=== PATIENT | male | born 1935 | race Caucasian/White ===

== ENCOUNTER → 2017-07-18 | Outpatient (CLI) | payer MEDICARE ==
[2017-07-18 08:30] LABS: Basophils # (A) 0.1 k/uL (0-0.2); Basophils % (A) 1 %; CH 30.5; CHCM 34.7; Eosinophils # (A) 0.7 k/uL (0-0.7); Eosinophils % (A) 6 %; HCT 43.2 % (39.0-53.0); HDW 2.64; HGB 15.2 gm/dL (13.0-17.5); Luc # (Auto) 0.21; Luc % (Auto) 2; Lymphocytes # (A) 2.8 k/uL (1.0-4.8); Lymphocytes % (A) 23 %; MCH 31.1 pg (25.0-35.0); MCHC 35.2 g/dL (31.0-37.0); MCV 88.3 fL (80.0-100.0); Mean Platelet Volume 7.3; Monocytes # (A) 0.6 k/uL (0-1.0); Monocytes % (A) 5 %; Neutrophils # (A) 7.9 k/uL (1.3-7.7); Neutrophils % (A) 64 %; RBC 4.89 m/uL (4.30-5.90); WBC 12.2 k/uL (3.8-10.6); WBC (Perox) 12.29
[2017-07-18 10:36] LABS: ALT 41 U/L (21-72); AST 24 U/L (17-59); Alkaline Phosphatase 59 U/L (38-126); Anion Gap 11 mmol/L; Blood Urea Nitrogen 25 mg/dL (9-20); Calcium 9.1 mg/dL (8.4-10.2); Carbon Dioxide 22 mmol/L (22-30); Chloride 108 mmol/L (98-107); Cholesterol 89 mg/dL (<200); Glucose 117 mg/dL (74-99); HDL Cholesterol 34 mg/dL (40-60); Non-African American GFR(MDRD) 58 (>60 ml/min/1.73 sqM); Potassium 4.4 mmol/L (3.5-5.1); Sodium 141 mmol/L (137-145); Total Bilirubin 0.6 mg/dL (0.2-1.3); Total Protein 6.8 g/dL (6.3-8.2)
[2017-07-18 10:57] LABS: Prostate Specific Antigen 1.15 ng/mL (0.00-4.00)
== END | disposition home or self-care (01) ==
LOC: LABWHC1 08:05
PROVIDERS: ATTEND Internal Medicine
DX: N40.1 Benign prostatic hyperplasia with lower urinary tract symptoms (principal); R73.02 Impaired glucose tolerance (oral); M10.9 Gout, unspecified; K62.5 Hemorrhage of anus and rectum
CPT/HCPCS: 36415; 80053; 80061; 83036; 84153; 84550; 85025

== ENCOUNTER → 2017-10-22 | Outpatient (CLI) | payer MEDICARE ==
--- NOTE | 2017-10-22 14:38 | XR ---
Lumbar spine HISTORY: Low back pain 3 views of the lumbar spine No comparisons There is a spinal curvature. Lumbar vertebral bodies show preserved height and alignment. Bone minera lization is reduced. There is multilevel spondylosis. Loss of disc height present at the intervertebr al levels, vacuum phenomenon present at L5-S1. Lordosis present in the posterior elements. Mild anter ior wedging L1. Dense vascular calcifications present within the aorta. IMPRESSION: Degenerative disc disease, facet arthropathy, spinal curvature, atherosclerotic periphera l vascular occlusive disease. Anterior wedging at L1 of indeterminate age.
--- NOTE | 2017-10-22 14:42 | XR ---
Right hip HISTORY: Right hip pain 2 views of the right hip No comparisons Bone mineralization and alignment are maintained. Mild loss of joint space. IMPRESSION: Mild osteoarthritic change suspected
== END | disposition home or self-care (01) ==
LOC: RADXRMAIN 09:07
PROVIDERS: ATTEND Internal Medicine
DX: M51.36 Other intervertebral disc degeneration, lumbar region (principal); M46.86 Other specified inflammatory spondylopathies, lumbar region; M48.56XA Collapsed vertebra, not elsewhere classified, lumbar region, initial encounter for fracture; M43.9 Deforming dorsopathy, unspecified; M25.551 Pain in right hip
CPT/HCPCS: 72100; 73502

== ENCOUNTER → 2018-03-25 | Outpatient (CLI) | payer MEDICARE ==
[2018-03-25 08:25] LABS: ALT 39 U/L (21-72); AST 26 U/L (17-59); Cholesterol 109 mg/dL (<200); HDL Cholesterol 37 mg/dL (40-60); LDL Cholesterol,Calculated 36 mg/dL (0-99); Triglycerides 181 mg/dL (<150)
== END | disposition home or self-care (01) ==
LOC: LABWHC1 07:30
PROVIDERS: ATTEND Internal Medicine Cardiovascular Disease
DX: E78.2 Mixed hyperlipidemia (principal)
CPT/HCPCS: 36415; 80061; 84450; 84460

== ENCOUNTER → 2018-07-03 | Outpatient (CLI) | payer MEDICARE ==
[2018-07-03 08:22] LABS: Basophils # (A) 0.1 k/uL (0-0.2); Basophils % (A) 1 %; Eosinophils # (A) 0.6 k/uL (0-0.7); Eosinophils % (A) 7 %; Lymphocytes # (A) 2.7 k/uL (1.0-4.8); Lymphocytes % (A) 27 %; MCH 29.3 pg (25.0-35.0); MCHC 33.3 g/dL (31.0-37.0); Mean Platelet Volume 7.4; Monocytes # (A) 0.5 k/uL (0-1.0); Monocytes % (A) 5 %; Neutrophils # (A) 5.9 k/uL (1.3-7.7); Neutrophils % (A) 59 %; Platelet Count 236 k/uL (150-450); RBC 5.46 m/uL (4.30-5.90); RDW 13.7 % (11.5-15.5); WBC 9.9 k/uL (3.8-10.6)
[2018-07-03 08:27] LABS: Appearance,Urine Clear (Clear); Bilirubin,Urine Negative (Negative); Blood,Urine Negative (Negative); Color,Urine Yellow; Glucose,Urine (UA) Negative (Negative); Ketones,Urine Negative (Negative); Leukocyte Esterase,Urine Negative (Negative); Nitrite,Urine Negative (Negative); PH, Urine 5.5 (5.0-8.0); Protein,Urine Negative (Negative); Specific Gravity,Urine 1.013 (1.001-1.035); Urobilinogen,Urine <2.0 mg/dL (<2.0)
[2018-07-03 10:29] LABS: Albumin 4.3 g/dL (3.5-5.0); Calcium 9.5 mg/dL (8.4-10.2); Potassium 4.6 mmol/L (3.5-5.1); Total Bilirubin 0.8 mg/dL (0.2-1.3); Total Protein 7.2 g/dL (6.3-8.2); Uric Acid 6.9 mg/dL (3.5-8.5)
[2018-07-03 10:58] LABS: Prostate Specific Antigen 1.15 ng/mL (0.00-4.00)
== END | disposition home or self-care (01) ==
LOC: LABWHC1 07:58
PROVIDERS: ATTEND Internal Medicine
DX: N40.0 Benign prostatic hyperplasia without lower urinary tract symptoms (principal); I10 Essential (primary) hypertension; M10.9 Gout, unspecified; E55.9 Vitamin D deficiency, unspecified
CPT/HCPCS: 36415; 80053; 80061; 81003; 82306; 84153; 84550; 85025

== ENCOUNTER 2019-01-07 11:32 | Emergency (ER) | payer MEDICARE ==
[2019-01-07 11:39] VITALS: RESP 18; TEMP 96.8
[2019-01-07] MEDS ORDERED: ACET/COD 300 MG/30 MG STARTER PACK 6 TAB BTL PO STA (12:22)
[2019-01-07] MEDS ORDERED: KETOROLAC 60 MG/2 ML VIAL IM STA (12:22)
--- NOTE | 2019-01-07 12:43 | XR ---
EXAMINATION TYPE: XR lumbar spine 2 or 3V DATE OF EXAM: 01/07/2019 CLINICAL HISTORY: pain TECHNIQUE: Three views of the lumbar spine are submitted. COMPARISON: 10/22/2017 FINDINGS: There are 5 lumbar type vertebral bodies identified. The lumbar spine shows satisfactory alignment w ithout evidence of acute fracture or dislocation. Vertebral body heights are within normal limits. Moderate multilevel degenerative disc space narrowing and spondylosis. Severe facet joint arthropathy . The overlying soft tissue appears unremarkable. IMPRESSION: No acute fracture or dislocation is seen in the lumbar spine. ICD 10 NO FRACTURE, INITIAL EVALUATION
--- NOTE | 2019-01-07 13:09 | XR ---
Frontal chest x-ray and right RIBS HISTORY: Trauma and pain Frontal view of the chest, 4 views of the right ribs are submitted. Correlation to prior chest x-ray 09/10/2012 No pneumothorax or pleural effusion. Minimal atelectatic change suspected at the costophrenic angle l evels. Cardiac mediastinal silhouette, pulmonary vascularity and kenia are stable. Aorta is dense. Minimally displaced rib fractures noted at the right fourth, sixth, seventh and possibly fifth ribs. Some local pleural thickening is noted which is likely posttraumatic. IMPRESSION: Multiple right-sided rib fractures.
--- NOTE | 2019-01-07 13:24 | ED ---
Back Pain HPI - General Chief Complaint: Back Pain/Injury Stated Complaint: Fall, Back pain Time Seen by Provider: 01/07/19 11:36 Source: EMS, RN notes reviewed, old records reviewed Limitations: no limitations - History of Present Illness Initial Comments: Patient is an 83-year-old male who presents returned today 2 days after falling at home. Patient states that he forward outside of his house. He states that he initially hit his head and ricocheted backward. Patient states he landed on his back. He complains of right-sided rib pain. He states that he has no pain with taking a deep breath. He states the pain radiates towards the front of his chest. He denies any associated nausea or vomiting. Normal bowel in urination. - Related Data Home Medications Medication Instructions Recorded Confirmed Allopurinol [Zyloprim] 300 mg PO DAILY 08/10/15 01/07/19 Aspirin 81 mg PO HS 08/10/15 01/07/19 Atorvastatin [Lipitor] 20 mg PO HS 08/10/15 01/07/19 Hydrochlorothiazide 25 mg PO HS 08/10/15 01/07/19 Lisinopril [Zestril] 10 mg PO DAILY 08/10/15 01/07/19 Metoprolol Tartrate [Lopressor] 25 mg PO BID 08/10/15 01/07/19 Multivitamin [Men's Multi-Vitamin] 1 tab PO DAILY 08/10/15 01/07/19 Vitamin B Complex 1 cap PO HS 08/10/15 01/07/19 metFORMIN HCL [Glucophage] 500 mg PO BID 08/10/15 01/07/19 Naproxen Sodium [Aleve] 220 mg PO Q12HR PRN 01/07/19 01/07/19 Tamsulosin HCl [Flomax] 0.4 mg PO HS 01/07/19 01/07/19 Previous Rx's Medication Instructions Recorded HYDROcodone/APAP 5-325MG [[place] 1 tab PO Q6HR PRN #15 tab 01/07/19 5-325] Allergies Allergy/AdvReac Type Severity Reaction Status Date / Time No Known Allergies Allergy Verified 01/07/19 12:05 Review of Systems ROS Statement: Those systems with pertinent positive or pertinent negative responses have been documented in the HPI. ROS Other: All systems not noted in ROS Statement are negative. 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 Alert and oriented 3. Patient appears in no significant distress. Limitations: no limitations General appearance: alert, in no apparent distress Head exam: Present: atraumatic, normocephalic, normal inspection Eye exam: Present: normal appearance, PERRL, EOMI. Absent: scleral icterus, conjunctival injection, periorbital swelling ENT exam: Present: normal exam, mucous membranes moist Neck exam: Present: normal inspection. Absent: tenderness, meningismus, lymphadenopathy Respiratory exam: Present: normal lung sounds bilaterally, other (Center palpation over the right ribs 7 through 10. No external bruising noted.). Absent: respiratory distress, wheezes, rales, rhonchi, stridor Cardiovascular Exam: Present: regular rate, normal rhythm, normal heart sounds. Absent: systolic murmur, diastolic murmur, rubs, gallop, clicks GI/Abdominal exam: Present: soft, normal bowel sounds. Absent: distended, tenderness, guarding, rebound, rigid Extremities exam: Present: normal inspection, full ROM, normal capillary refill. Absent: tenderness, pedal edema, joint swelling, calf tenderness Back exam: Present: normal inspection Neurological exam: Present: alert, oriented X3, CN II-XII intact Psychiatric exam: Present: normal affect, normal mood Skin exam: Present: warm, dry, intact, normal color. Absent: rash Course Vital Signs 01/07/19 01/07/19 11:35 15:36 Temperature 96.8 F L Pulse Rate 61 81 Respiratory 18 18 Rate Blood Pressure 138/71 133/67 O2 Sat by Pulse 97 97 Oximetry Medical Decision Making - Medical Decision Making Isn't is an 83-year-old male presents return today with right-sided rib pain 2 days after fall. Patient states he fell onto his back from staying position. He denies any loss from his head or neck pain. Patient is tender palpation over the right ribs 7 through 10. X-rays completed did show evidence of multiple rib fractures. This image with Dr. Pelletier recommended CT. Patient had an IV established was given pain medication. He. No acute distress. Has no abdominal tenderness. Lab work was reviewed. Mild leukocytosis noted. He is afebrile. Patient's kidney function was reviewed and normal. He was given IV contrast and a CT chest abdomen and pelvis. This is evident for rib fractures 4 through 7 and posterior lateral 10th rib fracture. Patient has no evidence of pneumothorax or pleural effusion. No other traumatic intra- abdominal or pelvis injury. Patient was given an incentive spirometer. Discussed close follow-up with PCP. Discharged with a short course of pain medicine. Opiates are talking form was completed by myself with the Patient. I discussed that he should have close follow-up with PCP. All questions answered. - Lab Data Result diagrams: 01/07/19 13:57 01/07/19 13:57 Lab Results 01/07/19 01/07/19 01/07/19 Range/Units 13:57 13:57 14:00 WBC 15.9 H (3.8-10.6) k/uL RBC 5.28 (4.30-5.90) m/uL Hgb 15.6 (13.0-17.5) gm/dL Hct 46.9 (39.0-53.0) % MCV 88.8 (80.0-100.0) fL MCH 29.6 (25.0-35.0) pg MCHC 33.3 (31.0-37.0) g/dL RDW 14.0 (11.5-15.5) % Plt Count 203 (150-450) k/uL Neutrophils % 78 % Lymphocytes % 15 % Monocytes % 4 % Eosinophils % 3 % Basophils % 0 % Neutrophils # 12.4 H (1.3-7.7) k/uL Lymphocytes # 2.3 (1.0-4.8) k/uL Monocytes # 0.7 (0-1.0) k/uL Eosinophils # 0.4 (0-0.7) k/uL Basophils # 0.0 (0-0.2) k/uL Sodium 137 (137-145) mmol/L Potassium 4.8 (3.5-5.1) mmol/L Chloride 103 (98-107) mmol/L Carbon Dioxide 23 (22-30) mmol/L Anion Gap 11 mmol/L BUN 21 H (9-20) mg/dL Creatinine 1.08 (0.66-1.25) mg/dL Est GFR (CKD-EPI)AfAm 73 (>60 ml/min/1.73 sqM) Est GFR (CKD-EPI)NonAf 63 (>60 ml/min/1.73 sqM) Glucose 111 H (74-99) mg/dL Calcium 9.7 (8.4-10.2) mg/dL Urine Color Yellow Urine Appearance Clear (Clear) Urine pH 5.5 (5.0-8.0) Ur Specific [place] 1.017 (1.001-1.035) Urine Protein Negative (Negative) Urine Glucose (UA) Negative (Negative) Urine Ketones Negative (Negative) Urine Blood Negative (Negative) Urine Nitrite Negative (Negative) Urine Bilirubin Negative (Negative) Urine Urobilinogen <2.0 (<2.0) mg/dL Ur Leukocyte Esterase Negative (Negative) 01/07/19 17:09 EKG performed at 1424 shows normal sinus rhythm and normal EKG. Ventricular rate of 69 bpm. OK interval is 184 ms. QRS duration is 94 ms. QT QTc is 380/ 470 ms. - Radiology Data Radiology results: report reviewed Lumbar spine is negative for any acute fracture. Fractures of the right fourth through seventh ribs and posterior lateral 10th rib fractures. No pneumothorax is evident. No additional acute posterior medications. Probable cholelithiasis. Suspected appendicolith. 4 through 7 and posterior lateral 10th rib fracture. Disposition Clinical Impression: Right rib fracture Disposition: HOME SELF-CARE Condition: Good Instructions (If sedation given, give patient instructions): Rib Fracture (ED) Additional Instructions: Patient advised follow-up with PCP in one to 2 days. Use the incentive spirometer frequently.. Patient should return to the emergency department if any alarming signs or symptoms occur. Prescriptions: HYDROcodone/APAP 5-325MG [[place] 5-325] 1 tab PO Q6HR PRN #15 tab PRN Reason: Pain Is patient prescribed a controlled substance at d/c from ED?: Yes If prescribed controlled substance>3 days was MAPS reviewed?: Prescribed <3 Days If opioid is for acute pain is fill amount 7 days or less?: Yes If Rx opioid, was Start Talking consent form obtained?: Yes Referrals: Calvin Watson MD [Primary Care Provider] - 1-2 days Time of Disposition: 16:25
[2019-01-07] MEDS ORDERED: MORPHINE SULFATE 4 MG/ML SYRINGE IVP STA (13:40)
[2019-01-07] MEDS ORDERED: SODIUM CHLORIDE 0.9% 1,000 ML IV STA (13:40)
[2019-01-07 14:30] LABS: Basophils % (A) 0 %; Eosinophils # (A) 0.4 k/uL (0-0.7); Eosinophils % (A) 3 %; HCT 46.9 % (39.0-53.0); HGB 15.6 gm/dL (13.0-17.5); Lymphocytes # (A) 2.3 k/uL (1.0-4.8); Lymphocytes % (A) 15 %; MCH 29.6 pg (25.0-35.0); MCHC 33.3 g/dL (31.0-37.0); MCV 88.8 fL (80.0-100.0); Mean Platelet Volume 6.9; Monocytes # (A) 0.7 k/uL (0-1.0); Monocytes % (A) 4 %; Neutrophils # (A) 12.4 k/uL (1.3-7.7); Neutrophils % (A) 78 %; Platelet Count 203 k/uL (150-450); RBC 5.28 m/uL (4.30-5.90); WBC 15.9 k/uL (3.8-10.6)
[2019-01-07 14:44] LABS: Calcium 9.7 mg/dL (8.4-10.2); Potassium 4.8 mmol/L (3.5-5.1)
[2019-01-07 14:55] LABS: Appearance,Urine Clear (Clear); Bilirubin,Urine Negative (Negative); Blood,Urine Negative (Negative); Color,Urine Yellow; Glucose,Urine (UA) Negative (Negative); Ketones,Urine Negative (Negative); Leukocyte Esterase,Urine Negative (Negative); Nitrite,Urine Negative (Negative); PH, Urine 5.5 (5.0-8.0); Protein,Urine Negative (Negative); Specific Gravity,Urine 1.017 (1.001-1.035); Urobilinogen,Urine <2.0 mg/dL (<2.0)
[2019-01-07 15:37] VITALS: BP 133/67; PULSE 81
--- NOTE | 2019-01-07 16:00 | CT ---
EXAMINATION TYPE: CT ChestAbdPelvis w con DATE OF EXAM: 01/07/2019 INDICATION: Right sided pain post fall. COMPARISON: None CT DLP: 1418.9 mGycm CONTRAST: Performed without Oral Contrast and with IV Contrast, patient injected with 100 mL of Isovue 300. TECHNIQUE: Axial images at 5 mm thick sections. Reconstructed images in the coronal plane. Delayed images through the kidneys. FINDINGS: CT CHEST: Portion of the thyroid visualized is normal. Coronary artery calcifications present. Some minimal ate lectasis is likely present at the left lung base. Subglottic airway appears normal. No suspicious lung nodules or focal infiltrates are present. No enlarged mediastinal or hilar adenopathy is evident. Scattered shotty lymphadenopathy is present. The ascending aorta diameter at the level of the main pulmonary artery is 3.2 cm. The main pulmonary artery diameter at the bifurcation is 1.9 cm. No pneumothorax is evident. Lateral fourth fifth sixth and seventh rib fractures are present. A right 10th rib posterior lateral fracture is evident. No flail chest is evident. CT ABDOMEN: Liver: Normal Spleen: Normal Pancreas: Normal Adrenal glands: The adrenal glands are normal. Gallbladder: There is some increased density within the dependent gallbladder may be some tiny gallst ones. Kidneys: No masses are evident. No hydronephrosis is present. Several cortical renal cysts are pres ent. Delayed images were obtained through the kidneys. Aorta: Vascular calcification is within the aorta. Inferior vena cava: Normal. CT PELVIS: Loops of bowel within the abdomen and pelvis are normal. There are loops of bowel which are incom pletely distended or lack oral contrast limiting their evaluation. Appendix: There is a 1.1 cm calcification which may be an appendicolith. Urinary bladder: Normal. Genitourinary structures: Prostate is prominent. Osseous structures: No suspicious lytic or sclerotic lesions. Sacroiliac joint degenerative changes a re present. Degenerative disc changes are present L5-S1. Vertebral body heights are preserved. IMPRESSIONS: 1. Fractures of the right fourth through seventh ribs and posterior lateral 10th rib fractures. No pn eumothorax is evident. 2. No additional acute posttraumatic changes. 3. Probable cholelithiasis. 4. Suspected appendicolith
== END 2019-01-07 16:35 | disposition home or self-care (01) ==
LOC: EC 11:32
DX: S22.41XA Multiple fractures of ribs, right side, initial encounter for closed fracture (principal); D72.829 Elevated white blood cell count, unspecified; I25.10 Atherosclerotic heart disease of native coronary artery without angina pectoris; E78.5 Hyperlipidemia, unspecified; I10 Essential (primary) hypertension; Z86.73 Personal history of transient ischemic attack (TIA), and cerebral infarction without residual deficits; Z95.5 Presence of coronary angioplasty implant and graft; Z79.82 Long term (current) use of aspirin; Z79.84 Long term (current) use of oral hypoglycemic drugs; Z79.899 Other long term (current) drug therapy; W01.0XXA Fall on same level from slipping, tripping and stumbling without subsequent striking against object, initial encounter; Y92.009 Unspecified place in unspecified non-institutional (private) residence as the place of occurrence of the external cause
CPT/HCPCS: 36415; 93005; 80048; 85025; 81003; 71101; 72100; 71260; 74177; 99285; 96374; 96361; 96372; J2270; J1885; Q9967

== ENCOUNTER → 2019-02-18 | Outpatient (CLI) | payer MEDICARE ==
[2019-02-18 07:42] LABS: Appearance,Urine Clear (Clear); Basophils # (A) 0.1 k/uL (0-0.2); Basophils % (A) 1 %; Bilirubin,Urine Negative (Negative); Blood,Urine Negative (Negative); Color,Urine Yellow; Eosinophils # (A) 0.8 k/uL (0-0.7); Eosinophils % (A) 7 %; Glucose,Urine (UA) Negative (Negative); HCT 47.1 % (39.0-53.0); Ketones,Urine Negative (Negative); Leukocyte Esterase,Urine Negative (Negative); Lymphocytes # (A) 2.9 k/uL (1.0-4.8); Lymphocytes % (A) 26 %; MCH 29.2 pg (25.0-35.0); MCHC 31.9 g/dL (31.0-37.0); MCV 91.3 fL (80.0-100.0); Mean Platelet Volume 7.1; Monocytes # (A) 0.5 k/uL (0-1.0); Monocytes % (A) 4 %; Neutrophils # (A) 6.8 k/uL (1.3-7.7); Neutrophils % (A) 61 %; Nitrite,Urine Negative (Negative); PH, Urine 5.5 (5.0-8.0); Platelet Count 204 k/uL (150-450); Protein,Urine Negative (Negative); RBC 5.15 m/uL (4.30-5.90); Specific Gravity,Urine 1.015 (1.001-1.035); Urobilinogen,Urine <2.0 mg/dL (<2.0); WBC 11.2 k/uL (3.8-10.6)
[2019-02-18 16:49] LABS: Albumin 4.2 g/dL (3.80-4.90); Albumin/Globulin Ratio 1.91 (1.60-3.17); Anion Gap 8.8 mmol/L (4.00-12.00); Calcium 9.3 mg/dL (8.7-10.3); Carbon Dioxide 25.2 mmol/L (21.6-31.8); Globulin 2.2 g/dL (1.6-3.3); LDL Cholesterol,Calculated 36.4 mg/dL (0.0-131.0); Potassium 4.3 mmol/L (3.5-5.5); Total Bilirubin 0.6 mg/dL (0.2-1.2); Total Protein 6.4 g/dL (6.2-8.2); Uric Acid 5.3 mg/dL (3.7-8.7); VLDL Calculation 28.6 mg/dL (5.00-40.00)
== END | disposition home or self-care (01) ==
LOC: LABWHC1 06:52
PROVIDERS: ATTEND Internal Medicine
DX: E79.0 Hyperuricemia without signs of inflammatory arthritis and tophaceous disease (principal); I10 Essential (primary) hypertension
CPT/HCPCS: 36415; 80053; 80061; 81003; 84550; 85025

== ENCOUNTER → 2019-10-23 | Outpatient (CLI) | payer MEDICARE ==
[2019-10-23 07:49] LABS: Basophils # (A) 0.2 k/uL (0-0.2); Basophils % (A) 2 %; Eosinophils # (A) 0.9 k/uL (0-0.7); Eosinophils % (A) 8 %; HCT 44.7 % (39.0-53.0); HGB 15.5 gm/dL (13.0-17.5); Lymphocytes # (A) 2.7 k/uL (1.0-4.8); Lymphocytes % (A) 24 %; MCH 31.2 pg (25.0-35.0); MCHC 34.7 g/dL (31.0-37.0); MCV 89.8 fL (80.0-100.0); Mean Platelet Volume 7.1; Monocytes # (A) 0.5 k/uL (0-1.0); Monocytes % (A) 5 %; Neutrophils # (A) 6.7 k/uL (1.3-7.7); Neutrophils % (A) 60 %; Platelet Count 211 k/uL (150-450); RBC 4.98 m/uL (4.30-5.90); RDW 13.4 % (11.5-15.5); WBC 11.1 k/uL (3.8-10.6)
[2019-10-23 07:52] LABS: Appearance,Urine Clear (Clear); Bilirubin,Urine Negative (Negative); Blood,Urine Negative (Negative); Color,Urine Yellow; Glucose,Urine (UA) Negative (Negative); Ketones,Urine Negative (Negative); Leukocyte Esterase,Urine Negative (Negative); Nitrite,Urine Negative (Negative); PH, Urine 5.5 (5.0-8.0); Protein,Urine Negative (Negative); Specific Gravity,Urine 1.014 (1.001-1.035); Urobilinogen,Urine <2.0 mg/dL (<2.0)
[2019-10-23 12:32] LABS: African American GFR (CKD) 58.1 (60.0-200.0); Albumin 4.2 g/dL (3.80-4.90); Albumin/Globulin Ratio 1.91 (1.60-3.17); Anion Gap 8.3 mmol/L (4.00-12.00); BUN/Creat Ratio 14.62 Ratio (12.00-20.00); Calcium 9.2 mg/dL (8.7-10.3); Carbon Dioxide 24.7 mmol/L (21.6-31.8); Chol/HDL Ratio 2.68; Globulin 2.2 g/dL (1.6-3.3); LDL Cholesterol,Calculated 35.8 mg/dL (0.0-131.0); Non-African American GFR(CKD) 50.1 (60.0-200.0); Potassium 4.1 mmol/L (3.5-5.5); Total Bilirubin 0.6 mg/dL (0.2-1.2); Total Protein 6.4 g/dL (6.2-8.2); Uric Acid 5.4 mg/dL (3.7-8.7); VLDL Calculation 26.2 mg/dL (5.00-40.00)
== END | disposition home or self-care (01) ==
LOC: LABWHC1 07:19
PROVIDERS: ATTEND Internal Medicine
DX: I10 Essential (primary) hypertension (principal); M10.9 Gout, unspecified; Z12.5 Encounter for screening for malignant neoplasm of prostate
CPT/HCPCS: 80061; 80053; 84550; 85025; 81003; 36415; G0103

== ENCOUNTER → 2020-09-22 | Outpatient (CLI) | payer MEDICARE ==
[2020-09-22 07:56] LABS: Basophils # (A) 0.1 k/uL (0-0.2); Basophils % (A) 1 %; Eosinophils # (A) 0.8 k/uL (0-0.7); Eosinophils % (A) 7 %; HGB 15.3 gm/dL (13.0-17.5); Lymphocytes # (A) 2.7 k/uL (1.0-4.8); Lymphocytes % (A) 24 %; MCH 30.5 pg (25.0-35.0); MCHC 33.2 g/dL (31.0-37.0); Mean Platelet Volume 7.8; Monocytes # (A) 0.6 k/uL (0-1.0); Monocytes % (A) 5 %; Neutrophils % (A) 62 %; Platelet Count 197 k/uL (150-450); RBC 4.99 m/uL (4.30-5.90); RDW 13.2 % (11.5-15.5); WBC 11.3 k/uL (3.8-10.6)
[2020-09-22 12:09] LABS: African American GFR (CKD) 57.7 (60.0-200.0); Albumin 4.2 g/dL (3.80-4.90); Albumin/Globulin Ratio 1.91 (1.60-3.17); Anion Gap 7.5 mmol/L (4.00-12.00); BUN/Creat Ratio 20.77 Ratio (12.00-20.00); Calcium 9.2 mg/dL (8.7-10.3); Carbon Dioxide 26.5 mmol/L (21.6-31.8); Chol/HDL Ratio 2.5; Globulin 2.2 g/dL (1.6-3.3); LDL Cholesterol,Calculated 36.4 mg/dL (0.0-131.0); Non-African American GFR(CKD) 49.8 (60.0-200.0); Potassium 4.4 mmol/L (3.5-5.5); Prostate Specific Antigen 1.5 ng/mL (0.0-6.5); Total Bilirubin 0.6 mg/dL (0.3-1.2); Total Protein 6.4 g/dL (6.2-8.2); VLDL Calculation 20.6 mg/dL (5.00-40.00)
[2020-09-22 16:08] LABS: Hemoglobin A1C 5.5 % (4.0-6.0)
== END | disposition home or self-care (01) ==
LOC: LABWHC1 07:17
PROVIDERS: ATTEND Internal Medicine
DX: I10 Essential (primary) hypertension (principal); N13.9 Obstructive and reflux uropathy, unspecified; E11.9 Type 2 diabetes mellitus without complications
CPT/HCPCS: 36415; 80053; 80061; 83036; 84153; 85025

== ENCOUNTER 2021-01-16 10:32 | Observation (INO) | payer MEDICARE ==
[2021-01-16] MEDS ORDERED: SODIUM CHLORIDE 0.9% 500 ML 500 ML IV STA (11:00)
--- NOTE | 2021-01-16 11:19 | ED ---
General Adult HPI - General Chief complaint: Recheck/Abnormal Lab/Rx Stated complaint: vaccine reaction Time Seen by Provider: 01/16/21 10:49 Source: patient, RN notes reviewed Mode of arrival: wheelchair Limitations: physical limitation - History of Present Illness Initial comments: This a 85-year-old male presents emergency Department with chief complaint of generalized weakness, chills, feeling well. Patient states it started after having his covert vaccine. Patient states that he is totally last day or 2 was states been 2 weeks and states she does not feel any better. He does admit to slight cough no known fever but states that he's had chills, body aches. Patient one episode of diarrhea no significant mom medicated nausea vomiting. He states he has not been eating much and lost 20 pounds last 2 weeks. Denies any sick contacts. - Related Data Home Medications Medication Instructions Recorded Confirmed Atorvastatin [Lipitor] 20 mg PO HS 08/10/15 01/16/21 Multivitamin [Men's Multi-Vitamin] 1 tab PO DAILY 08/10/15 01/16/21 Vitamin B Complex 1 cap PO HS 08/10/15 01/16/21 allopurinoL [Zyloprim] 300 mg PO DAILY 08/10/15 01/16/21 hydroCHLOROthiazide 25 mg PO HS 08/10/15 01/16/21 lisinopriL [Zestril] 10 mg PO DAILY 08/10/15 01/16/21 metFORMIN HCL [Glucophage] 500 mg PO BID 08/10/15 01/16/21 Tamsulosin HCl [Flomax] 0.4 mg PO HS 01/07/19 01/16/21 Aspirin EC [Ecotrin] 325 mg PO DAILY 01/16/21 01/16/21 Diclofenac 0.1% Ophth Soln 1 drop LEFT EYE BID 01/16/21 01/16/21 [Voltaren 0.1% Ophth Soln] Metoprolol Succinate [Toprol XL] 25 mg PO BID 01/16/21 01/16/21 prednisoLONE ACETATE 1% OPHTH 1 drop LEFT EYE QID 01/16/21 01/16/21 [Pred Forte 1%] Allergies Allergy/AdvReac Type Severity Reaction Status Date / Time No Known Allergies Allergy Verified 01/16/21 12:48 Review of Systems ROS Statement: Those systems with pertinent positive or pertinent negative responses have been documented in the HPI. ROS Other: All systems not noted in ROS Statement are negative. 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 History of Any Multi-Drug Resistant Organisms: None Reported Past Surgical History: Heart Catheterization With Stent Additional Past Surgical History / Comment(s): eye Past Anesthesia/Blood Transfusion Reactions: Motion Sickness Date of Last Stent Placement:: 2012 Past Psychological History: No Psychological Hx Reported Smoking Status: Former smoker Past Alcohol Use History: Occasional Past Drug Use History: None Reported - Past Family History Mother Family Medical History: Cancer General Exam Limitations: physical limitation General appearance: alert, in no apparent distress Head exam: Present: atraumatic, normocephalic, normal inspection Eye exam: Present: normal appearance, PERRL, EOMI. Absent: scleral icterus, conjunctival injection, periorbital swelling ENT exam: Present: normal exam, normal oropharynx, mucous membranes moist Neck exam: Present: normal inspection, full ROM. Absent: tenderness, meningismus, lymphadenopathy Respiratory exam: Present: normal lung sounds bilaterally. Absent: respiratory distress, wheezes, rales, rhonchi, stridor Cardiovascular Exam: Present: regular rate, normal rhythm, normal heart sounds. Absent: systolic murmur, diastolic murmur, rubs, gallop, clicks GI/Abdominal exam: Present: soft, normal bowel sounds. Absent: distended, tenderness, guarding, rebound, rigid Back exam: Absent: CVA tenderness (R), CVA tenderness (L) Neurological exam: Present: alert, oriented X3, CN II-XII intact Skin exam: Present: warm, dry, intact, normal color. Absent: rash Course Vital Signs 01/16/21 01/16/21 01/16/21 10:39 12:00 12:30 Temperature 97.9 F Pulse Rate 87 72 68 Respiratory 18 16 12 Rate Blood Pressure 119/67 122/66 121/64 O2 Sat by Pulse 95 96 95 Oximetry 01/16/21 13:30 Temperature Pulse Rate 72 Respiratory 16 Rate Blood Pressure 115/64 O2 Sat by Pulse 98 Oximetry EKG Findings - EKG Comments: EKG Findings:: EKG performed at 10:56 normal sinus rhythm with a rate of 81. 158 QRS 92 QT status QTC 364/422 Medical Decision Making - Medical Decision Making 85-year-old presented for generalized weakness. Patient's had acute weight loss which has been unintentional secondary to decrease intake. Patient found to be dehydrated. Patient denies week difficulty performing daily activities. Patiently admitted for further treatment and management. - Lab Data Result diagrams: 01/16/21 11:07 01/16/21 11:07 Lab Results 01/16/21 01/16/21 01/16/21 Range/Units 11:07 11:07 11:07 WBC 9.6 (3.8-10.6) k/uL RBC 5.24 (4.30-5.90) m/uL Hgb 15.9 (13.0-17.5) gm/dL Hct 45.5 (39.0-53.0) % MCV 86.8 (80.0-100.0) fL MCH 30.3 (25.0-35.0) pg MCHC 34.9 (31.0-37.0) g/dL RDW 12.7 (11.5-15.5) % Plt Count 279 (150-450) k/uL MPV 8.4 Neutrophils % 81 % Lymphocytes % 11 % Monocytes % 6 % Eosinophils % 0 % Basophils % 1 % Neutrophils # 7.8 H (1.3-7.7) k/uL Lymphocytes # 1.0 (1.0-4.8) k/uL Monocytes # 0.6 (0-1.0) k/uL Eosinophils # 0.0 (0-0.7) k/uL Basophils # 0.1 (0-0.2) k/uL PT 10.2 (9.0-12.0) sec INR 0.9 (<1.2) APTT 24.1 (22.0-30.0) sec Sodium (137-145) mmol/L Potassium (3.5-5.1) mmol/L Chloride (98-107) mmol/L Carbon Dioxide (22-30) mmol/L Anion Gap mmol/L BUN (9-20) mg/dL Creatinine (0.66-1.25) mg/dL Est GFR (CKD-EPI)AfAm (>60 ml/min/1.73 sqM) Est GFR (CKD-EPI)NonAf (>60 ml/min/1.73 sqM) Glucose (74-99) mg/dL Lactic Ac Sepsis Rflx Plasma Lactic Acid [place] (0.7-2.0) mmol/L Calcium (8.4-10.2) mg/dL Magnesium (1.6-2.3) mg/dL Total Bilirubin (0.2-1.3) mg/dL AST (17-59) U/L ALT (4-49) U/L Alkaline Phosphatase (38-126) U/L Creatine Kinase (55-170) U/L Troponin I (0.000-0.034) ng/mL Total Protein (6.3-8.2) g/dL Albumin (3.5-5.0) g/dL Urine Color Yellow Urine Appearance Clear (Clear) Urine pH 5.5 (5.0-8.0) Ur Specific [place] 1.024 (1.001-1.035) Urine Protein Trace H (Negative) Urine Glucose (UA) Negative (Negative) Urine Ketones Negative (Negative) Urine Blood Negative (Negative) Urine Nitrite Negative (Negative) Urine Bilirubin Negative (Negative) Urine Urobilinogen <2.0 (<2.0) mg/dL Ur Leukocyte Esterase Negative (Negative) Coronavirus (PCR) (Not Detectd) 01/16/21 01/16/21 01/16/21 Range/Units 11:07 11:07 11:07 WBC (3.8-10.6) k/uL RBC (4.30-5.90) m/uL Hgb (13.0-17.5) gm/dL Hct (39.0-53.0) % MCV (80.0-100.0) fL MCH (25.0-35.0) pg MCHC (31.0-37.0) g/dL RDW (11.5-15.5) % Plt Count (150-450) k/uL MPV Neutrophils % % Lymphocytes % % Monocytes % % Eosinophils % % Basophils % % Neutrophils # (1.3-7.7) k/uL Lymphocytes # (1.0-4.8) k/uL Monocytes # (0-1.0) k/uL Eosinophils # (0-0.7) k/uL Basophils # (0-0.2) k/uL PT (9.0-12.0) sec INR (<1.2) APTT (22.0-30.0) sec Sodium 131 L (137-145) mmol/L Potassium 4.1 (3.5-5.1) mmol/L Chloride 100 (98-107) mmol/L Carbon Dioxide 19 L (22-30) mmol/L Anion Gap 12 mmol/L BUN 47 H (9-20) mg/dL Creatinine 1.38 H (0.66-1.25) mg/dL Est GFR (CKD-EPI)AfAm 54 (>60 ml/min/1.73 sqM) Est GFR (CKD-EPI)NonAf 46 (>60 ml/min/1.73 sqM) Glucose 156 H (74-99) mg/dL Lactic Ac Sepsis Rflx Plasma Lactic Acid [place] 2.1 H* (0.7-2.0) mmol/L Calcium 9.0 (8.4-10.2) mg/dL Magnesium 2.5 H (1.6-2.3) mg/dL Total Bilirubin 0.9 (0.2-1.3) mg/dL AST 40 (17-59) U/L ALT 37 (4-49) U/L Alkaline Phosphatase 61 (38-126) U/L Creatine Kinase 153 (55-170) U/L Troponin I <0.012 (0.000-0.034) ng/mL Total Protein 7.5 (6.3-8.2) g/dL Albumin 3.8 (3.5-5.0) g/dL Urine Color Urine Appearance (Clear) Urine pH (5.0-8.0) Ur Specific [place] (1.001-1.035) Urine Protein (Negative) Urine Glucose (UA) (Negative) Urine Ketones (Negative) Urine Blood (Negative) Urine Nitrite (Negative) Urine Bilirubin (Negative) Urine Urobilinogen (<2.0) mg/dL Ur Leukocyte Esterase (Negative) Coronavirus (PCR) (Not Detectd) 01/16/21 01/16/21 Range/Units 11:07 11:51 WBC (3.8-10.6) k/uL RBC (4.30-5.90) m/uL Hgb (13.0-17.5) gm/dL Hct (39.0-53.0) % MCV (80.0-100.0) fL MCH (25.0-35.0) pg MCHC (31.0-37.0) g/dL RDW (11.5-15.5) % Plt Count (150-450) k/uL MPV Neutrophils % % Lymphocytes % % Monocytes % % Eosinophils % % Basophils % % Neutrophils # (1.3-7.7) k/uL Lymphocytes # (1.0-4.8) k/uL Monocytes # (0-1.0) k/uL Eosinophils # (0-0.7) k/uL Basophils # (0-0.2) k/uL PT (9.0-12.0) sec INR (<1.2) APTT (22.0-30.0) sec Sodium (137-145) mmol/L Potassium (3.5-5.1) mmol/L Chloride (98-107) mmol/L Carbon Dioxide (22-30) mmol/L Anion Gap mmol/L BUN (9-20) mg/dL Creatinine (0.66-1.25) mg/dL Est GFR (CKD-EPI)AfAm (>60 ml/min/1.73 sqM) Est GFR (CKD-EPI)NonAf (>60 ml/min/1.73 sqM) Glucose (74-99) mg/dL Lactic Ac Sepsis Rflx Y Plasma Lactic Acid [place] (0.7-2.0) mmol/L Calcium (8.4-10.2) mg/dL Magnesium (1.6-2.3) mg/dL Total Bilirubin (0.2-1.3) mg/dL AST (17-59) U/L ALT (4-49) U/L Alkaline Phosphatase (38-126) U/L Creatine Kinase (55-170) U/L Troponin I (0.000-0.034) ng/mL Total Protein (6.3-8.2) g/dL Albumin (3.5-5.0) g/dL Urine Color Urine Appearance (Clear) Urine pH (5.0-8.0) Ur Specific [place] (1.001-1.035) Urine Protein (Negative) Urine Glucose (UA) (Negative) Urine Ketones (Negative) Urine Blood (Negative) Urine Nitrite (Negative) Urine Bilirubin (Negative) Urine Urobilinogen (<2.0) mg/dL Ur Leukocyte Esterase (Negative) Coronavirus (PCR) Not Detected (Not Detectd) Disposition Clinical Impression: Dehydration, Generalized weakness, Weight loss, non-intentional Disposition: ADMITTED IP TO THIS HOSP Condition: Fair Referrals: Jolene Chadwick MD [Primary Care Provider] - 1-2 days
[2021-01-16 11:36] LABS: Basophils # (A) 0.1 k/uL (0-0.2); Basophils % (A) 1 %; Eosinophils % (A) 0 %; HCT 45.5 % (39.0-53.0); HGB 15.9 gm/dL (13.0-17.5); Lymphocytes % (A) 11 %; MCH 30.3 pg (25.0-35.0); MCHC 34.9 g/dL (31.0-37.0); MCV 86.8 fL (80.0-100.0); Mean Platelet Volume 8.4; Monocytes # (A) 0.6 k/uL (0-1.0); Monocytes % (A) 6 %; Neutrophils # (A) 7.8 k/uL (1.3-7.7); Neutrophils % (A) 81 %; Platelet Count 279 k/uL (150-450); RBC 5.24 m/uL (4.30-5.90); RDW 12.7 % (11.5-15.5); WBC 9.6 k/uL (3.8-10.6)
[2021-01-16 11:45] LABS: Albumin 3.8 g/dL (3.5-5.0); Magnesium 2.5 mg/dL (1.6-2.3); Potassium 4.1 mmol/L (3.5-5.1); Total Bilirubin 0.9 mg/dL (0.2-1.3); Total Protein 7.5 g/dL (6.3-8.2)
[2021-01-16 11:48] LABS: INR 0.9 (<1.2); Partial Thromboplastin Time 24.1 sec (22.0-30.0); Prothrombin Time 10.2 sec (9.0-12.0)
--- NOTE | 2021-01-16 12:02 | XR ---
EXAMINATION TYPE: XR chest 2V DATE OF EXAM: 01/16/2021 COMPARISON: 01/07/2019 TECHNIQUE: PA and lateral views submitted. HISTORY: Weakness FINDINGS: The lungs are clear and there is no pneumothorax, pleural effusion, or focal pneumonia. Hyperinflat ion suggests COPD. Coarsened interstitium suggests chronic interstitial lung disease. Arthropathy of the shoulders. Rib cage deformity in the right suggest remote trauma. IMPRESSION: 1. No acute process. Correlate for COPD. 2. Patchy linear changes at the lung bases most typical of atelectasis.
[2021-01-16 13:06] LABS: Appearance,Urine Clear (Clear); Bilirubin,Urine Negative (Negative); Blood,Urine Negative (Negative); Color,Urine Yellow; Glucose,Urine (UA) Negative (Negative); Ketones,Urine Negative (Negative); Leukocyte Esterase,Urine Negative (Negative); Nitrite,Urine Negative (Negative); PH, Urine 5.5 (5.0-8.0); Protein,Urine Trace (Negative); Specific Gravity,Urine 1.024 (1.001-1.035); Urobilinogen,Urine <2.0 mg/dL (<2.0)
[2021-01-16] MEDS ORDERED: NALOXONE 0.4 MG/ML 1 ML VIAL IV PRN ×2 (14:33→16:22)
[2021-01-16] MEDS: SODIUM CHLORIDE 0.9% 1,000 ML IV SCH (14:46)
[2021-01-16] MEDS ORDERED: ACETAMINOPHEN TAB 325 MG TAB PO PRN (16:22)
--- NOTE | 2021-01-16 16:26 | P.HPIM ---
History of Present Illness H&P Date: 01/16/21 Chief Complaint: weakness 85 year old man with history of CAD, HTN/HLD/DM, BPH, Gout presented for weakness. Patient says that he got his COVID vaccine 13 days ago, and that night he woke up to go to the bathroom and felt chills, fatigue, and weakness. Since that time, he has not felt any better, every day he's been feeling worn out and fatigued. He lost his appetite, and his UOP, stool output has decreased. He feels thirsty. He denies fevers, nausea, vomiting, chest pain, palps, abd pain, sycnope, presyncope, dizziness, dysuria, dyschezia, melena/hematochezia, numbness of extremities. In the ER, he is found to have REGGIE and hyponatremia; otherwise VSS. 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 History of Any Multi-Drug Resistant Organisms: None Reported Past Surgical History: Heart Catheterization With Stent Additional Past Surgical History / Comment(s): eye Past Anesthesia/Blood Transfusion Reactions: Motion Sickness Date of Last Stent Placement:: 2012 Past Psychological History: No Psychological Hx Reported Smoking Status: Former smoker Past Alcohol Use History: Occasional Past Drug Use History: None Reported - Past Family History Mother Family Medical History: Cancer Medications and Allergies Home Medications Medication Instructions Recorded Confirmed Type Atorvastatin [Lipitor] 20 mg PO HS 08/10/15 01/16/21 History Multivitamin [Men's Multi-Vitamin] 1 tab PO DAILY 08/10/15 01/16/21 History Vitamin B Complex 1 cap PO HS 08/10/15 01/16/21 History allopurinoL [Zyloprim] 300 mg PO DAILY 08/10/15 01/16/21 History hydroCHLOROthiazide 25 mg PO HS 08/10/15 01/16/21 History lisinopriL [Zestril] 10 mg PO DAILY 08/10/15 01/16/21 History metFORMIN HCL [Glucophage] 500 mg PO BID 08/10/15 01/16/21 History Tamsulosin HCl [Flomax] 0.4 mg PO HS 01/07/19 01/16/21 History Aspirin EC [Ecotrin] 325 mg PO DAILY 01/16/21 01/16/21 History Diclofenac 0.1% Ophth Soln 1 drop LEFT EYE BID 01/16/21 01/16/21 History [Voltaren 0.1% Ophth Soln] Metoprolol Succinate [Toprol XL] 25 mg PO BID 01/16/21 01/16/21 History prednisoLONE ACETATE 1% OPHTH 1 drop LEFT EYE QID 01/16/21 01/16/21 History [Pred Forte 1%] Allergies Allergy/AdvReac Type Severity Reaction Status Date / Time No Known Allergies Allergy Verified 01/16/21 12:48 Physical Exam Osteopathic Statement: *. No significant issues noted on an osteopathic structural exam other than those noted in the History and Physical/Consult. Vitals: Vital Signs Temp Pulse Resp BP Pulse Ox 01/16/21 14:30 71 20 108/59 97 01/16/21 13:30 72 16 115/64 98 01/16/21 13:00 70 15 118/66 98 01/16/21 12:30 68 12 121/64 95 01/16/21 12:00 72 16 122/66 96 01/16/21 10:39 97.9 F 87 18 119/67 95 Intake and Output 01/16/21 01/16/21 01/16/21 06:59 14:59 22:59 Other: Weight 81.647 kg Gen: awake, alert HEENT: normocephalic, atraumatic, good hearing acuity, moist mucous membranes Resp: good air exchange, breathing comfortably with no accessory muscle use, clear to auscultation bilaterally without wheezes CVS: good distal perfusion x 4, regular rate and rhythm without murmurs GI: soft, NTTP, ND : no SPT, no CVAT, carpio catheter not present MSK: no pitting edema, no clubbing Neuro: non-focal, moving all extremities Psych: cooperative, euthymic mood Results CBC & Chem 7: 01/16/21 11:07 01/16/21 11:07 Labs: Abnormal Lab Results - Last 24 Hours (Table) 01/16/21 01/16/21 01/16/21 Range/Units 11:07 11:07 11:07 Neutrophils # 7.8 H (1.3-7.7) k/uL Sodium 131 L (137-145) mmol/L Carbon Dioxide 19 L (22-30) mmol/L BUN 47 H (9-20) mg/dL Creatinine 1.38 H (0.66-1.25) mg/dL Glucose 156 H (74-99) mg/dL Plasma Lactic Acid C[place]rick (0.7-2.0) mmol/L Magnesium 2.5 H (1.6-2.3) mg/dL Urine Protein Trace H (Negative) 01/16/21 Range/Units 11:07 Neutrophils # (1.3-7.7) k/uL Sodium (137-145) mmol/L Carbon Dioxide (22-30) mmol/L BUN (9-20) mg/dL Creatinine (0.66-1.25) mg/dL Glucose (74-99) mg/dL Plasma Lactic Acid [place] 2.1 H* (0.7-2.0) mmol/L Magnesium (1.6-2.3) mg/dL Urine Protein (Negative) Assessment and Plan Assessment: 1. Generalized Weakness 2. Hyponatremia 3. REGGIE 4. CAD 5. HTN 6. HLD 7. DM II 8. BPH 9. Gout 10. Recent Cataract Surgery 85 year old man with CAD/HTN/HLD/DMII, BPH, Gout presented for generalized weakness and is found to be hyponatremic with REGGIE concerning for dehydration. Plan: - admit to observation - IVF: 1L NS Bolus in the ER --> NS 75cc/hr - daily BMP, Mg - continue home metoprolol - hold home lisinopril, HCTZ given hyponatremia, REGGIE - continue home lipitor - continue home ASA - hold home metformin - low dose aspart AC-TID SSI - orthostatics BID DNR DVT PPx: heparin 5000SQ TID
[2021-01-16] MEDS: INSULIN ASPART (NovoLOG) 100 UNIT/ML VIAL SQ SCH (16:50)
[2021-01-16] MEDS ORDERED: prednisoLONE ACETATE 1% OPHTH DROPS 5 ML BTL LEFT EYE SCH (18:00)
[2021-01-16] MEDS ORDERED: TAMSULOSIN 0.4 MG CAP.ER.24H PO SCH (21:00)
[2021-01-16] MEDS ORDERED: NON FORMULARY DRUG (Vitamin B Complex [Vitamin B Complex] 1 EACH Capsule) PO SCH (21:00)
[2021-01-16] MEDS ORDERED: ATORVASTATIN 20 MG TAB PO SCH (21:00)
[2021-01-17] MEDS: METOPROLOL SUCCINATE (ER) 25 MG TAB.ER.24H PO SCH ×2 (00:47→09:25)
[2021-01-17] MEDS: HEPARIN SODIUM,PORCINE 5,000 UNIT/ML 1 ML VIAL SQ SCH ×2 (00:47→09:24)
[2021-01-17] MEDS: DICLOFENAC 0.1% OPHTH SOLN 2.5 ML BTL LEFT EYE SCH ×2 (00:48→09:26)
[2021-01-17] MEDS: prednisoLONE ACETATE 1% OPHTH DROPS 5 ML BTL LEFT EYE SCH ×2 (00:48→09:25)
[2021-01-17 02:41] LABS: Glucose,Whole Blood 101 mg/dL (75-99)
[2021-01-17] MEDS: SODIUM CHLORIDE 0.9% 1,000 ML IV SCH (05:19)
[2021-01-17 07:14] LABS: Glucose,Whole Blood 104 mg/dL (75-99)
[2021-01-17 07:26] VITALS: BP 117/64; PULSE 63; RESP 16; TEMP 98
[2021-01-17] MEDS ORDERED: allopurinoL 300 MG TAB PO SCH (09:00)
[2021-01-17] MEDS ORDERED: ASPIRIN 81 MG PO SCH (09:00)
[2021-01-17] MEDS ORDERED: MULTIVITAMINS, THERA 1 EACH TAB PO SCH (09:00)
[2021-01-17] MEDS: INSULIN ASPART (NovoLOG) 100 UNIT/ML VIAL SQ SCH ×2 (09:21→13:03)
[2021-01-17 11:57] LABS: HCT 40.3 % (39.6-50.0); HGB 13.5 g/dL (13.0-17.0); MCH 29.3 pg (27.0-32.0); MCHC 33.5 g/dL (32.0-37.0); MCV 87.6 fL (80.0-97.0); Mean Platelet Volume 11.2 fL (9.5-12.2); Platelet Count 273 X 10*3/uL (140-440); RDW 12.8 % (11.5-14.5); WBC 9.54 X 10*3/uL (4.50-10.00)
[2021-01-17 12:08] LABS: African American GFR (CKD) 79.2 (60.0-200.0); Anion Gap 7.8 mmol/L (4.00-12.00); Calcium 8.2 mg/dL (8.7-10.3); Carbon Dioxide 25.2 mmol/L (21.6-31.8); Magnesium 2.3 mg/dL (1.5-2.4); Non-African American GFR(CKD) 68.3 (60.0-200.0); Potassium 4.1 mmol/L (3.5-5.5)
[2021-01-17 13:33] LABS: Basophils # (A) 0.04 X 10*3/uL (0.00-0.10); Basophils % (A) 0.4 %; Eosinophils # (A) 0.15 X 10*3/uL (0.04-0.35); Eosinophils % (A) 1.6 %; Lymphocytes # (A) 1.97 X 10*3/uL (0.90-5.00); Lymphocytes % (A) 20.6 %; Monocytes # (A) 0.74 X 10*3/uL (0.20-1.00); Monocytes % (A) 7.8 %; Neutrophils # (A) 6.48 X 10*3/uL (1.80-7.70); Neutrophils % (A) 67.9 %
--- NOTE | 2021-01-17 13:49 | P.DS ---
Providers Date of admission: 01/16/21 14:51 Expected date of discharge: 01/17/21 Attending physician: Philippe Aldrich MD Primary care physician: Jolene Chadwick MD Hospital Course: 1. Generalized Weakness 2. Hyponatremia 3. REGGIE 4. CAD 5. HTN 6. HLD 7. DM II 8. BPH 9. Gout 10. Recent Cataract Surgery 85 year old man with CAD/HTN/HLD/DMII, BPH, Gout presented for generalized weakness and is found to be hyponatremic with REGGIE concerning for dehydration. Patient was started on IVF, and by the following day, he felt back to his normal baseline, with kidney function improving to normal. He was discharged home in stable condition, HCTZ was discontinued, all other medications resumed at home doses. Assessment: Gen: awake, alert HEENT: normocephalic, atraumatic, good hearing acuity, moist mucous membranes Resp: good air exchange, breathing comfortably with no accessory muscle use, clear to auscultation bilaterally without wheezes CVS: good distal perfusion x 4, regular rate and rhythm without murmurs GI: soft, NTTP, ND : no SPT, no CVAT, carpio catheter not present MSK: no pitting edema, no clubbing Neuro: non-focal, moving all extremities Psych: cooperative, euthymic mood Patient Condition at Discharge: Good Plan - Discharge Summary Discharge Rx Participant: No New Discharge Prescriptions: Continue metFORMIN HCL [Glucophage] 500 mg PO BID Atorvastatin [Lipitor] 20 mg PO HS lisinopriL [Zestril] 10 mg PO DAILY allopurinoL [Zyloprim] 300 mg PO DAILY Vitamin B Complex 1 cap PO HS Multivitamin [Men's Multi-Vitamin] 1 tab PO DAILY Tamsulosin HCl [Flomax] 0.4 mg PO HS prednisoLONE ACETATE 1% OPHTH [Pred Forte 1%] 1 drop LEFT EYE QID Diclofenac 0.1% Ophth Soln [Voltaren 0.1% Ophth Soln] 1 drop LEFT EYE BID Metoprolol Succinate [Toprol XL] 25 mg PO BID Changed Aspirin EC [Ecotrin] 81 mg PO DAILY #0 Discontinued hydroCHLOROthiazide 25 mg PO HS Discharge Medication List Atorvastatin [Lipitor] 20 mg PO HS 08/10/15 [History] Multivitamin [Men's Multi-Vitamin] 1 tab PO DAILY 08/10/15 [History] Vitamin B Complex 1 cap PO HS 08/10/15 [History] allopurinoL [Zyloprim] 300 mg PO DAILY 08/10/15 [History] lisinopriL [Zestril] 10 mg PO DAILY 08/10/15 [History] metFORMIN HCL [Glucophage] 500 mg PO BID 08/10/15 [History] Tamsulosin HCl [Flomax] 0.4 mg PO HS 01/07/19 [History] Diclofenac 0.1% Ophth Soln [Voltaren 0.1% Ophth Soln] 1 drop LEFT EYE BID 01/16/21 [History] Metoprolol Succinate [Toprol XL] 25 mg PO BID 01/16/21 [History] prednisoLONE ACETATE 1% OPHTH [Pred Forte 1%] 1 drop LEFT EYE QID 01/16/21 [History] Aspirin EC [Ecotrin] 81 mg PO DAILY #0 01/17/21 [Rx] Follow up Appointment(s)/Referral(s): Jolene Chadwick MD [Primary Care Provider] - 01/20/21 1:00 pm Patient Instructions/Handouts: Dehydration (DC) Discharge Disposition: HOME SELF-CARE
== END 2021-01-17 13:53 | disposition home or self-care (01) ==
LOC: EC 10:32 → 6NMEDSUR 14:51
PROVIDERS: ADMIT Internal Medicine; ATTEND Internal Medicine
DX: E86.0 Dehydration (principal); E87.1 Hypo-osmolality and hyponatremia; N17.9 Acute kidney failure, unspecified; R63.4 Abnormal weight loss; Z20.828 Contact with and (suspected) exposure to other viral communicable diseases; E11.9 Type 2 diabetes mellitus without complications; N40.0 Benign prostatic hyperplasia without lower urinary tract symptoms; I25.10 Atherosclerotic heart disease of native coronary artery without angina pectoris; I10 Essential (primary) hypertension; M10.9 Gout, unspecified; E78.5 Hyperlipidemia, unspecified; Z98.49 Cataract extraction status, unspecified eye; Z86.73 Personal history of transient ischemic attack (TIA), and cerebral infarction without residual deficits; Z95.5 Presence of coronary angioplasty implant and graft; Z87.891 Personal history of nicotine dependence; Z80.9 Family history of malignant neoplasm, unspecified; Z79.84 Long term (current) use of oral hypoglycemic drugs; Z79.82 Long term (current) use of aspirin; Z79.899 Other long term (current) drug therapy
CPT/HCPCS: 96361 ×2; 96372; 96360; 99285; 36415; 94760; 93005; 80053; 80048; 82550; 83605; 83735 ×2; 84484; 85025 ×2; 85610; 85730; 81003; 87635; 71046; G0378 ×2; J1644

== ENCOUNTER 2021-01-18 08:19 | Inpatient (IN) | payer MEDICARE ==
[2021-01-18] MEDS ORDERED: MORPHINE SULFATE 2 MG/ML SYRINGE IVP STA ×2 (08:40→13:35)
[2021-01-18] MEDS ORDERED: ONDANSETRON 4 MG/2 ML VIAL IVP STA (08:40)
[2021-01-18] MEDS ORDERED: SODIUM CHLORIDE 0.9% 500 ML 500 ML IV STA (08:40)
[2021-01-18] MEDS ORDERED: FAMOTIDINE 20 MG/2 ML VIAL IV STA (08:48)
--- NOTE | 2021-01-18 08:52 | ED ---
General Adult HPI - General Source: patient, RN notes reviewed Mode of arrival: ambulatory Limitations: no limitations <John Downs - Last Filed: 01/18/21 10:26> <Yari Watson - Last Filed: 01/18/21 22:12> - General Chief complaint: Abdominal Pain Stated complaint: Revisit - weakness,abd pain Time Seen by Provider: 01/18/21 08:31 - History of Present Illness Initial comments: 85-year-old male with a past medical history of coronary artery disease, hyperlipidemia, presents to the emergency room for a chief complaint of weakness. Patient reports that he had his Covid vaccine 15 days ago on January 03. Patient reports that that evening started chills and weakness. States he feels he has been in and out of bed for 2 weeks now. States he has not been eating or drinking and lost 20 pounds. Patient reports that he was seen in the hospital and kept overnight for 2 days. He was given IV fluids and he did feel better. However after he went home he started to feel worse again. He started to get epigastric and upper abdominal pain. States he has eaten since he's been home as a couple sips of ensure. Patient has no other complaints at this time including shortness of breath, chest pain, nausea or vomiting, headache, or visual changes. (John Downs) - Related Data Home Medications Medication Instructions Recorded Confirmed Atorvastatin [Lipitor] 20 mg PO HS 08/10/15 01/18/21 Multivitamin [Men's Multi-Vitamin] 1 tab PO DAILY 08/10/15 01/18/21 Vitamin B Complex 1 cap PO HS 08/10/15 01/18/21 allopurinoL [Zyloprim] 300 mg PO DAILY 08/10/15 01/18/21 lisinopriL [Zestril] 10 mg PO DAILY 08/10/15 01/18/21 metFORMIN HCL [Glucophage] 500 mg PO BID 08/10/15 01/18/21 Tamsulosin HCl [Flomax] 0.4 mg PO HS 01/07/19 01/18/21 Diclofenac 0.1% Ophth Soln 1 drop LEFT EYE BID 01/16/21 01/18/21 [Voltaren 0.1% Ophth Soln] Metoprolol Succinate [Toprol XL] 25 mg PO BID 01/16/21 01/18/21 prednisoLONE ACETATE 1% OPHTH 1 drop LEFT EYE QID 01/16/21 01/18/21 [Pred Forte 1%] Aspirin EC [Ecotrin Low Dose] 81 mg PO HS 01/18/21 01/18/21 hydroCHLOROthiazide 25 mg PO HS 01/18/21 01/18/21 Allergies Allergy/AdvReac Type Severity Reaction Status Date / Time No Known Allergies Allergy Verified 01/18/21 10:42 Review of Systems ROS Other: All systems not noted in ROS Statement are negative. <John Downs P - Last Filed: 01/18/21 10:26> ROS Other: All systems not noted in ROS Statement are negative. <Yari Watson - Last Filed: 01/18/21 22:12> ROS Statement: Those systems with pertinent positive or pertinent negative responses have been documented in the HPI. 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 History of Any Multi-Drug Resistant Organisms: None Reported Past Surgical History: Heart Catheterization With Stent Additional Past Surgical History / Comment(s): eye Past Anesthesia/Blood Transfusion Reactions: Motion Sickness Date of Last Stent Placement:: 2012 Past Psychological History: No Psychological Hx Reported Smoking Status: Never smoker Past Alcohol Use History: Occasional Past Drug Use History: None Reported - Past Family History Mother Family Medical History: Cancer <John Downs P - Last Filed: 01/18/21 10:26> General Exam Limitations: no limitations General appearance: alert Head exam: Present: atraumatic Eye exam: Present: normal appearance, PERRL, EOMI. Absent: scleral icterus, conjunctival injection ENT exam: Present: normal exam, mucous membranes moist Neck exam: Present: normal inspection, full ROM. Absent: tenderness Respiratory exam: Present: normal lung sounds bilaterally Cardiovascular Exam: Present: regular rate, normal rhythm, normal heart sounds GI/Abdominal exam: Present: soft, normal bowel sounds. Absent: distended, tenderness, guarding, rebound, rigid <John Downs P - Last Filed: 01/18/21 10:26> Course Vital Signs 01/18/21 01/18/21 01/18/21 08:24 09:08 10:56 Temperature 97.8 F Pulse Rate 84 78 78 Pulse Rate [ Right] Respiratory 18 16 18 Rate Blood Pressure 151/66 148/74 163/81 O2 Sat by Pulse 98 93 L 94 L Oximetry 01/18/21 01/18/21 01/18/21 12:12 15:00 15:15 Temperature Pulse Rate 74 79 Pulse Rate [ 75 Right] Respiratory 18 18 16 Rate Blood Pressure 171/78 164/79 O2 Sat by Pulse 96 96 Oximetry EKG Findings - EKG Comments: EKG Findings:: Normal sinus rhythm, ventricular rate 82, WV interval 168, QTC 429 <John Downs P - Last Filed: 01/18/21 10:26> Medical Decision Making - Lab Data Result diagrams: 01/18/21 08:40 01/18/21 08:40 <John Downs - Last Filed: 01/18/21 10:26> - Lab Data Result diagrams: 01/18/21 08:40 01/18/21 08:40 <Yari Watson - Last Filed: 01/18/21 22:12> - Medical Decision Making Vitals are stable. Patient was initially 98% on room air however with further monitoring is around 93%. Patient does appear dry on physical exam. He has been provided a week and has not been eating or drinking. Has lost 20 pounds in the past 2 weeks. Reports he only had a few sips of ensure since he has left the hospital and does not have an appetite. Laboratory evaluation was obtained. CBC does show leukocytosis of 20 which is significantly increased from holland ent's last white cell count of 9 throughout his stay in the past few days. 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 Patient also noted to be dehydrated with a BUN to creatinine ratio of 22.5 however acute kidney injury much improved from previous admission. Urinalysis is negative. Parker virus was detected in this patient. We suspect that patient was exposed to Coronavirus around the time he had his vaccine. This was clear however left lower lobe infiltrate was suspected on x-ray of the abdomen. Given the leukocytosis he was given a dose of Rocephin, blood cultures pending. Case discussed with Dr. Szymanski who does accept this admission, requests d-dimer and Procalcitonin levels be ordered. She reports she will follow up on these results. (John Downs) I was available for consultation in the emergency department. The history and physical exam were done by the midlevel provider. I was consulted for this patients care. I reviewed the case with the midlevel provider and based on their presentation of the patient, I agree with the assessment, medical decision making and plan of care as documented. Chart was dictated using Pix4[employer] dictation software. Attempts were made to correct any dictation errors however some typographical errors may persist. Patient was seen during a national state of emergency due to the Covid-19 pandemic. (Yari Watson) - Lab Data Lab Results 01/18/21 01/18/21 01/18/21 Range/Units 08:40 08:40 08:40 WBC 20.5 H (3.8-10.6) k/uL RBC 5.31 (4.30-5.90) m/uL Hgb 15.8 (13.0-17.5) gm/dL Hct 45.8 (39.0-53.0) % MCV 86.3 (80.0-100.0) fL MCH 29.7 (25.0-35.0) pg MCHC 34.5 (31.0-37.0) g/dL RDW 13.1 (11.5-15.5) % Plt Count 355 (150-450) k/uL MPV 8.1 Neutrophils % 89 % Lymphocytes % 6 % Monocytes % 4 % Eosinophils % 0 % Basophils % 0 % Neutrophils # 18.3 H (1.3-7.7) k/uL Lymphocytes # 1.2 (1.0-4.8) k/uL Monocytes # 0.8 (0-1.0) k/uL Eosinophils # 0.0 (0-0.7) k/uL Basophils # 0.1 (0-0.2) k/uL PT 10.1 (9.0-12.0) sec INR 0.9 (<1.2) APTT 24.4 (22.0-30.0) sec Sodium 132 L (137-145) mmol/L Potassium 4.3 (3.5-5.1) mmol/L Chloride 101 (98-107) mmol/L Carbon Dioxide 20 L (22-30) mmol/L Anion Gap 11 mmol/L BUN 21 H (9-20) mg/dL Creatinine 0.93 (0.66-1.25) mg/dL Est GFR (CKD-EPI)AfAm 87 (>60 ml/min/1.73 sqM) Est GFR (CKD-EPI)NonAf 75 (>60 ml/min/1.73 sqM) Glucose 180 H (74-99) mg/dL Calcium 8.6 (8.4-10.2) mg/dL Magnesium 2.0 (1.6-2.3) mg/dL Total Bilirubin 1.1 (0.2-1.3) mg/dL AST 39 (17-59) U/L ALT 39 (4-49) U/L Alkaline Phosphatase 63 (38-126) U/L Troponin I (0.000-0.034) ng/mL Total Protein 7.2 (6.3-8.2) g/dL Albumin 3.7 (3.5-5.0) g/dL TSH 1.410 (0.465-4.680) mIU/L Urine Color Urine Appearance (Clear) Urine pH (5.0-8.0) Ur Specific [place] (1.001-1.035) Urine Protein (Negative) Urine Glucose (UA) (Negative) Urine Ketones (Negative) Urine Blood (Negative) Urine Nitrite (Negative) Urine Bilirubin (Negative) Urine Urobilinogen (<2.0) mg/dL Ur Leukocyte Esterase (Negative) Coronavirus (PCR) (Not Detectd) 01/18/21 01/18/21 01/18/21 Range/Units 08:40 08:41 09:45 WBC (3.8-10.6) k/uL RBC (4.30-5.90) m/uL Hgb (13.0-17.5) gm/dL Hct (39.0-53.0) % MCV (80.0-100.0) fL MCH (25.0-35.0) pg MCHC (31.0-37.0) g/dL RDW (11.5-15.5) % Plt Count (150-450) k/uL MPV Neutrophils % % Lymphocytes % % Monocytes % % Eosinophils % % Basophils % % Neutrophils # (1.3-7.7) k/uL Lymphocytes # (1.0-4.8) k/uL Monocytes # (0-1.0) k/uL Eosinophils # (0-0.7) k/uL Basophils # (0-0.2) k/uL PT (9.0-12.0) sec INR (<1.2) APTT (22.0-30.0) sec Sodium (137-145) mmol/L Potassium (3.5-5.1) mmol/L Chloride (98-107) mmol/L Carbon Dioxide (22-30) mmol/L Anion Gap mmol/L BUN (9-20) mg/dL Creatinine (0.66-1.25) mg/dL Est GFR (CKD-EPI)AfAm (>60 ml/min/1.73 sqM) Est GFR (CKD-EPI)NonAf (>60 ml/min/1.73 sqM) Glucose (74-99) mg/dL Calcium (8.4-10.2) mg/dL Magnesium (1.6-2.3) mg/dL Total Bilirubin (0.2-1.3) mg/dL AST (17-59) U/L ALT (4-49) U/L Alkaline Phosphatase (38-126) U/L Troponin I 0.019 (0.000-0.034) ng/mL Total Protein (6.3-8.2) g/dL Albumin (3.5-5.0) g/dL TSH (0.465-4.680) mIU/L Urine Color Yellow Urine Appearance Clear (Clear) Urine pH 5.5 (5.0-8.0) Ur Specific [place] 1.025 (1.001-1.035) Urine Protein Trace H (Negative) Urine Glucose (UA) Negative (Negative) Urine Ketones 1+ H (Negative) Urine Blood Negative (Negative) Urine Nitrite Negative (Negative) Urine Bilirubin Negative (Negative) Urine Urobilinogen <2.0 (<2.0) mg/dL Ur Leukocyte Esterase Negative (Negative) Coronavirus (PCR) Detected A (Not Detectd) Disposition Time of Disposition: 10:31 <John Downs P - Last Filed: 01/18/21 10:26> <Yari Watson A - Last Filed: 01/18/21 22:12> Clinical Impression: Dehydration, Generalized weakness, Weight loss, non-intentional, COVID-19, Leukocytosis Disposition: ADMITTED IP TO THIS HOSP
[2021-01-18 09:12] LABS: Basophils # (A) 0.1 k/uL (0-0.2); Basophils % (A) 0 %; Eosinophils % (A) 0 %; HCT 45.8 % (39.0-53.0); HGB 15.8 gm/dL (13.0-17.5); Lymphocytes # (A) 1.2 k/uL (1.0-4.8); Lymphocytes % (A) 6 %; MCH 29.7 pg (25.0-35.0); MCHC 34.5 g/dL (31.0-37.0); MCV 86.3 fL (80.0-100.0); Mean Platelet Volume 8.1; Monocytes # (A) 0.8 k/uL (0-1.0); Monocytes % (A) 4 %; Neutrophils # (A) 18.3 k/uL (1.3-7.7); Neutrophils % (A) 89 %; Platelet Count 355 k/uL (150-450); RBC 5.31 m/uL (4.30-5.90); RDW 13.1 % (11.5-15.5); WBC 20.5 k/uL (3.8-10.6)
[2021-01-18 09:25] LABS: Albumin 3.7 g/dL (3.5-5.0); Calcium 8.6 mg/dL (8.4-10.2); Potassium 4.3 mmol/L (3.5-5.1); Total Bilirubin 1.1 mg/dL (0.2-1.3); Total Protein 7.2 g/dL (6.3-8.2)
[2021-01-18 09:28] LABS: INR 0.9 (<1.2); Partial Thromboplastin Time 24.4 sec (22.0-30.0); Prothrombin Time 10.1 sec (9.0-12.0)
--- NOTE | 2021-01-18 09:32 | XR ---
EXAMINATION TYPE: XR chest 2V DATE OF EXAM: 01/18/2021 COMPARISON: 01/16/21 HISTORY: Shortness of breath TECHNIQUE: Frontal and lateral views of the chest are obtained. FINDINGS: Scattered senescent parenchymal changes noted. Hyperinflation compatible with COPD. No evidence for infiltrate. No evidence for atelectasis. Heart size is stable. Mediastinal structures are stable and grossly unremarkable. No evidence for hilar prominence. Degenerative changes dorsal spine. IMPRESSION: 1. No evidence for acute pulmonary disease.
--- NOTE | 2021-01-18 09:33 | XR ---
EXAMINATION TYPE: XR KUB DATE OF EXAM: 01/18/2021 COMPARISON: NONE HISTORY: Pain TECHNIQUE: One view abdominal series FINDINGS: The osseous structures are intact. The bowel gas pattern is nonspecific. Left lower lobe infiltrate. Hypertrophic and degenerative change of the spine. Arthropathy of the hips. IMPRESSION: 1. Nonspecific abdomen. 2. Left lower lobe infiltrate.
[2021-01-18 10:10] LABS: Appearance,Urine Clear (Clear); Bilirubin,Urine Negative (Negative); Blood,Urine Negative (Negative); Color,Urine Yellow; Glucose,Urine (UA) Negative (Negative); Ketones,Urine 1+ (Negative); Leukocyte Esterase,Urine Negative (Negative); Nitrite,Urine Negative (Negative); PH, Urine 5.5 (5.0-8.0); Protein,Urine Trace (Negative); Specific Gravity,Urine 1.025 (1.001-1.035); Urobilinogen,Urine <2.0 mg/dL (<2.0)
[2021-01-18] MEDS ORDERED: cefTRIAXone IN SWFI 1,000 MG/10 ML SYRINGE IVP STA (10:20)
[2021-01-18] MEDS ORDERED: ACETAMINOPHEN TAB 325 MG TAB PO PRN (10:21)
[2021-01-18] MEDS ORDERED: ONDANSETRON 4 MG/2 ML VIAL IVP PRN (10:25)
[2021-01-18] MEDS ORDERED: NALOXONE 0.4 MG/ML 1 ML VIAL IV PRN (10:25)
[2021-01-18] MEDS: SODIUM CHLORIDE 0.9% 1,000 ML IV SCH (11:11)
[2021-01-18 11:32] LABS: C Reactive Protein 30.8 mg/L (<10.0)
[2021-01-18] MEDS: INSULIN ASPART (NovoLOG) 100 UNIT/ML VIAL SQ SCH ×3 (12:15→21:51)
[2021-01-18 12:16] LABS: Glucose,Whole Blood 127 mg/dL (75-99)
[2021-01-18] MEDS ORDERED: HEPARIN SODIUM,PORCINE 10,000 UNIT/ML 1 ML VIAL IV ONE (13:56)
[2021-01-18] MEDS ORDERED: HEPARIN SODIUM,PORCINE 5,000 UNIT/ML 1 ML VIAL IV PRN (13:56)
--- NOTE | 2021-01-18 13:58 | CT ---
EXAMINATION TYPE: CT chest angio for PE DATE OF EXAM: 01/18/2021 COMPARISON: 01/07/2019 HISTORY: Elev. Ddimer, Dyspnea CT DLP: 468.4 mGycm Automated exposure control for dose reduction was used. CONTRAST: CT Chest for pulmonary embolism performed with with IV Contrast, patient injected with 75 mL of Isovu e 370. FINDINGS: LUNGS: Apical pleural thickening on the right with areas of subsegmental consolidation bilaterally sl ightly greater along the periphery of the right lung. Calcified subpleural nodule measuring 4 mm in t he superior segment left lower lobe. No sizable pleural effusion. No pneumothorax. MEDIASTINUM: There are no greater than 1 cm hilar or mediastinal lymph nodes. Coronary artery calcifi cation noted. Heart size stable. There is a intraluminal filling defect involving a secondary branch of the right pulmonary artery compatible with acute pulmonary embolism.. The the RV to LV ratio is l ess than 1. No diagnostic evidence of heart strain. Report called to the emergency room clinician at 1355 on 01/18/2021 OTHER: Hypertrophic and degenerative change of the spine noted. Chronic rib deformities are incident ally noted. IMPRESSION: 1. Findings are compatible with an acute pulmonary embolism involving the secondary branch of the rig ht pulmonary artery. 2. COPD with patchy areas of bilateral infiltrate correlate for interstitial pneumonitis including vi ral(Covid)pneumonitis.
[2021-01-18] MEDS ORDERED: HEPARIN SOD,PORK IN 0.45% NACL 25,000 UNIT in 0.45% NACL 1 250ML.BAG IV SCH (14:00)
[2021-01-18] MEDS: ENOXAPARIN 80 MG/0.8 ML SYRINGE SQ SCH ×2 (14:56→20:47)
[2021-01-18] MEDS: prednisoLONE ACETATE 1% OPHTH DROPS 5 ML BTL LEFT EYE SCH ×3 (14:57→20:46)
[2021-01-18 17:23] LABS: Glucose,Whole Blood 130 mg/dL (75-99)
[2021-01-18] MEDS: DICLOFENAC 0.1% OPHTH SOLN 2.5 ML BTL LEFT EYE SCH (18:25)
--- NOTE | 2021-01-18 19:26 | P.HPIM ---
<Milan Mchugh - Last Filed: 01/18/21 19:02> History of Present Illness H&P Date: 01/18/21 Chief Complaint: Fatigue and weakness History of presenting illness: Patient is a very pleasant 85-year-old male with a past medical history of CAD, hypertension, hyperlipidemia, insulin-dependent diabetes mellitus type 2, BPH, and gout. Patient presented to [facility] with a chief complaint of weakness and fatigue. Patient reports that he recently received his Covid 19 Pfizer vaccination on 01/03/21 and has since been ill. Patient states he has been in and out of bed, suffered from chills and diaphoresis, had a decreased appetite, lost 20 pounds, felt very fatigued and weak, had episodes of nausea, becomes significantly dyspneic with any exertion, and was even admitted from 01/16/21 through 01/17/21 for dehydration. Patient states during that hospitalization he was given some IV fluids and did feel better, however after discharge she began to feel worse again so he came back to the hospital for additional care. In the ED patient was found to be positive for Covid 19 virus infection and to have significant leukocytosis with WBC count of 20.5, have an elevated LDH of 797, elevated CRP of 30.8, and d-dimer 4.16. He had an EKG which revealed normal sinus rhythm at 82 bpm with no noted T-wave or ST abnormalities. KUB was negative for acute process revealing a nonspecific bowel gas pattern. Chest x-ray revealing left lower lobe infiltrate. And a CT PE positive for acute pulmonary embolism involving the second branch of the right pulmonary artery. Patient was started on therapeutic Lovenox for treatment of acute PE and admitted under our services for Covid 19 virus infection. Patient denies having any recent headache, lightheadedness, dizziness, fever, chest pain, palpitations, shortness of breath at rest, abdominal pain or episodes of vomiting, having any difficulties with her changes in his urination or bowel function, or experiencing any pain/swelling/weakness in extremities. Review of systems: Pertinent positives and negatives as discussed in HPI, a complete review of systems was performed and all other systems are negative. Physical exam: General: non toxic, no distress, appears at stated age Derm: warm, dry Head: atraumatic, normocephalic, symmetric Eyes: EOMI, no lid lag, anicteric sclera Mouth: no lip lesion, mucus membranes moist Cardiovascular: S1S2 reg, no murmur, positive posterior tibial pulse bilateral, Lungs: Respirations even, regular, and unlabored on room air. Lungs CTA bilaterally with no rhonchi, rales, wheezes, or accessory muscle usage. Abdominal: soft, nontender to palpation, no guarding, no appreciable organomegaly Ext: no gross muscle atrophy, no edema, no contractures Neuro: GCS 15, speech clear, no focal neuro deficits. Psych: Alert, oriented, appropriate affect Assessment and Plan of care: Acute PE involving the second branch of the right pulmonary artery -Therapeutic Lovenox -Telemetry monitoring -Supplemental oxygen to be administered as needed to maintain SpO2 equal to or greater than 92% -Consult pulmonology Covid 19 virus infection -Contact plus droplet precautions. -Consult to pulmonology. -Oxygenation as needed to maintain SpO2 equal to or greater than 92% patient currently on room air. -Repeat morning labs with CBC, BMP, fibrinogen, ferritin, LDH, magnesium, and troponin. -DVT prophylaxis with Lovenox -If patient condition worsens and he begins to require oxygen supplementation additional orders for steroids will be needed at that time. Leukocytosis -Patient with moderate leukocytosis with WBC count 20.5. -Pro calcitonin -Blood cultures 2 sets -IV antibiotics until bacterial infection can't be ruled out completely. Hypertension -Monitor vital signs and continue daily medication management Hyperlipidemia -Continue daily medication regimen. -Heart healthy carb consistent diet. Insulin-dependent diabetes mellitus type 2 -Glycemic protocol with NovoLog sliding scale. -Heart healthy carb consistent diet. CODE STATUS: DO NOT RESUSCITATE/DO NOT INTUBATE DVT prophylaxis: Lovenox Discussed with: Patient and RN Anticipated discharge date: Clinical course to determine Anticipated discharge place: home A total of 40 minutes was spent on the care of this complex patient more than 50% of the time was spent in counseling and care coordination. Past Medical History Past Medical History: Coronary Artery Disease (CAD), CVA/TIA, Diabetes Mellitus, Eye Disorder, GERD/Reflux, Hyperlipidemia, Hypertension, Osteoarthritis (OA), Prostate Disorder Additional Past Medical History / Comment(s): Pt tested covid + 01/18/21. Pt recently admitted to [facility] on 01/16/21 with generalized weakness/hyponatremia/acute kidney injury. 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 Past Anesthesia/Blood Transfusion Reactions: No Reported Reaction, Motion Sickness Date of Last Stent Placement:: 2012 Past Psychological History: No Psychological Hx Reported Additional Psychological History / Comment(s): Pt resides alone. He uses a cane. He is normally independent. Smoking Status: Never smoker Past Alcohol Use History: Occasional Past Drug Use History: None Reported - Past Family History Father Family Medical History: CVA/TIA Additional Family Medical History / Comment(s): Father of a CVA at the age of 44yrs. Mother Family Medical History: Cancer, Diabetes Mellitus Additional Family Medical History / Comment(s): Heart problems, pt cannot recall type of cancer. Medications and Allergies Home Medications Medication Instructions Recorded Confirmed Type Atorvastatin [Lipitor] 20 mg PO HS 08/10/15 01/18/21 History Multivitamin [Men's Multi-Vitamin] 1 tab PO DAILY 08/10/15 01/18/21 History Vitamin B Complex 1 cap PO HS 08/10/15 01/18/21 History allopurinoL [Zyloprim] 300 mg PO DAILY 08/10/15 01/18/21 History lisinopriL [Zestril] 10 mg PO DAILY 08/10/15 01/18/21 History metFORMIN HCL [Glucophage] 500 mg PO BID 08/10/15 01/18/21 History Tamsulosin HCl [Flomax] 0.4 mg PO HS 01/07/19 01/18/21 History Diclofenac 0.1% Ophth Soln 1 drop LEFT EYE BID 01/16/21 01/18/21 History [Voltaren 0.1% Ophth Soln] Metoprolol Succinate [Toprol XL] 25 mg PO BID 01/16/21 01/18/21 History prednisoLONE ACETATE 1% OPHTH 1 drop LEFT EYE QID 01/16/21 01/18/21 History [Pred Forte 1%] Aspirin EC [Ecotrin Low Dose] 81 mg PO HS 01/18/21 01/18/21 History hydroCHLOROthiazide 25 mg PO HS 01/18/21 01/18/21 History Allergies Allergy/AdvReac Type Severity Reaction Status Date / Time No Known Allergies Allergy Verified 01/18/21 10:42 Physical Exam Vitals: Vital Signs Temp Pulse Pulse Resp BP BP Pulse Ox 01/18/21 17:47 98.5 F 75 16 140/70 96 01/18/21 15:35 98.9 F 73 18 152/75 95 01/18/21 15:15 75 16 01/18/21 15:00 79 18 164/79 96 01/18/21 12:12 74 18 171/78 96 01/18/21 10:56 78 18 163/81 94 L 01/18/21 09:08 78 16 148/74 93 L 01/18/21 08:24 97.8 F 84 18 151/66 98 Intake and Output 01/18/21 01/18/21 01/18/21 06:59 14:59 22:59 Intake Total 0 Balance 0 Intake: Oral 0 Other: Voiding Method Toilet # Voids 0 Weight 81.647 kg Results CBC & Chem 7: 01/18/21 08:40 01/18/21 08:40 Labs: Abnormal Lab Results - Last 24 Hours (Table) 01/18/21 01/18/21 01/18/21 Range/Units 08:40 08:40 08:41 WBC 20.5 H (3.8-10.6) k/uL Neutrophils # 18.3 H (1.3-7.7) k/uL D-Dimer (<0.60) mg/L FEU Sodium 132 L (137-145) mmol/L Carbon Dioxide 20 L (22-30) mmol/L BUN 21 H (9-20) mg/dL Glucose 180 H (74-99) mg/dL POC Glucose (mg/dL) (75-99) mg/dL Lactate Dehydrogenase (313-618) U/L C-Reactive Protein (<10.0) mg/L Urine Protein (Negative) Urine Ketones (Negative) Coronavirus (PCR) Detected A (Not Detectd) 01/18/21 01/18/21 01/18/21 Range/Units 09:45 10:37 10:37 WBC (3.8-10.6) k/uL Neutrophils # (1.3-7.7) k/uL D-Dimer 4.16 H (<0.60) mg/L FEU Sodium (137-145) mmol/L Carbon Dioxide (22-30) mmol/L BUN (9-20) mg/dL Glucose (74-99) mg/dL POC Glucose (mg/dL) (75-99) mg/dL Lactate Dehydrogenase 797 H (313-618) U/L C-Reactive Protein 30.8 H (<10.0) mg/L Urine Protein Trace H (Negative) Urine Ketones 1+ H (Negative) Coronavirus (PCR) (Not Detectd) 01/18/21 01/18/21 Range/Units 12:14 17:21 WBC (3.8-10.6) k/uL Neutrophils # (1.3-7.7) k/uL D-Dimer (<0.60) mg/L FEU Sodium (137-145) mmol/L Carbon Dioxide (22-30) mmol/L BUN (9-20) mg/dL Glucose (74-99) mg/dL POC Glucose (mg/dL) 127 H 130 H (75-99) mg/dL Lactate Dehydrogenase (313-618) U/L C-Reactive Protein (<10.0) mg/L Urine Protein (Negative) Urine Ketones (Negative) Coronavirus (PCR) (Not Detectd) Thrombosis Risk Factor Assmnt - Choose All That Apply Any of the Below Risk Factors Present?: Yes Each Factor Represents 1 point: Obesity (BMI >25), Serious lung disease incl. pneumonia (< 1month) Other Risk Factors: Yes Each Risk Factor Represents 3 Points: Age 75 years or older Other congenital or acquired thrombophilia - If yes, enter type in comment: No Thrombosis Risk Factor Assessment Total Risk Factor Score: 5 Thrombosis Risk Factor Assessment Level: High Risk <Yana Scherer - Last Filed: 01/19/21 07:24> Physical Exam Osteopathic Statement: *. No significant issues noted on an osteopathic structural exam other than those noted in the History and Physical/Consult. Vitals: Vital Signs Temp Pulse Pulse Resp BP BP Pulse Ox 01/19/21 05:49 99.7 F H 71 134/69 94 L 01/19/21 02:07 98.2 F 73 134/70 93 L 01/18/21 21:52 98.1 F 73 131/71 94 L 01/18/21 20:00 73 16 01/18/21 17:47 98.5 F 75 16 140/70 96 01/18/21 15:35 98.9 F 73 18 152/75 95 01/18/21 15:15 75 16 01/18/21 15:00 79 18 164/79 96 01/18/21 12:12 74 18 171/78 96 01/18/21 10:56 78 18 163/81 94 L 01/18/21 09:08 78 16 148/74 93 L 01/18/21 08:24 97.8 F 84 18 151/66 98 Intake and Output 01/18/21 01/19/21 01/19/21 22:59 06:59 14:59 Intake Total 0 Balance 0 Intake: Oral 0 Other: Voiding Method Toilet # Voids 0 Results CBC & Chem 7: 01/18/21 08:40 01/18/21 08:40 Labs: Abnormal Lab Results - Last 24 Hours (Table) 01/18/21 01/18/21 01/18/21 Range/Units 08:40 08:40 08:41 WBC 20.5 H (3.8-10.6) k/uL Neutrophils # 18.3 H (1.3-7.7) k/uL Fibrinogen (200-500) mg/dL D-Dimer (<0.60) mg/L FEU Sodium 132 L (137-145) mmol/L Carbon Dioxide 20 L (22-30) mmol/L BUN 21 H (9-20) mg/dL Glucose 180 H (74-99) mg/dL POC Glucose (mg/dL) (75-99) mg/dL Ferritin (22.0-322.0) ng/mL Lactate Dehydrogenase (313-618) U/L C-Reactive Protein (<10.0) mg/L Urine Protein (Negative) Urine Ketones (Negative) Coronavirus (PCR) Detected A (Not Detectd) 01/18/21 01/18/21 01/18/21 Range/Units 09:45 10:37 10:37 WBC (3.8-10.6) k/uL Neutrophils # (1.3-7.7) k/uL Fibrinogen (200-500) mg/dL D-Dimer 4.16 H (<0.60) mg/L FEU Sodium (137-145) mmol/L Carbon Dioxide (22-30) mmol/L BUN (9-20) mg/dL Glucose (74-99) mg/dL POC Glucose (mg/dL) (75-99) mg/dL Ferritin 1161.8 H (22.0-322.0) ng/mL Lactate Dehydrogenase 797 H (313-618) U/L C-Reactive Protein 30.8 H (<10.0) mg/L Urine Protein Trace H (Negative) Urine Ketones 1+ H (Negative) Coronavirus (PCR) (Not Detectd) 01/18/21 01/18/21 01/19/21 Range/Units 12:14 17:21 06:14 WBC (3.8-10.6) k/uL Neutrophils # (1.3-7.7) k/uL Fibrinogen 642 H (200-500) mg/dL D-Dimer (<0.60) mg/L FEU Sodium (137-145) mmol/L Carbon Dioxide (22-30) mmol/L BUN (9-20) mg/dL Glucose (74-99) mg/dL POC Glucose (mg/dL) 127 H 130 H (75-99) mg/dL Ferritin (22.0-322.0) ng/mL Lactate Dehydrogenase (313-618) U/L C-Reactive Protein (<10.0) mg/L Urine Protein (Negative) Urine Ketones (Negative) Coronavirus (PCR) (Not Detectd) 01/19/21 Range/Units 07:17 WBC (3.8-10.6) k/uL Neutrophils # (1.3-7.7) k/uL Fibrinogen (200-500) mg/dL D-Dimer (<0.60) mg/L FEU Sodium (137-145) mmol/L Carbon Dioxide (22-30) mmol/L BUN (9-20) mg/dL Glucose (74-99) mg/dL POC Glucose (mg/dL) 118 H (75-99) mg/dL Ferritin (22.0-322.0) ng/mL Lactate Dehydrogenase (313-618) U/L C-Reactive Protein (<10.0) mg/L Urine Protein (Negative) Urine Ketones (Negative) Coronavirus (PCR) (Not Detectd) Assessment and Plan Assessment: Patient seen and examined independently. Patient was also seen by Milan Mchugh NP and case was discussed. I am in agreement with subjective, physical exam, assessment and plan as written above and amended below. Patient seen and examined at bedside. He was informed that he has a pulmonary embolism in his right lung. All questions were answered. Patient has been started on Lovenox 1 mg/kg twice daily. He is still having some shortness of breath and fatigue. He again states that he has lost significant weight over the last 2 weeks. He states yesterday was the first day he ate anything in his abdomen has felt like there is N sided but not overtly painful since then. No nausea, vomiting, or diarrhea. General: ill appearing, no distress, appears at stated age Derm: warm, dry Head: atraumatic, normocephalic, symmetric Eyes: EOMI, no lid lag, anicteric sclera Mouth: no lip lesion, mucus membranes moist Cardiovascular: S1S2 reg, no murmur, positive posterior tibial pulse bilateral, Lungs: Course bs bilateral, no rhonchi, no rales , no accessory muscle use Abdominal: soft, nontender to palpation, no guarding, no appreciable organomegaly Psych: Alert, oriented, appropriate affect
[2021-01-18] MEDS: TAMSULOSIN 0.4 MG CAP.ER.24H PO SCH (20:47)
[2021-01-18] MEDS: FOLIC ACID-VIT B COMPLEX-VIT C 1 CAP PO SCH (20:47)
[2021-01-18] MEDS: METOPROLOL SUCCINATE (ER) 25 MG TAB.ER.24H PO SCH (20:47)
[2021-01-18] MEDS: ATORVASTATIN 20 MG TAB PO SCH (20:47)
[2021-01-18] MEDS ORDERED: metFORMIN 500 MG TAB PO SCH (21:00)
[2021-01-18 21:06] LABS: Ferritin 1161.8 ng/mL (22.0-322.0)
[2021-01-19] MEDS: SODIUM CHLORIDE 0.9% 1,000 ML IV SCH ×3 (03:02→19:53)
[2021-01-19 07:18] LABS: Glucose,Whole Blood 118 mg/dL (75-99)
[2021-01-19] MEDS: INSULIN ASPART (NovoLOG) 100 UNIT/ML VIAL SQ SCH ×4 (08:03→22:07)
[2021-01-19] MEDS: allopurinoL 300 MG TAB PO SCH (08:17)
[2021-01-19] MEDS: MULTIVITAMINS, THERA 1 EACH TAB PO SCH (08:17)
[2021-01-19] MEDS: lisinopriL 10 MG TAB PO SCH (08:17)
[2021-01-19] MEDS: ASPIRIN 81 MG PO SCH (08:17)
[2021-01-19] MEDS: METOPROLOL SUCCINATE (ER) 25 MG TAB.ER.24H PO SCH ×2 (08:17→22:06)
[2021-01-19] MEDS: dexAMETHasone 2 MG TAB PO SCH (08:17)
[2021-01-19] MEDS: DICLOFENAC 0.1% OPHTH SOLN 2.5 ML BTL LEFT EYE SCH ×2 (08:18→22:08)
[2021-01-19] MEDS: ENOXAPARIN 80 MG/0.8 ML SYRINGE SQ SCH ×2 (08:18→22:06)
[2021-01-19] MEDS: prednisoLONE ACETATE 1% OPHTH DROPS 5 ML BTL LEFT EYE SCH ×4 (08:18→22:08)
[2021-01-19 09:00] LABS: HCT 42.2 % (39.6-50.0); HGB 14.5 g/dL (13.0-17.0); MCH 29.9 pg (27.0-32.0); MCHC 34.4 g/dL (32.0-37.0); Mean Platelet Volume 10.6 fL (9.5-12.2); Platelet Count 349 X 10*3/uL (140-440); RBC 4.85 X 10*6/uL (4.40-5.60); WBC 24.77 X 10*3/uL (4.50-10.00)
[2021-01-19] MEDS ORDERED: PANTOPRAZOLE 40 MG/10 ML VIAL IV SCH (09:00)
[2021-01-19 10:01] LABS: Basophils # (A) 0.07 X 10*3/uL (0.00-0.10); Basophils % (A) 0.3 %; Eosinophils # (A) 0 X 10*3/uL (0.04-0.35); Eosinophils % (A) 0 %; Lymphocytes # (A) 2.02 X 10*3/uL (0.90-5.00); Lymphocytes % (A) 8.2 %; Monocytes # (A) 1.55 X 10*3/uL (0.20-1.00); Monocytes % (A) 6.3 %; Neutrophils # (A) 20.65 X 10*3/uL (1.80-7.70); Neutrophils % (A) 83.3 %
[2021-01-19 10:38] LABS: Ferritin 1212.5 ng/mL (22.0-322.0)
[2021-01-19 11:43] LABS: Glucose,Whole Blood 134 mg/dL (75-99)
--- NOTE | 2021-01-19 11:56 | CDI ---
Documentation Clarification Form Date: 01/19/2021 11:38:00 AM From: Alva Ramirez CCS, CCDS Admit Date: 01/18/2021 10:34:00 AM Patient Name: Jefferson Scanlon Visit Number: [id number] Discharge Date: ATTENTION: The Clinical Documentation Specialists (CDI) and [facility] Coding Staff appreciate your assistance in clarifying documentation. Please respond to the clarification below the line at the bottom and electronically sign. The CDI & [facility] Coding staff will review the response and follow-up if needed. Please note: Queries are made part of the Legal Health Record. If you have any questions, please contact the author of this message via ITS. Dr. Yana Scherer: Per the 01/18 History & Physical, the patient was hospitalized from 01/16 - 01/17 with dehydration. He recently obtained his COVID Vaccine on 01/03 & has been ill since with fatigue, weakness, in/out of bed, chills, diaphoresis, decreased appetite & 20 lb weight loss, nausea and very dyspneic with exertion. Per the 01/18 H/P Risk Factors: Pneumonia <month ago. 01/18 H/P Assessment: COVID 19 virus infection, Leukocytosis: IV antibiotics, bacterial infection can't be ruled out completely. History/Risk Factors Per the 01/18 Patient's Medical History: Hypertension, Hyperlipidemia, IDDM II, Obesity with BMI 27.4, Gout. Clinical Indicators: Presented to the ED on 01/18 with fatigue and weakness, found to be COVID Positive. Admitted with COVID-19 Infection and Acute PE. 01/18 VS: T 97.8, P 84, R 18, BP 151/66 - 171/78, PO 93 RA 01/18 LAB: WBC 20.5, Neut 18.3, D Dimer 4.16, Na 132, CO2 20, BUN 21, Glucose 180, Ferritin 1161.8, LDH 797, CRP 30.8 01/18 COVID: Positive No Cultures. 01/18 CXR: Left Lower Lobe Infiltrate. 01/18 CT Chest: Acute PE secondary branch of the right pulmonary arty, COPD w/patchy areas of bilateral infiltrate correlate for interstitial pneumonitis including viral COVID pneumonitis. Lung Assessment: SOB, Cough Treatment 01/18: IV Morphne, IV Zofran, IV Pepcid, IV Rocephin, IV fluid rate 1,000 mls @ 75 mls/hr q13H, Lovenox sq 01/19: PO Hexadrol, IV Protonix, O2 stand by. In order to capture the severity of condition, please clarify if the condition signifies and you are treating for: Bacterial Pneumonia, specify suspected causal organism: COVID related Pneumonia Other Viral Pneumonia, specify casual organism (if known) Healthcare Acquired Pneumonia/Pneumonia, unspecified Other, please specify Unable to determine (Last Revision: March 2018) COVID pneumonitis MTDD
--- NOTE | 2021-01-19 13:00 | ECHOF ---
Referral Reason:PE, pt fatigued MEASUREMENTS -------- HEIGHT: 172.7 cm WEIGHT: 81.6 kg BP: 134/69 RVIDd: 3.8 cm (< 3.3) IVSd: 1.1 cm (0.6 - 1.1) LVIDd: 3.4 cm (3.9 - 5.3) LVPWd: 1.1 cm (0.6 - 1.1) IVSs: 1.6 cm LVIDs: 1.8 cm LVPWs: 1.6 cm LA Diam: 4.2 cm (2.7 - 3.8) LAESV Index (A-L): 29.67 ml/m Ao Diam: 3.5 cm (2.0 - 3.7) AV Cusp: 1.6 cm (1.5 - 2.6) MV EXCURSION: 11.323 mm (> 18.000) MV EF SLOPE: 13 mm/s (70 - 150) EPSS: 0.4 cm MV E Maikel: 0.89 m/s MV DecT: 214 ms MV A Maikel: 1.06 m/s MV E/A Ratio: 0.83 AV maxP.62 mmHg AV meanP.65 mmHg AR PHT: 501 ms RAP: 5.00 mmHg RVSP: 32.37 mmHg FINDINGS -------- Sinus rhythm. This was a technically adequate study. The left ventricular size is normal. There is borderline concentric left ventricular hypertrophy. Overall left ventricular systolic function is normal with, an EF between 60 - 65 %. The right ventricle is mild to moderately enlarged. LA is midly dilated 29-33ml/m2. The right atrium is normal in size. Interatrial and interventricular septum intact. There is mild to moderate aortic valve sclerosis. There is [id number] aortic regurgitation. There is mild aortic stenosis present. Peak/mean gradient across the Aortic Valve is 18.62mmHg / 9 .65mmHg. Mild mitral annular calcification present. There is trace to mild mitral regurgitation. Mild tricuspid regurgitation present. Right ventricular systolic pressure is normal at < 35 mmHg. Trace/mild (physiologic) pulmonic regurgitation. The aortic root size is normal. Normal inferior vena cava with normal inspiratory collapse consistent with estimated right atrial pre ssure of 5 mmHg. There is no pericardial effusion. CONCLUSIONS -------- 1. The left ventricular size is normal. 2. There is borderline concentric left ventricular hypertrophy. 3. Overall left ventricular systolic function is normal with, an EF between 60 - 65 %. 4. The right ventricle is mild to moderately enlarged. 5. LA is midly dilated 29-33ml/m2. 6. There is mild to moderate aortic valve sclerosis. 7. There is [id number] aortic regurgitation. 8. There is mild aortic stenosis present. 9. Peak/mean gradient across the Aortic Valve is 18.62mmHg / 9.65mmHg. 10. Mild mitral annular calcification present. 11. There is trace to mild mitral regurgitation. 12. Mild tricuspid regurgitation present. 13. Trace/mild (physiologic) pulmonic regurgitation. 14. There is no pericardial effusion. [employer] FILTERER: Britt Satniago RDCS
[2021-01-19 15:38] VITALS: BMI 27.3
[2021-01-19 17:16] LABS: Glucose,Whole Blood 158 mg/dL (75-99)
--- NOTE | 2021-01-19 18:04 | US ---
EXAMINATION TYPE: US gallbladder DATE OF EXAM: 01/19/2021 COMPARISON: Subdiaphragmatic images from the 01/18/2021 PE CTA. CLINICAL HISTORY: RUQ pain upon palpation positive Kowalski's sign. PE right lobe EXAM MEASUREMENTS: Limitation: There is prominent overlying gas limiting visualization. Liver Length: 14.1 cm Gallbladder Wall: 0.2 cm CBD: 0.3 cm Right Kidney: 10.0 x 6.3 x 5.8 cm Pancreas: mid and tail obscured by overlying bowel gas Liver: wnl Gallbladder: Hyperechoic, nonmobile foci in neck in multiple views suggests cholelithiasis, associate d with partial posterior acoustic shadowing seen. The evidence of cholelithiasis occupies proximally 10% of the gallbladder lumen. Gallbladder wall: Less than 3 mm thickness; no evidence of gallbladder wall thickening is seen. Raine dence for sonographic Kowalski's sign: no CBD: 2 mm caliber, within normal limits. Right Kidney: No acute findings. Other: No abnormal fluid collections identified. IMPRESSION: Cholelithiasis within gallbladder neck.
--- NOTE | 2021-01-19 18:34 | P.PN ---
<Milan Mchugh - Last Filed: 01/19/21 18:26> Subjective Progress Note Date: 01/19/21 Principal diagnosis: Acute Pulmonary emboli History of presenting illness: Patient is a very pleasant 85-year-old male with a past medical history of CAD, hypertension, hyperlipidemia, insulin-dependent diabetes mellitus type 2, BPH, and gout. Patient presented to [facility] with a chief complaint of weakness and fatigue. Patient reports that he recently received his Covid 19 Pfizer vaccination on 01/03/21 and has since been ill. Patient states he has been in and out of bed, suffered from chills and diaphoresis, had a decreased appetite, lost 20 pounds, felt very fatigued and weak, had episodes of nausea, becomes significantly dyspneic with any exertion, and was even admitted from 01/16/21 through 01/17/21 for dehydration. Patient states during that hospitalization he was given some IV fluids and did feel better, however after discharge she began to feel worse again so he came back to the hospital for additional care. In the ED patient was found to be positive for Covid 19 virus infection and to have significant leukocytosis with WBC count of 20.5, have an elevated LDH of 797, elevated CRP of 30.8, and d-dimer 4.16. He had an EKG which revealed normal sinus rhythm at 82 bpm with no noted T-wave or ST abnormalities. KUB was negative for acute process revealing a nonspecific bowel gas pattern. Chest x-ray revealing left lower lobe infiltrate. And a CT PE positive for acute pulmonary embolism involving the second branch of the right pulmonary artery. Patient was started on therapeutic Lovenox for treatment of acute PE and admitted under our services for Covid 19 virus infection. Patient denies having any recent headache, lightheadedness, dizziness, fever, chest pain, palpitations, shortness of breath at rest, abdominal pain or episodes of vomiting, having any difficulties with her changes in his urination or bowel f unction, or experiencing any pain/swelling/weakness in extremities. Echocardiogram completed revealing a normal ejection fraction at 60-65%. Physical exam: Patient seen and evaluated at bedside this morning. He reported continued weakness and fatigue and feeling nauseous accompanied by having episodic pain in his right upper quadrant. Patient states secondary to this discomfort he was unable to eat breakfast. Upon palpation patient positive for Kowalski's sign with tenderness upon light palpation to right upper quadrant. Patient denied having any headache, lightheadedness, dizziness, chest pain, palpitations, shortness of breath, cough or congestion, or experiencing any episodes of vomiting or diarrhea. An order was placed for ultrasound of gallbladder which revealed cholelithiasis within the gallbladder neck, no signs of acute cholecystitis. Patient was noted to have low-grade temp of 99.7 and SpO2 was 93% on room air. Patient placed on 2 L O2 and started on oral steroids Decadron 6 mg daily. General: non toxic, no distress, appears at stated age Derm: warm, dry Head: atraumatic, normocephalic, symmetric Eyes: EOMI, no lid lag, anicteric sclera Mouth: no lip lesion, mucus membranes moist Cardiovascular: S1S2 reg, no murmur, positive posterior tibial pulse bilateral, Lungs: Respirations even, regular, and unlabored on room air. Lungs CTA bilaterally with no rhonchi, rales, wheezes, or accessory muscle usage. Abdominal: soft, nontender to palpation, no guarding, no appreciable organomegaly Ext: no gross muscle atrophy, no edema, no contractures Neuro: GCS 15, speech clear, no focal neuro deficits. Psych: Alert, oriented, appropriate affect Assessment and Plan of care: Acute PE involving the second branch of the right pulmonary artery -Continue therapeutic Lovenox -Telemetry monitoring -Supplemental oxygen to be administered as needed to maintain SpO2 equal to or greater than 92% -Consult to pulmonology Covid 19 Pneumonitis -Contact plus droplet precautions. -Consult to pulmonology. -Oxygenation as needed to maintain SpO2 equal to or greater than 92% patient currently on room air. -Repeat morning labs with CBC, BMP, fibrinogen, ferritin, LDH, magnesium, and troponin. -DVT prophylaxis with Lovenox -Decadron 6 mg daily Leukocytosis -Patient with moderate leukocytosis with WBC count 24.77 today and had low-grade temp of 99.7F. -Pro calcitonin 0.07 -Blood cultures showing no growth after 24 hours. -Ultrasound completed of gallbladder revealing cholelithiasis within the gallbladder neck, no signs of acute cholecystitis. -CT abdomen and pelvis with contrast ordered. Hypertension -Monitor vital signs and continue daily medication management Hyperlipidemia -Continue daily medication regimen. -Heart healthy carb consistent diet. Insulin-dependent diabetes mellitus type 2 -Glycemic protocol with NovoLog sliding scale. -Heart healthy carb consistent diet. CODE STATUS: DO NOT RESUSCITATE/DO NOT INTUBATE DVT prophylaxis: Lovenox Discussed with: Patient and RN Anticipated discharge date: Clinical course to determine Anticipated discharge place: home A total of 40 minutes was spent on the care of this complex patient more than 50% of the time was spent in counseling and care coordination. Objective - Vital Signs Vital signs: Vital Signs Temp 99.7 F H 01/19/21 05:49 Pulse 71 01/19/21 05:49 Resp 16 01/18/21 20:00 BP 134/69 01/19/21 05:49 Pulse Ox 94 L 01/19/21 05:49 Intake & Output 01/18/21 01/19/21 01/19/21 18:59 06:59 18:59 Intake Total 0 Balance 0 Weight 81.647 kg Intake: Oral 0 Other: Voiding Method Toilet Toilet # Voids 0 - Labs CBC & Chem 7: 01/19/21 06:14 01/18/21 08:40 Labs: Abnormal Lab Results - Last 24 Hours (Table) 01/18/21 01/18/21 01/18/21 Range/Units 09:45 10:37 10:37 WBC (4.50-10.00) X 10*3/uL Immature Gran # (0.00-0.04) X 10*3/uL Neutrophils # (1.80-7.70) X 10*3/uL Monocytes # (0.20-1.00) X 10*3/uL Eosinophils # (0.04-0.35) X 10*3/uL Fibrinogen (200-500) mg/dL D-Dimer 4.16 H (<0.60) mg/L FEU POC Glucose (mg/dL) (75-99) mg/dL Ferritin 1161.8 H (22.0-322.0) ng/mL Lactate Dehydrogenase 797 H (313-618) U/L C-Reactive Protein 30.8 H (<10.0) mg/L Urine Protein Trace H (Negative) Urine Ketones 1+ H (Negative) 01/18/21 01/18/21 01/19/21 Range/Units 12:14 17:21 06:14 WBC 24.77 H (4.50-10.00) X 10*3/uL Immature Gran # 0.48 H (0.00-0.04) X 10*3/uL Neutrophils # 20.65 H (1.80-7.70) X 10*3/uL Monocytes # 1.55 H (0.20-1.00) X 10*3/uL Eosinophils # 0 L (0.04-0.35) X 10*3/uL Fibrinogen (200-500) mg/dL D-Dimer (<0.60) mg/L FEU POC Glucose (mg/dL) 127 H 130 H (75-99) mg/dL Ferritin (22.0-322.0) ng/mL Lactate Dehydrogenase (313-618) U/L C-Reactive Protein (<10.0) mg/L Urine Protein (Negative) Urine Ketones (Negative) 01/19/21 01/19/21 01/19/21 Range/Units 06:14 06:14 07:17 WBC (4.50-10.00) X 10*3/uL Immature Gran # (0.00-0.04) X 10*3/uL Neutrophils # (1.80-7.70) X 10*3/uL Monocytes # (0.20-1.00) X 10*3/uL Eosinophils # (0.04-0.35) X 10*3/uL Fibrinogen 642 H (200-500) mg/dL D-Dimer (<0.60) mg/L FEU POC Glucose (mg/dL) 118 H (75-99) mg/dL Ferritin (22.0-322.0) ng/mL Lactate Dehydrogenase 313 H (313-618) U/L C-Reactive Protein (<10.0) mg/L Urine Protein (Negative) Urine Ketones (Negative) <Yana Scherer - Last Filed: 01/19/21 18:40> Objective - Vital Signs Vital signs: Vital Signs Temp 98.1 F 01/19/21 18:27 Pulse 73 01/19/21 18:27 Resp 16 01/19/21 18:27 BP 129/66 01/19/21 18:27 Pulse Ox 94 L 01/19/21 18:27 Intake & Output 01/18/21 01/19/21 01/19/21 18:59 06:59 18:59 Intake Total 0 Balance 0 Weight 81.647 kg 81.647 kg Intake: Oral 0 Other: Voiding Method Toilet Toilet # Voids 0 4 - Labs CBC & Chem 7: 01/19/21 06:14 01/18/21 08:40 Labs: Abnormal Lab Results - Last 24 Hours (Table) 01/18/21 01/19/21 01/19/21 Range/Units 10:37 06:14 06:14 WBC 24.77 H (4.50-10.00) X 10*3/uL Immature Gran # 0.48 H (0.00-0.04) X 10*3/uL Neutrophils # 20.65 H (1.80-7.70) X 10*3/uL Monocytes # 1.55 H (0.20-1.00) X 10*3/uL Eosinophils # 0 L (0.04-0.35) X 10*3/uL Fibrinogen 642 H (200-500) mg/dL POC Glucose (mg/dL) (75-99) mg/dL Ferritin 1161.8 H (22.0-322.0) ng/mL Lactate Dehydrogenase (120-246) U/L 01/19/21 01/19/21 01/19/21 Range/Units 06:14 07:17 11:41 WBC (4.50-10.00) X 10*3/uL Immature Gran # (0.00-0.04) X 10*3/uL Neutrophils # (1.80-7.70) X 10*3/uL Monocytes # (0.20-1.00) X 10*3/uL Eosinophils # (0.04-0.35) X 10*3/uL Fibrinogen (200-500) mg/dL POC Glucose (mg/dL) 118 H 134 H (75-99) mg/dL Ferritin 1212.5 H (22.0-322.0) ng/mL Lactate Dehydrogenase 313 H (120-246) U/L 01/19/21 Range/Units 17:14 WBC (4.50-10.00) X 10*3/uL Immature Gran # (0.00-0.04) X 10*3/uL Neutrophils # (1.80-7.70) X 10*3/uL Monocytes # (0.20-1.00) X 10*3/uL Eosinophils # (0.04-0.35) X 10*3/uL Fibrinogen (200-500) mg/dL POC Glucose (mg/dL) 158 H (75-99) mg/dL Ferritin (22.0-322.0) ng/mL Lactate Dehydrogenase (120-246) U/L Microbiology - Last 24 Hours (Table) 01/18/21 11:04 Blood Culture - Preliminary Blood No Growth after 24 hours Assessment and Plan Assessment: Patient seen and examined independently. Patient was also seen by Milan Mchugh NP and case was discussed. I am in agreement with subjective, physical exam, assessment and plan as written above and amended below. Patient seen and examined at bedside. He reports that his fatigue is feeling slightly better however he still does not feel back to baseline. He does report some abdominal pain. No nausea or vomiting but still with decreased appetite. General: non toxic, no distress, appears at stated age Derm: warm, dry Head: atraumatic, normocephalic, symmetric Eyes: EOMI, no lid lag, anicteric sclera Mouth: no lip lesion, mucus membranes moist Cardiovascular: S1S2 reg, no murmur, positive posterior tibial pulse bilateral, Lungs: CTA bilateral, no rhonchi, no rales , no accessory muscle use Abdominal: soft, tender to palpation right upper quadrant, no guarding, no appreciable organomegaly Ext: no gross muscle atrophy, no edema, no contractures Neuro: CN II-XI grossly intact, no focal neuro deficits Psych: Alert, oriented, appropriate affect
[2021-01-19 20:49] LABS: Glucose,Whole Blood 157 mg/dL (75-99)
[2021-01-19] MEDS: ATORVASTATIN 20 MG TAB PO SCH (22:06)
[2021-01-19] MEDS: TAMSULOSIN 0.4 MG CAP.ER.24H PO SCH (22:06)
[2021-01-19] MEDS: FOLIC ACID-VIT B COMPLEX-VIT C 1 CAP PO SCH (22:07)
[2021-01-20] MEDS: IOPAMIDOL CONTRAST (ORAL USE) VIAL PO PRN ×2 (06:29→07:34)
[2021-01-20 06:55] LABS: Basophils # (A) 0.1 k/uL (0-0.2); Basophils % (A) 0 %; Eosinophils % (A) 0 %; HCT 41.1 % (39.0-53.0); HGB 13.8 gm/dL (13.0-17.5); Lymphocytes # (A) 1.2 k/uL (1.0-4.8); Lymphocytes % (A) 5 %; MCH 29.6 pg (25.0-35.0); MCHC 33.5 g/dL (31.0-37.0); MCV 88.3 fL (80.0-100.0); Mean Platelet Volume 7.8; Monocytes # (A) 0.8 k/uL (0-1.0); Monocytes % (A) 3 %; Neutrophils # (A) 24.1 k/uL (1.3-7.7); Neutrophils % (A) 92 %; Platelet Count 333 k/uL (150-450); RBC 4.66 m/uL (4.30-5.90); RDW 13.5 % (11.5-15.5); WBC 26.4 k/uL (3.8-10.6)
[2021-01-20 06:58] LABS: ALT 48 U/L (4-49); AST 40 U/L (17-59); African American GFR (CKD) 90 (>60 ml/min/1.73 sqM); Albumin 2.8 g/dL (3.5-5.0); Albumin/Globulin Ratio 0.9; Alkaline Phosphatase 72 U/L (38-126); Anion Gap 8 mmol/L; Blood Urea Nitrogen 18 mg/dL (9-20); Calcium 8.1 mg/dL (8.4-10.2); Carbon Dioxide 22 mmol/L (22-30); Chloride 107 mmol/L (98-107); Globulin 3.2 g/dL; Glucose 128 mg/dL (74-99); LDH 611 U/L (313-618); Magnesium 2.3 mg/dL (1.6-2.3); Non-African American GFR(CKD) 78 (>60 ml/min/1.73 sqM); Sodium 137 mmol/L (137-145); Total Bilirubin 0.8 mg/dL (0.2-1.3)
[2021-01-20 07:24] LABS: Glucose,Whole Blood 115 mg/dL (75-99)
[2021-01-20] MEDS: INSULIN ASPART (NovoLOG) 100 UNIT/ML VIAL SQ SCH ×4 (07:35→21:12)
[2021-01-20] MEDS: prednisoLONE ACETATE 1% OPHTH DROPS 5 ML BTL LEFT EYE SCH ×4 (07:36→21:13)
[2021-01-20] MEDS: DICLOFENAC 0.1% OPHTH SOLN 2.5 ML BTL LEFT EYE SCH ×2 (07:36→21:13)
[2021-01-20] MEDS: ENOXAPARIN 80 MG/0.8 ML SYRINGE SQ SCH ×2 (07:53→21:12)
--- NOTE | 2021-01-20 08:44 | CT ---
EXAMINATION TYPE: CT abdomen pelvis w con DATE OF EXAM: 01/20/2021 COMPARISON: 01/07/2019 HISTORY: RUQ tenderness and WBC 24.7 CT DLP: 1605.4 mGycm CONTRAST: CT scan of the abdomen and pelvis is performed with Oral Contrast and with IV Contrast, patient injec dasha with 100 ml mL of Isovue 300. FINDINGS: LUNG BASES-: No visible nodule. No infiltrate. LIVER/GB: There is distention of the gallbladder at 8.2 cm with wall thickening and mild surroundin g inflammatory change. There is evidence of cholelithiasis. The findings are compatible with acute ch olecystitis. There is mild hepatic steatosis. No space occupying hepatic lesion. Biliary tree is of normal caliber. PANCREAS: No inflammation. No distinct mass. SPLEEN: No splenic enlargement. No lesion seen. ADRENALS: No nodule. No thickening. KIDNEYS/BLADDER: No hydronephrosis. No nephrolithiasis. No distinct renal mass. Urinary bladder g rossly unremarkable. BOWEL: Normal appendix. Normal bowel caliber. No inflammation. Scattered sigmoid diverticulosis wit hout diverticulitis. GENITAL ORGANS: No gross abnormality. LYMPH NODES: No greater than 1cm abdominal or pelvic lymph nodes are appreciated. AORTA: No significant abnormality. OSSEOUS STRUCTURES: No significant abnormality is seen. OTHER: Small amount of free fluid is noted within the pelvis. IMPRESSION: 1. Findings suggest acute cholecystitis. Correlate clinically. A Red level critical message alert has been initiated for Estevan Olson MD via the [facility] Critical Results System on 01/20/2021 8:42 AM. This message alert has been sent to Estevan Olson MD via the preferences provided by the clinician for the receipt of Radiology Critical Findings. Message ID [id number].
[2021-01-20] MEDS: MULTIVITAMINS, THERA 1 EACH TAB PO SCH (10:23)
[2021-01-20] MEDS: allopurinoL 300 MG TAB PO SCH (10:23)
[2021-01-20] MEDS: dexAMETHasone 2 MG TAB PO SCH (10:23)
[2021-01-20] MEDS: lisinopriL 10 MG TAB PO SCH (10:23)
[2021-01-20] MEDS: METOPROLOL SUCCINATE (ER) 25 MG TAB.ER.24H PO SCH ×2 (10:23→21:12)
[2021-01-20] MEDS: PANTOPRAZOLE 40 MG TABLET PO SCH (10:23)
[2021-01-20] MEDS: ASPIRIN 81 MG PO SCH (10:23)
[2021-01-20 12:01] LABS: Glucose,Whole Blood 122 mg/dL (75-99)
[2021-01-20] MEDS: COLCHICINE 0.6 MG EACH PO SCH ×2 (12:32→21:12)
[2021-01-20] MEDS: ASCORBIC ACID 500 MG TAB PO SCH (12:32)
[2021-01-20] MEDS: ZINC SULFATE 220 MG CAP PO SCH (12:32)
[2021-01-20] MEDS ORDERED: CEFEPIME 1 GM in SODIUM CHLORIDE 0.9% 50 ML IVPB SCH (12:45)
--- NOTE | 2021-01-20 13:21 | P.CNPUL ---
History of Present Illness Consult date: 01/20/21 Requesting physician: Yana Scherer Reason for consult: dyspnea, pulmonary embolism, abnormal CXR/CT Chief complaint: Fatigue, weakness, chills History of present illness: This is an 85-year-old gentleman who follows with Dr. Chadwick as his primary care provider. He has a history of coronary artery disease with previous stent placement, hyperlipidemia, hypertension, diabetes mellitus. He has a history of CoVID 19 vaccination on 01/03/2021. Since that time he had been having issues w ith weakness fever chills or fatigue and weight loss. He was admitted to the hospital January 16 through the for dehydration and improved and was discharged home. He represented here on 01/18/2021 with recurrent symptoms of poor appetite abdominal and epigastric pain and shortness of breath. Chest x- ray revealed no evidence of acute pulmonary disease. KUB revealed nonspecific abdomen. CT angiogram was positive for acute pulmonary embolism involving the secondary branch of the right pulmonary artery. There is also evidence of COPD and patchy areas of bilateral infiltrate/interstitial pneumonitis. CoVID 19 19 by PCR positive. LDH 611. C-reactive protein 30.8. Troponins were negative 3. Echocardiogram revealed preserved left ventricular systolic function with ejection fraction 60-65%. Pro-calcitonin 0.07. White count 26.4. Hemoglobin 13.8. Neutrophils 24.1. Fibrinogen 701. D-dimer 4.16. Vitamin 37. Potassium 4.0. Creatinine 0.90. He was initiated on Lovenox 80 mg subcu every 12 hours. Dexamethasone. 0.9 normal saline at 75 mL per hour. He is also having some right upper quadrant tenderness. Ultrasound of the gallbladder did reveal cholelithiasis within the gallbladder neck. Computed tomography scan of the abdomen and pelvis did reveal acute cholecystitis. Review of Systems REVIEW OF SYSTEMS: CONSTITUTIONAL: Generalized weakness, fatigue. Weight loss. Poor appetite. EYES: Denies change in vision. EARS, NOSE, MOUTH, THROAT: Denies headaches, denies sore throat. CARDIOVASCULAR: Positive for chest pain, no palpitations or syncopal episodes. RESPIRATORY: Positive for shortness of breath, cough, congestion no hemoptysis. GASTROINTESTINAL: Denies change in appetite, denies abdominal pain GENITOURINARY: Denies hematuria, denies infections. MUSKULOSKELETAL: Denies pain, denies swelling. INTEGUMENTARY: Denies rash, denies eczema. NEUROLOGICAL: Denies recent memory loss, no recent seizure activity. PSYCHIATRIC: Denies anxiety, denies depression. HEMATOLOGIC/LYMPHATIC: Denies anemia, denies enlarged lymph nodes. Past Medical History Past Medical History: Coronary Artery Disease (CAD), CVA/TIA, Diabetes Mellitus, Eye Disorder, GERD/Reflux, Hyperlipidemia, Hypertension, Osteoarthritis (OA), Prostate Disorder Additional Past Medical History / Comment(s): Pt tested covid + 01/18/21. Pt recently admitted to [facility] on 01/16/21 with generalized weakness /hyponatremia/acute kidney injury. 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 Past Anesthesia/Blood Transfusion Reactions: No Reported Reaction, Motion Sickness Date of Last Stent Placement:: 2012 Past Psychological History: No Psychological Hx Reported Additional Psychological History / Comment(s): Pt resides alone. He uses a cane. He is normally independent. Smoking Status: Never smoker Past Alcohol Use History: Occasional Past Drug Use History: None Reported - Past Family History Father Family Medical History: CVA/TIA Additional Family Medical History / Comment(s): Father of a CVA at the age of 44yrs. Mother Family Medical History: Cancer, Diabetes Mellitus Additional Family Medical History / Comment(s): Heart problems, pt cannot recall type of cancer. Medications and Allergies Home Medications Medication Instructions Recorded Confirmed Type Atorvastatin [Lipitor] 20 mg PO HS 08/10/15 01/18/21 History Multivitamin [Men's Multi-Vitamin] 1 tab PO DAILY 08/10/15 01/18/21 History Vitamin B Complex 1 cap PO HS 08/10/15 01/18/21 History allopurinoL [Zyloprim] 300 mg PO DAILY 08/10/15 01/18/21 History lisinopriL [Zestril] 10 mg PO DAILY 08/10/15 01/18/21 History metFORMIN HCL [Glucophage] 500 mg PO BID 08/10/15 01/18/21 History Tamsulosin HCl [Flomax] 0.4 mg PO HS 01/07/19 01/18/21 History Diclofenac 0.1% Ophth Soln 1 drop LEFT EYE BID 01/16/21 01/18/21 History [Voltaren 0.1% Ophth Soln] Metoprolol Succinate [Toprol XL] 25 mg PO BID 01/16/21 01/18/21 History prednisoLONE ACETATE 1% OPHTH 1 drop LEFT EYE QID 01/16/21 01/18/21 History [Pred Forte 1%] Aspirin EC [Ecotrin Low Dose] 81 mg PO HS 01/18/21 01/18/21 History hydroCHLOROthiazide 25 mg PO HS 01/18/21 01/18/21 History Allergies Allergy/AdvReac Type Severity Reaction Status Date / Time No Known Allergies Allergy Verified 01/18/21 10:42 Physical Exam Vitals: Vital Signs Temp Pulse Resp BP Pulse Ox 01/20/21 05:05 98.0 F 64 17 126/70 94 L 01/20/21 02:00 97.6 F 61 17 167/76 97 01/19/21 22:00 97.5 F L 62 15 113/68 93 L 01/19/21 20:00 62 15 01/19/21 18:27 98.1 F 73 16 129/66 94 L 01/19/21 14:00 97.5 F L 68 16 130/70 93 L Intake and Output 01/19/21 01/20/21 01/20/21 22:59 06:59 14:59 Other: Voiding Method Toilet # Voids 4 2 Weight 81.647 kg GENERAL EXAM: Alert, pleasant 85-year-old gentleman, on room air with pulse ox of 94%, comfortable in no apparent distress. HEAD: Normocephalic. EYES: Normal reaction of pupils, equal size. NOSE: Clear with pink turbinates. THROAT: No erythema or exudates. NECK: No masses, no JVD. CHEST: No chest wall deformity. LUNGS: Equal air entry with few scattered rhonchi. CVS: S1 and S2 normal with no audible murmur, regular rhythm. ABDOMEN: Right upper quadrant tenderness. No hepatosplenomegaly, normal bowel sounds, no guarding or rigidity. SPINE: No scoliosis or deformity SKIN: No rashes CENTRAL NERVOUS SYSTEM: No focal deficits, tone is normal in all 4 extremities. EXTREMITIES: There is no peripheral edema. No clubbing, no cyanosis. Peripheral pulses are intact. Results - Laboratory Findings CBC and BMP: 01/20/21 06:36 01/20/21 06:36 PT/INR, D-dimer PT 10.1 sec (9.0-12.0) 01/18/21 08:40 INR 0.9 (<1.2) 01/18/21 08:40 D-Dimer 4.16 mg/L FEU (<0.60) H 01/18/21 10:37 Abnormal lab findings: Abnormal Labs 01/18/21 01/18/21 01/18/21 08:40 08:40 08:41 WBC 20.5 H Immature Gran # Neutrophils # 18.3 H Monocytes # Eosinophils # Fibrinogen D-Dimer Sodium 132 L Carbon Dioxide 20 L BUN 21 H Glucose 180 H POC Glucose (mg/dL) Calcium Ferritin Lactate Dehydrogenase C-Reactive Protein Total Protein Albumin Urine Protein Urine Ketones Coronavirus (PCR) Detected A 01/18/21 01/18/21 01/18/21 09:45 10:37 10:37 WBC Immature Gran # Neutrophils # Monocytes # Eosinophils # Fibrinogen D-Dimer 4.16 H Sodium Carbon Dioxide BUN Glucose POC Glucose (mg/dL) Calcium Ferritin 1161.8 H Lactate Dehydrogenase 797 H C-Reactive Protein 30.8 H Total Protein Albumin Urine Protein Trace H Urine Ketones 1+ H Coronavirus (PCR) 01/18/21 01/18/21 01/19/21 12:14 17:21 06:14 WBC 24.77 H Immature Gran # 0.48 H Neutrophils # 20.65 H Monocytes # 1.55 H Eosinophils # 0 L Fibrinogen D-Dimer Sodium Carbon Dioxide BUN Glucose POC Glucose (mg/dL) 127 H 130 H Calcium Ferritin Lactate Dehydrogenase C-Reactive Protein Total Protein Albumin Urine Protein Urine Ketones Coronavirus (PCR) 01/19/21 01/19/21 01/19/21 06:14 06:14 07:17 WBC Immature Gran # Neutrophils # Monocytes # Eosinophils # Fibrinogen 642 H D-Dimer Sodium Carbon Dioxide BUN Glucose POC Glucose (mg/dL) 118 H Calcium Ferritin 1212.5 H Lactate Dehydrogenase 313 H C-Reactive Protein Total Protein Albumin Urine Protein Urine Ketones Coronavirus (PCR) 01/19/21 01/19/21 01/19/21 11:41 17:14 20:47 WBC Immature Gran # Neutrophils # Monocytes # Eosinophils # Fibrinogen D-Dimer Sodium Carbon Dioxide BUN Glucose POC Glucose (mg/dL) 134 H 158 H 157 H Calcium Ferritin Lactate Dehydrogenase C-Reactive Protein Total Protein Albumin Urine Protein Urine Ketones Coronavirus (PCR) 01/20/21 01/20/21 01/20/21 06:36 06:36 06:36 WBC 26.4 H Immature Gran # Neutrophils # 24.1 H Monocytes # Eosinophils # Fibrinogen 701 H D-Dimer Sodium Carbon Dioxide BUN Glucose 128 H POC Glucose (mg/dL) Calcium 8.1 L Ferritin Lactate Dehydrogenase C-Reactive Protein Total Protein 6.0 L Albumin 2.8 L Urine Protein Urine Ketones Coronavirus (PCR) 01/20/21 01/20/21 07:23 11:59 WBC Immature Gran # Neutrophils # Monocytes # Eosinophils # Fibrinogen D-Dimer Sodium Carbon Dioxide BUN Glucose POC Glucose (mg/dL) 115 H 122 H Calcium Ferritin Lactate Dehydrogenase C-Reactive Protein Total Protein Albumin Urine Protein Urine Ketones Coronavirus (PCR) - Diagnostic Findings Chest x-ray: image reviewed CT scan - chest: image reviewed Assessment and Plan Assessment: 1 Acute CoVID 19 infection 2 Elevated inflammatory markers secondary to above 3 Acute pulmonary emboli of the secondary branch of the right pulmonary artery 4 Cholelithiasis 5 Leukocytosis secondary to above 6 Recent admission for dehydration and weakness 7 Coronary artery disease with previous stent placement 8 Hypertension 9 Hyperlipidemia 10 Diabetes mellitus Plan: The patient was seen and evaluated by Dr. Phillips Chest x-ray, CAT scans and labs reviewed Add colcrys, vitamin supplements Continue dexamethasone, Lovenox We will continue to follow and make further recommendations based on his clinical status. I, the cosigning physician, performed a history & physical examination of the patient. Lungs sounds clear. Maintaining good O2 saturations in the 90s on room air. I discussed the assessment and plan of care with my nurse practitioner, Teresa Ramos. I attest to the above consultation as dictated by her. Time with Patient: Greater than 30
--- NOTE | 2021-01-20 15:41 | P.GSCN ---
History of Present Illness Consult date: 01/20/21 History of present illness: 85-year-old male presented to the emergency department with complaints of weakness and fatigue. He also complained of decreased appetite and weight loss of 20 pounds. He also was complaining of some shortness of breath. He had recent overnight admission for dehydration as well. He did return to the emergency department and workup was noted to be positive for Covid 19 virus infection with significant leukocytosis. Further workup also revealed a acute pulmonary embolism involving the second branch of the right pulmonary artery. He is currently being treated for acute PE along with Covid 19 virus infection. Further workup was completed secondary to patient's leukocytosis with CT of the abdomen and pelvis along with ultrasound of the gallbladder. Ultrasound gallbladder revealed cholelithiasis where CT of the abdomen and pelvis was concerning for thickened gallbladder wall and distended gallbladder with concern for acute cholecystitis. Secondary to this, surgery was consulted. Currently, the patient denies any abdominal pain. Denies any current nausea or vomiting episodes. States he is tolerating a diet, however does have a low appetite. Review of Systems All systems: negative Past Medical History Past Medical History: Coronary Artery Disease (CAD), CVA/TIA, Diabetes Mellitus, Eye Disorder, GERD/Reflux, Hyperlipidemia, Hypertension, Osteoarthritis (OA), Prostate Disorder Additional Past Medical History / Comment(s): Pt tested covid + 01/18/21. Pt recently admitted to [facility] on 01/16/21 with generalized weakn ess/hyponatremia/acute kidney injury. 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 Past Anesthesia/Blood Transfusion Reactions: No Reported Reaction, Motion Sickness Date of Last Stent Placement:: 2012 Past Psychological History: No Psychological Hx Reported Additional Psychological History / Comment(s): Pt resides alone. He uses a cane. He is normally independent. Smoking Status: Never smoker Past Alcohol Use History: Occasional Past Drug Use History: None Reported - Past Family History Father Family Medical History: CVA/TIA Additional Family Medical History / Comment(s): Father of a CVA at the age of 44yrs. Mother Family Medical History: Cancer, Diabetes Mellitus Additional Family Medical History / Comment(s): Heart problems, pt cannot recall type of cancer. Medications and Allergies Home Medications Medication Instructions Recorded Confirmed Type Atorvastatin [Lipitor] 20 mg PO HS 08/10/15 01/18/21 History Multivitamin [Men's Multi-Vitamin] 1 tab PO DAILY 08/10/15 01/18/21 History Vitamin B Complex 1 cap PO HS 08/10/15 01/18/21 History allopurinoL [Zyloprim] 300 mg PO DAILY 08/10/15 01/18/21 History lisinopriL [Zestril] 10 mg PO DAILY 08/10/15 01/18/21 History metFORMIN HCL [Glucophage] 500 mg PO BID 08/10/15 01/18/21 History Tamsulosin HCl [Flomax] 0.4 mg PO HS 01/07/19 01/18/21 History Diclofenac 0.1% Ophth Soln 1 drop LEFT EYE BID 01/16/21 01/18/21 History [Voltaren 0.1% Ophth Soln] Metoprolol Succinate [Toprol XL] 25 mg PO BID 01/16/21 01/18/21 History prednisoLONE ACETATE 1% OPHTH 1 drop LEFT EYE QID 01/16/21 01/18/21 History [Pred Forte 1%] Aspirin EC [Ecotrin Low Dose] 81 mg PO HS 01/18/21 01/18/21 History hydroCHLOROthiazide 25 mg PO HS 01/18/21 01/18/21 History Allergies Allergy/AdvReac Type Severity Reaction Status Date / Time No Known Allergies Allergy Verified 01/18/21 10:42 Surgical - Exam Osteopathic Statement: *. No significant issues noted on an osteopathic structural exam other than those noted in the History and Physical/Consult. Vital Signs Temp Pulse Resp BP Pulse Ox 97.8 F 84 18 151/66 98 01/18/21 08:24 01/18/21 08:24 01/18/21 08:24 01/18/21 08:24 01/18/21 08:24 - General well developed, well nourished, no distress - Eyes PERRL - ENT no hearing loss - Neck trachea midline - Respiratory normal respiratory effort - Abdomen Soft, nontender, nondistended, no rebound, no guarding - Psychiatric oriented to time, oriented to person, oriented to place Results - Labs 01/20/21 06:36 01/20/21 06:36 Abnormal Lab Results - Last 24 Hours (Table) 01/19/21 01/19/21 01/20/21 Range/Units 17:14 20:47 06:36 WBC 26.4 H (3.8-10.6) k/uL Neutrophils # 24.1 H (1.3-7.7) k/uL Fibrinogen (200-500) mg/dL Glucose (74-99) mg/dL POC Glucose (mg/dL) 158 H 157 H (75-99) mg/dL Calcium (8.4-10.2) mg/dL Total Protein (6.3-8.2) g/dL Albumin (3.5-5.0) g/dL 01/20/21 01/20/21 01/20/21 Range/Units 06:36 06:36 07:23 WBC (3.8-10.6) k/uL Neutrophils # (1.3-7.7) k/uL Fibrinogen 701 H (200-500) mg/dL Glucose 128 H (74-99) mg/dL POC Glucose (mg/dL) 115 H (75-99) mg/dL Calcium 8.1 L (8.4-10.2) mg/dL Total Protein 6.0 L (6.3-8.2) g/dL Albumin 2.8 L (3.5-5.0) g/dL 01/20/21 Range/Units 11:59 WBC (3.8-10.6) k/uL Neutrophils # (1.3-7.7) k/uL Fibrinogen (200-500) mg/dL Glucose (74-99) mg/dL POC Glucose (mg/dL) 122 H (75-99) mg/dL Calcium (8.4-10.2) mg/dL Total Protein (6.3-8.2) g/dL Albumin (3.5-5.0) g/dL Microbiology - Last 24 Hours (Table) 01/18/21 11:04 Blood Culture - Preliminary Blood No Growth after 48 hours Diabetes panel 01/20/21 Range/Units 06:36 Sodium 137 (137-145) mmol/L Potassium 4.0 (3.5-5.1) mmol/L Chloride 107 (98-107) mmol/L Carbon Dioxide 22 (22-30) mmol/L BUN 18 (9-20) mg/dL Creatinine 0.90 (0.66-1.25) mg/dL Glucose 128 H (74-99) mg/dL Calcium 8.1 L (8.4-10.2) mg/dL AST 40 (17-59) U/L ALT 48 (4-49) U/L Alkaline Phosphatase 72 (38-126) U/L Total Protein 6.0 L (6.3-8.2) g/dL Albumin 2.8 L (3.5-5.0) g/dL Calcium panel 01/20/21 Range/Units 06:36 Calcium 8.1 L (8.4-10.2) mg/dL Albumin 2.8 L (3.5-5.0) g/dL Pituitary panel 01/20/21 Range/Units 06:36 Sodium 137 (137-145) mmol/L Potassium 4.0 (3.5-5.1) mmol/L Chloride 107 (98-107) mmol/L Carbon Dioxide 22 (22-30) mmol/L BUN 18 (9-20) mg/dL Creatinine 0.90 (0.66-1.25) mg/dL Glucose 128 H (74-99) mg/dL Calcium 8.1 L (8.4-10.2) mg/dL Adrenal panel 01/20/21 Range/Units 06:36 Sodium 137 (137-145) mmol/L Potassium 4.0 (3.5-5.1) mmol/L Chloride 107 (98-107) mmol/L Carbon Dioxide 22 (22-30) mmol/L BUN 18 (9-20) mg/dL Creatinine 0.90 (0.66-1.25) mg/dL Glucose 128 H (74-99) mg/dL Calcium 8.1 L (8.4-10.2) mg/dL Total Bilirubin 0.8 (0.2-1.3) mg/dL AST 40 (17-59) U/L ALT 48 (4-49) U/L Alkaline Phosphatase 72 (38-126) U/L Total Protein 6.0 L (6.3-8.2) g/dL Albumin 2.8 L (3.5-5.0) g/dL Assessment and Plan Plan: 85-year-old male with coated pneumonitis and acute pulmonary embolism, finding a distended gallbladder and cholelithiasis. On exam, patient is having no abdominal pain at this time. He also is tolerating his diet. Based on the finding of acute pulmonary embolism, patient is already high risk for clot propagation during surgical procedure. As the patient is having a significant lack of symptomatology for cholecystitis, I would not recommend surgical intervention at this time. If patient begins to develop any symptoms for concern of cholecystitis, I would recommend cholecystostomy tube during this acute phase of pulmonary embolism treatment. Continue treatment for pulmonary embolism and Covid 19. Patient is requesting follow-up as an outpatient with Dr. Bolton, as she has been this patient's family surgeon and he is comfortable with her.
[2021-01-20] MEDS: SODIUM CHLORIDE 0.9% 1,000 ML IV SCH (17:07)
[2021-01-20 17:16] LABS: Glucose,Whole Blood 166 mg/dL (75-99)
[2021-01-20 20:39] LABS: Glucose,Whole Blood 200 mg/dL (75-99)
[2021-01-20] MEDS: TAMSULOSIN 0.4 MG CAP.ER.24H PO SCH (21:12)
[2021-01-20] MEDS: FOLIC ACID-VIT B COMPLEX-VIT C 1 CAP PO SCH (21:12)
[2021-01-20] MEDS: ATORVASTATIN 20 MG TAB PO SCH (21:12)
--- NOTE | 2021-01-20 22:23 | P.PN ---
Progress Note - Text Progress Note Date: 01/20/21 Acute Pulmonary emboli History of presenting illness: Patient is a very pleasant 85-year-old male with a past medical history of CAD, hypertension, hyperlipidemia, insulin-dependent diabetes mellitus type 2, BPH, and gout. Patient presented to [facility] with a chief complaint of weakness and fatigue. Patient reports that he recently received his Covid 19 Pfizer vaccination on 01/03/21 and has since been ill. Patient states he has been in and out of bed, suffered from chills and diaphoresis, had a decreased appetite, lost 20 pounds, felt very fatigued and weak, had episodes of nausea, becomes significantly dyspneic with any exertion, and was even admitted from 01/16/21 through 01/17/21 for dehydration. Patient states during that hospitalization he was given some IV fluids and did feel better, however after discharge she began to feel worse again so he came back to the hospital for additional care. In the ED patient was found to be positive for Covid 19 virus infection and to have significant leukocytosis with WBC count of 20.5, have an elevated LDH of 797, elevated CRP of 30.8, and d-dimer 4.16. He had an EKG which revealed normal sinus rhythm at 82 bpm with no noted T-wave or ST abnormalities. KUB was negative for acute process revealing a nonspecific bowel gas pattern. Chest x-ray revealing left lower lobe infiltrate. And a CT PE positive for acute pulmonary embolism involving the second branch of the right pulmonary artery. Patient was started on therapeutic Lovenox for treatment of acute PE and admitted under our services for Covid 19 virus infection. Patient denies having any recent headache, lightheadedness, dizziness, fever, chest pain, palpitations, shortness of breath at rest, abdominal pain or episodes of vomiting, having any difficulties with her changes in his urination or bowel function, or experiencing any pain/swelling/weakness in extremities. Echocardiogram completed revealing a normal ejection fraction at 60-65%. Patient also during admission complained of upper abdominal pain. Abdominal ultrasound showed suggestive of gallstones. Today-laying in bed. A bit tired. Slight cough. Denies abdominal pain. No nausea vomiting. Computed tomography scan of the abdomen from this morning suggesting acute cholecystitis. General surgery was consulted. No fever. Decreased appetite Review of systems: Was done for constitutional, cardiovascular, GI, pulmonary. relevant finding as above Active Medications Acetaminophen (Acetaminophen Tab 325 Mg Tab) 650 mg PO Q4HR PRN PRN Reason: Fever>101 Allopurinol (Allopurinol 300 Mg Tab) 300 mg PO DAILY [facility] Last Admin: 01/20/21 10:23 Dose: 300 mg Documented by: Ascorbic Acid (Ascorbic Acid 500 Mg Tab) 500 mg PO DAILY [facility] Last Admin: 01/20/21 12:32 Dose: 500 mg Documented by: Aspirin (Aspirin 81 Mg) 81 mg PO DAILY [facility] Last Admin: 01/20/21 10:23 Dose: 81 mg Documented by: Atorvastatin Calcium (Atorvastatin 20 Mg Tab) 20 mg PO HS [facility] Last Admin: 01/20/21 21:12 Dose: 20 mg Documented by: Colchicine (Colchicine 0.6 Mg Each) 0.6 mg PO BID [facility] Last Admin: 01/20/21 21:12 Dose: 0.6 mg Documented by: Dexamethasone (Dexamethasone 2 Mg Tab) 6 mg PO DAILY [facility] Last Admin: 01/20/21 10:23 Dose: 6 mg Documented by: Diclofenac Sodium (Diclofenac 0.1% Ophth Soln 2.5 Ml Btl) 1 drops LEFT EYE BID [facility] Last Admin: 01/20/21 21:13 Dose: 1 drops Documented by: Enoxaparin Sodium (Enoxaparin 80 Mg/0.8 Ml Syringe) 80 mg SQ Q12HR [facility] Last Admin: 01/20/21 21:12 Dose: 80 mg Documented by: Sodium Chloride (Saline 0.9%) 1,000 mls @ 75 mls/hr IV .[id number] [facility] Last Admin: 01/20/21 17:07 Dose: 75 mls/hr Documented by: Cefepime HCl 2 gm/ Sodium (Chloride) 100 mls @ 25 mls/hr IVPB Q12H [facility] Insulin Aspart (Insulin Aspart (Novolog) 100 Unit/Ml Vial) 0 unit SQ ACHS [facility]; Protocol Last Admin: 01/20/21 21:12 Dose: 2 unit Documented by: Lisinopril (Lisinopril 10 Mg Tab) 10 mg PO DAILY [facility] Last Admin: 01/20/21 10:23 Dose: 10 mg Documented by: Metoprolol Succinate (Metoprolol Succinate (Er) 25 Mg Tab.Er.24h) 25 mg PO BID [facility] Last Admin: 01/20/21 21:12 Dose: 25 mg Documented by: Multivit/Ca Carb/B Cmplx/FA/Prenat (Folic Acid-Vit B Complex-Vit C 1 Cap) 1 each PO HS [facility] Last Admin: 01/20/21 21:12 Dose: 1 each Documented by: Multivitamins (Multivitamins, Thera 1 Each Tab) 1 each PO DAILY [facility] Last Admin: 01/20/21 10:23 Dose: 1 each Documented by: Naloxone HCl (Naloxone 0.4 Mg/Ml 1 Ml Vial) 0.2 mg IV Q2M PRN PRN Reason: Opioid Reversal Ondansetron HCl (Ondansetron 4 Mg/2 Ml Vial) 4 mg IVP Q8HR PRN PRN Reason: Nausea And Vomiting Pantoprazole Sodium (Pantoprazole 40 Mg Tablet) 40 mg PO DAILY [facility] Last Admin: 01/20/21 10:23 Dose: 40 mg Documented by: Prednisolone Acetate (Prednisolone Acetate 1% Ophth Drops 5 Ml Btl) 1 drops LEFT EYE QID [facility] Last Admin: 01/20/21 21:13 Dose: 1 drops Documented by: Tamsulosin HCl (Tamsulosin 0.4 Mg Cap.Er.24h) 0.4 mg PO HS [facility] Last Admin: 01/20/21 21:12 Dose: 0.4 mg Documented by: Zinc Sulfate (Zinc Sulfate 220 Mg Cap) 220 mg PO DAILY [facility] Last Admin: 01/20/21 12:32 Dose: 220 mg Documented by: On examination: VITAL SIGNS: 98, 65, 16, 135/67, 94% room air GENERAL APPEARANCE: Average build. Lying in bed, not in distress. HEENT: Normal external appearance of nose and ear. Oral cavity normal EYES: Pupils equal. Conjunctiva normal. NECK: JVD not raised. Mass not palpable. RESPIRATORY: Respiratory effort increased. Decreased breath sounds CARDIOVASCULAR: First and second sounds normal. No edema. ABDOMEN: Soft. Liver and spleen not palpable. No tenderness. No mass palpable. PSYCHIATRY: Alert and oriented x3. Mood and affect normal. INVESTIGATIONS, reviewed in the clinical context: White count 26.4 hemoglobin 13.8 platelets 333 increased neutrophils potassium 4.0 creatinine 0.9 Coronavirus [PCR]-detected l computed tomography scan of the abdomen pelvis-January 20: Findings suggestive of acute cholecystitis Gallbladder ultrasound-score stones Chest CT-acute PE involving the second branch of the right pulmonary artery -Patchy areas of bilateral infiltrate Assessment and Plan of care: Acute PE involving the second branch of the right pulmonary artery -Continue therapeutic Lovenox -Telemetry monitoring -Supplemental oxygen to be administered as needed to maintain SpO2 equal to or greater than 92% -Consult to pulmonology Acute Covid 19 Pneumonitis -Contact plus droplet precautions. Follow d-dimer and CRP. Incentive spirometry. -Consult to pulmonology. -Oxygenation as needed to maintain SpO2 equal to or greater than 92% patient currently on room air. -Decadron 6 mg daily, Lovenox Acute cholecystitis with gallstones -Patient currently doesn't often have any pain. Given the acute PE and COVID 19 and lack of current symptoms better to hold off surgery. Patient be started today and IV cefepime. Surgery consulted Essential Hypertension Continue beta salena, Zestril Hyperlipidemia Continue Lipitor. Insulin-dependent diabetes mellitus type 2 -Glycemic protocol with NovoLog sliding scale. Continue metformin -Heart healthy carb consistent diet. BPH Continue Flomax GERD: Continue Protonix Discussed with the patient. No urgency for any surgery is a pleasant diet until something new develops clinically. Patient be started IV cefepime for now. Other medications to continue. Consulted Dr. Alfredo from general surgery. Spoke to him earlier today. Plan is to go conservative for now and possible surgery down the road. Add incentive spirometry. Encourage oral intake. Total time spent today about 40 minutes with over 25 minutes of discussion.
[2021-01-21] MEDS ORDERED: CEFEPIME 2 GM in SODIUM CHLORIDE 0.9% 50 ML IVPB SCH ×2
[2021-01-21] MEDS: CEFEPIME 2 GM in SODIUM CHLORIDE 0.9% 100 ML IVPB SCH ×2 (00:26→12:35)
[2021-01-21] MEDS: SODIUM CHLORIDE 0.9% 1,000 ML IV SCH ×2 (04:56→17:10)
[2021-01-21 06:51] LABS: D-Dimer 2.33 mg/L FEU (<0.60)
[2021-01-21 06:52] LABS: C Reactive Protein 59.6 mg/L (<10.0)
[2021-01-21 06:53] LABS: Glucose,Whole Blood 134 mg/dL (75-99)
[2021-01-21 07:01] LABS: Magnesium 2.4 mg/dL (1.6-2.3)
[2021-01-21] MEDS: INSULIN ASPART (NovoLOG) 100 UNIT/ML VIAL SQ SCH ×4 (07:42→20:10)
[2021-01-21 09:00] LABS: Basophils # (A) 0.11 X 10*3/uL (0.00-0.10); Basophils % (A) 0.4 %; Eosinophils # (A) 0.01 X 10*3/uL (0.04-0.35); Eosinophils % (A) 0 %; HCT 36.8 % (39.6-50.0); HGB 12.6 g/dL (13.0-17.0); Lymphocytes # (A) 1.32 X 10*3/uL (0.90-5.00); Lymphocytes % (A) 4.6 %; MCHC 34.2 g/dL (32.0-37.0); MCV 87.6 fL (80.0-97.0); Mean Platelet Volume 10.8 fL (9.5-12.2); Monocytes # (A) 1.09 X 10*3/uL (0.20-1.00); Monocytes % (A) 3.8 %; Neutrophils # (A) 25.65 X 10*3/uL (1.80-7.70); Neutrophils % (A) 88.5 %; Platelet Count 374 X 10*3/uL (140-440); RDW 13.3 % (11.5-14.5); WBC 28.96 X 10*3/uL (4.50-10.00)
[2021-01-21 09:28] LABS: Ferritin 1213.7 ng/mL (22.0-322.0)
[2021-01-21] MEDS: MULTIVITAMINS, THERA 1 EACH TAB PO SCH (09:31)
[2021-01-21] MEDS: PANTOPRAZOLE 40 MG TABLET PO SCH (09:31)
[2021-01-21] MEDS: dexAMETHasone 2 MG TAB PO SCH (09:31)
[2021-01-21] MEDS: ZINC SULFATE 220 MG CAP PO SCH (09:31)
[2021-01-21] MEDS: METOPROLOL SUCCINATE (ER) 25 MG TAB.ER.24H PO SCH ×2 (09:31→20:10)
[2021-01-21] MEDS: lisinopriL 10 MG TAB PO SCH (09:31)
[2021-01-21] MEDS: ASCORBIC ACID 500 MG TAB PO SCH (09:31)
[2021-01-21] MEDS: ENOXAPARIN 80 MG/0.8 ML SYRINGE SQ SCH (09:32)
[2021-01-21] MEDS: DICLOFENAC 0.1% OPHTH SOLN 2.5 ML BTL LEFT EYE SCH ×2 (09:32→20:10)
[2021-01-21] MEDS: allopurinoL 300 MG TAB PO SCH (09:32)
[2021-01-21] MEDS: ASPIRIN 81 MG PO SCH (09:32)
[2021-01-21] MEDS: prednisoLONE ACETATE 1% OPHTH DROPS 5 ML BTL LEFT EYE SCH ×4 (09:33→20:10)
[2021-01-21] MEDS: COLCHICINE 0.6 MG EACH PO SCH ×2 (09:33→20:10)
--- NOTE | 2021-01-21 10:41 | P.PN ---
Subjective Progress Note Date: 01/21/21 Patient seen and examined at bedside. Denies any abdominal pain. Tolerating diet. Denies nausea or vomiting. Objective - Vital Signs Vital signs: Vital Signs Temp 97.9 F 01/21/21 10:00 Pulse 74 01/21/21 10:00 Resp 18 01/21/21 10:00 BP 146/69 01/21/21 10:00 Pulse Ox 97 01/21/21 10:00 Intake & Output 01/20/21 01/21/21 01/21/21 18:59 06:59 18:59 Other: Voiding Method Toilet # Voids 6 2 4 # Bowel Movements 1 0 - Constitutional General appearance: Present: cooperative, no acute distress - EENT Eyes: Present: PERRLA - Respiratory Details: No difficulty with respiration - Gastrointestinal Gastrointestinal Comment(s): Soft, nontender, nondistended, no rebound, no guarding - Musculoskeletal Musculoskeletal: Present: generalized weakness - Psychiatric Psychiatric: Present: A&O x's 3 - Labs CBC & Chem 7: 01/21/21 05:46 01/20/21 06:36 Labs: Abnormal Lab Results - Last 24 Hours (Table) 01/20/21 01/20/21 01/20/21 Range/Units 06:36 11:59 17:14 WBC (4.50-10.00) X 10*3/uL RBC (4.40-5.60) X 10*6/uL Hgb (13.0-17.0) g/dL Hct (39.6-50.0) % Immature Gran # (0.00-0.04) X 10*3/uL Neutrophils # (1.80-7.70) X 10*3/uL Monocytes # (0.20-1.00) X 10*3/uL Eosinophils # (0.04-0.35) X 10*3/uL Basophils # (0.00-0.10) X 10*3/uL Fibrinogen (200-500) mg/dL D-Dimer (<0.60) mg/L FEU POC Glucose (mg/dL) 122 H 166 H (75-99) mg/dL Magnesium (1.6-2.3) mg/dL Ferritin 1182.0 H (22.0-322.0) ng/mL C-Reactive Protein (<10.0) mg/L 01/20/21 01/21/21 01/21/21 Range/Units 20:37 05:46 05:46 WBC 28.96 H (4.50-10.00) X 10*3/uL RBC 4.20 L (4.40-5.60) X 10*6/uL Hgb 12.6 L (13.0-17.0) g/dL Hct 36.8 L (39.6-50.0) % Immature Gran # 0.78 H (0.00-0.04) X 10*3/uL Neutrophils # 25.65 H (1.80-7.70) X 10*3/uL Monocytes # 1.09 H (0.20-1.00) X 10*3/uL Eosinophils # 0.01 L (0.04-0.35) X 10*3/uL Basophils # 0.11 H (0.00-0.10) X 10*3/uL Fibrinogen 638 H (200-500) mg/dL D-Dimer 2.33 H (<0.60) mg/L FEU POC Glucose (mg/dL) 200 H (75-99) mg/dL Magnesium (1.6-2.3) mg/dL Ferritin (22.0-322.0) ng/mL C-Reactive Protein (<10.0) mg/L 01/21/21 01/21/21 Range/Units 05:46 06:43 WBC (4.50-10.00) X 10*3/uL RBC (4.40-5.60) X 10*6/uL Hgb (13.0-17.0) g/dL Hct (39.6-50.0) % Immature Gran # (0.00-0.04) X 10*3/uL Neutrophils # (1.80-7.70) X 10*3/uL Monocytes # (0.20-1.00) X 10*3/uL Eosinophils # (0.04-0.35) X 10*3/uL Basophils # (0.00-0.10) X 10*3/uL Fibrinogen (200-500) mg/dL D-Dimer (<0.60) mg/L FEU POC Glucose (mg/dL) 134 H (75-99) mg/dL Magnesium 2.4 H (1.6-2.3) mg/dL Ferritin 1213.7 H (22.0-322.0) ng/mL C-Reactive Protein 59.6 H (<10.0) mg/L Microbiology - Last 24 Hours (Table) 01/18/21 11:04 Blood Culture - Preliminary Blood No Growth after 48 hours Assessment and Plan Plan: 85-year-old male with covid pneumonitis and acute pulmonary embolism, finding a distended gallbladder and cholelithiasis. Patient continues to have lack of symptomatology for cholecystitis with no abdominal pain today. Continue with recommendation for conservative management. Continue treatment for pulmonary embolism and Covid 19. Patient is requesting follow-up as an outpatient with Dr. Bolton, as she has been this patient's family surgeon and he is comfortable with her.
[2021-01-21 11:11] LABS: Glucose,Whole Blood 191 mg/dL (75-99)
--- NOTE | 2021-01-21 12:13 | P.PN ---
Subjective Progress Note Date: 01/21/21 Principal diagnosis: CoVID 19 infection This is an 85-year-old gentleman who follows with Dr. Chadwick as his primary care provider. He has a history of coronary artery disease with previous stent placement, hyperlipidemia, hypertension, diabetes mellitus. He has a history of CoVID 19 vaccination on 01/03/2021. Since that time he had been having issues with weakness fever chills or fatigue and weight loss. He was admitted to the hospital January 16 through the for dehydration and improved and was discharged home. He represented here on 01/18/2021 with recurrent symptoms of poor appetite abdominal and epigastric pain and shortness of breath. Chest x- ray revealed no evidence of acute pulmonary disease. KUB revealed nonspecific abdomen. CT angiogram was positive for acute pulmonary embolism involving the secondary branch of the right pulmonary artery. There is also evidence of COPD and patchy areas of bilateral infiltrate/interstitial pneumonitis. CoVID 19 19 by PCR positive. LDH 611. C-reactive protein 30.8. Troponins were negative 3. Echocardiogram revealed preserved left ventricular systolic function with ejection fraction 60-65%. Pro-calcitonin 0.07. White count 26.4. Hemoglobin 13.8. Neutrophils 24.1. Fibrinogen 701. D-dimer 4.16. Vitamin 37. Potassium 4.0. Creatinine 0.90. He was initiated on Lovenox 80 mg subcu every 12 hours. Dexamethasone. 0.9 normal saline at 75 mL per hour. He is also having some right upper quadrant tenderness. Ultrasound of the gallbladder did reveal cholelithiasis within the gallbladder neck. Computed tomography scan of the abdomen and pelvis did reveal acute cholecystitis. The patient is seen today 01/21/2021 in follow-up on the regular medical floor. He is currently sitting up in bed. Awake and alert in no acute distress. Maintaining good O2 saturations in the mid 90s on room air. He's been afebrile. Hemodynamically stable. Blood cultures reveal no growth to date. White count 28.9. Hemoglobin 12.6. Neutrophils 25.6. D-dimer 2.33. Ferritin 1213. LDH 585. C-reactive protein 59.6. He remains on Lovenox, dexamethasone, colchicine, vitamin supplements. Antibiotics the form of cefepime. Surgical consultation recommending outpatient follow up for cholecystitis. Objective - Vital Signs Vital signs: Vital Signs Temp 97.9 F 01/21/21 10:00 Pulse 74 01/21/21 10:00 Resp 18 01/21/21 10:00 BP 146/69 01/21/21 10:00 Pulse Ox 97 01/21/21 10:00 Intake & Output 01/20/21 01/21/21 01/21/21 18:59 06:59 18:59 Other: Voiding Method Toilet # Voids 6 2 4 # Bowel Movements 1 0 - Exam GENERAL EXAM: Alert, pleasant 85-year-old gentleman, on room air with pulse ox of 97%, comfortable in no apparent distress. HEAD: Normocephalic. EYES: Normal reaction of pupils, equal size. NOSE: Clear with pink turbinates. THROAT: No erythema or exudates. NECK: No masses, no JVD. CHEST: No chest wall deformity. LUNGS: Equal air entry with few scattered rhonchi. CVS: S1 and S2 normal with no audible murmur, regular rhythm. ABDOMEN: Right upper quadrant tenderness. No hepatosplenomegaly, normal bowel sounds, no guarding or rigidity. SPINE: No scoliosis or deformity SKIN: No rashes CENTRAL NERVOUS SYSTEM: No focal deficits, tone is normal in all 4 extremities. EXTREMITIES: There is no peripheral edema. No clubbing, no cyanosis. P eripheral pulses are intact. - Labs CBC & Chem 7: 01/21/21 05:46 01/20/21 06:36 Labs: Abnormal Lab Results - Last 24 Hours (Table) 01/20/21 01/20/21 01/20/21 Range/Units 06:36 17:14 20:37 WBC (4.50-10.00) X 10*3/uL RBC (4.40-5.60) X 10*6/uL Hgb (13.0-17.0) g/dL Hct (39.6-50.0) % Immature Gran # (0.00-0.04) X 10*3/uL Neutrophils # (1.80-7.70) X 10*3/uL Monocytes # (0.20-1.00) X 10*3/uL Eosinophils # (0.04-0.35) X 10*3/uL Basophils # (0.00-0.10) X 10*3/uL Fibrinogen (200-500) mg/dL D-Dimer (<0.60) mg/L FEU POC Glucose (mg/dL) 166 H 200 H (75-99) mg/dL Magnesium (1.6-2.3) mg/dL Ferritin 1182.0 H (22.0-322.0) ng/mL C-Reactive Protein (<10.0) mg/L 01/21/21 01/21/21 01/21/21 Range/Units 05:46 05:46 05:46 WBC 28.96 H (4.50-10.00) X 10*3/uL RBC 4.20 L (4.40-5.60) X 10*6/uL Hgb 12.6 L (13.0-17.0) g/dL Hct 36.8 L (39.6-50.0) % Immature Gran # 0.78 H (0.00-0.04) X 10*3/uL Neutrophils # 25.65 H (1.80-7.70) X 10*3/uL Monocytes # 1.09 H (0.20-1.00) X 10*3/uL Eosinophils # 0.01 L (0.04-0.35) X 10*3/uL Basophils # 0.11 H (0.00-0.10) X 10*3/uL Fibrinogen 638 H (200-500) mg/dL D-Dimer 2.33 H (<0.60) mg/L FEU POC Glucose (mg/dL) (75-99) mg/dL Magnesium 2.4 H (1.6-2.3) mg/dL Ferritin 1213.7 H (22.0-322.0) ng/mL C-Reactive Protein 59.6 H (<10.0) mg/L 01/21/21 01/21/21 Range/Units 06:43 11:08 WBC (4.50-10.00) X 10*3/uL RBC (4.40-5.60) X 10*6/uL Hgb (13.0-17.0) g/dL Hct (39.6-50.0) % Immature Gran # (0.00-0.04) X 10*3/uL Neutrophils # (1.80-7.70) X 10*3/uL Monocytes # (0.20-1.00) X 10*3/uL Eosinophils # (0.04-0.35) X 10*3/uL Basophils # (0.00-0.10) X 10*3/uL Fibrinogen (200-500) mg/dL D-Dimer (<0.60) mg/L FEU POC Glucose (mg/dL) 134 H 191 H (75-99) mg/dL Magnesium (1.6-2.3) mg/dL Ferritin (22.0-322.0) ng/mL C-Reactive Protein (<10.0) mg/L Microbiology - Last 24 Hours (Table) 01/18/21 11:04 Blood Culture - Preliminary Blood No Growth after 48 hours Assessment and Plan Assessment: 1 Acute CoVID 19 infection 2 Elevated inflammatory markers secondary to above 3 Acute pulmonary emboli of the secondary branch of the right pulmonary artery 4 Cholelithiasis 5 Leukocytosis secondary to above 6 Recent admission for dehydration and weakness 7 Coronary artery disease with previous stent placement 8 Hypertension 9 Hyperlipidemia 10 Diabetes mellitus Plan: The patient was seen and evaluated by Dr. Alan Felder from the pulmonary standpoint Transition to oral anticoagulant in the form of Xarelto Surgical follow-up in the outpatient setting Continue the current treatment plan Home once cleared by medicine I, the cosigning physician, performed a history & physical examination of the patient. Lungs sounds clear. Maintaining good O2 saturations in the 90s on room air. I discussed the assessment and plan of care with my nurse practitioner, Teresa Ramos. I attest to the above note as dictated by her.
[2021-01-21 17:07] LABS: Glucose,Whole Blood 194 mg/dL (75-99)
[2021-01-21] MEDS: RIVAROXABAN 15 MG TAB PO SCH (17:16)
--- NOTE | 2021-01-21 19:14 | P.PN ---
Progress Note - Text Progress Note Date: 01/21/21 Acute Pulmonary emboli History of presenting illness: Patient is a very pleasant 85-year-old male with a past medical history of CAD, hypertension, hyperlipidemia, insulin-dependent diabetes mellitus type 2, BPH, and gout. Patient presented to [facility] with a chief complaint of weakness and fatigue. Patient reports that he recently received his Covid 19 Pfizer vaccination on 01/03/21 and has since been ill. Patient states he has been in and out of bed, suffered from chills and diaphoresis, had a decreased appetite, lost 20 pounds, felt very fatigued and weak, had episodes of nausea, becomes significantly dyspneic with any exertion, and was even admitted from 01/16/21 through 01/17/21 for dehydration. Patient states during that hospitalization he was given some IV fluids and did feel better, however after discharge she began to feel worse again so he came back to the hospital for additional care. In the ED patient was found to be positive for Covid 19 virus infection and to have significant leukocytosis with WBC count of 20.5, have an elevated LDH of 797, elevated CRP of 30.8, and d-dimer 4.16. He had an EKG which revealed normal sinus rhythm at 82 bpm with no noted T-wave or ST abnormalities. KUB was negative for acute process revealing a nonspecific bowel gas pattern. Chest x-ray revealing left lower lobe infiltrate. And a CT PE positive for acute pulmonary embolism involving the second branch of the right pulmonary artery. Patient was started on therapeutic Lovenox for treatment of acute PE and admitted under our services for Covid 19 virus infection. Patient denies having any recent headache, lightheadedness, dizziness, fever, chest pain, palpitations, shortness of breath at rest, abdominal pain or episodes of vomiting, having any difficulties with her changes in his urination or bowel function, or experiencing any pain/swelling/weakness in extremities. Echocardiogram completed revealing a normal ejection fraction at 60-65%. Patient also during admission complained of upper abdominal pain. Abdominal ultrasound showed suggestive of gallstones. Computed tomography scan suggestive acute cholecystitis. Seen by Dr. Alfredo from general surgery. Given the abdominal pain is much better. No fever and given the acute PE plan is to defer the surgery.. Today-appetite much improved. Breathing better. Up to the bathroom. No abdominal pain. No fever. Review of systems: Was done for constitutional, cardiovascular, GI, pulmonary. relevant finding as above Active Medications Acetaminophen (Acetaminophen Tab 325 Mg Tab) 650 mg PO Q4HR PRN PRN Reason: Fever>101 Allopurinol (Allopurinol 300 Mg Tab) 300 mg PO DAILY [facility] Last Admin: 01/21/21 09:32 Dose: 300 mg Documented by: Ascorbic Acid (Ascorbic Acid 500 Mg Tab) 500 mg PO DAILY [facility] Last Admin: 01/21/21 09:31 Dose: 500 mg Documented by: Aspirin (Aspirin 81 Mg) 81 mg PO DAILY [facility] Last Admin: 01/21/21 09:32 Dose: 81 mg Documented by: Atorvastatin Calcium (Atorvastatin 20 Mg Tab) 20 mg PO HS [facility] Last Admin: 01/20/21 21:12 Dose: 20 mg Documented by: Colchicine (Colchicine 0.6 Mg Each) 0.6 mg PO BID [facility] Last Admin: 01/21/21 09:33 Dose: 0.6 mg Documented by: Dexamethasone (Dexamethasone 2 Mg Tab) 6 mg PO DAILY [facility] Last Admin: 01/21/21 09:31 Dose: 6 mg Documented by: Diclofenac Sodium (Diclofenac 0.1% Ophth Soln 2.5 Ml Btl) 1 drops LEFT EYE BID [facility] Last Admin: 01/21/21 09:32 Dose: 1 drops Documented by: Sodium Chloride (Saline 0.9%) 1,000 mls @ 75 mls/hr IV .[id number] [facility] Last Admin: 01/21/21 17:10 Dose: 75 mls/hr Documented by: Cefepime HCl 2 gm/ Sodium (Chloride) 100 mls @ 25 mls/hr IVPB Q12H [facility] Last Admin: 01/21/21 12:35 Dose: 25 mls/hr Documented by: Insulin Aspart (Insulin Aspart (Novolog) 100 Unit/Ml Vial) 0 unit SQ ACHS [facility]; Protocol Last Admin: 01/21/21 17:10 Dose: 2 unit Documented by: Lisinopril (Lisinopril 10 Mg Tab) 10 mg PO DAILY [facility] Last Admin: 01/21/21 09:31 Dose: 10 mg Documented by: Metoprolol Succinate (Metoprolol Succinate (Er) 25 Mg Tab.Er.24h) 25 mg PO BID [facility] Last Admin: 01/21/21 09:31 Dose: 25 mg Documented by: Multivit/Ca Carb/B Cmplx/FA/Prenat (Folic Acid-Vit B Complex-Vit C 1 Cap) 1 each PO HS [facility] Last Admin: 01/20/21 21:12 Dose: 1 each Documented by: Multivitamins (Multivitamins, Thera 1 Each Tab) 1 each PO DAILY [facility] Last Admin: 01/21/21 09:31 Dose: 1 each Documented by: Naloxone HCl (Naloxone 0.4 Mg/Ml 1 Ml Vial) 0.2 mg IV Q2M PRN PRN Reason: Opioid Reversal Ondansetron HCl (Ondansetron 4 Mg/2 Ml Vial) 4 mg IVP Q8HR PRN PRN Reason: Nausea And Vomiting Pantoprazole Sodium (Pantoprazole 40 Mg Tablet) 40 mg PO DAILY [facility] Last Admin: 01/21/21 09:31 Dose: 40 mg Documented by: Prednisolone Acetate (Prednisolone Acetate 1% Ophth Drops 5 Ml Btl) 1 drops LEFT EYE QID [facility] Last Admin: 01/21/21 17:15 Dose: Not Given Documented by: Rivaroxaban (Rivaroxaban 15 Mg Tab) 15 mg PO BID-W/MEALS [facility] Last Admin: 01/21/21 17:16 Dose: 15 mg Documented by: Tamsulosin HCl (Tamsulosin 0.4 Mg Cap.Er.24h) 0.4 mg PO [facility] Last Admin: 01/20/21 21:12 Dose: 0.4 mg Documented by: Zinc Sulfate (Zinc Sulfate 220 Mg Cap) 220 mg PO DAILY [facility] Last Admin: 01/21/21 09:31 Dose: 220 mg Documented by: On examination: VITAL SIGNS: 97.6, 69, 18, 140/67, 95% room air GENERAL APPEARANCE: Sitting up in bed, comfortable. HEENT: Normal external appearance of nose and ear. Oral cavity normal EYES: Pupils equal. Conjunctiva normal. NECK: JVD not raised. Mass not palpable. RESPIRATORY: Respiratory effort increased. Decreased breath sounds CARDIOVASCULAR: First and second sounds normal. No edema. ABDOMEN: Soft. Liver and spleen not palpable. No tenderness. No mass palpable. PSYCHIATRY: Alert and oriented x3. Mood and affect normal. INVESTIGATIONS, reviewed in the clinical context: January 21: White count 28 hemoglobin 12.6 d-dimer 2.33 CRP 59.6 pro-calcitonin 0.12 White count 26.4 hemoglobin 13.8 platelets 333 increased neutrophils potassium 4.0 creatinine 0.9 Coronavirus [PCR]-detected l computed tomography scan of the abdomen pelvis-January 20: Findings suggestive of acute cholecystitis Gallbladder ultrasound-score stones Chest CT-acute PE involving the second branch of the right pulmonary artery -Patchy areas of bilateral infiltrate Assessment and Plan of care: Acute PE involving the second branch of the right pulmonary artery -Continue therapeutic Lovenox -Telemetry monitoring -Supplemental oxygen to be administered as needed to maintain SpO2 equal to or greater than 92% -Consult to pulmonology Acute Covid 19 Pneumonitis -Much improved. On Decadron. Xarelto. Pulse ox on room air is 95%. Essential Hypertension Continue beta salena, Zestril Hyperlipidemia Continue Lipitor. Insulin-dependent diabetes mellitus type 2 -Glycemic protocol with NovoLog sliding scale. Continue metformin -Heart healthy carb consistent diet. BPH Continue Flomax GERD: Continue Protonix - Acute cholecystitis: Patient on IV cefepime. No abdominal pain. No fever. As discussed with surgery, surgery postponed for now. Patient is significant improved. gum remover to Augmentin tomorrow. Should be a to be discharged
[2021-01-21 20:01] LABS: Glucose,Whole Blood 183 mg/dL (75-99)
[2021-01-21] MEDS: ATORVASTATIN 20 MG TAB PO SCH (20:10)
[2021-01-21] MEDS: TAMSULOSIN 0.4 MG CAP.ER.24H PO SCH (20:10)
[2021-01-21] MEDS: FOLIC ACID-VIT B COMPLEX-VIT C 1 CAP PO SCH (20:10)
[2021-01-22 06:58] LABS: Glucose,Whole Blood 110 mg/dL (75-99)
[2021-01-22] MEDS: INSULIN ASPART (NovoLOG) 100 UNIT/ML VIAL SQ SCH ×2 (07:26→11:37)
[2021-01-22] MEDS: SODIUM CHLORIDE 0.9% 1,000 ML IV SCH (08:03)
[2021-01-22] MEDS: COLCHICINE 0.6 MG EACH PO SCH (08:04)
[2021-01-22] MEDS: METOPROLOL SUCCINATE (ER) 25 MG TAB.ER.24H PO SCH (08:04)
[2021-01-22] MEDS: lisinopriL 10 MG TAB PO SCH (08:04)
[2021-01-22] MEDS: MULTIVITAMINS, THERA 1 EACH TAB PO SCH (08:04)
[2021-01-22] MEDS: dexAMETHasone 2 MG TAB PO SCH (08:04)
[2021-01-22] MEDS: ASPIRIN 81 MG PO SCH (08:04)
[2021-01-22] MEDS: ZINC SULFATE 220 MG CAP PO SCH (08:04)
[2021-01-22] MEDS: PANTOPRAZOLE 40 MG TABLET PO SCH (08:04)
[2021-01-22] MEDS: ASCORBIC ACID 500 MG TAB PO SCH (08:04)
[2021-01-22] MEDS: RIVAROXABAN 15 MG TAB PO SCH (08:04)
[2021-01-22] MEDS: allopurinoL 300 MG TAB PO SCH (08:04)
[2021-01-22] MEDS: prednisoLONE ACETATE 1% OPHTH DROPS 5 ML BTL LEFT EYE SCH ×2 (08:05→12:56)
[2021-01-22] MEDS: DICLOFENAC 0.1% OPHTH SOLN 2.5 ML BTL LEFT EYE SCH (08:06)
[2021-01-22] MEDS ORDERED: AMOXIC-POT CLAV 875-125MG 1 EACH TAB PO SCH (09:00)
[2021-01-22 09:37] LABS: African American GFR (CKD) 94.4 (60.0-200.0); Albumin/Globulin Ratio 1.36 (1.60-3.17); BUN/Creat Ratio 27.5 Ratio (12.00-20.00); Calcium 7.6 mg/dL (8.7-10.3); Globulin 2.2 g/dL (1.6-3.3); Non-African American GFR(CKD) 81.5 (60.0-200.0); Potassium 4.1 mmol/L (3.5-5.5); Total Bilirubin 0.4 mg/dL (0.2-1.2); Total Protein 5.2 g/dL (6.2-8.2)
[2021-01-22 09:51] VITALS: BP 160/52; PULSE 59; RESP 16; TEMP 97.5
[2021-01-22 11:28] LABS: Glucose,Whole Blood 134 mg/dL (75-99)
--- NOTE | 2021-01-22 12:04 | P.PN ---
Subjective Progress Note Date: 01/22/21 This is an 85-year-old gentleman who follows with Dr. Chadwick as his primary care provider. He has a history of coronary artery disease with previous stent placement, hyperlipidemia, hypertension, diabetes mellitus. He has a history of CoVID 19 vaccination on 01/03/2021. Since that time he had been having issues with weakness fever chills or fatigue and weight loss. He was admitted to the hospital January 16 through the for dehydration and improved and was discharged home. He represented here on 01/18/2021 with recurrent symptoms of poor appetite abdominal and epigastric pain and shortness of breath. Chest x- ray revealed no evidence of acute pulmonary disease. KUB revealed nonspecific abdomen. CT angiogram was positive for acute pulmonary embolism involving the secondary branch of the right pulmonary artery. There is also evidence of COPD and patchy areas of bilateral infiltrate/interstitial pneumonitis. CoVID 19 19 by PCR positive. LDH 611. C-reactive protein 30.8. Troponins were negative 3. Echocardiogram revealed preserved left ventricular systolic function with ejection fraction 60-65%. Pro-calcitonin 0.07. White count 26.4. Hemoglobin 13.8. Neutrophils 24.1. Fibrinogen 701. D-dimer 4.16. Vitamin 37. Potassium 4.0. Creatinine 0.90. He was initiated on Lovenox 80 mg subcu every 12 hours. Dexamethasone. 0.9 normal saline at 75 mL per hour. He is also having some right upper quadrant tenderness. Ultrasound of the gallbladder did reveal cholelithiasis within the gallbladder neck. Computed tomography scan of the abdomen and pelvis did reveal acute cholecystitis. The patient is seen today 01/21/2021 in follow-up on the regular medical floor. He is currently sitting up in bed. Awake and alert in no acute distress. Maintaining good O2 saturations in the mid 90s on room air. He's been afebrile. Hemodynamically stable. Blood cultures reveal no growth to date. White count 28.9. Hemoglobin 12.6. Neutrophils 25.6. D-dimer 2.33. Ferritin 1213. LDH 585. C-reactive protein 59.6. He remains on Lovenox, dexamethasone, colchicine, vitamin supplements. Antibiotics the form of cefepime. Surgical consultation recommending outpatient follow up for cholecystitis. On today's evaluation to 21,021 on seeing the patient for a follow-up. Is currently on room air oxygen and the pulse 95%. Inflammatory markers were nonelevated and the based on the most recent labs, the patient's CRP was at 59 and the patient's LDH level was at 585. The patient has no SOB and he has no cough or sputum. He has no chest pain . He is on long-term and coagulation regarding the pulmonary embolism that was noted on the CT angiogram. The CTA of the chest showed acute pulmonary embolism involving the secondary branches of the right pulmonary artery. He also has COPD and some interstitial pneumonitis related to COVID 19. Objective - Vital Signs Vital signs: Vital Signs Temp 97.5 F L 01/22/21 09:50 Pulse 59 L 01/22/21 09:50 Resp 16 01/22/21 09:50 BP 160/52 01/22/21 09:50 Pulse Ox 95 01/22/21 09:50 Intake & Output 01/21/21 01/22/21 01/22/21 18:59 06:59 18:59 Other: Voiding Method Toilet Toilet # Voids 3 1 # Bowel Movements 0 - Exam GENERAL EXAM: Alert, pleasant 85-year-old gentleman, on room air with pulse ox of 97%, comfortable in no apparent distress. HEAD: Normocephalic. EYES: Normal reaction of pupils, equal size. NOSE: Clear with pink turbinates. THROAT: No erythema or exudates. NECK: No masses, no JVD. CHEST: No chest wall deformity. LUNGS: Equal air entry with few scattered rhonchi. CVS: S1 and S2 normal with no audible murmur, regular rhythm. ABDOMEN: Right upper quadrant tenderness. No hepatosplenomegaly, normal bowel sounds, no guarding or rigidity. SPINE: No scoliosis or deformity SKIN: No rashes CENTRAL NERVOUS SYSTEM: No focal deficits, tone is normal in all 4 extremities. EXTREMITIES: There is no peripheral edema. No clubbing, no cyanosis. Peripheral pulses are intact. - Labs CBC & Chem 7: 01/21/21 05:46 01/22/21 05:36 Labs: Abnormal Lab Results - Last 24 Hours (Table) 01/21/21 01/21/21 01/21/21 Range/Units 05:46 17:04 19:59 Chloride (96-109) mmol/L BUN/Creatinine Ratio (12.00-20.00) Ratio Glucose (70-110) mg/dL POC Glucose (mg/dL) 194 H 183 H (75-99) mg/dL Calcium (8.7-10.3) mg/dL AST (14-35) U/L ALT (10-49) U/L Total Protein (6.2-8.2) g/dL Albumin (3.80-4.90) g/dL Albumin/Globulin Ratio (1.60-3.17) g/dL Procalcitonin 0.12 H (0.02-0.09) ng/mL 01/22/21 01/22/21 01/22/21 Range/Units 05:36 06:57 11:26 Chloride 111 H (96-109) mmol/L BUN/Creatinine Ratio 27.50 H (12.00-20.00) Ratio Glucose 118 H (70-110) mg/dL POC Glucose (mg/dL) 110 H 134 H (75-99) mg/dL Calcium 7.6 L (8.7-10.3) mg/dL AST 58 H (14-35) U/L ALT 87 H (10-49) U/L Total Protein 5.2 L (6.2-8.2) g/dL Albumin 3.00 L (3.80-4.90) g/dL Albumin/Globulin Ratio 1.36 L (1.60-3.17) g/dL Procalcitonin (0.02-0.09) ng/mL Microbiology - Last 24 Hours (Table) 01/18/21 11:04 Blood Culture - Preliminary Blood No Growth after 72 hours Assessment and Plan Plan: 1 Acute CoVID 19 infection, improved, patient was vaccinated COVID 19 and it took the Pfizer shot on 01/03/2021. He subsequently got infected. He has a mild case of Covid 19. He can be discharged home today to complete a total of 10 day course of Decadron. I do not think there is a need for a second shot of the vaccine. 2 Elevated inflammatory markers secondary to above 3 Acute pulmonary emboli of the secondary branch of the right pulmonary artery 4 Cholelithiasis 5 Leukocytosis secondary to above 6 Recent admission for dehydration and weakness 7 Coronary artery disease with previous stent placement 8 Hypertension 9 Hyperlipidemia 10 Diabetes mellitus Plan: Stable from the pulmonary standpoint Transition to oral anticoagulant in the form of Xarelto Complete a total of 10 day course of Decadron May skip the second dose of Pfizer Covid 19 vaccination Surgical follow-up in the outpatient setting Continue the current treatment plan
--- NOTE | 2021-01-22 20:05 | P.DS ---
Providers Date of admission: 01/18/21 10:34 Expected date of discharge: 01/22/21 Attending physician: Estevan Olson Consults: 01/19/21 18:22 Consult Physician Routine Consulting Provider: Shirley Phillips Consult Reason/Comments: COVID positive, Acute PE, hypoxic 92% RA and requiring 2L O2 Do you want consulting provider notified?: Yes 01/20/21 12:17 Consult Physician Routine Consulting Provider: Deedee Alfredo Consult Reason/Comments: acute maría Do you want consulting provider notified?: Yes Primary care physician: Jolene Chadwick MD Hospital Course: Acute Pulmonary emboli History of presenting illness: Patient is a very pleasant 85-year-old male with a past medical history of CAD, hypertension, hyperlipidemia, insulin-dependent diabetes mellitus type 2, BPH, and gout. Patient presented to [facility] with a chief complaint of weakness and fatigue. Patient reports that he recently received his Covid 19 Pfizer vaccination on 01/03/21 and has since been ill. Patient states he has been in and out of bed, suffered from chills and diaphoresis, had a decreased appetite, lost 20 pounds, felt very fatigued and weak, had episodes of nausea, becomes significantly dyspneic with any exertion, and was even admitted from 01/16/21 through 01/17/21 for dehydration. Patient states during that hospitalization he was given some IV fluids and did feel better, however after discharge she began to feel worse again so he came back to the hospital for additional care. In the ED patient was found to be positive for Covid 19 virus infection and to have significant leukocytosis with WBC count of 20.5, have an elevated LDH of 797, elevated CRP of 30.8, and d-dimer 4.16. He had an EKG which revealed normal sinus rhythm at 82 bpm with no noted T-wave or ST abnormalities. KUB was negative for acute process revealing a nonspecific bowel gas pattern. Chest x-ray revealing left lower lobe infiltrate. And a CT PE positive for acute pulmonary embolism involving the second branch of the right pulmonary artery. Patient was started on therapeutic Lovenox for treatment of acute PE and admitted under our services for Covid 19 virus infection. Patient denies having any recent headache, lightheadedness, dizziness, fever, chest pain, palpitations, shortness of breath at rest, abdominal pain or episodes of vomiting, having any difficulties with her changes in his urination or bowel function, or experiencing any pain/swelling/weakness in extremities. Echocardiogram completed revealing a normal ejection fraction at 60-65%. Patient also during admission complained of upper abdominal pain. Abdominal ultrasound showed suggestive of gallstones. Computed tomography scan suggestive acute cholecystitis. Seen by Dr. Alfredo from general surgery. Given the abdominal pain is much better. No fever and given the acute PE plan is to defer the surgery.. Today-eating well. Noticed her symptoms. Pulse ox 95% on room air. Care was discussed with the patient. Cholecystectomy to be done as an outpatient wait for at least 4 weeks. Patient also told to hold off on the second dose office COVID [address] Duran. Diet was discussed. Patient be discharged and xarelto. Discussion and discharge planning more than 35 minutes Consultation: Dr. Alfredo from general surgery Dr. Alan mosley is from pulmonary On examination: VITAL SIGNS: 97.5, 59, 16, 141/61, 95% room air GENERAL APPEARANCE: Sitting up in bed, comfortable. HEENT: Normal external appearance of nose and ear. Oral cavity normal EYES: Pupils equal. Conjunctiva normal. NECK: JVD not raised. Mass not palpable. RESPIRATORY: Respiratory effort increased. Decreased breath sounds CARDIOVASCULAR: First and second sounds normal. No edema. ABDOMEN: Soft. Liver and spleen not palpable. No tenderness. No mass palpable. PSYCHIATRY: Alert and oriented x3. Mood and affect normal. INVESTIGATIONS, reviewed in the clinical context: January 22: Potassium 4.1 creatinine 0.8 January 21: White count 28 hemoglobin 12.6 d-dimer 2.33 CRP 59.6 pro-calcitonin 0.12 White count 26.4 hemoglobin 13.8 platelets 333 increased neutrophils potassium 4.0 creatinine 0.9 Coronavirus [PCR]-detected l computed tomography scan of the abdomen pelvis-January 20: Findings suggestive of acute cholecystitis Gallbladder ultrasound-score stones Chest CT-acute PE involving the second branch of the right pulmonary artery -Patchy areas of bilateral infiltrate Assessment and Plan of care: Acute PE involving the second branch of the right pulmonary artery Started on Lovenox, swished over to xarelto Acute Covid 19 Pneumonitis Treated with On Decadron. Xarelto. Pulse ox on room air is 95%. Essential Hypertension Continue beta salena, Zestril Hyperlipidemia Continue Lipitor. Insulin-dependent diabetes mellitus type 2 -Glycemic protocol with NovoLog sliding scale. Continue metformin -Heart healthy carb consistent diet. BPH Continue Flomax GERD: Continue Protonix - Acute cholecystitis: IV cefepime-changed to Augmentin. No abdominal pain. No fever. Surgical delayed at least for 4 weeks until clinical course changes Disposition: Home Plan - Discharge Summary Discharge Rx Participant: No New Discharge Prescriptions: New Zinc Sulfate [Orazinc] 220 mg PO DAILY #30 cap Famotidine [Pepcid] 20 mg PO BID #60 tablet Ascorbic Acid [Vitamin C] 500 mg PO DAILY #30 tab Rivaroxaban [Xarelto Starter Pack] 0 mg PO DIRECTED 30 Days #1 pack Amoxic-Pot Clav 875-125Mg [Augmentin 875-125] 1 each PO Q12HR #10 tab Continue metFORMIN HCL [Glucophage] 500 mg PO BID Atorvastatin [Lipitor] 20 mg PO HS lisinopriL [Zestril] 10 mg PO DAILY allopurinoL [Zyloprim] 300 mg PO DAILY Vitamin B Complex 1 cap PO HS Multivitamin [Men's Multi-Vitamin] 1 tab PO DAILY Tamsulosin HCl [Flomax] 0.4 mg PO HS prednisoLONE ACETATE 1% OPHTH [Pred Forte 1%] 1 drop LEFT EYE QID Diclofenac 0.1% Ophth Soln [Voltaren 0.1% Ophth Soln] 1 drop LEFT EYE BID Metoprolol Succinate [Toprol XL] 25 mg PO BID Aspirin EC [Ecotrin Low Dose] 81 mg PO HS Discontinued hydroCHLOROthiazide 25 mg PO HS Discharge Medication List Atorvastatin [Lipitor] 20 mg PO HS 08/10/15 [History] Multivitamin [Men's Multi-Vitamin] 1 tab PO DAILY 08/10/15 [History] Vitamin B Complex 1 cap PO HS 08/10/15 [History] allopurinoL [Zyloprim] 300 mg PO DAILY 08/10/15 [History] lisinopriL [Zestril] 10 mg PO DAILY 08/10/15 [History] metFORMIN HCL [Glucophage] 500 mg PO BID 08/10/15 [History] Tamsulosin HCl [Flomax] 0.4 mg PO HS 01/07/19 [History] Diclofenac 0.1% Ophth Soln [Voltaren 0.1% Ophth Soln] 1 drop LEFT EYE BID 01/16/21 [History] Metoprolol Succinate [Toprol XL] 25 mg PO BID 01/16/21 [History] prednisoLONE ACETATE 1% OPHTH [Pred Forte 1%] 1 drop LEFT EYE QID 01/16/21 [History] Aspirin EC [Ecotrin Low Dose] 81 mg PO HS 01/18/21 [History] Amoxic-Pot Clav 875-125Mg [Augmentin 875-125] 1 each PO Q12HR #10 tab 01/22/21 [Rx] Ascorbic Acid [Vitamin C] 500 mg PO DAILY #30 tab 01/22/21 [Rx] Famotidine [Pepcid] 20 mg PO BID #60 tablet 01/22/21 [Rx] Rivaroxaban [Xarelto Starter Pack] 0 mg PO DIRECTED 30 Days #1 pack 01/22/21 [Rx] Zinc Sulfate [Orazinc] 220 mg PO DAILY #30 cap 01/22/21 [Rx] Follow up Appointment(s)/Referral(s): Valencia Bolton DO [Doctor of Osteopathic Medicine] - 10 Days (PLEASE CALL AND SCHEDULE APPOINTMENT ON SATURDAY ) Jolene Chadwick MD [Primary Care Provider] - 1-2 days (PLEASE CALL AND SCHEDULE APPOINTMENT ON SATURDAY ) Deedee Alfredo DO [Doctor of Osteopathic Medicine] - 1 Week (PLEASE CALL AND SCHEDULE APPOINTMENT ON SATURDAY ) Patient Instructions/Handouts: Coronavirus Disease 2019 (COVID-19), Pulmonary Embolism (DC)
== END 2021-01-22 14:20 | disposition home or self-care (01) | DRG 177 ==
LOC: EC 08:19 → 4SSUR 10:34
PROVIDERS: ADMIT Hospitalist; ATTEND Hospitalist
DX: U07.1 COVID-19 (principal); I26.99 Other pulmonary embolism without acute cor pulmonale; J12.82 Pneumonia due to coronavirus disease 2019; K80.00 Calculus of gallbladder with acute cholecystitis without obstruction; E11.9 Type 2 diabetes mellitus without complications; Z79.4 Long term (current) use of insulin; Z66 Do not resuscitate; E86.0 Dehydration; R63.4 Abnormal weight loss; I25.10 Atherosclerotic heart disease of native coronary artery without angina pectoris; E66.9 Obesity, unspecified; E78.5 Hyperlipidemia, unspecified; K21.9 Gastro-esophageal reflux disease without esophagitis; I10 Essential (primary) hypertension; N40.0 Benign prostatic hyperplasia without lower urinary tract symptoms; K57.90 Diverticulosis of intestine, part unspecified, without perforation or abscess without bleeding; G89.29 Other chronic pain; M54.5 Low back pain; M10.9 Gout, unspecified; Z68.27 Body mass index [BMI] 27.0-27.9, adult; Z95.5 Presence of coronary angioplasty implant and graft; Z98.890 Other specified postprocedural states; Z79.899 Other long term (current) drug therapy; Z86.73 Personal history of transient ischemic attack (TIA), and cerebral infarction without residual deficits; Z80.9 Family history of malignant neoplasm, unspecified; Z83.3 Family history of diabetes mellitus; Z82.3 Family history of stroke
CPT/HCPCS: 36415; 71046; 71275; 74018; 74177; 76705; 80053; 81003; 82728; 83605; 83615; 83735; 84145; 84443; 84484; 85025; 85379; 85384; 85610; 85730; 86140; 87040; 87635; 93005; 93306; 96374; 96375; 96376; 99285

== ENCOUNTER → 2021-10-23 | Outpatient (CLI) | payer MEDICARE ==
[2021-10-23 13:42] LABS: ALT 26 U/L (10-49); AST 19 U/L (14-35); Chol/HDL Ratio 2.22 Ratio; LDL Cholesterol,Calculated 34.7 mg/dL (0.0-131.0)
== END | disposition home or self-care (01) ==
LOC: LABWHC1 07:31
PROVIDERS: ATTEND Internal Medicine Cardiovascular Disease
DX: E78.2 Mixed hyperlipidemia (principal)
CPT/HCPCS: 36415; 80061; 84450; 84460

== ENCOUNTER → 2022-10-11 | Outpatient (CLI) | payer MEDICARE ==
[2022-10-11 11:10] LABS: ALT 30 U/L (10-49); AST 25 U/L (14-35); Chol/HDL Ratio 2.21 Ratio; LDL Cholesterol,Calculated 32.9 mg/dL (0.0-131.0); VLDL Calculation 18.46 mg/dL (5.00-40.00)
== END | disposition home or self-care (01) ==
LOC: LABWHC1 07:07
PROVIDERS: ATTEND Internal Medicine Cardiovascular Disease
DX: E78.2 Mixed hyperlipidemia (principal)
CPT/HCPCS: 36415; 80061; 84450; 84460

== ENCOUNTER 2022-11-21 07:13 | Day surgery (SDC) | payer MEDICARE ==
[2022-11-19 10:49] VITALS: BMI 33.4
[~2022-11-21 07:13] MED LIST: MOXIFLOXACIN HCL 0.5% DROPS 3 ML BTL OP PRN; TETRACAINE 0.5% OPHTH (PF) DROPS 4 ML BTL OP PRN; TIMOLOL 0.5% OPHTH DROPS 5 ML BTL OP PRN
[2022-11-21] MEDS ORDERED: LIDOCAINE 1% (10MG/ML) FOR IV START INTRADERMA PRN (07:27)
[2022-11-21] MEDS ORDERED: LACTATED RINGERS 1,000 ML IV SCH (07:27)
[2022-11-21] MEDS: CYCLOPENTOLATE 1% OPHTH SOLN 2 ML BTL OP PRN ×3 (08:05→08:17)
[2022-11-21] MEDS: PHENYLEPHRINE 2.5% OPHTH DRP 2ML OP PRN ×3 (08:08→08:20)
[2022-11-21 08:10] VITALS: RESP 16
[2022-11-21 08:17] LABS: Glucose,Whole Blood 127 mg/dL (70-110)
[2022-11-21] MEDS ORDERED: MIDAZOLAM 2 MG/2 ML VIAL ONE (08:19)
[2022-11-21] MEDS ORDERED: fentaNYL (PF) 50 MCG/ML 2 ML AMP ONE (08:19)
[2022-11-21] MEDS ORDERED: HYALURONATE SODIUM INTRAOCULAR 1 EACH SYRINGE (12MG/ML) INTRAOCULA ONE (08:34)
[2022-11-21] MEDS ORDERED: BALANCED SALT IRRIG SOLN COMB2 15 ML IRRIG.SOLN INTRAOCULA ONE (08:34)
[2022-11-21] MEDS ORDERED: LIDOCAINE 1% (PF) 10MG/ML VIAL MISCELLANE ONE (08:35)
[2022-11-21] MEDS ORDERED: MOXIFLOXACIN HCL 0.5% DROPS 3 ML BTL RIGHT EYE ONE (08:36)
[2022-11-21] MEDS ORDERED: TIMOLOL 0.5% OPHTH DROPS 5 ML BTL RIGHT EYE ONE ×2 (08:38)
--- NOTE | 2022-11-21 08:55 | P.OP ---
Date of Procedure: 11/21/22 Preoperative Diagnosis: NS & CS Postoperative Diagnosis: same Procedure(s) Performed: PIOL, OD Implants: [id number] 17.50 Anesthesia: MAC Surgeon: Rigoberto Santana Pathology: none sent Condition: stable Disposition: same day Indications for Procedure: blurry vision Operative Findings: no complications
[2022-11-21 09:38] VITALS: BP 144/73; PULSE 61
--- NOTE | 2022-11-21 12:30 | OP ---
OPERATIVE REPORT PROCEDURES PERFORMED: Phacoemulsification of cataract and intraocular lens implant of the right eye. PREOPERATIVE DIAGNOSES: 1. Nuclear sclerosis. 2. Cortical sclerosis. 3. Regular astigmatism. 4. Floppy iris syndrome. POSTOPERATIVE DIAGNOSES: 1. Nuclear sclerosis. 2. Cortical sclerosis. 3. Regular astigmatism. 4. Floppy iris syndrome. ANESTHESIA: Topical. ESTIMATED BLOOD LOSS: None. SPECIMEN TAKEN: None. NARRATIVE: After obtaining the appropriate consent, the patient was brought to the operating room. There, he was asked to sit upright and the axes of 0 and 180 degrees were identified and marked with a gentian kaleb marker. He was then placed in the proper supine position under cardiac monitoring, then prepped and draped in the usual sterile manner. He was approached from his right temporal side. Using previously-acquired corneal topography information, the axis of 17 degrees was identified and marked with a [employer] axis marker. At the 11 o'clock position, an MVR blade was used to create a paracentesis port. Through this opening, 1% Xylocaine MPF 50:50 mix with balanced salt solution was injected into the anterior chamber. This was followed by stabilization of the anterior chamber with Amvisc. At the 9 o'clock position, a 2.5 mm keratome was used to create a self-sealing corneal flap incision. Due to the fact that the pupil was inadequately dilated and did not appear to be particularly taut, a 7 mm Malyugin ring was inserted on the pupillary sphincter and left in place for the duration of the cataract operation. A cystotome was then introduced to begin a continuous tear capsulorrhexis, which was then completed using the Utrata forceps. Hydrodissection and hydrodelineation of the lens were accomplished with balanced salt solution. Phacoemulsification of the lens utilizing phaco chop was accomplished in 18.95 seconds at 20% power. Additional Xylocaine MPF was instilled into the anterior chamber. This was followed by removal of the remaining cortical material under irrigation and aspiration as well as careful polishing of the posterior capsule in the capsule vacuum mode. Amvisc was then used to stabilize the capsular bag and a Bausch and Lomb MX 60 ET 17.5 diopter by 1.25 diopter posterior chamber intraocular lens was inserted into the capsular bag without difficulty. The remaining viscoelastic was removed from in and around the intraocular lens. The lens was rotated. Finally, using the Sinskey hook to align with the 17 degree axis, placed on the patient's cornea. This was followed by removal of the Malyugin ring from the iris. One final inspection of the intraocular lens confirmed proper orientation. This was followed by hydrating the wounds as well as bringing the eye to normal intraocular pressure through the paracentesis port with balanced salt solution. He then received 2 drops of 0.5% timolol followed by 2 drops of 0.5% moxifloxacin. It was then lightly patched and shielded in the usual manner. There were no complications from the procedure. He tolerated the procedure well and was returned to outpatient recovery in good condition. MMSHAYNA / ANGELON: [id number] /
== END 2022-11-21 09:44 | disposition home or self-care (01) ==
LOC: OR 07:13
PROVIDERS: ATTEND Ophthalmology
DX: H25.811 Combined forms of age-related cataract, right eye (principal); H21.81 Floppy iris syndrome; H52.229 Regular astigmatism, unspecified eye
CPT/HCPCS: 66984; V2632; J2250; J3010; J2001

== ENCOUNTER → 2022-12-14 | Outpatient (CLI) | payer MEDICARE ==
[2022-12-14 23:09] LABS: HCT 47.9 % (39.6-50.0); HGB 15.3 g/dL (13.0-17.0); MCH 29.3 pg (27.0-32.0); MCHC 31.9 g/dL (32.0-37.0); MCV 91.6 fL (80.0-97.0); Mean Platelet Volume 11.1 fL (9.5-12.2); NRBC Per 100 WBC 0 /100 WBCS (0.0-0.0); Platelet Count 207 X 10*3/uL (140-440); RBC 5.23 X 10*6/uL (4.40-5.60); RDW 13.9 % (11.5-14.5); WBC 12.01 X 10*3/uL (4.50-10.00)
[2022-12-14 23:54] LABS: Erythrocyte Sedimentation Rate 5 mm/Hr (0-20)
== END | disposition home or self-care (01) ==
LOC: LABWHC1 12:39
PROVIDERS: ATTEND Ophthalmology
DX: M31.6 Other giant cell arteritis (principal)
CPT/HCPCS: 36415; 85027; 85652; 86140

== ENCOUNTER → 2023-11-04 | Outpatient (CLI) | payer MEDICARE ==
[2023-11-04 11:01] LABS: ALT 30 U/L (10-49); AST 21 U/L (14-35); Chol/HDL Ratio 2.44 Ratio; LDL Cholesterol,Calculated 37.4 mg/dL (0.0-131.0)
== END | disposition home or self-care (01) ==
LOC: LABWHC1 06:59
PROVIDERS: ATTEND Internal Medicine Cardiovascular Disease
DX: E78.2 Mixed hyperlipidemia (principal)
CPT/HCPCS: 36415; 80061; 84450; 84460

== ENCOUNTER 2023-12-28 18:51 | Inpatient (IN) | payer MEDICARE ==
--- NOTE | 2023-12-28 20:02 | ED ---
General Adult HPI - General Chief complaint: Abdominal Pain Stated complaint: Abd.Pain Time Seen by Provider: 12/28/23 19:59 Source: patient Mode of arrival: ambulatory Limitations: no limitations - History of Present Illness Initial comments: Patient presents to the ED with his and daughter for evaluation. The patient states that he has had generalized abdominal pain, mild nausea and abdominal distention for the past 18 hours or so. Patient states that his pain is currently 23/10 in severity. Patient states that he has had a prior cholecystectomy, but otherwise denies any other abdominal surgeries in the past. Patient states that he had a small bowel movement earlier today, but his last normal bowel movement was not since yesterday. Patient denies trauma or injury, fever or chills, headache, focal neuro deficit, chest pain or pressure, dyspnea, palpitations, dizziness, back or flank pain, vomiting, diarrhea, bloody or melanotic stool, dysuria or urinary symptoms, decreased urine output, or any other symptoms or complaints. - Related Data Home Medications Medication Instructions Recorded Confirmed Atorvastatin [Lipitor] 20 mg PO HS 08/10/15 11/21/22 Multivitamin [Men's Multi-Vitamin] 1 tab PO DAILY 08/10/15 11/21/22 Vitamin B Complex 1 cap PO HS 08/10/15 11/21/22 allopurinoL [Zyloprim] 300 mg PO DAILY 08/10/15 11/21/22 metFORMIN HCL [Glucophage] 500 mg PO QAM 08/10/15 11/21/22 Tamsulosin HCl [Flomax] 0.4 mg PO HS 01/07/19 11/21/22 Metoprolol Succinate [Toprol XL] 25 mg PO HS 01/16/21 11/21/22 Aspirin EC [Ecotrin Low Dose] 81 mg PO HS 01/18/21 11/21/22 lisinopriL [Zestril] 20 mg PO DAILY 11/19/22 11/21/22 Allergies Allergy/AdvReac Type Severity Reaction Status Date / Time No Known Allergies Allergy Verified 12/28/23 19:00 Review of Systems ROS Statement: Those systems with pertinent positive or pertinent negative responses have been documented in the HPI. ROS Other: All systems not noted in ROS Statement are negative. 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 History of Any Multi-Drug Resistant Organisms: None Reported Past Surgical History: Cholecystectomy, Heart Catheterization With Stent Additional Past Surgical History / Comment(s): L eye cataract removal, PCI with stents , colonoscopies. Past Anesthesia/Blood Transfusion Reactions: No Reported Reaction Date of Last Stent Placement:: 2012 Past Psychological History: No Psychological Hx Reported Smoking Status: Never smoker Past Alcohol Use History: Occasional Past Drug Use History: None Reported - Past Family History Father Family Medical History: CVA/TIA Additional Family Medical History / Comment(s): Father of a CVA at the age of 44yrs. Mother Family Medical History: Cancer, Diabetes Mellitus Additional Family Medical History / Comment(s): Heart problems, pt cannot recall type of cancer. General Exam Limitations: no limitations General appearance: alert Head exam: Present: normocephalic Eye exam: Present: normal appearance ENT exam: Present: mucous membranes moist Respiratory exam: Present: normal lung sounds bilaterally. Absent: respiratory distress, wheezes, rales, rhonchi, stridor Cardiovascular Exam: Present: regular rate, normal rhythm, normal heart sounds, other (Normal radial pulses bilaterally) GI/Abdominal exam: Present: soft, distended, diminished bowel sounds, other (Moderate generalized abdominal tenderness). Absent: guarding, rebound Extremities exam: Absent: pedal edema Back exam: Absent: CVA tenderness (R), CVA tenderness (L) Neurological exam: Present: alert, oriented X3 Psychiatric exam: Present: normal affect Skin exam: Present: warm, dry, normal color Course Vital Signs 12/28/23 12/28/23 12/28/23 18:53 21:02 23:05 Temperature 97.6 F Pulse Rate 79 80 83 Respiratory 18 16 16 Rate Blood Pressure 174/78 163/73 178/84 O2 Sat by Pulse 96 95 95 Oximetry - Reevaluation(s) Reevaluation #1: 12/28/23 23:37 Case, H&P, test results and ED management thus far were discussed with Dr. Frankel. He accepts hospital admission. He has no further recommendations at this time. 12/28/23 23:40 Patient states that his pain had improved with ED treatment, but is starting to come back, and he is now requesting more pain medication. Patient and family are aware of the patient's test results, and they all agree with hospital admission at this time. Medical Decision Making - Medical Decision Making Was pt. sent in by a medical professional or institution (, PA, TRANSVERSE ABDOMINAL MUSCLE SURGEON, urgent care, hospital, or fpc...) When possible be specific @ -No Did you speak to anyone other than the patient for history (EMS, parent, family, police, friend...)? What history was obtained from this source @ -No Did you review nursing and triage notes (agree or disagree)? Why? @ -I reviewed and agree with nursing and triage notes Were old charts reviewed (outside hosp., previous admission, EMS record, old EKG, old radiological studies, urgent care reports/EKG's, fpc records)? Report findings @ -No old charts were reviewed Differential Diagnosis (chest pain, altered mental status, abdominal pain women, abdominal pain men, vaginal bleeding, weakness, fever, dyspnea, syncope, headache, dizziness, GI bleed, back pain, seizure, CVA, palpatations, mental health, musculoskeletal)? @ -Differential Abdominal Pain Men: Appendicitis, diverticulitis, ischemic bowel, pancreatitis, hepatitis, UTI, gastroenteritis, AAA, incarcerated hernia, bowel obstruction, constipation, inflammatory bowel, peptic ulcer disease, perforated viscus, this is not meant to be an all-inclusive list EKG interpreted by me (3pts min.). @ -None done X-rays interpreted by me (1pt min.). @ -None done CT interpreted by me (1pt min.). @ -CT abdomen/pelvis with IV contrast demonstrates pancreatic inflammatory findings. I agree with the radiologist's interpretation as above. U/S interpreted by me (1pt. min.). @ -None done What testing was considered but not performed or refused? (CT, X-rays, U/S, labs)? Why? @ -None What meds were considered but not given or refused? Why? @ -None Did you discuss the management of the patient with other professionals (professionals i.e. DrAngela, PA, TRANSVERSE ABDOMINAL MUSCLE SURGEON, lab, RT, psych nurse, mental health social worker, certified vehicle fire investigator, teacher, public health service officer, mattress spring encaser)? Give summary @ -As above. Was smoking cessation discussed for >3mins.? @ -No Was critical care preformed (if so, how long)? @ -No Were there social determinants of health that impacted care today? How? (Homelessness, low income, unemployed, alcoholism, drug addiction, transportation, low edu. Level, literacy, decrease access to med. care, alf, rehab)? @ -No Was there de-escalation of care discussed even if they declined (Discuss DNR or withdrawal of care, Hospice)? DNR status @ -No What co-morbidities impacted this encounter? (DM, HTN, Smoking, COPD, CAD, Cancer, CVA, ARF, Chemo, Hep., AIDS, mental health diagnosis, sleep apnea, morbid obesity)? @ -None Was patient admitted / discharged? Hospital course, mention meds given and route, prescriptions, significant lab abnormalities, going to OR and other pertinent info. @ -Patient has a nonsurgical abdominal exam. Patient's laboratory findings (elevated lipase level and leukocytosis) and CT findings are consistent with acute pancreatitis. I am unsure of the exact etiology of the patient's acute pancreatitis at this time. Patient reports alcohol use, but he states that he is not a heavy drinker. Patient is status post cholecystectomy. Will admit the patient to the hospital for continued management. Dr. Frankel has accepted hospital admission. Undiagnosed new problem with uncertain prognosis? @ -No Drug Therapy requiring intensive monitoring for toxicity (Heparin, Nitro, Insulin, Cardizem)? @ -No Were any procedures done? @ -No Diagnosis/symptom? @ -Acute pancreatitis Acute, or Chronic, or Acute on Chronic? @ -Acute Uncomplicated (without systemic symptoms) or Complicated (systemic symptoms)? @ -Default Side effects of treatment? @ -No Exacerbation, Progression, or Severe Exacerbation? @ -No Poses a threat to life or bodily function? How? (Chest pain, [place], [place], pneumonia, PE, COPD, DKA, ARF, appy, cholecystitis, CVA, Diverticulitis, Homicidal, Suicidal, threat to staff... and all critical care pts) @ -No - Lab Data Result diagrams: 12/28/23 20:34 12/28/23 20:34 Lab Results 12/28/23 12/28/23 12/28/23 Range/Units 20:34 20:34 20:34 WBC 26.4 H (3.8-10.6) k/uL RBC 5.01 (4.30-5.90) m/uL Hgb 15.4 (13.0-17.5) gm/dL Hct 45.2 (39.0-53.0) % MCV 90.1 (80.0-100.0) fL MCH 30.8 (25.0-35.0) pg MCHC 34.1 (31.0-37.0) g/dL RDW 14.0 (11.5-15.5) % Plt Count 180 (150-450) k/uL MPV 8.4 Neutrophils % 89 % Lymphocytes % 7 % Monocytes % 3 % Eosinophils % 1 % Basophils % 0 % Neutrophils # 23.5 H (1.3-7.7) k/uL Lymphocytes # 1.9 (1.0-4.8) k/uL Monocytes # 0.7 (0-1.0) k/uL Eosinophils # 0.1 (0-0.7) k/uL Basophils # 0.0 (0-0.2) k/uL Sodium 138 (137-145) mmol/L Potassium 4.4 (3.5-5.1) mmol/L Chloride 108 H (98-107) mmol/L Carbon Dioxide 21 L (22-30) mmol/L Anion Gap 9 mmol/L BUN 24 H (9-20) mg/dL Creatinine 1.04 (0.66-1.25) mg/dL Est GFR (CKD-EPI)AfAm 74 (>60 ml/min/1.73 sqM) Est GFR (CKD-EPI)NonAf 64 (>60 ml/min/1.73 sqM) Glucose 144 H (74-99) mg/dL Plasma Lactic Acid Cedrick (0.7-2.0) mmol/L Calcium 9.0 (8.4-10.2) mg/dL Total Bilirubin 0.9 (0.2-1.3) mg/dL AST 29 (17-59) U/L ALT 30 (4-49) U/L Alkaline Phosphatase 60 (38-126) U/L Total Protein 7.0 (6.3-8.2) g/dL Albumin 4.0 (3.5-5.0) g/dL Lipase 2484 H (23-300) U/L Urine Color Yellow Urine Appearance Clear (Clear) Urine pH 5.5 (5.0-8.0) Ur Specific Harrington 1.028 (1.001-1.035) Urine Protein 1+ H (Negative) Urine Glucose (UA) Negative (Negative) Urine Ketones Negative (Negative) Urine Blood Negative (Negative) Urine Nitrite Negative (Negative) Urine Bilirubin Negative (Negative) Urine Urobilinogen <2.0 (<2.0) mg/dL Ur Leukocyte Esterase Trace H (Negative) Urine RBC <1 (0-5) /hpf Urine WBC 13 H (0-5) /hpf Ur Squamous Epith Cells 1 (0-4) /hpf Amorphous Sediment Rare H (None) /hpf Hyaline Casts 3 H (0-2) /lpf Urine Mucus Occasional H (None) /hpf 12/28/23 Range/Units 20:34 WBC (3.8-10.6) k/uL RBC (4.30-5.90) m/uL Hgb (13.0-17.5) gm/dL Hct (39.0-53.0) % MCV (80.0-100.0) fL MCH (25.0-35.0) pg MCHC (31.0-37.0) g/dL RDW (11.5-15.5) % Plt Count (150-450) k/uL MPV Neutrophils % % Lymphocytes % % Monocytes % % Eosinophils % % Basophils % % Neutrophils # (1.3-7.7) k/uL Lymphocytes # (1.0-4.8) k/uL Monocytes # (0-1.0) k/uL Eosinophils # (0-0.7) k/uL Basophils # (0-0.2) k/uL Sodium (137-145) mmol/L Potassium (3.5-5.1) mmol/L Chloride (98-107) mmol/L Carbon Dioxide (22-30) mmol/L Anion Gap mmol/L BUN (9-20) mg/dL Creatinine (0.66-1.25) mg/dL Est GFR (CKD-EPI)AfAm (>60 ml/min/1.73 sqM) Est GFR (CKD-EPI)NonAf (>60 ml/min/1.73 sqM) Glucose (74-99) mg/dL Plasma Lactic Acid Cedrick 1.7 (0.7-2.0) mmol/L Calcium (8.4-10.2) mg/dL Total Bilirubin (0.2-1.3) mg/dL AST (17-59) U/L ALT (4-49) U/L Alkaline Phosphatase (38-126) U/L Total Protein (6.3-8.2) g/dL Albumin (3.5-5.0) g/dL Lipase (23-300) U/L Urine Color Urine Appearance (Clear) Urine pH (5.0-8.0) Ur Specific Harrington (1.001-1.035) Urine Protein (Negative) Urine Glucose (UA) (Negative) Urine Ketones (Negative) Urine Blood (Negative) Urine Nitrite (Negative) Urine Bilirubin (Negative) Urine Urobilinogen (<2.0) mg/dL Ur Leukocyte Esterase (Negative) Urine RBC (0-5) /hpf Urine WBC (0-5) /hpf Ur Squamous Epith Cells (0-4) /hpf Amorphous Sediment (None) /hpf Hyaline Casts (0-2) /lpf Urine Mucus (None) /hpf - Radiology Data CT abdomen/pelvis with IV contrast: 1. Inflammatory changes are noted about the pancreas compatible with acute pancreatitis. 2. Fatty liver. 3. Status post cholecystectomy. 4. No renal calculus or hydronephrosis. 5. No bowel obstruction. 6. Diverticulosis without diverticulitis. Disposition Clinical Impression: Abdominal pain, Pancreatitis Disposition: ADMITTED IP TO THIS HOSP Condition: Stable Is patient prescribed a controlled substance at d/c from ED?: No Referrals: Juvenal Roca MD [Primary Care Provider] - 1-2 days Time of Disposition: 23:37
[2023-12-28] MEDS ORDERED: SODIUM CHLORIDE 0.9% 500 ML 500 ML IV ONE (20:28)
[2023-12-28] MEDS ORDERED: HYDROmorphone 0.5 MG/0.5 ML SYRINGE IVP STA ×2 (20:28→23:40)
[2023-12-28] MEDS ORDERED: ONDANSETRON 4 MG/2 ML VIAL IVP STA (20:29)
[2023-12-28 20:42] LABS: Basophils % (A) 0 %; Eosinophils # (A) 0.1 k/uL (0-0.7); Eosinophils % (A) 1 %; HCT 45.2 % (39.0-53.0); HGB 15.4 gm/dL (13.0-17.5); Lymphocytes # (A) 1.9 k/uL (1.0-4.8); Lymphocytes % (A) 7 %; MCH 30.8 pg (25.0-35.0); MCHC 34.1 g/dL (31.0-37.0); MCV 90.1 fL (80.0-100.0); Mean Platelet Volume 8.4; Monocytes # (A) 0.7 k/uL (0-1.0); Monocytes % (A) 3 %; Neutrophils # (A) 23.5 k/uL (1.3-7.7); Neutrophils % (A) 89 %; Platelet Count 180 k/uL (150-450); RBC 5.01 m/uL (4.30-5.90); WBC 26.4 k/uL (3.8-10.6)
[2023-12-28 21:06] LABS: ALT 30 U/L (4-49); AST 29 U/L (17-59); African American GFR (CKD) 74 (>60 ml/min/1.73 sqM); Alkaline Phosphatase 60 U/L (38-126); Anion Gap 9 mmol/L; Blood Urea Nitrogen 24 mg/dL (9-20); Carbon Dioxide 21 mmol/L (22-30); Chloride 108 mmol/L (98-107); Glucose 144 mg/dL (74-99); Non-African American GFR(CKD) 64 (>60 ml/min/1.73 sqM); Potassium 4.4 mmol/L (3.5-5.1); Sodium 138 mmol/L (137-145); Total Bilirubin 0.9 mg/dL (0.2-1.3)
[2023-12-28 21:37] LABS: Lipase 2484 U/L (23-300)
[2023-12-28 22:02] LABS: Amorphous Sediment,Urine Rare /hpf; Appearance,Urine Clear (Clear); Bilirubin,Urine Negative (Negative); Blood,Urine Negative (Negative); Color,Urine Yellow; Glucose,Urine (UA) Negative (Negative); Hyaline Casts,Urine 3 /lpf (0-2); Ketones,Urine Negative (Negative); Leukocyte Esterase,Urine Trace (Negative); Mucus,Urine Occasional /hpf; Nitrite,Urine Negative (Negative); PH, Urine 5.5 (5.0-8.0); Protein,Urine 1+ (Negative); RBC,Urine <1 /hpf (0-5); Specific Gravity,Urine 1.028 (1.001-1.035); Squamous Epithelial Cell,Urine 1 /hpf (0-4); Urobilinogen,Urine <2.0 mg/dL (<2.0); WBC,Urine 13 /hpf (0-5)
--- NOTE | 2023-12-28 23:29 | CT ---
EXAM: CT Abdomen and Pelvis With Intravenous Contrast CLINICAL HISTORY: ITS.REASON CT Reason: Abdominal pain TECHNIQUE: Axial computed tomography images of the abdomen and pelvis with intravenous contrast. CTDI is 10.7 mGy and DLP is 652.6 mGy-cm. This CT exam was performed using one or more of the following dose reduction techniques: automated exposure control, adjustment of the mA and/or kV according to patient size, and/or use of iterative reconstruction technique. COMPARISON: 11/19/2021. FINDINGS: Lung bases: COPD. Scarring and subsegmental atelectasis noted at the lung bases. Heart: There is cardiomegaly. ABDOMEN: Liver: Fatty liver is noted. Gallbladder and bile ducts: Status post cholecystectomy. No ductal dilation. Pancreas: Inflammatory changes are noted about the pancreas compatible with acute pancreatitis. No ductal dilation. Spleen: Spleen enhances uniformly. Adrenals: The adrenal glands are unremarkable. Kidneys and ureters: Nonspecific stranding about the perinephric spaces without hydronephrosis. Stomach and bowel: Moderate quantity of ingested material in the stomach. Moderate quantity of stool throughout the colon. Diverticulosis without diverticulitis. No obstruction. PELVIS: Appendix: No findings to suggest acute appendicitis. Bladder: Unremarkable. No mass. Reproductive: Unremarkable as visualized. ABDOMEN and PELVIS: Intraperitoneal space: Unremarkable. No free air. No significant fluid collection. Bones/joints: No acute fracture. No dislocation. No spondylolysis. Soft tissues: Ischiorectal fat is clean. Vasculature: Atherosclerotic disease and ASCVD. The portal vein is patent. Atherosclerotic disease of the abdominal aorta without change in caliber. Flow is noted within the celiac, SMA, the renal arteries, and BLAIRE. No abdominal aortic aneurysm. Lymph nodes: Unremarkable. No retroperitoneal lymphadenopathy. Other findings: Multilevel vacuum disks are noted. IMPRESSION: 1. Inflammatory changes are noted about the pancreas compatible with acute pancreatitis. 2. Fatty liver. 3. Status post cholecystectomy. 4. No renal calculus or hydronephrosis. 5. No bowel obstruction. 6. Diverticulosis without diverticulitis.
[2023-12-28] MEDS ORDERED: NALOXONE 0.4 MG/ML 1 ML VIAL IV PRN (23:42)
[2023-12-28] MEDS ORDERED: ONDANSETRON 4 MG/2 ML VIAL IVP PRN (23:42)
[2023-12-29] MEDS: SODIUM CHLORIDE 0.9% 1,000 ML IV SCH ×2 (00:30→08:13)
--- NOTE | 2023-12-29 01:21 | P.HPIM ---
History of Present Illness H&P Date: 12/29/23 The patient is an 88-year-old male with a PMH of BPH, hypertension, type II DM, hyperlipidemia who presents to the emergency room with complaints of abdominal pain. The patient reports that he was in his usual state of health until about 2 AM last night when he woke up with sudden onset of epigastric abdominal discomfort. Reports that the pain was an 8 out of 10 at maximal intensity, nonradiating, with associated nausea without vomiting, with no alleviating or exacerbating features. Denied experiencing chest discomfort, shortness of breath, fever, chills, cough, diarrhea. Reports the pain is improved to a 3 out of 10 at the time of interview. He is status post cholecystectomy 3 years ago, drinks 3 to 4 glasses of wine per week, denies history of trauma, and has no prior history of pancreatitis. CT abdomen and pelvis in the emergency room revealed findings consistent with acute pancreatitis and fatty liver as well as diverticulosis without diverticulitis. Laboratory evaluation was remarkable for lipase 2484, leukocytosis of 26.4, CO2 21, chloride 108, BUN 24, creatinine 1.04, glucose 144. ED documentation reviewed and case discussed with ED provider. Review of systems: Pertinent positives and negatives as discussed in HPI, a complete review of systems was performed and all other systems are negative. Physical examination: Vital signs reviewed General: non toxic, no distress, appears at stated age, morbidly obese Derm: no unusual rashes/lesions, warm Head: atraumatic, normocephalic, symmetric Eyes: EOMI, no lid lag, anicteric sclera, pupils equal round reactive to light ENT: Nose and ears atraumatic Neck: No cervical lymphadenopathy, trachea midline, supple Mouth: no lip lesion, mucus membranes moist Cardiovascular: S1S2 reg, no murmur, positive dorsalis pedis pulse bilateral, no edema Lungs: CTA bilateral, no rhonchi, no rales, no accessory muscle use Abdominal: soft, mild epigastric tenderness, no guarding Ext: muscle strength 5 out of 5 in all 4 extremities grossly, no gross muscle atrophy, no contractures, Neuro: CN II-XI grossly intact, no gross focal neuro deficits Psych: Alert, oriented, appropriate affect Assessment: Acute pancreatitis, unclear etiology Leukocytosis, suspect due to acute stressor with no signs of active infection at this time Chronic conditions: Type II DM, hypertension, hyperlipidemia, BPH Imaging: CT abdomen and pelvis in the emergency room revealed findings consistent with acute pancreatitis and fatty liver as well as diverticulosis without diverticulitis. Data Review: Laboratory evaluation was remarkable for lipase 2484, leukocytosis of 26.4, CO2 21, chloride 108, BUN 24, creatinine 1.04, glucose 144. Plan: Continue with IV fluids with NS at 120 cc/h Monitor lipase levels Antiemetics N.p.o. for now Pain control Monitor CBC and BMP Consider GI consult for Saturday if fails to improve DVT prophylaxis: Lovenox subcu The patient is admitted with an anticipated greater than 2 midnight stay for evaluation of acute pancreatitis CODE STATUS: Full Code Discussed with: Patient Anticipated discharge place: Home Past Medical History Past Medical History: Coronary Artery Disease (CAD), CVA/TIA, Diabetes Mellitus, Eye Disorder, Hyperlipidemia, Hypertension, Osteoarthritis (OA), Pneumonia, Prostate Disorder, Pulmonary Embolus (PE) Additional Past Medical History / Comment(s): hx covid 01/18/21 & hospitalized with pneumonia and PE., 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 History of Any Multi-Drug Resistant Organisms: None Reported Past Surgical History: Cholecystectomy, Heart Catheterization With Stent Additional Past Surgical History / Comment(s): L eye cataract removal, PCI with stents , colonoscopies. Past Anesthesia/Blood Transfusion Reactions: No Reported Reaction Date of Last Stent Placement:: 2012 Past Psychological History: No Psychological Hx Reported Smoking Status: Never smoker Past Alcohol Use History: Occasional Past Drug Use History: None Reported - Past Family History Father Family Medical History: CVA/TIA Additional Family Medical History / Comment(s): Father of a CVA at the age of 44yrs. Mother Family Medical History: Cancer, Diabetes Mellitus Additional Family Medical History / Comment(s): Heart problems, pt cannot recall type of cancer. Medications and Allergies Home Medications Medication Instructions Recorded Confirmed Type Atorvastatin [Lipitor] 20 mg PO HS 08/10/15 11/21/22 History Multivitamin [Men's Multi-Vitamin] 1 tab PO DAILY 08/10/15 11/21/22 History Vitamin B Complex 1 cap PO HS 08/10/15 11/21/22 History allopurinoL [Zyloprim] 300 mg PO DAILY 08/10/15 11/21/22 History metFORMIN HCL [Glucophage] 500 mg PO QAM 08/10/15 11/21/22 History Tamsulosin HCl [Flomax] 0.4 mg PO HS 01/07/19 11/21/22 History Metoprolol Succinate [Toprol XL] 25 mg PO HS 01/16/21 11/21/22 History Aspirin EC [Ecotrin Low Dose] 81 mg PO HS 01/18/21 11/21/22 History lisinopriL [Zestril] 20 mg PO DAILY 11/19/22 11/21/22 History Allergies Allergy/AdvReac Type Severity Reaction Status Date / Time No Known Allergies Allergy Verified 12/28/23 19:00 Physical Exam Vitals: Vital Signs Temp Pulse Resp BP Pulse Ox 12/29/23 00:32 85 16 169/92 94 L 12/28/23 23:05 83 16 178/84 95 12/28/23 21:02 80 16 163/73 95 12/28/23 18:53 97.6 F 79 18 174/78 96 Intake and Output 12/28/23 12/28/23 12/29/23 14:59 22:59 06:59 Other: Weight 99.79 kg Results CBC & Chem 7: 12/28/23 20:34 12/28/23 20:34 Labs: Abnormal Lab Results - Last 24 Hours (Table) 12/28/23 12/28/23 12/28/23 Range/Units 20:34 20:34 20:34 WBC 26.4 H (3.8-10.6) k/uL Neutrophils # 23.5 H (1.3-7.7) k/uL Chloride 108 H (98-107) mmol/L Carbon Dioxide 21 L (22-30) mmol/L BUN 24 H (9-20) mg/dL Glucose 144 H (74-99) mg/dL Lipase 2484 H (23-300) U/L Urine Protein 1+ H (Negative) Ur Leukocyte Esterase Trace H (Negative) Urine WBC 13 H (0-5) /hpf Amorphous Sediment Rare H (None) /hpf Hyaline Casts 3 H (0-2) /lpf Urine Mucus Occasional H (None) /hpf
[2023-12-29] MEDS: HYDROmorphone 0.5 MG/0.5 ML SYRINGE IVP PRN ×4 (03:40→21:31)
[2023-12-29 03:47] LABS: Basophils # (A) 0.1 k/uL (0-0.2); Basophils % (A) 0 %; Eosinophils # (A) 0.1 k/uL (0-0.7); Eosinophils % (A) 1 %; HCT 46.5 % (39.0-53.0); HGB 15.3 gm/dL (13.0-17.5); Lymphocytes % (A) 8 %; MCH 30.3 pg (25.0-35.0); MCHC 32.9 g/dL (31.0-37.0); MCV 92.1 fL (80.0-100.0); Mean Platelet Volume 8.6; Monocytes # (A) 0.7 k/uL (0-1.0); Monocytes % (A) 3 %; Neutrophils # (A) 21.5 k/uL (1.3-7.7); Neutrophils % (A) 87 %; Platelet Count 162 k/uL (150-450); RBC 5.05 m/uL (4.30-5.90); RDW 13.9 % (11.5-15.5); WBC 24.7 k/uL (3.8-10.6)
[2023-12-29 03:58] LABS: ALT 30 U/L (4-49); AST 29 U/L (17-59); African American GFR (CKD) 85 (>60 ml/min/1.73 sqM); Albumin 3.7 g/dL (3.5-5.0); Alkaline Phosphatase 59 U/L (38-126); Anion Gap 14 mmol/L; Blood Urea Nitrogen 21 mg/dL (9-20); Calcium 8.7 mg/dL (8.4-10.2); Carbon Dioxide 18 mmol/L (22-30); Chloride 107 mmol/L (98-107); Glucose 147 mg/dL (74-99); Non-African American GFR(CKD) 73 (>60 ml/min/1.73 sqM); Potassium 4.2 mmol/L (3.5-5.1); Sodium 139 mmol/L (137-145); Total Protein 6.5 g/dL (6.3-8.2)
[2023-12-29] MEDS: ENOXAPARIN 40 MG/0.4 ML SYRINGE SQ SCH (08:14)
[2023-12-29] MEDS: lisinopriL 20 MG TAB PO SCH (09:48)
[2023-12-29] MEDS: PANTOPRAZOLE 40 MG/10 ML VIAL IVP SCH (09:48)
[2023-12-29] MEDS: LACTATED RINGERS 1,000 ML IV SCH (09:48)
--- NOTE | 2023-12-29 13:51 | P.PN ---
Subjective Progress Note Date: 12/29/23 Hospital course: Patient is a is an 88-year-old male with a past medical history of CAD with stent, hypertension, hyperlipidemia, previous provoked pulmonary emboli during COVID infection, BPH, diverticulosis, and sfo-wcllhuq-eenliahvq diabetes mellitus. He presented to the emergency department with a chief complaint of abdominal pain accompanied by nausea. He underwent full evaluation in the emergency department. Vital signs upon arrival show blood pressure 174/78, heart rate 79, respiratory rate 18, temp 97.6 F, and SpO2 of 96% on room air. Labs completed and reviewed. CBC revealed significant leukocytosis with WBC count of 26.4. BMP revealing non-anion gap metabolic acidosis with chloride of 108, bicarb 21, and anion gap of 9., and BUN was elevated at 24. Glucose was 144. Lactic acid was 1.7. Liver profile unremarkable. Lipase elevated at 2484. Urinalysis showing abnormalities with protein, trace leukocytes, and 13 WBCs however not concerning for infection. CT abdomen and pelvis with IV contrast was completed showing inflammatory changes about the pancreas compatible with acute pancreatitis, and diverticulosis without diverticulitis. Acute pancreatitis possibly secondary to alcohol use, patient reports drinking approximately 3-4 times per week but only reports drinking 2-3 drinks at a time. Patient denies history of pancreatitis in the past. Physical exam: Patient seen and fully evaluated at bedside. Patient's also at bedside visiting at this time. Patient reports improvement of her nausea but continues to have mild pain/discomfort to epigastric region, right upper quadrant and left upper quadrant. He denies having any chest pain, palpitations, shortness of breath, any episodes of vomiting, or any other complaints at this time. Vital signs reviewed and stable. General: Nontoxic, no distress and appears stated age. Obese. Derm: Skin warm and dry, normal coloration for ethnicity. Head: Atraumatic, normocephalic and symmetric. Eyes: EOMs intact, no lid lag, and anicteric sclera Mouth: no lip lesions, mucus membranes moist Cardiovascular: regular rate and rhythm with normal S1S2, systolic murmur, positive posterior tibial pulses bilaterally, and cap refill < 2 seconds. Lungs: Respirations even, regular, and unlabored on room air. Lungs CTA bilaterally, no rhonchi, no rales, no wheezing, and no accessory muscle usage. Abdominal: Obese distended abdomen, slight tenderness to palpation in epigastric region, right upper quadrant, left upper quadrant. Ext: ROM intact. No gross muscle atrophy, no edema, no contractures Neuro: Speech clear, face symmetrical and CN II-XII grossly intact with no noted focal neuro deficits Psych: Alert and oriented to person, place, time, and situation. Appropriate and pleasant affect. Assessment and Plan of Care: Acute pancreatitis Significant leukocytosis secondary to above High anion gap metabolic acidosis likely secondary to above -CT abdomen and pelvis with IV contrast revealed inflammatory changes around the pancreas consistent with acute pancreatitis. -Continue with vigorous IV fluid hydration with lactated Ringer's at 125 cc/h -NPO with the exceptions of ice chips., will advance to clear liquid diet once pain and nausea is controlled. Will decrease IV fluid infusion rate as we advance diet. -Symptomatic care with Zofran 4 mg IVP every 8 hours as needed for nausea and Dilaudid 0.5 mg every 3 hours as needed for moderate to severe pain. -Recommend outpatient follow-up with offset printing pressmen. -GI prophylaxis with Protonix 40 mg IVP daily. -Continue to monitor closely. Repeat orders placed for morning CBC, CMP, magnesium, and lipase. Will follow-up on these results and place additional orders as indicated based upon these findings. History of CAD with stent Hypertension Hyperlipidemia Patient to continue with cardiac medication regimen with aspirin 81 mg daily, atorvastatin 20 mg nightly, lisinopril 20 mg daily, and metoprolol 25 mg nightly [address] Constipation CT did show moderate stool throughout colon. Patient reports mild constipation. Patient started on MiraLAX 17 g daily. Wqp-uofkuxd-ltpklsjfk diabetes mellitus Hold Glucophage and place patient on glycemic protocol with NovoLog sliding scale. BPH Continue daily medication regimen with Flomax 0.4 mg nightly. History of diverticulosis CT did confirm diverticulosis without acute diverticulitis. Data and imaging reviewed: Morning labs reviewed. CBC showing slight improvement of WBC count down to 24.7 this morning. BMP showing mild high anion gap metabolic acidosis with chloride of 107, bicarb 18, and anion gap elevated at 18. Liver profile remains unremarkable. Vital signs reviewed. Blood pressure 168/79, heart rate 93, respiratory rate 16, temp 97.6 F, SpO2 of 94% on room air. CODE STATUS: Full code DVT prophylaxis: Lovenox Anticipated discharge date: Clinical course to determine Anticipated discharge place: Clinical course to determine Patient was seen independently by Nurse Pracitioner. This document was prepared using [employer] dictation software. Please allow for errors in gameplay engineer, while rare they do occur. Milan Mchugh ALUMIN[employer] HYDROXIDE PROCESS OPERATOR rendered care for this patient independently, reviewed the findings and plan as documented in the note above. I did not physically speak with or examine the patient on this date. Check stat lactic acid, acetone. no significant urema- doubt alcohol mediated Objective - Vital Signs Vital signs: Vital Signs Temp 97.6 F 12/29/23 08:22 Pulse 93 12/29/23 08:22 Resp 16 12/29/23 08:22 BP 168/79 12/29/23 08:22 Pulse Ox 94 L 12/29/23 08:22 FiO2 Intake & Output 12/28/23 12/29/23 12/29/23 18:59 06:59 18:59 Output Total 900 Balance -900 Weight 99.79 kg Output: Urine 900 - Labs CBC & Chem 7: 12/29/23 03:21 12/29/23 03:21 Labs: Abnormal Lab Results - Last 24 Hours (Table) 12/28/23 12/28/23 12/28/23 Range/Units 20:34 20:34 20:34 WBC 26.4 H (3.8-10.6) k/uL Neutrophils # 23.5 H (1.3-7.7) k/uL Chloride 108 H (98-107) mmol/L Carbon Dioxide 21 L (22-30) mmol/L BUN 24 H (9-20) mg/dL Glucose 144 H (74-99) mg/dL Lipase 2484 H (23-300) U/L Urine Protein 1+ H (Negative) Ur Leukocyte Esterase Trace H (Negative) Urine WBC 13 H (0-5) /hpf Amorphous Sediment Rare H (None) /hpf Hyaline Casts 3 H (0-2) /lpf Urine Mucus Occasional H (None) /hpf 12/29/23 12/29/23 Range/Units 03:21 03:21 WBC 24.7 H (3.8-10.6) k/uL Neutrophils # 21.5 H (1.3-7.7) k/uL Chloride (98-107) mmol/L Carbon Dioxide 18 L (22-30) mmol/L BUN 21 H (9-20) mg/dL Glucose 147 H (74-99) mg/dL Lipase (23-300) U/L Urine Protein (Negative) Ur Leukocyte Esterase (Negative) Urine WBC (0-5) /hpf Amorphous Sediment (None) /hpf Hyaline Casts (0-2) /lpf Urine Mucus (None) /hpf
[2023-12-29] MEDS: cycloSPORINE 0.05% OPHTH 0.4 ML DROPERETTE BOTH EYES SCH ×2 (14:30→19:38)
[2023-12-29] MEDS: METOPROLOL SUCCINATE (ER) 25 MG TAB.ER.24H PO SCH (19:38)
[2023-12-29] MEDS: ATORVASTATIN 20 MG TAB PO SCH (19:38)
[2023-12-29] MEDS: TAMSULOSIN 0.4 MG CAP.ER.24H PO SCH (19:38)
[2023-12-29] MEDS: ASPIRIN 81 MG PO SCH (19:38)
[2023-12-30] MEDS: LACTATED RINGERS 1,000 ML IV SCH ×3 (00:17→22:23)
[2023-12-30] MEDS: HYDROmorphone 0.5 MG/0.5 ML SYRINGE IVP PRN ×6 (00:54→22:22)
[2023-12-30] MEDS: polyethylene glycoL 3350 17 GM POWD.PACK PO SCH (09:37)
[2023-12-30] MEDS: ENOXAPARIN 40 MG/0.4 ML SYRINGE SQ SCH (09:37)
[2023-12-30] MEDS: lisinopriL 20 MG TAB PO SCH (09:38)
[2023-12-30] MEDS: MULTIVITAMINS, THERA 1 EACH TAB PO SCH (09:38)
[2023-12-30] MEDS: allopurinoL 300 MG TAB PO SCH (09:38)
[2023-12-30] MEDS: PANTOPRAZOLE 40 MG/10 ML VIAL IVP SCH (10:04)
[2023-12-30] MEDS: cycloSPORINE 0.05% OPHTH 0.4 ML DROPERETTE BOTH EYES SCH ×2 (10:25→20:00)
[2023-12-30 11:53] LABS: HCT 40.5 % (39.6-50.0); HGB 13.3 g/dL (13.0-17.0); MCH 29.8 pg (27.0-32.0); MCHC 32.8 g/dL (32.0-37.0); MCV 90.8 FL (80.0-97.0); Mean Platelet Volume 11.4 FL (9.5-12.2); NRBC Per 100 WBC 0 X 10*3/uL (0.00-0.01); Platelet Count 155 X 10*3/uL (140-440); RBC 4.46 X 10*6/uL (4.40-5.60); WBC 27.42 X 10*3/uL (4.50-10.00)
[2023-12-30 12:09] LABS: ALT 26 U/L (10-49); AST 45 U/L (14-35); Albumin 3.5 g/dL (3.8-4.9); Albumin/Globulin Ratio 1.59 Ratio (1.60-3.17); Alkaline Phosphatase 58 U/L (41-126); BUN/Creat Ratio 16.25 Ratio (12.00-20.00); Blood Urea Nitrogen 19.5 mg/dL (9.0-27.0); Calcium 8.2 mg/dL (8.7-10.3); Carbon Dioxide 22.2 mmol/L (21.6-31.8); Chloride 103 mmol/L (96-109); Globulin 2.2 g/dL (1.6-3.3); Glucose 127 mg/dL (70-110); Magnesium 1.8 mg/dL (1.5-2.4); Sodium 137 mmol/L (135-145); Total Bilirubin 1.2 mg/dL (0.3-1.2); Total Protein 5.7 g/dL (6.2-8.2)
--- NOTE | 2023-12-30 15:01 | P.PN ---
Subjective Progress Note Date: 12/30/23 Hospital course: Patient is a is an 88-year-old male with a past medical history of CAD with stent, hypertension, hyperlipidemia, previous provoked pulmonary emboli during COVID infection, BPH, diverticulosis, and ohc-hcekchw-ytcksgfsw diabetes mellitus. He presented to the emergency department with a chief complaint of abdominal pain accompanied by nausea. He underwent full evaluation in the emergency department. Vital signs upon arrival show blood pressure 174/78, heart rate 79, respiratory rate 18, temp 97.6 F, and SpO2 of 96% on room air. Labs completed and reviewed. CBC revealed significant leukocytosis with WBC count of 26.4. BMP revealing non-anion gap metabolic acidosis with chloride of 108, bicarb 21, and anion gap of 9., and BUN was elevated at 24. Glucose was 144. Lactic acid was 1.7. Liver profile unremarkable. Lipase elevated at 2484. Urinalysis showing abnormalities with protein, trace leukocytes, and 13 WBCs however not concerning for infection. CT abdomen and pelvis with IV contrast was completed showing inflammatory changes about the pancreas compatible with acute pancreatitis, and diverticulosis without diverticulitis. Acute pancreatitis possibly secondary to alcohol use, patient reports drinking approximately 3-4 times per week but only reports drinking 2-3 drinks at a time. Patient denies history of pancreatitis in the past. Physical exam: Patient seen and fully evaluated at bedside. Patient's also at bedside visiting at this time. Patient continues to report resolution of nausea and denies any episodes of vomiting. He is tolerating a clear liquid diet but does report continued pain to epigastric region. He denies having any chest pain, palpitations, shortness of breath, dizziness, lightheadedness, no experiencing any numbness/tingling/weakness in his extremities. Temperature high over the past 24 hours was 100.3 F. Vital signs reviewed and stable. General: Nontoxic, no distress and appears stated age. Obese. Derm: Skin warm and dry, normal coloration for ethnicity. Head: Atraumatic, normocephalic and symmetric. Eyes: EOMs intact, no lid lag, and anicteric sclera Mouth: no lip lesions, mucus membranes moist Cardiovascular: regular rate and rhythm with normal S1S2, systolic murmur, positive posterior tibial pulses bilaterally, and cap refill < 2 seconds. Lungs: Respirations even, regular, and unlabored on room air. Lungs CTA bilaterally, no rhonchi, no rales, no wheezing, and no accessory muscle usage. Abdominal: Obese distended abdomen, slight tenderness to palpation in epigastric region, right upper quadrant, left upper quadrant. Ext: ROM intact. No gross muscle atrophy, no edema, no contractures Neuro: Speech clear, face symmetrical and CN II-XII grossly intact with no noted focal neuro deficits Psych: Alert and oriented to person, place, time, and situation. Appropriate and pleasant affect. Assessment and Plan of Care: Acute pancreatitis Significant leukocytosis secondary to above High anion gap metabolic acidosis likely secondary to above, lactic acid was normal at 1.6, improved with IV fluid hydration -CT abdomen and pelvis with IV contrast revealed inflammatory changes around the pancreas consistent with acute pancreatitis. -Lactated Ringer's infusion was decreased to 75 cc/h after patient was maintaining clear liquid diet. -Continue clear liquid diet. -Symptomatic care with Zofran 4 mg IVP every 8 hours as needed for nausea and Dilaudid 0.5 mg every 3 hours as needed for moderate to severe pain. -Consult placed to compliance consultant. -GI prophylaxis with Protonix 40 mg IVP daily. -Order placed for triglycerides -Continue to monitor closely. Repeat orders placed for morning CBC, CMP, magnesium, and lipase. Will follow-up on these results and place additional orders as indicated based upon these findings. History of CAD with stent Hypertension Hyperlipidemia Patient to continue with cardiac medication regimen with aspirin 81 mg daily, atorvastatin 20 mg nightly, lisinopril 20 mg daily, and metoprolol [address] did show moderate stool throughout colon. Patient reports mild constipation. Patient started on MiraLAX 17 g daily. Qws-vizcmpc-uipokpgmn diabetes mellitus Hold Glucophage and place patient on glycemic protocol with NovoLog sliding scale. BPH Continue daily medication regimen with Flomax 0.4 mg nightly. History of diverticulosis CT did confirm diverticulosis without acute diverticulitis. Data and imaging reviewed: Morning labs reviewed. Showing worsening leukocytosis with WBC count of 27.42. BMP showing resolution of metabolic acidosis with chloride of 103, bicarb 22.2, and anion gap of 11.80. Blood glucose was 127. Liver profile s howing slightly elevated AST of 45 otherwise normal findings. Lipase 644. Vital signs reviewed. Blood pressure 154/78, heart rate 94, respiratory rate 18, temp 98.1 F, and SpO2 of 93% on room air. Temperature high over the past 24 hours was 100.3. CODE STATUS: Full code DVT prophylaxis: Lovenox Anticipated discharge date: Clinical course to determine Anticipated discharge place: Clinical course to determine Patient was seen independently by Nurse Pracitioner. This document was prepared using [employer] dictation software. Please allow for errors in mink slicer, while rare they do occur. Milan Mchugh NP rendered care for this patient independently, reviewed the findings and plan as documented in the note above. I did not physically speak with or examine the patient on this date. Objective - Vital Signs Vital signs: Vital Signs Temp 98.1 F 12/30/23 07:14 Pulse 94 12/30/23 07:14 Resp 18 12/30/23 07:14 BP 154/78 12/30/23 07:14 Pulse Ox 93 L 12/30/23 07:14 FiO2 Intake & Output 12/29/23 12/30/23 12/30/23 18:59 06:59 18:59 Intake Total 1020 Output Total 900 Balance -900 1020 Weight 99.79 kg Intake: Intake, IV Titration 900 Amount Lactated Ringers 1,000 ml 900 @ 75 mls/hr IV .[id number] GEORGE Rx#:[id number] Oral 120 Output: Urine 900 Other: # Voids 1 2 - Labs CBC & Chem 7: 12/30/23 06:38 12/30/23 06:38 Labs: Abnormal Lab Results - Last 24 Hours (Table) 12/30/23 Range/Units 06:38 Lipase 644 H (23-300) U/L
[2023-12-30] MEDS: TAMSULOSIN 0.4 MG CAP.ER.24H PO SCH (20:00)
[2023-12-30] MEDS: ASPIRIN 81 MG PO SCH (20:00)
[2023-12-30] MEDS: METOPROLOL SUCCINATE (ER) 25 MG TAB.ER.24H PO SCH (20:00)
[2023-12-30] MEDS: ACETAMINOPHEN TAB 325 MG TAB PO PRN (20:00)
[2023-12-30] MEDS: ATORVASTATIN 20 MG TAB PO SCH (20:00)
[2023-12-31] MEDS: HYDROmorphone 0.5 MG/0.5 ML SYRINGE IVP PRN ×4 (02:38→17:42)
[2023-12-31 06:26] LABS: ALT 30 U/L (4-49); AST 44 U/L (17-59); African American GFR (CKD) 67 (>60 ml/min/1.73 sqM); Albumin/Globulin Ratio 1.1; Alkaline Phosphatase 76 U/L (38-126); Anion Gap 7 mmol/L; Blood Urea Nitrogen 20 mg/dL (9-20); Calcium 7.9 mg/dL (8.4-10.2); Carbon Dioxide 24 mmol/L (22-30); Chloride 103 mmol/L (98-107); Globulin 2.8 g/dL; Glucose 126 mg/dL (74-99); Magnesium 1.8 mg/dL (1.6-2.3); Non-African American GFR(CKD) 58 (>60 ml/min/1.73 sqM); Potassium 3.7 mmol/L (3.5-5.1); Sodium 134 mmol/L (137-145); Total Bilirubin 1.6 mg/dL (0.2-1.3); Total Protein 5.8 g/dL (6.3-8.2)
--- NOTE | 2023-12-31 08:19 | CDI ---
Documentation Clarification Form Date: 12/31/2023 07:45:13 AM From: Adele Richards RN CCDS Phone: [phone] Admit Date: 12/28/2023 11:42:00 PM Patient Name: Jefferson Scanlon Visit Number: [id number] Discharge Date: ATTENTION: The Clinical Documentation Specialists (CDI) and [facility] Coding Staff appreciate your assistance in clarifying documentation. Please respond to the clarification below the line at the bottom and electronically sign. The CDI & [facility] Coding staff will review the response and follow-up if needed. Please note: Queries are made part of the Legal Health Record. If you have any questions, please contact the author of this message via ITS. Dr. Yana Scherer Your patient has Acute pancreatitis, 12/29, H&P. Based on this information and the findings below, is there an additional diagnosis that is clinically appropriate for this patient? History/Risk Factors: 88-year-old male presents to the ED with sudden onset of abdominal pain. Medical History: Cholecystectomy 3 years ago, DM2, HTN and HLD. Clinical Indicators: 12/29, H&P: Acute pancreatitis, unclear etiology. Leukocytosis, suspect due to acute stressor with no signs of active infection at this time. 12/28, CT Abd: Inflammatory changes are noted about the pancreas. 12/28: Wbc 26.4, Neutrophils 23.5 Lipase 2484 12/29: Wbc 24.7; Neutrophils 21.5 12/29: VSS: B/P 167/75; HR 103; Temp 100.3F Oral; RR 16; SpO2 91% Treatment: Clear liquid diet, GI consult (pending), Daily labs Is there an additional diagnosis that is clinically appropriate for this patient? [ x ] SIRS, due to Acute pancreatitis, without acute organ dysfunction [ ] Other, please specify [ ] Unable to determine SIRS Criteria: 2 or more of the following may indicate SIRS -Temperature < 96.8F(36C) or > 101.0F (38.3C) -Heart Rate > 90 bpm -Respiratory Rate > 20 breaths/min or PaCO2 < 32 mmHg -White Blood Cell Count > 12,000 or < 4,000 cells/mm3 or > 10% bands (Template Last Revised: January 2021) MTDD
[2023-12-31] MEDS: ENOXAPARIN 40 MG/0.4 ML SYRINGE SQ SCH (08:34)
[2023-12-31] MEDS: MULTIVITAMINS, THERA 1 EACH TAB PO SCH (08:34)
[2023-12-31] MEDS: cycloSPORINE 0.05% OPHTH 0.4 ML DROPERETTE BOTH EYES SCH ×2 (08:34→21:32)
[2023-12-31] MEDS: lisinopriL 20 MG TAB PO SCH (08:34)
[2023-12-31] MEDS: allopurinoL 300 MG TAB PO SCH (08:34)
[2023-12-31] MEDS: PANTOPRAZOLE 40 MG/10 ML VIAL IVP SCH (08:35)
[2023-12-31] MEDS: polyethylene glycoL 3350 17 GM POWD.PACK PO SCH (08:35)
[2023-12-31 08:59] LABS: HGB 13.5 g/dL (13.0-17.0); MCH 30.1 pg (27.0-32.0); MCHC 33.8 g/dL (32.0-37.0); MCV 89.1 FL (80.0-97.0); Mean Platelet Volume 11.5 FL (9.5-12.2); NRBC Per 100 WBC 0 X 10*3/uL (0.00-0.01); Platelet Count 138 X 10*3/uL (140-440); RBC 4.49 X 10*6/uL (4.40-5.60); RDW 13.8 % (11.5-14.5); WBC 26.63 X 10*3/uL (4.50-10.00)
[2023-12-31 09:51] LABS: Chol/HDL Ratio 2.64 Ratio; LDL Cholesterol,Calculated 35.3 mg/dL (0.0-131.0)
--- NOTE | 2023-12-31 12:08 | P.CONS ---
History of Present Illness - Reason for Consult Consult date: 12/31/23 Acute pancreatitis Requesting physician: Milan Mchugh - Chief Complaint Abdominal pain - History of Present Illness This is a pleasant 88-year-old male who presented to the emergency department 3 days ago with complaints of abdominal pain. He states he started having abdom inal pain about 2 AM Saturday morning which woke him up and he was unable to get back to sleep. He reported the pain is a sharp pain going across his upper abdomen. He had nausea but no vomiting. Does have a past medical history including coronary artery disease CVA/TIA, diabetes mellitus, eye disorder, hyperlipidemia, hypertension, prostate disorder and pulmonary embolism as well as history of cholecystectomy for cholelithiasis 2 to 3 years ago. He had a CT of the abdomen pelvis with contrast that reported inflammatory changes noted about the pancreas compatible with acute pancreatitis. Fatty liver. Status postcholecystectomy. No renal calculus or hydronephrosis and no bowel obstruct ion. Diverticulosis without diverticulitis. Admitting labs lipase was as high as 2484, on admission LFTs were within normal limits. He currently states he continues to have abdominal pain across the upper abdomen. No nausea or vomiting. He is currently NPO. Today's labs WBC 26.6 hemoglobin 13.5 platelet count 138,000 sodium 134 potassium 3.7 BUN 20 creatinine 1.13 total bilirubin 1.6 AST 44 ALT 30 alkaline phosphatase 76 triglycerides 122 lipase from yesterday down to 644 from 2484. He denies any previous history of pancreatitis. Denies any history of alcoholism or current alcohol use. No new medications. Review of Systems REVIEW OF SYSTEMS: CARDIOPULMONARY: No chest pain or shortness of breath. Gastrointestinal: Abdominal pain mostly in the upper abdomen radiating from the right across to the left. Some nausea no vomiting.. No hematemesis, coffee- ground emesis. No rectal bleeding, or melena. GENITOURINARY: No dysuria or hematuria. MUSCULOSKELETAL: Reports normal range of motion., Joint pain. SKIN: No rashes. No jaundice. ENDOCRINE: No chills, fevers. No excessive weight gain or loss. No polydipsia or polyuria. PSYCHIATRIC: Unremarkable. NEUROLOGY: No change in mental status. Denies dizziness, headache. ENT: Vision unremarkable. CONSTITUTIONAL: No recent weight loss. No fever, chills, night sweats. 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 Past Anesthesia/Blood Transfusion Reactions: No Reported Reaction Date of Last Stent Placement:: 2012 Past Psychological History: No Psychological Hx Reported Additional Psychological History / Comment(s): Pt resides alone. He uses a cane. Smoking Status: Never smoker Past Alcohol Use History: Occasional Past Drug Use History: None Reported - Past Family History Father Family Medical History: CVA/TIA Additional Family Medical History / Comment(s): Father of a CVA at the age of 44yrs. Mother Family Medical History: Cancer, Diabetes Mellitus Additional Family Medical History / Comment(s): Heart problems, pt cannot recall type of cancer. Medications and Allergies Home Medications Medication Instructions Recorded Confirmed Type Atorvastatin [Lipitor] 20 mg PO HS 08/10/15 12/29/23 History Multivitamin [Men's Multi-Vitamin] 1 tab PO DAILY 08/10/15 12/29/23 History Vitamin B Complex 1 cap PO DAILY 08/10/15 12/29/23 History allopurinoL [Zyloprim] 300 mg PO DAILY 08/10/15 12/29/23 History metFORMIN HCL [Glucophage] 500 mg PO DAILY 08/10/15 12/29/23 History Tamsulosin HCl [Flomax] 0.4 mg PO HS 01/07/19 12/29/23 History Metoprolol Succinate [Toprol XL] 25 mg PO DAILY 01/16/21 12/29/23 History lisinopriL [Zestril] 20 mg PO DAILY 11/19/22 12/29/23 History Nitroglycerin 0.4 mg SL Q5M PRN 12/29/23 12/29/23 History cycloSPORINE 0.05% OPHTH SOLN 1 drop BOTH EYES Q12H 12/29/23 12/29/23 History [Restasis] Allergies Allergy/AdvReac Type Severity Reaction Status Date / Time No Known Allergies Allergy Verified 12/29/23 12:05 Physical Exam Vitals: Vital Signs Temp Pulse Resp BP Pulse Ox 12/31/23 07:23 98.2 F 82 16 143/62 93 L 12/31/23 02:00 98.8 F 96 16 162/80 95 12/30/23 20:00 98.2 F 98 16 149/63 90 L 12/30/23 12:07 98.3 F 91 18 153/79 94 L Intake and Output 12/30/23 12/31/23 12/31/23 22:59 06:59 14:59 Intake Total 1140 Output Total 250 Balance 890 Intake: Intake, IV Titration 900 Amount Lactated Ringers 1,000 ml 900 @ 75 mls/hr IV .[id number] [facility] Rx#:[id number] Oral 240 Output: Urine 250 Other: Voiding Method Toilet Urinal # Voids 2 General appearance: The patient is alert, oriented, appears in no acute distress. HET: Head is normocephalic and atraumatic. Conjunctiva pink. Sclera anicteric. Neck: Supple without lymphadenopathy. Trachea midline. Heart: Regular. Lungs: Equal expansion, normal respiratory effort. Abdomen: Soft, nontender, nondistended with bowel sounds. No guarding or rigidity. Skin: No rashes. No jaundice. Extremities: Normal skin color and turgor. No pedal edema. Neurological: No focal deficits. Alert and oriented x3. Strength Results CBC & Chem 7: 12/31/23 05:40 12/31/23 05:40 Labs: Abnormal Lab Results - Last 24 Hours (Table) 12/30/23 12/30/23 12/31/23 Range/Units 06:38 06:38 05:40 WBC 27.42 H (4.50-10.00) X 10*3/uL Plt Count (140-440) X 10*3/uL Sodium 134 L (137-145) mmol/L Est GFR (CKD-EPI) 58 L (>=60) Glucose 127 H 126 H (70-110) mg/dL Calcium 8.2 L 7.9 L (8.7-10.3) mg/dL Total Bilirubin 1.6 H (0.2-1.3) mg/dL AST 45 H (14-35) U/L Total Protein 5.7 L 5.8 L (6.2-8.2) g/dL Albumin 3.5 L 3.0 L (3.8-4.9) g/dL Albumin/Globulin Ratio 1.59 L (1.60-3.17) Ratio 12/31/23 Range/Units 05:40 WBC 26.63 H (4.50-10.00) X 10*3/uL Plt Count 138 L (140-440) X 10*3/uL Sodium (137-145) mmol/L Est GFR (CKD-EPI) (>=60) Glucose (70-110) mg/dL Calcium (8.7-10.3) mg/dL Total Bilirubin (0.2-1.3) mg/dL AST (14-35) U/L Total Protein (6.2-8.2) g/dL Albumin (3.8-4.9) g/dL Albumin/Globulin Ratio (1.60-3.17) Ratio Comments: CT of the abdomen pelvis with contrast that reported inflammatory changes noted about the pancreas compatible with acute pancreatitis. Fatty liver. Status postcholecystectomy. No renal calculus or hydronephrosis and no bowel obstruction. Diverticulosis without diverticulitis US - abdomen: report reviewed (Amended exam due to body habitus and bowel gas. Status postcholecystectomy. Bile duct caliber 5.6 mm acceptable given patient's age and postcholecystectomy status) Assessment and Plan (1) Pancreatitis Narrative/Plan: 88-year-old male admitted for acute pancreatitis. Unclear etiology at this time. Patient initially had all normal LFTs with notable elevated lipase in the 2400s as well as leukocytosis. History of cholecystectomy for cholelithiasis, CT abdomen pelvis not showing any CBD dilation at the time of admission in the setting of normal LFTs however patient is starting have some increase in his total bilirubin now up to 1.6. Gallbladder ultrasound will be obtained to rule out CBD obstruction/stone. There is no evidence for CBD obstruction, labs are not consistent with cholestatic pattern. Patient now states that he does drink 5-6 alcoholic drinks weekly. But denies any history of heavy alcohol consump tion. Current Visit: Yes Status: Acute Code(s): K85.90 - ACUTE PANCREATITIS WITHOUT NECROSIS OR INFECTION, UNSP SNOMED Code(s): 93687693 (2) Abdominal pain Current Visit: Yes Status: Acute Code(s): R10.9 - UNSPECIFIED ABDOMINAL PAIN SNOMED Code(s): 11907306 Plan: 1. Continued symptomatic and supportive care 2. Patient may have clear liquid diet 3. Gallbladder ultrasound ordered and reviewed, no CBD dilation. 4. Daily CBC, CMP 5. MALIA, IgG4 ordered 6. Further recommendations forthcoming based on clinical course Thank you for this consultation, will continue to follow. Dr. Dario Ramirez I agree with the dictator's note, documented as a scribe by Karyn Curran.
--- NOTE | 2023-12-31 13:18 | US ---
EXAMINATION TYPE: US gallbladder DATE OF EXAM: 12/31/2023 COMPARISON: 01/19/2021 CLINICAL INDICATION: Male, 88 years old with history of pancreatitis, abdominal pain; GB removed x 3. 5 years ago. RUQ pain. Pancreatitis. TECHNIQUE: Multiple sonographic images of the right upper quadrant are obtained. FINDINGS: EXAM MEASUREMENTS: Liver Length: 16.6 cm CBD: 5.6 mm Right Kidney: 9.9 x 5.1 x 5.4 cm HARD CANDY SPINNER NOTES:Limited exam due to patient body habitus and overlying bowel gas Pancreas: Obscured by bowel gas Liver: limited visualization of right lobe due to bowel gas Gallbladder: Surgically absent Evidence for sonographic Kowalski's sign: neg CBD: limited visualization, not well seen Right Kidney: No hydronephrosis or masses seen, limited IMPRESSION: Limited exam due to body habitus and bowel gas. Status post cholecystectomy. Bile duct caliber 5.6 mm , acceptable given patient's age and postcholecystectomy status.
[2023-12-31] MEDS: LACTATED RINGERS 1,000 ML IV SCH (13:20)
--- NOTE | 2023-12-31 13:40 | P.PN ---
Subjective Progress Note Date: 12/31/23 Hospital course: Patient is a is an 88-year-old male with a past medical history of CAD with stent, hypertension, hyperlipidemia, previous provoked pulmonary emboli during COVID infection, BPH, diverticulosis, and rfe-gqolgod-mkmwedqby diabetes mellitus. He presented to the emergency department with a chief complaint of abdominal pain accompanied by nausea. He underwent full evaluation in the emergency department. Vital signs upon arrival show blood pressure 174/78, heart rate 79, respiratory rate 18, temp 97.6 F, and SpO2 of 96% on room air. Labs completed and reviewed. CBC revealed significant leukocytosis with WBC count of 26.4. BMP revealing non-anion gap metabolic acidosis with chloride of 108, bicarb 21, and anion gap of 9., and BUN was elevated at 24. Glucose was 144. Lactic acid was 1.7. Liver profile unremarkable. Lipase elevated at 2484. Urinalysis showing abnormalities with protein, trace leukocytes, and 13 WBCs however not concerning for infection. CT abdomen and pelvis with IV contrast was completed showing inflammatory changes about the pancreas compatible with acute pancreatitis, and diverticulosis without diverticulitis. Acute pancreatitis possibly secondary to alcohol use, patient reports drinking approximately 3-4 times per week but only reports drinking 2-3 drinks at a time. Patient denies history of pancreatitis in the past. Physical exam: Patient seen and fully evaluated at bedside. Patient's also at bedside visiting again this morning. Patient currently reports mild pain across the epigastric region rated 3-4 out of 10 at this time. He denies currently experiencing any nausea. Patient's at bedside reports patient was severely nauseous yesterday evening shortly after eating a lemon ice but that he tolerated his clear liquid diet and lemon ice he ate this morning with no further episodes of nausea. He continues to deny having any chest pain, palpitations, shortness of breath, dizziness, and lightheadedness. He reports he is urinating normally and reports mild constipation with only 1 small bowel movement since arrival to the hospital. Patient was started on MiraLAX 17 g daily. Vital signs reviewed and stable. General: Nontoxic, no distress and appears stated age. Obese. Derm: Skin warm and dry, normal coloration for ethnicity. Head: Atraumatic, normocephalic and symmetric. Eyes: EOMs intact, no lid lag, and anicteric sclera Mouth: no lip lesions, mucus membranes moist Cardiovascular: regular rate and rhythm with normal S1S2, systolic murmur, positive posterior tibial pulses bilaterally, and cap refill < 2 seconds. Lungs: Respirations even, regular, and unlabored on room air. Lungs CTA bilaterally, no rhonchi, no rales, no wheezing, and no accessory muscle usage. Abdominal: Obese distended abdomen, slight tenderness to palpation in epigastric region, right upper quadrant, left upper quadrant. Ext: ROM intact. No gross muscle atrophy, no edema, no contractures Neuro: Speech clear, face symmetrical and CN II-XII grossly intact with no noted focal neuro deficits Psych: Alert and oriented to person, place, time, and situation. Appropriate and pleasant affect. Assessment and Plan of Care: Acute pancreatitis Significant leukocytosis secondary to above Hyperbilirubinemia High anion gap metabolic acidosis likely secondary to above, lactic acid was normal at 1.6, resolved after IV fluid hydration SIRS -CT abdomen and pelvis with IV contrast revealed inflammatory changes around the pancreas consistent with acute pancreatitis. -Lactated Ringer's infusion was decreased to 75 cc/h after patient was maintaining clear liquid diet. -Continue clear liquid diet. -Symptomatic care with Zofran 4 mg IVP every 8 hours as needed for nausea and Dilaudid 0.5 mg every 3 hours as needed for moderate to severe pain. -Consult placed to anodiser. -Continue GI prophylaxis with Protonix 40 mg IVP daily. -Triglycerides normal findings at 122.00 and lipid profile normal findings with exception of low HDL of 36.30. -Continue to monitor closely. Repeat orders placed for morning CBC, CMP, magnesium, and lipase. Will follow-up on these results and place additional orders as indicated based upon these findings. History of CAD with stent Hypertension Hyperlipidemia Patient to continue with cardiac medication regimen with aspirin 81 mg daily, atorvastatin 20 mg nightly, lisinopril 20 mg daily, and metoprolol [address] did show moderate stool throughout colon. Patient reports mild constipation. Patient started on MiraLAX 17 g daily. Oid-gtbswkt-iwenxfrat diabetes mellitus Continue to hold Glucophage and keep patient on glycemic protocol with NovoLog sliding scale. BPH Continue daily medication regimen with Flomax 0.4 mg nightly. History of diverticulosis CT did confirm diverticulosis without acute diverticulitis. Data and imaging reviewed: Morning labs reviewed. CBC showing persistent leukocytosis with WBC count of 26.63 and thrombocytopenia with platelet count of 138. BMP showing mild hyponatremia with sodium of 134 otherwise normal findings. Blood glucose was 126. Magnesium 1.8. Liver profile showing elevated bilirubin this morning at 1.6. Triglycerides were normal findings at 122.00 and lipid profile otherwise normal with the exception of low HDL of 36.30. Vital signs reviewed. Blood pressure 143/62, heart rate 82, respiratory rate 16, temp 98.2 F, and SpO2 of 93% on room air. Patient has remained afebrile for greater than 24 hours. CODE STATUS: Full code DVT prophylaxis: Lovenox Anticipated discharge date: Clinical course to determine Anticipated discharge place: Clinical course to determine Patient was seen independently by Nurse Pracitioner. This document was prepared using [employer] dictation software. Please allow for errors in neurosurgery research director, while rare they do occur. Objective - Vital Signs Vital signs: Vital Signs Temp 98.2 F 12/31/23 07:23 Pulse 82 12/31/23 07:23 Resp 16 12/31/23 07:23 BP 143/62 12/31/23 07:23 Pulse Ox 93 L 12/31/23 07:23 FiO2 Intake & Output 12/30/23 12/31/23 12/31/23 18:59 06:59 18:59 Intake Total 1140 Output Total 250 Balance 890 Intake: Intake, IV Titration 900 Amount Lactated Ringers 1,000 ml 900 @ 75 mls/hr IV .[id number] [facility] Rx#:[id number] Oral 240 Output: Urine 250 Other: Voiding Method Toilet Urinal # Voids 2 2 - Labs CBC & Chem 7: 12/31/23 05:40 12/31/23 05:40 Labs: Abnormal Lab Results - Last 24 Hours (Table) 12/30/23 12/30/23 12/31/23 Range/Units 06:38 06:38 05:40 WBC 27.42 H (4.50-10.00) X 10*3/uL Sodium 134 L (137-145) mmol/L Est GFR (CKD-EPI) 58 L (>=60) Glucose 127 H 126 H (70-110) mg/dL Calcium 8.2 L 7.9 L (8.7-10.3) mg/dL Total Bilirubin 1.6 H (0.2-1.3) mg/dL AST 45 H (14-35) U/L Total Protein 5.7 L 5.8 L (6.2-8.2) g/dL Albumin 3.5 L 3.0 L (3.8-4.9) g/dL Albumin/Globulin Ratio 1.59 L (1.60-3.17) Ratio
[2023-12-31] MEDS: TAMSULOSIN 0.4 MG CAP.ER.24H PO SCH (21:20)
[2023-12-31] MEDS: ASPIRIN 81 MG PO SCH (21:20)
[2023-12-31] MEDS: ATORVASTATIN 20 MG TAB PO SCH (21:21)
[2023-12-31] MEDS: METOPROLOL SUCCINATE (ER) 25 MG TAB.ER.24H PO SCH (21:21)
[2023-12-31] MEDS: ACETAMINOPHEN TAB 325 MG TAB PO PRN (23:27)
[2024-01-01] MEDS: LACTATED RINGERS 1,000 ML IV SCH ×3 (01:50→20:57)
[2024-01-01 11:39] LABS: HCT 39.9 % (39.6-50.0); HGB 13.6 g/dL (13.0-17.0); MCH 29.9 pg (27.0-32.0); MCHC 34.1 g/dL (32.0-37.0); MCV 87.7 FL (80.0-97.0); Mean Platelet Volume 11.6 FL (9.5-12.2); NRBC Per 100 WBC 0 X 10*3/uL (0.00-0.01); Platelet Count 178 X 10*3/uL (140-440); RBC 4.55 X 10*6/uL (4.40-5.60); RDW 13.7 % (11.5-14.5); WBC 19.87 X 10*3/uL (4.50-10.00)
[2024-01-01 11:47] LABS: ALT 33 U/L (10-49); AST 37 U/L (14-35); Alkaline Phosphatase 76 U/L (41-126); BUN/Creat Ratio 18.64 Ratio (12.00-20.00); Blood Urea Nitrogen 20.5 mg/dL (9.0-27.0); Calcium 8.2 mg/dL (8.7-10.3); Carbon Dioxide 21.9 mmol/L (21.6-31.8); Chloride 103 mmol/L (96-109); Globulin 2.3 g/dL (1.6-3.3); Glucose 119 mg/dL (70-110); Potassium 3.9 mmol/L (3.5-5.5); Sodium 137 mmol/L (135-145); Total Bilirubin 1.3 mg/dL (0.3-1.2); Total Protein 5.3 g/dL (6.2-8.2)
[2024-01-01 12:02] LABS: INR 1.13 sec (0.93-1.11); Prothrombin Time 12.1 sec (9.9-11.9)
--- NOTE | 2024-01-01 12:32 | P.PN ---
Subjective Progress Note Date: 01/01/24 Principal diagnosis: Acute pancreatitis This is a pleasant 88-year-old male who presented to the emergency department 3 days ago with complaints of abdominal pain. He states he started having abdominal pain about 2 AM Saturday morning which woke him up and he was unable to get back to sleep. He reported the pain is a sharp pain going across his upper abdomen. He had nausea but no vomiting. Does have a past medical history including coronary artery disease CVA/TIA, diabetes mellitus, eye disorder, hyperlipidemia, hypertension, prostate disorder and pulmonary embolism as well as history of cholecystectomy for cholelithiasis 2 to 3 years ago. He had a CT of the abdomen pelvis with contrast that reported inflammatory changes noted about the pancreas compatible with acute pancreatitis. Fatty liver. Status postcholecystectomy. No renal calculus or hydronephrosis and no bowel obstruction. Diverticulosis without diverticulitis. Admitting labs lipase was as high as 2484, on admission LFTs were within normal limits. He currently states he continues to have abdominal pain across the upper abdomen. No nausea or vomiting. He is currently NPO. Today's labs WBC 26.6 hemoglobin 13.5 platelet count 138,000 sodium 134 potassium 3.7 BUN 20 creatinine 1.13 total bilirubin 1.6 AST 44 ALT 30 alkaline phosphatase 76 triglycerides 122 lipase from yesterday down to 644 from 2484. He denies any previous history of pancreatitis. Denies any history of alcoholism or current alcohol use. No new medications. 01/01/2024 Patient seen and examined today as a follow-up. He states he is feeling about the same. No nausea or vomiting just decreased appetite. Has tolerated clear liquid diet. Has not really gotten up and done much ambulating other than to the bathroom. Leukocytosis improving, WBC 19.8 hemoglobin 13 platelet count 178,000 total bilirubin 1.3 down from 1.6 AST 37 ALT 33 alkaline phosphatase 76 IgG4 normal MALIA negative triglycerides 122 Objective - Vital Signs Vital signs: Vital Signs Temp 97.6 F 01/01/24 07:13 Pulse 80 01/01/24 07:13 Resp 16 01/01/24 07:13 BP 156/86 01/01/24 07:13 Pulse Ox 94 L 01/01/24 07:13 FiO2 Intake & Output 12/31/23 01/01/24 01/01/24 18:59 06:59 18:59 Output Total 400 Balance -400 Output: Urine 400 Other: Voiding Method Toilet Urinal # Voids 1 - Exam General appearance: The patient is alert, oriented, appears in no acute distress. HET: Head is normocephalic and atraumatic. Conjunctiva pink. Sclera anicteric. Neck: Supple without lymphadenopathy. Abdomen: Soft, nontender, nondistended with bowel sounds. No guarding or rigidity. Extremities: Normal skin color and turgor. No pedal edema Skin: No rashes, no jaundice Neurological: No focal deficits. Alert and oriented. - Labs CBC & Chem 7: 01/01/24 06:19 01/01/24 06:19 Labs: Abnormal Lab Results - Last 24 Hours (Table) 12/31/23 Range/Units 05:40 HDL Cholesterol 36.30 L (40.00-60.00) mg/dL Assessment and Plan (1) Pancreatitis Narrative/Plan: 88-year-old male admitted for acute pancreatitis. Unclear etiology at this time. Patient initially had all normal LFTs with notable elevated lipase in the 2400s as well as leukocytosis. History of cholecystectomy for cholelithiasis, CT abdomen pelvis not showing any CBD dilation at the time of admission in the setting of normal LFTs however patient is starting have some increase in his total bilirubin now up to 1.6. Gallbladder ultrasound will be obtained to rule out CBD obstruction/stone. There is no evidence for CBD obstruction, labs are not consistent with cholestatic pattern. Patient now states that he does drink 5-6 alcoholic drinks weekly. But denies any history of heavy alcohol consumption. Unclear etiology of pancreatitis, IgG4 and MALIA are negative. Triglycerides are normal. Likely idiopathic. Patient can follow-up in the outpatient setting and if recurrent pancreatitis will recommend further evaluation. Current Visit: Yes Status: Acute Code(s): K85.90 - ACUTE PANCREATITIS WITHO UT NECROSIS OR INFECTION, UNSP SNOMED Code(s): 64621419 (2) Abdominal pain Current Visit: Yes Status: Acute Code(s): R10.9 - UNSPECIFIED ABDOMINAL PAIN SNOMED Code(s): 47775932 Plan: 1. Continued symptomatic and supportive care 2. Advance to full liquid diet, then advance as tolerated 3. Gallbladder ultrasound ordered and reviewed, no CBD dilation. 4. MALIA, IgG4 ordered and reviewed 5. No indication for any endoscopic evaluation 6. If pain improved and the patient is able to tolerate diet he can be discharged from a GI perspective. Anticipate discharge in the next 24 hours. Thank you for this consultation. We will continue to follow. Dr. Dario Ramirez I agree with the dictator's note, documented as a scribe by Karyn Curran.
[2024-01-01] MEDS: allopurinoL 300 MG TAB PO SCH (12:45)
[2024-01-01] MEDS: cycloSPORINE 0.05% OPHTH 0.4 ML DROPERETTE BOTH EYES SCH ×2 (12:46→20:58)
[2024-01-01] MEDS: ENOXAPARIN 40 MG/0.4 ML SYRINGE SQ SCH (12:47)
[2024-01-01] MEDS: PANTOPRAZOLE 40 MG/10 ML VIAL IVP SCH (12:48)
[2024-01-01] MEDS: lisinopriL 20 MG TAB PO SCH (12:48)
[2024-01-01] MEDS: MULTIVITAMINS, THERA 1 EACH TAB PO SCH (12:48)
[2024-01-01] MEDS: HYDROmorphone 0.5 MG/0.5 ML SYRINGE IVP PRN ×2 (12:48→19:27)
[2024-01-01] MEDS: polyethylene glycoL 3350 17 GM POWD.PACK PO SCH ×2 (12:49→13:01)
[2024-01-01] MEDS ORDERED: DEXTROSE 50% SYRINGE 50 ML IVP PRN ×2 (14:03)
--- NOTE | 2024-01-01 14:05 | P.PN ---
Subjective Progress Note Date: 01/01/24 Hospital course: Patient is a is an 88-year-old male with a past medical history of CAD with stent, hypertension, hyperlipidemia, previous provoked pulmonary emboli during COVID infection, BPH, diverticulosis, and [id number] diabetes mellitus. He presented to the emergency department with a chief complaint of abdominal pain accompanied by nausea. He underwent full evaluation in the emergency department. Vital signs upon arrival show blood pressure 174/78, heart rate 79, respiratory rate 18, temp 97.6 F, and SpO2 of 96% on room air. Labs completed and reviewed. CBC revealed significant leukocytosis with WBC count of 26.4. BMP revealing non-anion gap metabolic acidosis with chloride of 108, bicarb 21, and anion gap of 9., and BUN was elevated at 24. Glucose was 144. Lactic acid was 1.7. Liver profile unremarkable. Lipase elevated at 2484. Urinalysis showing abnormalities with protein, trace leukocytes, and 13 WBCs however not concerning for infection. CT abdomen and pelvis with IV contrast was completed showing inflammatory changes about the pancreas compatible with acute pancreatitis, and diverticulosis without diverticulitis. Acute pancreatitis possibly secondary to alcohol use, patient reports drinking approximately 3-4 times per week but only reports drinking 2-3 drinks at a time. Patient denies history of pancreatitis in the past. Gallbladder ultrasound showed CBD not well-visualized, status postcholecystectomy, caliber bile duct was 5.6 mm. GI consulted, recommending no further interventions. Continue to advance diet. Possible discharge tomorrow. Subjective: Patient seen and examined at bedside. No acute events overnight. Abdominal pain slightly improving. No bowel movements at the moment. Able to tolerate oral intake. Patient has not been ambulating much. Occasionally has difficulty breathing as well and concerned about wheezing. Physical exam: Vital signs reviewed and stable. General: Nontoxic, no distress and appears stated age. Obese. Derm: Skin warm and dry, normal coloration for ethnicity. Head: Atraumatic, normocephalic and symmetric. Eyes: EOMs intact, no lid lag, and anicteric sclera Mouth: no lip lesions, mucus membranes moist Cardiovascular: regular rate and rhythm with normal S1S2, systolic murmur, positive posterior tibial pulses bilaterally, and cap refill < 2 seconds. Lungs: Respirations even, regular, and unlabored on room air. Lungs CTA bilaterally, no rhonchi, no rales, no wheezing, and no accessory muscle usage. Abdominal: Obese distended abdomen, slight tenderness to palpation in epigastric region, right upper quadrant, left upper quadrant. Ext: ROM intact. No gross muscle atrophy, no edema, no contractures Neuro: Speech clear, face symmetrical and CN II-XII grossly intact with no noted focal neuro deficits Psych: Alert and oriented to person, place, time, and situation. Appropriate and pleasant affect. Assessment and Plan of Care: Acute pancreatitis, unclear etiology Significant leukocytosis secondary to above Hyperbilirubinemia High anion gap metabolic acidosis likely secondary to above, resolved -Symptomatic care with Zofran 4 mg IVP every 8 hours as needed for nausea and Dilaudid 0.5 mg every 3 hours as needed for moderate to severe pain. -GI note reviewed, no interventions planned, possible discharge tomorrow -Continue GI prophylaxis with Protonix 40 mg IVP daily. -Continue lactated Ringer's at 75 cc an hour, full liquid diet History of CAD with stent Hypertension Hyperlipidemia Patient to continue with cardiac medication regimen with aspirin 81 mg daily, atorvastatin 20 mg nightly, lisinopril 20 mg daily, and metoprolol [address] did show moderate stool throughout colon. Patient reports mild constipation. Patient started on MiraLAX 17 g daily. Pbv-[id number] diabetes mellitus Continue to hold Glucophage and keep patient on glycemic protocol with NovoLog sliding scale. BPH Continue daily medication regimen with Flomax 0.4 mg nightly. History of diverticulosis CT did confirm diverticulosis without acute diverticulitis. Data and imaging reviewed: WBC 19.7, BUN 20.5, creatinine 1.1, total bili 1.3 CODE STATUS: Full code DVT prophylaxis: Lovenox Anticipated discharge date: Clinical course to determine Anticipated discharge place: Clinical course to determine Objective - Vital Signs Vital signs: Vital Signs Temp 97.6 F 01/01/24 07:13 Pulse 80 01/01/24 07:13 Resp 16 01/01/24 07:13 BP 156/86 01/01/24 07:13 Pulse Ox 94 L 01/01/24 07:13 FiO2 Intake & Output 12/31/23 01/01/24 01/01/24 18:59 06:59 18:59 Output Total 400 Balance -400 Output: Urine 400 Other: Voiding Method Toilet Urinal # Voids 1 - Labs CBC & Chem 7: 01/01/24 06:19 01/01/24 06:19 Labs: Abnormal Lab Results - Last 24 Hours (Table) 12/31/23 01/01/24 01/01/24 Range/Units 05:40 06:19 06:19 WBC (4.50-10.00) X 10*3/uL PT 12.1 H (9.9-11.9) sec INR 1.13 H (0.93-1.11) sec Anion Gap 12.10 H (4.00-12.00) mmol/L Glucose 119 H (70-110) mg/dL Calcium 8.2 L (8.7-10.3) mg/dL Total Bilirubin 1.3 H (0.3-1.2) mg/dL AST 37 H (14-35) U/L Total Protein 5.3 L (6.2-8.2) g/dL Albumin 3.0 L (3.8-4.9) g/dL Albumin/Globulin Ratio 1.30 L (1.60-3.17) Ratio IgG2 178.20 L (241.80-700.30) mg/dL 01/01/24 Range/Units 06:19 WBC 19.87 H (4.50-10.00) X 10*3/uL PT (9.9-11.9) sec INR (0.93-1.11) sec Anion Gap (4.00-12.00) mmol/L Glucose (70-110) mg/dL Calcium (8.7-10.3) mg/dL Total Bilirubin (0.3-1.2) mg/dL AST (14-35) U/L Total Protein (6.2-8.2) g/dL Albumin (3.8-4.9) g/dL Albumin/Globulin Ratio (1.60-3.17) Ratio IgG2 (241.80-700.30) mg/dL
[2024-01-01 17:46] LABS: Glucose,Whole Blood 154 mg/dL (70-110)
[2024-01-01] MEDS: INSULIN ASPART (NovoLOG) 100 UNIT/ML VIAL SQ SCH ×2 (17:50→20:58)
[2024-01-01 20:18] LABS: Glucose,Whole Blood 177 mg/dL (70-110)
[2024-01-01] MEDS: ATORVASTATIN 20 MG TAB PO SCH (20:58)
[2024-01-01] MEDS: ASPIRIN 81 MG PO SCH (20:58)
[2024-01-01] MEDS: METOPROLOL SUCCINATE (ER) 25 MG TAB.ER.24H PO SCH (20:58)
[2024-01-01] MEDS: TAMSULOSIN 0.4 MG CAP.ER.24H PO SCH (20:59)
[2024-01-02 07:08] LABS: Glucose,Whole Blood 113 mg/dL (70-110)
[2024-01-02] MEDS: INSULIN ASPART (NovoLOG) 100 UNIT/ML VIAL SQ SCH ×2 (07:17→12:11)
[2024-01-02 07:43] VITALS: BP 149/73; PULSE 76; RESP 20; TEMP 98.3
[2024-01-02] MEDS: MULTIVITAMINS, THERA 1 EACH TAB PO SCH (08:42)
[2024-01-02] MEDS: lisinopriL 20 MG TAB PO SCH (08:42)
[2024-01-02] MEDS: allopurinoL 300 MG TAB PO SCH (08:42)
[2024-01-02] MEDS: ENOXAPARIN 40 MG/0.4 ML SYRINGE SQ SCH (08:42)
[2024-01-02] MEDS: cycloSPORINE 0.05% OPHTH 0.4 ML DROPERETTE BOTH EYES SCH (08:42)
[2024-01-02] MEDS: PANTOPRAZOLE 40 MG/10 ML VIAL IVP SCH (08:43)
[2024-01-02] MEDS: polyethylene glycoL 3350 17 GM POWD.PACK PO SCH (08:43)
--- NOTE | 2024-01-02 11:26 | P.PN ---
Subjective Progress Note Date: 01/02/24 Discharge Diagnosis: Acute pancreatitis, unclear etiology, possibly alcohol related Significant leukocytosis secondary to above Hyperbilirubinemia High anion gap metabolic acidosis likely secondary to above History of CAD with stent Hypertension Hyperlipidemia Constipation Type 2 diabetes BPH History of diverticulosis Hospital Course: Patient is a is an 88-year-old male with a past medical history of CAD with stent, hypertension, hyperlipidemia, previous provoked pulmonary emboli during COVID infection, BPH, diverticulosis, and [id number]-rfdzfcyrv diabetes mellitus. He presented to the emergency department with a chief complaint of abdominal pain accompanied by nausea. He underwent full evaluation in the emergency department. Vital signs upon arrival show blood pressure 174/78, heart rate 79, respiratory rate 18, temp 97.6 F, and SpO2 of 96% on room air. Labs completed and reviewed. CBC revealed significant leukocytosis with WBC count of 26.4. BMP revealing non-anion gap metabolic acidosis with chloride of 108, bicarb 21, and anion gap of 9., and BUN was elevated at 24. Glucose was 144. Lactic acid was 1.7. Liver profile unremarkable. Lipase elevated at 2484. Urinalysis showing abnormalities with protein, trace leukocytes, and 13 WBCs however not concerning for infection. CT abdomen and pelvis with IV contrast was completed showing inflammatory changes about the pancreas compatible with acute pancreatitis, and diverticulosis without diverticulitis. Acute pancreatitis possibly secondary to alcohol use, patient reports drinking approximately 3-4 times per week but only reports drinking 2-3 drinks at a time. Patient denies history of pancreatitis in the past. Gallbladder ultrasound showed CBD not well-visualized, status postcholecystectomy, caliber bile duct was 5.6 mm. GI consulted, recommending no further interventions. At the time of discharge patient tolerating oral intake without any abdominal pain. Being discharged home with close follow-up with PCP and GI. Patient seen and examined at bedside. Vital signs reviewed and stable. General: Nontoxic, no distress, appears at stated age Derm: Warm, dry Head: Atraumatic, normocephalic, symmetric Eyes: EOMI, no lid lag, anicteric sclera Mouth: No lip lesion, mucus membranes moist Cardiovascular: S1S2 reg, no murmur Lungs: CTA bilateral, no rhonchi, no rales, no accessory muscle use Abdominal: Soft, obese, nontender to palpation, no guarding, no appreciable organomegaly Ext: No gross muscle atrophy, no edema, no contractures Neuro: CN II-XI grossly intact, no focal neuro deficits Psych: Alert, oriented, appropriate affect A total of 33 minutes of time were spent preparing this complex discharge summary. Patient was discharged on 01/02/2024 at 11: 07. Objective - Vital Signs Vital signs: Vital Signs Temp 98.3 F 01/02/24 07:08 Pulse 76 01/02/24 07:08 Resp 20 01/02/24 07:08 BP 149/73 01/02/24 07:08 Pulse Ox 95 01/02/24 07:08 FiO2 Intake & Output 01/01/24 01/02/24 01/02/24 18:59 06:59 18:59 Other: Voiding Method Toilet Urinal # Voids 1 - Labs CBC & Chem 7: 01/01/24 06:19 01/01/24 06:19 Labs: Abnormal Lab Results - Last 24 Hours (Table) 12/31/23 01/01/24 01/01/24 Range/Units 05:40 06:19 06:19 WBC (4.50-10.00) X 10*3/uL PT 12.1 H (9.9-11.9) sec INR 1.13 H (0.93-1.11) sec Anion Gap 12.10 H (4.00-12.00) mmol/L Glucose 119 H (70-110) mg/dL POC Glucose (mg/dL) (70-110) mg/dL Calcium 8.2 L (8.7-10.3) mg/dL Total Bilirubin 1.3 H (0.3-1.2) mg/dL AST 37 H (14-35) U/L Total Protein 5.3 L (6.2-8.2) g/dL Albumin 3.0 L (3.8-4.9) g/dL Albumin/Globulin Ratio 1.30 L (1.60-3.17) Ratio IgG2 178.20 L (241.80-700.30) mg/dL 01/01/24 01/01/24 01/01/24 Range/Units 06:19 17:45 20:15 WBC 19.87 H (4.50-10.00) X 10*3/uL PT (9.9-11.9) sec INR (0.93-1.11) sec Anion Gap (4.00-12.00) mmol/L Glucose (70-110) mg/dL POC Glucose (mg/dL) 154 H 177 H (70-110) mg/dL Calcium (8.7-10.3) mg/dL Total Bilirubin (0.3-1.2) mg/dL AST (14-35) U/L Total Protein (6.2-8.2) g/dL Albumin (3.8-4.9) g/dL Albumin/Globulin Ratio (1.60-3.17) Ratio IgG2 (241.80-700.30) mg/dL 01/02/24 Range/Units 07:07 WBC (4.50-10.00) X 10*3/uL PT (9.9-11.9) sec INR (0.93-1.11) sec Anion Gap (4.00-12.00) mmol/L Glucose (70-110) mg/dL POC Glucose (mg/dL) 113 H (70-110) mg/dL Calcium (8.7-10.3) mg/dL Total Bilirubin (0.3-1.2) mg/dL AST (14-35) U/L Total Protein (6.2-8.2) g/dL Albumin (3.8-4.9) g/dL Albumin/Globulin Ratio (1.60-3.17) Ratio IgG2 (241.80-700.30) mg/dL
--- NOTE | 2024-01-02 11:27 | P.DS ---
Providers Date of admission: 12/28/23 23:42 Expected date of discharge: 01/02/24 Attending physician: Rom Frankel MD Consults: 12/30/23 14:55 Consult Physician Routine Consulting Provider: Nereyda Ramirez Consult Reason/Comments: pancreatitis Do you want consulting provider notified?: Yes, Notify in am Primary care physician: Juvenal Torres [facility] Course: Discharge Diagnosis: Acute pancreatitis, unclear etiology, possibly alcohol related Significant leukocytosis secondary to above Hyperbilirubinemia High anion gap metabolic acidosis likely secondary to above History of CAD with stent Hypertension Hyperlipidemia Constipation Type 2 diabetes BPH History of diverticulosis Hospital Course: Patient is a is an 88-year-old male with a past medical history of CAD with stent, hypertension, hyperlipidemia, previous provoked pulmonary emboli during COVID infection, BPH, diverticulosis, and iba-zizgjpe-ltsiumrqi diabetes mellitus. He presented to the emergency department with a chief complaint of abdominal pain accompanied by nausea. He underwent full evaluation in the emergency department. Vital signs upon arrival show blood pressure 174/78, heart rate 79, respiratory rate 18, temp 97.6 F, and SpO2 of 96% on room air. Labs completed and reviewed. CBC revealed significant leukocytosis with WBC count of 26.4. BMP revealing non-anion gap metabolic acidosis with chloride of 108, bicarb 21, and anion gap of 9., and BUN was elevated at 24. Glucose was 144. Lactic acid was 1.7. Liver profile unremarkable. Lipase elevated at 2484. Urinalysis showing abnormalities with protein, trace leukocytes, and 13 WBCs however not concerning for infection. CT abdomen and pelvis with IV contrast was completed showing inflammatory changes about the pancreas compatibl e with acute pancreatitis, and diverticulosis without diverticulitis. Acute pancreatitis possibly secondary to alcohol use, patient reports drinking approximately 3-4 times per week but only reports drinking 2-3 drinks at a time. Patient denies history of pancreatitis in the past. Gallbladder ultrasound showed CBD not well-visualized, status postcholecystectomy, caliber bile duct was 5.6 mm. GI consulted, recommending no further interventions. At the time of discharge patient tolerating oral intake without any abdominal pain. Being discharged home with close follow-up with PCP and GI. Patient seen and examined at bedside. Vital signs reviewed and stable. General: Nontoxic, no distress, appears at stated age Derm: Warm, dry Head: Atraumatic, normocephalic, symmetric Eyes: EOMI, no lid lag, anicteric sclera Mouth: No lip lesion, mucus membranes moist Cardiovascular: S1S2 reg, no murmur Lungs: CTA bilateral, no rhonchi, no rales, no accessory muscle use Abdominal: Soft, obese, nontender to palpation, no guarding, no appreciable organomegaly Ext: No gross muscle atrophy, no edema, no contractures Neuro: CN II-XI grossly intact, no focal neuro deficits Psych: Alert, oriented, appropriate affect A total of 33 minutes of time were spent preparing this complex discharge summary. Patient was discharged on 01/02/2024 at 11: 07. Patient Condition at Discharge: Stable Plan - Discharge Summary Discharge Rx Participant: No New Discharge Prescriptions: New polyethylene glycoL 3350 [Miralax] 17 gm PO DAILY #20 packet Continue metFORMIN HCL [Glucophage] 500 mg PO DAILY Atorvastatin [Lipitor] 20 mg PO HS allopurinoL [Zyloprim] 300 mg PO DAILY Vitamin B Complex 1 cap PO DAILY Multivitamin [Men's Multi-Vitamin] 1 tab PO DAILY Tamsulosin HCl [Flomax] 0.4 mg PO HS Metoprolol Succinate [Toprol XL] 25 mg PO DAILY lisinopriL [Zestril] 20 mg PO DAILY cycloSPORINE 0.05% OPHTH SOLN [Restasis] 1 drop BOTH EYES Q12H Nitroglycerin 0.4 mg SL Q5M PRN PRN Reason: Chest Pain Discharge Medication List Atorvastatin [Lipitor] 20 mg PO HS 08/10/15 [History] Multivitamin [Men's Multi-Vitamin] 1 tab PO DAILY 08/10/15 [History] Vitamin B Complex 1 cap PO DAILY 08/10/15 [History] allopurinoL [Zyloprim] 300 mg PO DAILY 08/10/15 [History] metFORMIN HCL [Glucophage] 500 mg PO DAILY 08/10/15 [History] Tamsulosin HCl [Flomax] 0.4 mg PO HS 01/07/19 [History] Metoprolol Succinate [Toprol XL] 25 mg PO DAILY 01/16/21 [History] lisinopriL [Zestril] 20 mg PO DAILY 11/19/22 [History] Nitroglycerin 0.4 mg SL Q5M PRN 12/29/23 [History] cycloSPORINE 0.05% OPHTH SOLN [Restasis] 1 drop BOTH EYES Q12H 12/29/23 [History] polyethylene glycoL 3350 [Miralax] 17 gm PO DAILY #20 packet 01/02/24 [Rx] Follow up Appointment(s)/Referral(s): Juvenal Roca MD [Primary Care Provider] - 1-2 days Nereyda Ramirez MD [STAFF PHYSICIAN] - 1 Week Patient Instructions/Handouts: Pancreatitis (DC) Activity/Diet/Wound Care/Special Instructions: Please see your PCP and GI. Discharge Disposition: HOME SELF-CARE
[2024-01-02 11:39] LABS: Glucose,Whole Blood 133 mg/dL (70-110)
== END 2024-01-02 14:23 | disposition home or self-care (01) | DRG 439 ==
LOC: EC 18:51 → 5NMEDONC 23:42
PROVIDERS: ADMIT Internal Medicine; ATTEND Internal Medicine
DX: K85.20 Alcohol induced acute pancreatitis without necrosis or infection (principal); E87.1 Hypo-osmolality and hyponatremia; E87.20 Acidosis, unspecified; R65.10 Systemic inflammatory response syndrome (SIRS) of non-infectious origin without acute organ dysfunction; E11.36 Type 2 diabetes mellitus with diabetic cataract; K76.0 Fatty (change of) liver, not elsewhere classified; D69.6 Thrombocytopenia, unspecified; E66.01 Morbid (severe) obesity due to excess calories; Z68.33 Body mass index [BMI] 33.0-33.9, adult; F10.10 Alcohol abuse, uncomplicated; I69.398 Other sequelae of cerebral infarction; I10 Essential (primary) hypertension; Z66 Do not resuscitate; H54.61 Unqualified visual loss, right eye, normal vision left eye; H26.9 Unspecified cataract; D72.829 Elevated white blood cell count, unspecified; E78.5 Hyperlipidemia, unspecified; K59.00 Constipation, unspecified; I25.10 Atherosclerotic heart disease of native coronary artery without angina pectoris; N40.0 Benign prostatic hyperplasia without lower urinary tract symptoms; K57.30 Diverticulosis of large intestine without perforation or abscess without bleeding; G89.29 Other chronic pain; M54.50 Low back pain, unspecified; M10.9 Gout, unspecified; M19.90 Unspecified osteoarthritis, unspecified site; Z79.84 Long term (current) use of oral hypoglycemic drugs; Z79.899 Other long term (current) drug therapy; Z95.5 Presence of coronary angioplasty implant and graft; Z86.16 Personal history of COVID-19; Z86.711 Personal history of pulmonary embolism
CPT/HCPCS: 36415; 74177; 76705; 80053; 80061; 81001; 82787; 83036; 83605; 83690; 83735; 85025; 85027; 85610; 86038; 96361; 96372; 96374; 96375; 96376; 99285

== ENCOUNTER 2024-02-23 07:56 | Inpatient (IN) | payer MEDICARE ==
--- NOTE | 2024-02-23 08:30 | ED ---
General Adult HPI - General Chief complaint: Chest Pain Stated complaint: chest pain Time Seen by Provider: 02/23/24 08:00 Source: patient, family, RN notes reviewed, old records reviewed Mode of arrival: ambulatory Limitations: no limitations - History of Present Illness Initial comments: 88-year-old male presenting for evaluation of chest heaviness. This been occurring each morning for the past week or 2. No associated central chest pain specifically. No radiating symptoms. No vomiting or diaphoresis. Patient does have known coronary artery disease and has had multiple stents approximately 12 years ago. He states that he was seen by his down filler within the past 3 months and had outpatient workup including stress test which she reports as normal. Denies abdominal pain. Denies fever. Denies cough or dyspnea. Patient had taken 2 full-strength aspirin at home prior to arrival - Related Data Home Medications Medication Instructions Recorded Confirmed Atorvastatin [Lipitor] 20 mg PO HS 08/10/15 12/29/23 Multivitamin [Men's Multi-Vitamin] 1 tab PO DAILY 08/10/15 12/29/23 Vitamin B Complex 1 cap PO DAILY 08/10/15 12/29/23 allopurinoL [Zyloprim] 300 mg PO DAILY 08/10/15 12/29/23 metFORMIN HCL [Glucophage] 500 mg PO DAILY 08/10/15 12/29/23 Tamsulosin HCl [Flomax] 0.4 mg PO HS 01/07/19 12/29/23 Metoprolol Succinate [Toprol XL] 25 mg PO DAILY 01/16/21 12/29/23 lisinopriL [Zestril] 20 mg PO DAILY 11/19/22 12/29/23 Nitroglycerin 0.4 mg SL Q5M PRN 12/29/23 12/29/23 cycloSPORINE 0.05% OPHTH SOLN 1 drop BOTH EYES Q12H 12/29/23 12/29/23 [Restasis] Previous Rx's Medication Instructions Recorded polyethylene glycoL 3350 [Miralax] 17 gm PO DAILY #20 packet 01/02/24 Allergies Allergy/AdvReac Type Severity Reaction Status Date / Time No Known Allergies Allergy Verified 02/23/24 08:03 Review of Systems ROS Statement: Those systems with pertinent positive or pertinent negative responses have been documented in the HPI. ROS Other: All systems not noted in ROS Statement are negative. 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 Past Anesthesia/Blood Transfusion Reactions: No Reported Reaction Date of Last Stent Placement:: 2012 Past Psychological History: No Psychological Hx Reported Smoking Status: Never smoker Past Alcohol Use History: Occasional Past Drug Use History: None Reported - Past Family History Father Family Medical History: CVA/TIA Additional Family Medical History / Comment(s): Father of a CVA at the age of 44yrs. Mother Family Medical History: Cancer, Diabetes Mellitus Additional Family Medical History / Comment(s): Heart problems, pt cannot recall type of cancer. General Exam Limitations: no limitations General appearance: alert, in no apparent distress Head exam: Present: atraumatic, normocephalic Eye exam: Present: normal appearance, PERRL ENT exam: Present: normal exam Neck exam: Present: normal inspection. Absent: tenderness, meningismus Respiratory exam: Present: normal lung sounds bilaterally. Absent: respiratory distress, wheezes, rales Cardiovascular Exam: Present: regular rate, normal rhythm GI/Abdominal exam: Present: soft. Absent: distended, tenderness, guarding Extremities exam: Present: normal inspection, normal capillary refill. Absent: pedal edema, calf tenderness Neurological exam: Present: alert, oriented X3, CN II-XII intact. Absent: motor sensory deficit Psychiatric exam: Present: normal affect, normal mood Skin exam: Present: warm, dry, intact Course Vital Signs 02/23/24 02/23/24 02/23/24 07:57 08:10 08:30 Temperature 98.1 F Pulse Rate 83 76 70 Respiratory 20 17 17 Rate Blood Pressure 183/84 172/87 O2 Sat by Pulse 95 97 98 Oximetry 02/23/24 02/23/24 02/23/24 09:00 09:30 10:00 Temperature Pulse Rate 71 70 70 Respiratory 18 18 19 Rate Blood Pressure 147/74 150/79 132/77 O2 Sat by Pulse Oximetry 02/23/24 02/23/24 02/23/24 10:30 11:00 11:30 Temperature Pulse Rate 52 L 69 52 L Respiratory 20 20 19 Rate Blood Pressure 132/75 148/74 139/76 O2 Sat by Pulse Oximetry Medical Decision Making - Medical Decision Making Was pt. sent in by a medical professional or institution (, PA, STOCKROOM COORDINATOR, urgent care, hospital, or group home...) When possible be specific @ -No Did you speak to anyone other than the patient for history (EMS, parent, family, police, friend...)? What history was obtained from this source @ -No Did you review nursing and triage notes (agree or disagree)? Why? @ -I reviewed and agree with nursing and triage notes Were old charts reviewed (outside hosp., previous admission, EMS record, old EKG, old radiological studies, urgent care reports/EKG's, group home records)? Report findings @ -No old charts were reviewed Differential Diagnosis (chest pain, altered mental status, abdominal pain women, abdominal pain men, vaginal bleeding, weakness, fever, dyspnea, syncope, headache, dizziness, GI bleed, back pain, seizure, CVA, palpatations, mental health, musculoskeletal)? @ -[Differential Chest Pain: Stable Angina, Unstable Angina, STEMI, NSTEMI Aortic Dissection, Pneumothorax, Musculoskeletal, Esophageal Spasm GERD, Cholecystitis, Pancreatitis, Zoster, this is not meant to be an all-inclusive list. EKG interpreted by me (3pts min.). @ -EKG: Sinus rhythm with occasional PVC, incomplete right bundle branch block, rate of 79, AR interval 155, QRS duration 97, QTc [address] segment elevation. X-rays interpreted by me (1pt min.). @ -Chest x-ray negative for acute cardiopulmonary findings. CT interpreted by me (1pt min.). @ -[None done U/S interpreted by me (1pt. min.). @ -None done What testing was considered but not performed or refused? (CT, X-rays, U/S, labs)? Why? @ -None What meds were considered but not given or refused? Why? @ -None Did you discuss the management of the patient with other professionals (professionals i.e. , PA, STOCKROOM COORDINATOR, lab, RT, psych nurse, social sciences research scientist, gut carrier, teacher, science and operations officer, case management manager)? Give summary @ -[Case discussed with Dr. Fitch, and Aayush covering for cardiology Was smoking cessation discussed for >3mins.? @ -No Was critical care preformed (if so, how long)? @ -[Yes, 35 minutes Were there social determinants of health that impacted care today? How? (Homelessness, low income, unemployed, alcoholism, drug addiction, transportation, low edu. Level, literacy, decrease access to med. care, residential, rehab)? @ -No Was there de-escalation of care discussed even if they declined (Discuss DNR or withdrawal of care, Hospice)? DNR status @ -No What co-morbidities impacted this encounter? (DM, HTN, Smoking, COPD, CAD, Cancer, CVA, ARF, Chemo, Hep., AIDS, mental health diagnosis, sleep apnea, morbid obesity)? @ -CAD Was patient admitted / discharged? Hospital course, mention meds given and route, prescriptions, significant lab abnormalities, going to OR and other pertinent info. @ -[88-year-old male presenting with an episode of chest tightness which occurred prior to arrival and is resolved. EKG is sinus without ST segment elevation. Patient remained chest pain-free while in the emergency department. Chest x-ray is clear without acute cardiopulmonary findings. He has normal CBC, normal CMP, negative initial troponin. I did obtain a second troponin which was positive on this patient at 0.08. He remains chest pain-free. He started on heparin and will be admitted for non-ST segment elevated IA. Undiagnosed new problem with uncertain prognosis? @ -No Drug Therapy requiring intensive monitoring for toxicity (Heparin, Nitro, Insulin, Cardizem)? @ -No Were any procedures done? @ -No Diagnosis/symptom? @NSTEMI Acute, or Chronic, or Acute on Chronic? @ -[Acute Uncomplicated (without systemic symptoms) or Complicated (systemic symptoms)? @ -Default Side effects of treatment? @ -No Exacerbation, Progression, or Severe Exacerbation? @ -No Poses a threat to life or bodily function? How? (Chest pain, USA, IA, pneumonia, PE, COPD, DKA, ARF, appy, cholecystitis, CVA, Diverticulitis, Homicidal, Suicidal, threat to staff... and all critical care pts) @ -Yes, ACS - Lab Data Result diagrams: 02/23/24 08:19 02/23/24 08:19 Lab Results 02/23/24 02/23/24 02/23/24 Range/Units 08:19 08:19 08:19 WBC 10.9 H (3.8-10.6) k/uL RBC 4.91 (4.30-5.90) m/uL Hgb 15.1 (13.0-17.5) gm/dL Hct 45.0 (39.0-53.0) % MCV 91.7 (80.0-100.0) fL MCH 30.8 (25.0-35.0) pg MCHC 33.6 (31.0-37.0) g/dL RDW 14.0 (11.5-15.5) % Plt Count 199 (150-450) k/uL MPV 8.3 Neutrophils % 55 % Lymphocytes % 32 % Monocytes % 4 % Eosinophils % 6 % Basophils % 1 % Neutrophils # 6.0 (1.3-7.7) k/uL Lymphocytes # 3.4 (1.0-4.8) k/uL Monocytes # 0.5 (0-1.0) k/uL Eosinophils # 0.7 (0-0.7) k/uL Basophils # 0.1 (0-0.2) k/uL PT 10.8 (10.0-12.5) sec INR 1.0 (<1.2) APTT 24.9 (22.0-30.0) sec Sodium 138 (137-145) mmol/L Potassium 4.1 (3.5-5.1) mmol/L Chloride 108 H (98-107) mmol/L Carbon Dioxide 19 L (22-30) mmol/L Anion Gap 11 mmol/L BUN 17 (9-20) mg/dL Creatinine 1.04 (0.66-1.25) mg/dL Est GFR (CKD-EPI)AfAm 74 (>60 ml/min/1.73 sqM) Est GFR (CKD-EPI)NonAf 64 (>60 ml/min/1.73 sqM) Glucose 147 H (74-99) mg/dL Calcium 9.2 (8.4-10.2) mg/dL Magnesium 1.8 (1.6-2.3) mg/dL Total Bilirubin 0.8 (0.2-1.3) mg/dL AST 28 (17-59) U/L ALT 26 (4-49) U/L Alkaline Phosphatase 63 (38-126) U/L Troponin I (0.000-0.034) ng/mL Total Protein 6.6 (6.3-8.2) g/dL Albumin 3.9 (3.5-5.0) g/dL Lipase 42 (23-300) U/L 02/23/24 02/23/24 Range/Units 08:19 10:56 WBC (3.8-10.6) k/uL RBC (4.30-5.90) m/uL Hgb (13.0-17.5) gm/dL Hct (39.0-53.0) % MCV (80.0-100.0) fL MCH (25.0-35.0) pg MCHC (31.0-37.0) g/dL RDW (11.5-15.5) % Plt Count (150-450) k/uL MPV Neutrophils % % Lymphocytes % % Monocytes % % Eosinophils % % Basophils % % Neutrophils # (1.3-7.7) k/uL Lymphocytes # (1.0-4.8) k/uL Monocytes # (0-1.0) k/uL Eosinophils # (0-0.7) k/uL Basophils # (0-0.2) k/uL PT (10.0-12.5) sec INR (<1.2) APTT (22.0-30.0) sec Sodium (137-145) mmol/L Potassium (3.5-5.1) mmol/L Chloride (98-107) mmol/L Carbon Dioxide (22-30) mmol/L Anion Gap mmol/L BUN (9-20) mg/dL Creatinine (0.66-1.25) mg/dL Est GFR (CKD-EPI)AfAm (>60 ml/min/1.73 sqM) Est GFR (CKD-EPI)NonAf (>60 ml/min/1.73 sqM) Glucose (74-99) mg/dL Calcium (8.4-10.2) mg/dL Magnesium (1.6-2.3) mg/dL Total Bilirubin (0.2-1.3) mg/dL AST (17-59) U/L ALT (4-49) U/L Alkaline Phosphatase (38-126) U/L Troponin I 0.013 0.086 H* (0.000-0.034) ng/mL Total Protein (6.3-8.2) g/dL Albumin (3.5-5.0) g/dL Lipase (23-300) U/L Critical Care Time Critical Care Time: Yes Total Critical Care Time: 35 Disposition Clinical Impression: Acute non-ST elevation myocardial infarction (NSTEMI) Disposition: ADMITTED IP TO THIS HOSP Condition: Stable Is patient prescribed a controlled substance at d/c from ED?: No Referrals: Juvenal Roca MD [Primary Care Provider] - 1-2 days Time of Disposition: 12:21
[2024-02-23 08:38] LABS: Partial Thromboplastin Time 24.9 sec (22.0-30.0); Prothrombin Time 10.8 sec (10.0-12.5)
[2024-02-23 08:42] LABS: ALT 26 U/L (4-49); AST 28 U/L (17-59); African American GFR (CKD) 74 (>60 ml/min/1.73 sqM); Albumin 3.9 g/dL (3.5-5.0); Alkaline Phosphatase 63 U/L (38-126); Anion Gap 11 mmol/L; Blood Urea Nitrogen 17 mg/dL (9-20); Calcium 9.2 mg/dL (8.4-10.2); Carbon Dioxide 19 mmol/L (22-30); Chloride 108 mmol/L (98-107); Glucose 147 mg/dL (74-99); Lipase 42 U/L (23-300); Magnesium 1.8 mg/dL (1.6-2.3); Non-African American GFR(CKD) 64 (>60 ml/min/1.73 sqM); Potassium 4.1 mmol/L (3.5-5.1); Sodium 138 mmol/L (137-145); Total Bilirubin 0.8 mg/dL (0.2-1.3); Total Protein 6.6 g/dL (6.3-8.2)
[2024-02-23 08:50] LABS: Basophils # (A) 0.1 k/uL (0-0.2); Basophils % (A) 1 %; Eosinophils # (A) 0.7 k/uL (0-0.7); Eosinophils % (A) 6 %; HGB 15.1 gm/dL (13.0-17.5); Lymphocytes # (A) 3.4 k/uL (1.0-4.8); Lymphocytes % (A) 32 %; MCH 30.8 pg (25.0-35.0); MCHC 33.6 g/dL (31.0-37.0); MCV 91.7 fL (80.0-100.0); Mean Platelet Volume 8.3; Monocytes # (A) 0.5 k/uL (0-1.0); Monocytes % (A) 4 %; Neutrophils % (A) 55 %; Platelet Count 199 k/uL (150-450); RBC 4.91 m/uL (4.30-5.90); WBC 10.9 k/uL (3.8-10.6)
--- NOTE | 2024-02-23 09:00 | XR ---
EXAMINATION TYPE: XR chest 2V DATE OF EXAM: 02/23/2024 COMPARISON: 01/18/2021 HISTORY: Chest pain TECHNIQUE: Frontal and lateral views of the chest are obtained. FINDINGS: There is no abnormal consolidative/airspace opacity. There is mild interstitial prominence which is s table and most likely chronic. There is no pleural effusion or pneumothorax. The heart and pulmonary vasculature and mediastinum and kenia appear normal. The osseous structures ar e intact IMPRESSION: No acute cardiopulmonary process. No interval change.
[2024-02-23] MEDS ORDERED: NITROGLYCERIN SL TABS 0.4 MG TAB SUBLINGUAL PRN (12:18)
[2024-02-23] MEDS: HEPARIN SODIUM 1,000 UN/ML (10ML VL) IV ONE (12:28)
[2024-02-23] MEDS: HEPARIN SOD,PORK IN 0.45% NACL 25,000 UNIT in 0.45% NACL 1 250ML.BAG IV SCH (12:28)
[2024-02-23] MEDS: ATORVASTATIN 40 MG TAB PO SCH (14:03)
--- NOTE | 2024-02-23 15:19 | P.HPIM ---
History of Present Illness H&P Date: 02/23/24 History of Presenting Illness: Patient is a very pleasant 88-year-old male with a past medical history of CAD with stent, hypertension, hyperlipidemia, previous provoked pulmonary emboli during COVID infection, BPH, diverticulosis, and [id number]-euuevyxwl diabetes mellitus. He presented to the emergency department with a chief complaint of chest pain/pressure. Patient reports he has been experiencing intermittent chest pain/pressure across his anterior chest over the past 2 to 3 weeks. He reports this appears to be worse in the morning and improves later in the day. Patient reports this morning he had the same type of pain to his midsternal chest described as almost a band across to his chest. He reports the pain today was much more significant than it had been in the past so he immediately called his daughter to bring him straight to the hospital. He denies experiencing any headache, lightheadedness, dizziness, palpitations, shortness of breath, cough or congestion, or experiencing any numbness/tingling/weakness in his extremities. Patient reports his pecan picker is Dr. Ramirez and that he has had multiple stents with last stent being placed greater than 10 years ago, patient states he just saw his pecan picker 2 months ago and got the "A-OK" with a reported normal stress test. Upon arrival to the emergency department patient underwent evaluation. Vital signs upon arrival show blood pressure 183/84, heart rate 83, respiratory rate 20, temp 98.1 F, and SpO2 of 95% on room air. EKG completed showing normal sinus rhythm at 79 bpm with occasional PVC, no noted T wave or ST abnormalities showing no signs of acute ischemia. Chest x-ray completed negative for acute cardiopulmonary process. Labs completed and reviewed. CBC showing mild leukocytosis with WBC count of 10.9. Coagulation profile normal findings. BMP showing chloride 108, bicarb 19, and anion gap of 11. Blood glucose 147. Magnesium 1.8. Liver profile normal findings. Initial troponin was 0.013 and repeat troponin was 0.086. Patient received aspirin prior to arrival to hospital stating he took 2 full-strength aspirin's this morning. Patient was started on heparin infusion for treatment of NSTEMI and admitted under our services with consultation to cardiology. Review of systems: Pertinent positives and negatives as discussed in HPI, a complete review of s ystems was performed and all other systems are negative. Physical exam: Vital signs reviewed and stable. General: Nontoxic, no distress and appears stated age. Derm: Skin warm and dry, normal coloration for ethnicity. Head: Atraumatic, normocephalic and symmetric. Eyes: EOMs intact, no lid lag, and anicteric sclera Mouth: no lip lesions, mucus membranes moist Cardiovascular: regular rate and rhythm with normal S1S2, systolic murmur, positive posterior tibial pulses bilaterally, and cap refill < 2 seconds. Lungs: Respirations even, regular, and unlabored on room air. Lungs CTA bilaterally, no rhonchi, no rales, no wheezing, and no accessory muscle usage. Abdominal: soft round abdomen, nontender to palpation, no guarding, no appreciable organomegaly Ext: ROM intact. No gross muscle atrophy, no edema, no contractures Neuro: Speech clear, face symmetrical and CN II-XII grossly intact with no noted focal neuro deficits Psych: Alert and oriented to person, place, time, and situation. Appropriate and pleasant affect. Assessment and Plan of Care: NSTEMI History of CAD with stents Hypertension Hyperlipidemia -Cardiology consulted, appreciate recommendations -Continue heparin infusion at 11 units/kg/h and draw PTT every 6 hours to monitor for goal therapeutic range of 44 to 79 seconds. -Continue aspirin 81 mg daily and atorvastatin 40 mg nightly. Awaiting medication reconciliation to be completed, once completed will reorder remainder of patient's home medications. -Telemetry monitoring -Trend troponins -Cardiac diet, NPO at midnight -Echocardiogram Rjl-wqcnlsb-obiskcgya diabetes mellitus Hold Glucophage and placed patient on glycemic protocol with NovoLog sliding scale. BPH Continue daily medication regimen with Flomax 0.4 mg nightly. Data and imaging reviewed: As stated above in HPI The patient is admitted with an anticipated greater than 2 midnight stay for evaluation of NSTEMI CODE STATUS: Full code DVT prophylaxis: Therapeutic heparin secondary to NSTEMI Anticipated discharge date: Clinical course to determine Anticipated discharge place: Clinical course to determine Patient was seen independently by Nurse Practitioner. This document was prepared using [employer] dictation software. Please allow for errors in splicing machine operator while rare they do occur. Milan Mchugh NP rendered care for this patient independently, reviewed the findings and plan as documented in the note above. I did not physically speak with or examine the patient on this date. 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 Past Anesthesia/Blood Transfusion Reactions: No Reported Reaction Date of Last Stent Placement:: 2012 Past Psychological History: No Psychological Hx Reported Smoking Status: Never smoker Past Alcohol Use History: Occasional Past Drug Use History: None Reported - Past Family History Father Family Medical History: CVA/TIA Additional Family Medical History / Comment(s): Father of a CVA at the age of 44yrs. Mother Family Medical History: Cancer, Diabetes Mellitus Additional Family Medical History / Comment(s): Heart problems, pt cannot recall type of cancer. Medications and Allergies Home Medications Medication Instructions Recorded Confirmed Type Atorvastatin [Lipitor] 20 mg PO HS 08/10/15 02/23/24 History Multivitamin [Men's Multi-Vitamin] 1 tab PO DAILY 08/10/15 02/23/24 History Vitamin B Complex 1 cap PO DAILY 08/10/15 02/23/24 History allopurinoL [Zyloprim] 300 mg PO DAILY 08/10/15 02/23/24 History metFORMIN HCL [Glucophage] 500 mg PO DAILY 08/10/15 02/23/24 History Tamsulosin HCl [Flomax] 0.4 mg PO HS 01/07/19 02/23/24 History Metoprolol Succinate [Toprol XL] 25 mg PO DAILY 01/16/21 02/23/24 History lisinopriL [Zestril] 20 mg PO DAILY 11/19/22 02/23/24 History Nitroglycerin 0.4 mg SL Q5M PRN 12/29/23 02/23/24 History cycloSPORINE 0.05% OPHTH SOLN 1 drop BOTH EYES Q12H 12/29/23 02/23/24 History [Restasis] Allergies Allergy/AdvReac Type Severity Reaction Status Date / Time No Known Allergies Allergy Verified 02/23/24 16:55 Physical Exam Vitals: Vital Signs Temp Pulse Resp BP Pulse Ox 02/23/24 11:30 52 L 19 139/76 02/23/24 11:00 69 20 148/74 02/23/24 10:30 52 L 20 132/75 02/23/24 10:00 70 19 132/77 02/23/24 09:30 70 18 150/79 02/23/24 09:00 71 18 147/74 02/23/24 08:30 70 17 172/87 98 02/23/24 08:10 76 17 97 02/23/24 07:57 98.1 F 83 20 183/84 95 Intake and Output 02/22/24 02/23/24 02/23/24 22:59 06:59 14:59 Other: Weight 90.718 kg Results CBC & Chem 7: 02/23/24 08:19 02/23/24 08:19 Labs: Abnormal Lab Results - Last 24 Hours (Table) 02/23/24 02/23/24 02/23/24 Range/Units 08:19 08:19 10:56 WBC 10.9 H (3.8-10.6) k/uL Chloride 108 H (98-107) mmol/L Carbon Dioxide 19 L (22-30) mmol/L Glucose 147 H (74-99) mg/dL Troponin I 0.086 H* (0.000-0.034) ng/mL
[2024-02-23] MEDS: METOPROLOL SUCCINATE (ER) 25 MG TAB.ER.24H PO SCH (17:48)
[2024-02-23] MEDS: HEPARIN SODIUM 1,000 UN/ML (10ML VL) IV PRN (18:58)
[2024-02-23] MEDS: TAMSULOSIN 0.4 MG CAP.ER.24H PO SCH (21:13)
[2024-02-23] MEDS: cycloSPORINE 0.05% OPHTH 0.4 ML DROPERETTE BOTH EYES SCH (21:14)
[2024-02-24] MEDS ORDERED: ASPIRIN 325 MG TAB PO SCH (09:00)
[2024-02-24] MEDS: lisinopriL 20 MG TAB PO SCH (09:41)
[2024-02-24] MEDS: ASPIRIN 81 MG PO SCH (09:41)
[2024-02-24] MEDS: allopurinoL 300 MG TAB PO SCH (09:41)
[2024-02-24 10:01] LABS: Basophils # (A) 0.1 k/uL (0-0.2); Basophils % (A) 1 %; Eosinophils # (A) 0.5 k/uL (0-0.7); Eosinophils % (A) 5 %; HCT 44.2 % (39.0-53.0); HGB 14.6 gm/dL (13.0-17.5); Lymphocytes # (A) 2.1 k/uL (1.0-4.8); Lymphocytes % (A) 22 %; MCH 30.1 pg (25.0-35.0); MCV 91.2 fL (80.0-100.0); Mean Platelet Volume 8.6; Monocytes # (A) 0.4 k/uL (0-1.0); Monocytes % (A) 4 %; Neutrophils # (A) 6.4 k/uL (1.3-7.7); Neutrophils % (A) 66 %; Platelet Count 200 k/uL (150-450); RBC 4.85 m/uL (4.30-5.90); WBC 9.7 k/uL (3.8-10.6)
[2024-02-24 10:21] LABS: INR 1.1 (<1.2); Prothrombin Time 11.7 sec (10.0-12.5)
--- NOTE | 2024-02-24 11:30 | P.PN ---
Subjective Progress Note Date: 02/24/24 Hospital course: Patient is a very pleasant 88-year-old male with a past medical history of CAD with stent, hypertension, hyperlipidemia, previous provoked pulmonary emboli during COVID infection, BPH, diverticulosis, and cnt-lhdknos-zbndvkkps diabetes mellitus. He presented to the emergency department with a chief complaint of chest pain/pressure. Patient reports he has been experiencing intermittent chest pain/pressure across his anterior chest over the past 2 to 3 weeks. He reports this appears to be worse in the morning and improves later in the day. Patient reports this morning he had the same type of pain to his midsternal c hest described as almost a band across to his chest. He reports the pain today was much more significant than it had been in the past so he immediately called his daughter to bring him straight to the hospital. He denies experiencing any headache, lightheadedness, dizziness, palpitations, shortness of breath, cough or congestion, or experiencing any numbness/tingling/weakness in his extremities. Patient reports his dry end operator is Dr. Ramirez and that he has had multiple stents with last stent being placed greater than 10 years ago, patient states he just saw his dry end operator 2 months ago and got the "A-OK" with a reported normal stress test. Upon arrival to the emergency department patient underwent evaluation. Vital signs upon arrival show blood pressure 183/84, heart rate 83, respiratory rate 20, temp 98.1 F, and SpO2 of 95% on room air. EKG completed showing normal sinus rhythm at 79 bpm with occasional PVC, no noted T wave or ST abnormalities showing no signs of acute ischemia. Chest x-ray completed negative for acute cardiopulmonary process. Labs completed and reviewed. CBC showing mild leukocytosis with WBC count of 10.9. Coagulation profile normal findings. BMP showing chloride 108, bicarb 19, and anion gap of 11. Blood glucose 147. Magnesium 1.8. Liver profile normal findings. Initial troponin was 0.013 and repeat troponin was 0.086. Patient received aspirin prior to arrival to hospital stating he took 2 full-strength aspirin's this morning. Patient was started on heparin infusion for NSTEMI and admitted under our services with consultation to cardiology. Troponins trended overnight resulting at 0.086, 0.263, and 0.221. Physical exam: Patient seen and fully evaluated at the bedside this morning. He currently denies having any chest pain or pressure, palpitations, shortness of breath, or having any further complaints at this time. Family at bedside, patient awaiting evaluation by dry end operator at this time. Vital signs reviewed and stable. General: Nontoxic, no distress and appears stated age. Derm: Skin warm and dry, normal coloration for ethnicity. Head: Atraumatic, normocephalic and symmetric. Eyes: EOMs intact, no lid lag, and anicteric sclera Mouth: no lip lesions, mucus membranes moist Cardiovascular: regular rate and rhythm with normal S1S2, systolic murmur, positive posterior tibial pulses bilaterally, and cap refill < 2 seconds. Lungs: Respirations even, regular, and unlabored on room air. Lungs CTA bilaterally, no rhonchi, no rales, no wheezing, and no accessory muscle usage. Abdominal: soft round abdomen, nontender to palpation, no guarding, no appreciable organomegaly Ext: ROM intact. No gross muscle atrophy, no edema, no contractures Neuro: Speech clear, face symmetrical and CN II-XII grossly intact with no noted focal neuro deficits Psych: Alert and oriented to person, place, time, and situation. Appropriate and pleasant affect. Assessment and Plan of Care: NSTEMI History of CAD with stents Hypertension Hyperlipidemia -Cardiology consulted, appreciate recommendations -Continue heparin infusion at 11 units/kg/h and draw PTT every 6 hours to monitor for goal therapeutic range of 44 to 79 seconds. PTT subtherapeutic at 25.3, heparin infusion increased to 15 units/kg/h -Continue aspirin 81 mg daily and atorvastatin 40 mg nightly. Awaiting medication reconciliation to be completed, once completed will reorder remainder of patient's home medications. -Telemetry monitoring -Troponins trended resulting at 0.013, 0.086, 0.263, and 0.221. -NPO pending evaluation by dry end operator -Echocardiogram Pix-goetjxl-wlpohzerr diabetes mellitus Hold Glucophage and placed patient on glycemic protocol with NovoLog sliding scale. BPH Continue daily medication regimen with Flomax 0.4 mg nightly. Data and imaging reviewed: Vital signs reviewed and stable. Blood pressure 132/70, heart rate 67, respiratory rate 16, temp 98.1 F, and SpO2 of 96% on room air. Labs reviewed. Troponins trended overnight resulting at 0.086, 0.263, and 0.221. PTT was subtherapeutic at 25.3. CBC remains unremarkable with hemoglobin of 14.6 and platelet count of 200. CODE STATUS: Full code DVT prophylaxis: Therapeutic heparin secondary to NSTEMI Anticipated discharge date: Clinical course to determine Anticipated discharge place: Clinical course to determine Patient was seen independently by Nurse Practitioner. This document was prepared using [employer] dictation software. Please allow for errors in aviation neuropsychologist while rare they do occur. Milan Mchugh SENIOR CLINICAL DATA COORDINATOR rendered care for this patient independently, reviewed the findings and plan as documented in the note above. I did not physically speak with or examine the patient on this date. Objective - Vital Signs Vital signs: Vital Signs Temp 97.7 F 02/23/24 22:15 Pulse 77 02/24/24 04:00 Resp 16 02/24/24 04:00 BP 153/72 02/24/24 04:00 Pulse Ox 97 02/24/24 04:00 FiO2 Intake & Output 02/23/24 02/24/24 02/24/24 18:59 06:59 18:59 Intake Total 148.622 Balance 148.622 Weight 90.718 kg 90.718 kg Intake: Intake, IV Titration 148.622 Amount Heparin Sod,Pork in 0.45% 148.622 NaCl 25,000 unit In 0.45 % NaCl 1 250ml.bag @ 11. 023 UNITS/KG/HR 10 mls/hr IV .Q24H [facility] Rx#: [id number] Other: Voiding Method Toilet - Labs CBC & Chem 7: 02/25/24 03:22 02/25/24 03:22 Labs: Abnormal Lab Results - Last 24 Hours (Table) 02/23/24 02/23/24 02/23/24 Range/Units 08:19 08:19 10:56 WBC 10.9 H (3.8-10.6) k/uL APTT (22.0-30.0) sec Chloride 108 H (98-107) mmol/L Carbon Dioxide 19 L (22-30) mmol/L Glucose 147 H (74-99) mg/dL Troponin I 0.086 H* (0.000-0.034) ng/mL 02/23/24 02/23/24 02/23/24 Range/Units 15:06 17:55 17:55 WBC (3.8-10.6) k/uL APTT 41.2 H (22.0-30.0) sec Chloride (98-107) mmol/L Carbon Dioxide (22-30) mmol/L Glucose (74-99) mg/dL Troponin I 0.263 H* 0.221 H* (0.000-0.034) ng/mL 02/24/24 Range/Units 00:54 WBC (3.8-10.6) k/uL APTT 42.8 H (22.0-30.0) sec Chloride (98-107) mmol/L Carbon Dioxide (22-30) mmol/L Glucose (74-99) mg/dL Troponin I (0.000-0.034) ng/mL
--- NOTE | 2024-02-24 12:14 | CA ---
Transthoracic Echo Report Name: Jefferson Scanlon Age: 88 Gender: M : 1935 Exam Date: 02/24/2024 09:24 Exam Location: [place] [facility] Ht (in): 68 Wt (lb): 200 Ordering Physician: John Gerber MD Attending/Referring Phys: [id number], Zabrina Medical Doctor Bill Puente RDCS Procedure CPT: Indications: nstemi Cardiac Hx: Technical Quality: Technically difficult study Contrast 1: Definity Total Dose (mL): 3 Contrast 2: Total Dose (mL): MEASUREMENTS (Male / Female) Normal Values 2D ECHO LV Diastolic Diameter PLAX 4.6 cm 4.2 - 5.9 / 3.9 - 5.3 cm LV Systolic Diameter PLAX 1.7 cm IVS Diastolic Thickness 1.0 cm 0.6 - 1.0 / 0.6 - 0.9 cm LVPW Diastolic Thickness 1.3 cm 0.6 - 1.0 / 0.6 - 0.9 cm LV Relative Wall Thickness 0.5 LVOT Diameter 2.4 cm Aortic Root Diameter 3.0 cm LA Systolic Diameter LX 4.1 cm 3.0 - 4.0 / 2.7 - 3.8 cm LA Volume 50.3 cm??? 18 - 58 / 22 - 52 cm??? LA Volume Index 23.8 cm???/m??? 16 - 28 cm???/m??? DOPPLER AV Peak Velocity 223.8 cm/s AV Peak Gradient 20.0 mmHg AV Mean Velocity 180.7 cm/s AV Mean Gradient 14.0 mmHg AV Velocity Time Integral 47.5 cm AI Peak Velocity 400.9 cm/s AI Peak Gradient 64.3 mmHg AI Pressure Half Time 618.4 ms LVOT Peak Velocity 94.4 cm/s LVOT Peak Gradient 3.6 mmHg LVOT Velocity Time Integral 23.6 cm LVOT Stroke Volume 105.5 cm??? LVOT Stroke Volume Index 51.6 ml/m??? LVOT Cardiac Index 3497.1 cm???/min???m??? AV Area Cont Eq vti 2.2 cm??? AV Area Cont Eq pk 1.9 cm??? Mitral E Point Velocity 70.9 cm/s Mitral A Point Velocity 104.5 cm/s Mitral E to A Ratio 0.7 MV Deceleration Time 217.1 ms MV E' Velocity 7.1 cm/s Mitral E to MV E' Ratio 10.0 FINDINGS Left Ventricle Left ventricular ejection fraction is estimated at 55-60 %. Normal left ventricular wall motion. No obvious regional wall motion abnormalities. Right Ventricle Normal right ventricular size. Unable to estimate the right ventricular systolic pressure. Right Atrium Normal right atrial size. Left Atrium Normal left atrial size. Mitral Valve Trace mitral regurgitation.mitral annular calcification. Aortic Valve Mild aortic regurgitation.aortic valve sclerosis. Tricuspid Valve Trace tricuspid regurgitation.structurally normal tricuspid valve. Pulmonic Valve Pulmonic valve not well visualized. Pericardium Prominent epicardial fat. Aorta Normal size aortic root. CONCLUSIONS Technically difficult study. Definity ECHO contrast used for improved visualization of the endocardial borders (inadequate visualization of two or more contiguous segments). Normal left ventricle size and systolic function Mild aortic regurgitation Trace mitral and tricuspid regurgitation Very limited Doppler study Previewed by: Dr. Alejandra Miller MD (Electronically Signed) Final Date: 24 February 2024 12:14
[2024-02-24] MEDS ORDERED: ALPRAZolam 0.25 MG TAB PO PRN (15:04)
[2024-02-24] MEDS ORDERED: ALPRAZolam 0.5 MG TAB PO PRN (15:04)
[2024-02-24] MEDS: SODIUM CHLORIDE 0.9% 1,000 ML in EMPTY BAG 1 BAG IV SCH (18:01)
[2024-02-24] MEDS: NITROGLYCERIN OINT 1 INCH/GM PACKET TOPICAL SCH (18:01)
[2024-02-24 18:43] LABS: Chol/HDL Ratio 2.55 Ratio; LDL Cholesterol,Calculated 24.5 mg/dL (0.0-131.0)
[2024-02-24] MEDS: METOPROLOL TARTRATE 12.5 MG TAB PO SCH (20:45)
--- NOTE | 2024-02-24 23:57 | CONS ---
CONSULTATION HISTORY OF PRESENT ILLNESS: This is an 88-year-old gentleman, who sees Dr. Ramirez in the outpatient setting, has had history of previous LAD, PCI and also another vessel performed in 2011 and 2012 respectively. He came in with episode of pressure across the chest suggestive of angina, has elevated troponin profile suggestive of esj-KM-yobbxlndg ME. EKG does not reveal any significant new abnormalities. He has an EKG that revealed sinus mechanism with nonspecific ST abnormality, isolated PVCs. The patient at the time of my evaluation is comfortable. Resting echo this morning revealed preserved systolic function with ejection fraction in the 55% range. No significant abnormality on Doppler exam. There is mild aortic regurgitation. No significant pulmonary hypertension. The patient is resting comfortably without any significant symptoms. PAST MEDICAL HISTORY: Remarkable for, 1. CAD with previous PCI, last one in 2012, not clear which vessel in 2011, he had mid LAD stented with drug-eluting stents. 2. Hypertension. 3. Hyperlipidemia. 4. No evidence of any CVA. PHYSICAL EXAMINATION: VITAL SIGNS: Stable. NECK: No JVD. CARDIAC: S1, S2 heard normally. No significant murmurs. LUNGS: Clear. ABDOMEN: Soft, nontender. LOWER EXTREMITIES: Revealed palpable pulses. No edema. CENTRAL NERVOUS SYSTEM: Grossly within normal limits. PLAN: Continue IV heparin and current medications. Coronary angiography tomorrow. Dr. Ramirez will perform the procedure. We will continue all his current medications and add nitroglycerin paste 0.5 inch q.6 hours to the chest wall. Discussed my thoughts in detail with the patient. MMODL / IJN: [id number] /
[2024-02-25 03:33] LABS: HCT 41.7 % (39.0-53.0); HGB 13.8 gm/dL (13.0-17.5); MCH 30.4 pg (25.0-35.0); MCHC 33.1 g/dL (31.0-37.0); Mean Platelet Volume 8.7; Platelet Count 185 k/uL (150-450); RBC 4.53 m/uL (4.30-5.90); WBC 12.2 k/uL (3.8-10.6)
[2024-02-25 04:05] LABS: ALT 24 U/L (4-49); AST 25 U/L (17-59); African American GFR (CKD) 58 (>60 ml/min/1.73 sqM); Albumin 3.1 g/dL (3.5-5.0); Alkaline Phosphatase 49 U/L (38-126); Anion Gap 9 mmol/L; Blood Urea Nitrogen 23 mg/dL (9-20); Calcium 8.2 mg/dL (8.4-10.2); Carbon Dioxide 18 mmol/L (22-30); Chloride 111 mmol/L (98-107); Glucose 131 mg/dL (74-99); Magnesium 1.8 mg/dL (1.6-2.3); Non-African American GFR(CKD) 50 (>60 ml/min/1.73 sqM); Potassium 3.8 mmol/L (3.5-5.1); Sodium 138 mmol/L (137-145); Total Bilirubin 0.6 mg/dL (0.2-1.3); Total Protein 5.7 g/dL (6.3-8.2)
[2024-02-25] MEDS ORDERED: HEPARIN SODIUM,PORCINE (1 ML) 2,500 UNIT in SODIUM CHLORIDE 0.9% 250 ML IRRIGATION PRN (07:00)
[2024-02-25] MEDS ORDERED: HEPARIN SODIUM,PORCINE 10,000 UNIT in SODIUM CHLORIDE 0.9% 1,000 ML IRRIGATION PRN (07:00)
[2024-02-25] MEDS: ATORVASTATIN 80 MG TAB PO STA (08:28)
[2024-02-25] MEDS: ASPIRIN 81 MG PO STA (08:28)
[2024-02-25] MEDS ORDERED: HEPARIN SODIUM 1,000 UN/ML (10ML VL) ONE ×2 (10:39→12:03)
[2024-02-25] MEDS ORDERED: VERAPAMIL 2.5 MG/ML 2 ML AMP ONE (10:40)
[2024-02-25] MEDS ORDERED: fentaNYL (PF) 50 MCG/ML 2 ML AMP ONE (10:40)
[2024-02-25] MEDS: MIDAZOLAM 2 MG/2 ML VIAL IVP ONE (11:10)
[2024-02-25] MEDS: SODIUM CHLORIDE 0.9% 1,000 ML IV ONE (11:14)
[2024-02-25] MEDS: LIDOCAINE 1% INJ 10MG/ML (20 ML MDV) SQ ONE (11:14)
[2024-02-25] MEDS: VERAPAMIL SYRINGE (5 MG/10 ML) INTRAARTER ONE (11:16)
[2024-02-25] MEDS: HEPARIN SODIUM 1,000 UN/ML (10ML VL) IVP ONE ×2 (11:21→11:50)
[2024-02-25] MEDS: IOPAMIDOL-370 100ML BTL INJ ONE ×2 (12:00→12:50)
[2024-02-25] MEDS ORDERED: CLOPIDOGREL 75 MG TAB ONE (12:46)
[2024-02-25] MEDS: CLOPIDOGREL 75 MG TAB PO ONE (12:50)
[2024-02-25] MEDS ORDERED: RX INFO: IV CONTRAST WAS GIVEN 1 EACH MISC MISCELLANE PRN (12:57)
[2024-02-25] MEDS ORDERED: ATROPINE SULFATE 0.1 MG/ML 10ML SYRINGE IV PRN (12:57)
[2024-02-25] MEDS ORDERED: ZOLPIDEM 5 MG TAB PO PRN (12:57)
[2024-02-25] MEDS ORDERED: MAG HYDROX/AL HYDROX/SIMETH 30 ML CUP PO PRN (12:57)
--- NOTE | 2024-02-25 17:38 | P.PN ---
Subjective Progress Note Date: 02/25/24 Hospital course: Patient is a very pleasant 88-year-old male with a past medical history of CAD with stent, hypertension, hyperlipidemia, previous provoked pulmonary emboli during COVID infection, BPH, diverticulosis, and rnd-fssigkv-swlqowvfo diabetes mellitus. He presented to the emergency department with a chief complaint of chest pain/pressure. Patient reports he has been experiencing intermittent chest pain/pressure across his anterior chest over the past 2 to 3 weeks. He reports this appears to be worse in the morning and improves later in the day. Patient reports this morning he had the same type of pain to his midsternal c hest described as almost a band across to his chest. He reports the pain today was much more significant than it had been in the past so he immediately called his daughter to bring him straight to the hospital. He denies experiencing any headache, lightheadedness, dizziness, palpitations, shortness of breath, cough or congestion, or experiencing any numbness/tingling/weakness in his extremities. Patient reports his workplace relations adviser is Dr. Ramirez and that he has had multiple stents with last stent being placed greater than 10 years ago, patient states he just saw his workplace relations adviser 2 months ago and got the "A-OK" with a reported normal stress test. Upon arrival to the emergency department patient underwent evaluation. Vital signs upon arrival show blood pressure 183/84, heart rate 83, respiratory rate 20, temp 98.1 F, and SpO2 of 95% on room air. EKG completed showing normal sinus rhythm at 79 bpm with occasional PVC, no noted T wave or ST abnormalities showing no signs of acute ischemia. Chest x-ray completed negative for acute cardiopulmonary process. Labs completed and reviewed. CBC showing mild leukocytosis with WBC count of 10.9. Coagulation profile normal findings. BMP showing chloride 108, bicarb 19, and anion gap of 11. Blood glucose 147. Magnesium 1.8. Liver profile normal findings. Initial troponin was 0.013 and repeat troponin was 0.086. Patient received aspirin prior to arrival to hospital stating he took 2 full-strength aspirin's this morning. Patient was started on heparin infusion for NSTEMI and admitted under our services with consultation to cardiology. Troponins trended overnight resulting at 0.086, 0.263, and 0.221. Echocardiogram revealing an EF of 55 to 60% with mild aortic regurgitation and trace mitral and tricuspid regurgitation. Physical exam: Patient seen and fully evaluated at the bedside this morning. He currently denies having any chest pain or pressure, palpitations, shortness of breath, or having any further complaints at this time. Family at bedside, patient awaiting to be taken down for cardiac cath later this morning. Vital signs reviewed and stable. General: Nontoxic, no distress and appears stated age. Derm: Skin warm and dry, normal coloration for ethnicity. Head: Atraumatic, normocephalic and symmetric. Eyes: EOMs intact, no lid lag, and anicteric sclera Mouth: no lip lesions, mucus membranes moist Cardiovascular: regular rate and rhythm with normal S1S2, systolic murmur, positive posterior tibial pulses bilaterally, and cap refill < 2 seconds. Lungs: Respirations even, regular, and unlabored on room air. Lungs CTA bilaterally, no rhonchi, no rales, no wheezing, and no accessory muscle usage. Abdominal: soft round abdomen, nontender to palpation, no guarding, no appreciable organomegaly Ext: ROM intact. No gross muscle atrophy, no edema, no contractures Neuro: Speech clear, face symmetrical and CN II-XII grossly intact with no noted focal neuro deficits Psych: Alert and oriented to person, place, time, and situation. Appropriate and pleasant affect. Assessment and Plan of Care: NSTEMI History of CAD with stents Hypertension Hyperlipidemia -Cardiology following, taking patient for cardiac cath later today. -Continue heparin infusion with repeat PTT every 6 hours to monitor for goal therapeutic range of 44 to 79 seconds. Currently PTT therapeutic at 55.9. -Continue aspirin 81 mg daily and atorvastatin 40 mg nightly. Awaiting medication reconciliation to be completed, once completed will reorder remainder of patient's home medications. -Telemetry monitoring -Troponins trended resulting at 0.013, 0.086, 0.263, and 0.221. -NPO pending completion of cardiac cath. -Echocardiogram revealing an EF of 55 to 60% with mild aortic regurgitation and trace mitral and tricuspid regurgitation. Xka-xdsckas-cqlielvhp diabetes mellitus Hold Glucophage and placed patient on glycemic protocol with NovoLog sliding s kate. BPH Continue daily medication regimen with Flomax 0.4 mg nightly. Data and imaging reviewed: Vital signs reviewed and stable. Blood pressure 132/70, heart rate 67, respiratory rate 16, temp 98.1 F, and SpO2 of 96% on room air. Labs reviewed. CBC showing mild leukocytosis with WBC count of 12.2 otherwise normal findings. PTT therapeutic at 55.9. BMP revealing hyperchloremia with chloride of 111, hypocarbia with bicarb of 18, anion gap 9, and slight elevation of renal function with BUN of 23, creatinine 1.26, GFR 50. Magnesium was normal findings at 1.8. CODE STATUS: Full code DVT prophylaxis: Therapeutic heparin secondary to NSTEMI Anticipated discharge date: Clinical course to determine Anticipated discharge place: Clinical course to determine Patient was seen independently by Nurse Practitioner. This document was prepared using [employer] dictation software. Please allow for errors in log grader while rare they do occur. Objective - Vital Signs Vital signs: Vital Signs Temp 98.7 F 02/24/24 20:00 Pulse 61 02/25/24 04:00 Resp 18 02/25/24 04:00 BP 107/60 02/25/24 04:00 Pulse Ox 97 02/25/24 04:00 FiO2 Intake & Output 02/24/24 02/25/24 02/25/24 18:59 06:59 18:59 Intake Total 1061.378 156.708 Balance 1061.378 156.708 Intake: Intake, IV Titration 101.378 156.708 Amount Heparin Sod,Pork in 0.45% 101.378 156.708 NaCl 25,000 unit In 0.45 % NaCl 1 250ml.bag @ 11. 023 UNITS/KG/HR 10 mls/hr IV .Q24H [facility] Rx#: [id number] Oral 960 0 Other: Voiding Method Toilet Toilet # Voids 1 - Labs CBC & Chem 7: 02/25/24 03:22 02/25/24 03:22 Labs: Abnormal Lab Results - Last 24 Hours (Table) 02/24/24 02/25/24 02/25/24 Range/Units 09:06 03:22 03:22 WBC 12.2 H (3.8-10.6) k/uL Chloride 111 H (98-107) mmol/L Carbon Dioxide 18 L (22-30) mmol/L BUN 23 H (9-20) mg/dL Creatinine 1.26 H (0.66-1.25) mg/dL Glucose 131 H (74-99) mg/dL Calcium 8.2 L (8.4-10.2) mg/dL Total Protein 5.7 L (6.3-8.2) g/dL Albumin 3.1 L (3.5-5.0) g/dL HDL Cholesterol 34.10 L (40.00-60.00) mg/dL
--- NOTE | 2024-02-25 22:59 | CC ---
CARDIAC CATHETERIZATION REPORT INDICATION: Acute non ST-segment elevation PR. PROCEDURE NOTE: After obtaining informed consent, left heart catheterization and coronary angiogram were performed via the right radial artery using standard Aleks catheters. The patient tolerated the procedure well without any obvious immediate complications. The patient received moderate conscious sedation. Total sedation time was 20 minutes. Right radial artery access was obtained using Seldinger technique. A 6-Cuban sheath was placed. Catheters and wires were floated into the ascending aorta under fluoroscopic guidance. The patient received verapamil and heparin per protocol. FINDINGS: 1. Hemodynamics: Left ventricular end-diastolic pressure is 8 mm. There is no significant gradient across the aortic valve. 2. Left ventriculogram: Left ventriculogram is not performed. 3. Angiographic data: a.Right coronary artery is a large dominant vessel, appears calcified. There is a focal 90% stenosis in the mid RCA, which is a long segment. Left main coronary artery appears calcified, but is free of significant stenosis. Divides into left anterior descending coronary artery and circumflex coronary artery. Circumflex coronary artery is a large codominant vessel. There is an 80% to 90% stenosis at the ostium, AV groove circ. There is a mild to moderate nonobstructive disease involving proximal and distal circumflex coronary artery. The ramus intermedius shows a moderate area of stenosis. Left anterior descending coronary artery appears heavily calcified. It first stented both in the proximal and mid portion. The proximal stent appears patent. The mid LAD stent itself is patent. Just past the stent, there is an area of stenosis. At its worst, it seems to be an 80% to 90% stenosis. It appears as if there is false lumen in that area. CONCLUSIONS: Three-vessel coronary artery disease as described above with a focal area of narrowing in the mid RCA. Patent stent within the proximal LAD and area of stenosis in the mid LAD. PLAN: The patient will undergo angioplasty with stent placement of the right coronary artery. Treat him with medications. See how he does and decide on further course of action. MMODL / IJN: [id number] /
--- NOTE | 2024-02-26 00:24 | CC ---
CARDIAC CATHETERIZATION REPORT PROCEDURE: PTCA and stenting of the proximal/mid RCA with 2 drug-eluting stents. ANESTHESIA: Moderate conscious sedation time was 64 minutes. Patient was administered Versed. Oxygen saturation, hemodynamics and EKG were monitored closely. CLINICAL INFORMATION: Mr. Jefferson Scanlon is an 89-year-old gentleman with a history of CAD with prior PCI of LAD performed in 2011 and 2012 respectively. This gentleman came into the hospital with chest pain, suggestive of angina, had troponin elevation without clear-cut EKG changes. His clinical picture was that of ebq-FE-wpvjxlmjl NV. He was advised cardiac cath, was performed by Dr. Ramirez, which revealed that the patient had a patent LAD at the site of prior stenting with a mid/distal lesion of about 50% to 55% and also circumflex lesion of 55%, but proximal/mid RCA had a 90% lesion calcified after a bend. He was advised PCI of RCA that was performed in the same setting. PROCEDURE NOTE: The existing 6-Setswana introducer in the right radial artery was used to perform procedure. I used a 3.5 AllRight guide catheter and cannulated the right coronary artery. A run-through wire was used to cross the lesion. With a 2.5 balloon, I could not advance it. With a 2.0 NC Trek balloon, I pre-dilated the lesion. I then used with a 2.5 balloon and then a 3.0 balloon. After successive dilatation, then I deployed a 3.0 caliber 18 mm long Xience stent at the site of the lesion and then a 3.5 caliber 8 mm long Xience stent proximally. All the stented segment was dilated with a 3.5 caliber NC Trek balloon. The patient received heparin intravenously. ACT was more than 300. He only received 6500 units of heparin which is about 70 units/kg. However, ACT was more than 300. He received Plavix 600 mg orally. He will be on aspirin and Plavix without interruption for 1 year. Excellent angiographic result without complication was achieved. Details were discussed with the patient and family. TR band was applied as per protocol. Saturation of the fingers of the right hand was 93%. He was sent to the room in a stable condition. Results were discussed with the patient and family. I expect he will be discharged in the next 24-48 hours. MMODL / IJN: [id number] /
[2024-02-26] MEDS: SODIUM CHLORIDE 0.9% 1,000 ML in EMPTY BAG 1 BAG IV SCH (05:56)
--- NOTE | 2024-02-26 06:26 | PN ---
PROGRESS NOTE Mr. Scanlon has birthday today. He presented with a asp-OM-uzwiadypp [place], we will go for cardiac cath. No further chest pain. Vital signs stable. S1-S2 heard normally. Lungs are clear. Abdomen and lower extremity exam unremarkable. Based on a cardiac cath, he will require possible intervention. I discussed my thoughts in detail with the patient and . JOSE RAFAEL / ANGELON: [id number] /
[2024-02-26] MEDS: CLOPIDOGREL 75 MG TAB PO SCH (07:41)
[2024-02-26 07:48] VITALS: BP 144/64; PULSE 93; RESP 17; TEMP 97.5
[2024-02-26 09:39] LABS: Basophils # (A) 0.1 k/uL (0-0.2); Basophils % (A) 1 %; Eosinophils # (A) 0.7 k/uL (0-0.7); Eosinophils % (A) 7 %; HCT 41.2 % (39.0-53.0); HGB 13.3 gm/dL (13.0-17.5); Lymphocytes # (A) 1.5 k/uL (1.0-4.8); Lymphocytes % (A) 16 %; MCH 29.5 pg (25.0-35.0); MCHC 32.2 g/dL (31.0-37.0); MCV 91.6 fL (80.0-100.0); Monocytes # (A) 0.5 k/uL (0-1.0); Monocytes % (A) 5 %; Neutrophils % (A) 71 %; Platelet Count 160 k/uL (150-450); RDW 14.4 % (11.5-15.5); WBC 9.9 k/uL (3.8-10.6)
[2024-02-26 09:58] LABS: African American GFR (CKD) 69 (>60 ml/min/1.73 sqM); Anion Gap 9 mmol/L; Blood Urea Nitrogen 17 mg/dL (9-20); Calcium 8.4 mg/dL (8.4-10.2); Carbon Dioxide 20 mmol/L (22-30); Chloride 110 mmol/L (98-107); Glucose 211 mg/dL (74-99); Non-African American GFR(CKD) 60 (>60 ml/min/1.73 sqM); Potassium 3.8 mmol/L (3.5-5.1); Sodium 139 mmol/L (137-145)
[2024-02-26 10:19] VITALS: BMI 30.4
--- NOTE | 2024-02-26 11:12 | P.DS ---
Providers Date of admission: 02/23/24 12:18 Expected date of discharge: 02/26/24 Attending physician: Howie Fitch MD Consults: 02/23/24 12:18 Consult Physician Urgent Consulting Provider: Kayden Looney Consult Reason/Comments: NSTEMI Do you want consulting provider notified?: Yes 02/25/24 12:57 Consult Physician Routine Consulting Provider: [facility] Consult Reason/Comments: Post Interventional Patient Do you want consulting provider notified?: Already Contacted Primary care physician: Juvenal Torres [place] Hospital Course: Discharge Diagnosis: NSTEMI History of CAD with stents Hypertension Hyperlipidemia Ujw-exvpizm-ulwfyccyo diabetes mellitus BPH Hospital course: Patient is a very pleasant 88-year-old male with a past medical history of CAD with stent, hypertension, hyperlipidemia, previous provoked pulmonary emboli during COVID infection, BPH, diverticulosis, and pjs-swygiwg-wuetgbbme diabetes mellitus. He presented to the emergency department with a chief complaint of chest pain/pressure. Patient reports he has been experiencing intermittent chest pain/pressure across his anterior chest over the past 2 to 3 weeks. He reports this appears to be worse in the morning and improves later in the day. Patient reports this morning he had the same type of pain to his midsternal chest described as almost a band across to his chest. He reports the pain today was much more significant than it had been in the past so he immediately called his daughter to bring him straight to the hospital. He denies experiencing any headache, lightheadedness, dizziness, palpitations, shortness of breath, cough or congestion, or experiencing any numbness/tingling/weakness in his extremities. Patient reports his dehairing machine tender is Dr. Ramirez and that he has had multiple stents with last stent being placed greater than 10 years ago, patient states he just saw his dehairing machine tender 2 months ago and got the "A-OK" with a reported normal stress test. Upon arrival to the emergency department patient underwent evaluation. Vital signs upon arrival show blood pressure 183/84, heart rate 83, respiratory rate 20, temp 98.1 F, and SpO2 of 95% on room air. EKG completed showing normal sinus rhythm at 79 bpm with occasional PVC, no noted T wave or ST abnormalities showing no signs of acute ischemia. Chest x-ray completed negative for acute cardiopulmonary process. Labs completed and reviewed. CBC showing mild leukocytosis with WBC count of 10.9. Coagulation profile normal findings. BMP showing chloride 108, bicarb 19, and anion gap of 11. Blood glucose 147. Magnesium 1.8. Liver profile normal findings. Initial troponin was 0.013 and repeat troponin was 0.086. Patient received aspirin prior to arrival to hospital stating he took 2 full-strength aspirin's this morning. Patient was started on heparin infusion for NSTEMI and admitted under our services with consultation to cardiology. Troponins trended overnight resulting at 0.086, 0.263, and 0.221. Echocardiogram revealing an EF of 55 to 60% with mild aortic regurgitation and trace mitral and tricuspid regurgitation. On 02/25/2024 patient was taken for cardiac catheterization and underwent successful angioplasty and stenting of RCA. Patient was started on dual antiplatelet therapy with Plavix 75 mg daily and aspirin 81 mg daily. He was monitored overnight and continued to do well free from any cardiac complaints. Patient was cleared from cardiac perspective for discharge recommending outpatient follow-up in their office in 1 week. Patient is medically stable for discharge at this time. Patient to follow-up with PCP in 1 to 2 days. Physical exam: Vital signs reviewed and stable. General: Nontoxic, no distress and appears stated age. Derm: Skin warm and dry, normal coloration for ethnicity. Head: Atraumatic, normocephalic and symmetric. Eyes: EOMs intact, no lid lag, and anicteric sclera Mouth: no lip lesions, mucus membranes moist Cardiovascular: regular rate and rhythm with normal S1S2, systolic murmur, positive posterior tibial pulses bilaterally, and cap refill < 2 seconds. Cardiac cath access site right wrist showing no signs of bleeding, bruising, or hematoma formation. Lungs: Respirations even, regular, and unlabored on room air. Lungs CTA bilaterally, no rhonchi, no rales, no wheezing, and no accessory muscle usage. Abdominal: soft round abdomen, nontender to palpation, no guarding, no appreciable organomegaly Ext: ROM intact. No gross muscle atrophy, no edema, no contractures. Neuro: Speech clear, face symmetrical and CN II-XII grossly intact with no noted focal neuro deficits Psych: Alert and oriented to person, place, time, and situation. Appropriate and pleasant affect. A total of 36 minutes of time were spent preparing this complex discharge summary. Pt was discharged on 02/26/2024 at 11:10 AM Patient was seen independently by Nurse Practitioner. This document was prepared using [facility] dictation software. Please allow for errors in food service coordinator while rare they do occur. Milan Mchugh NP rendered care for this patient independently, reviewed the f indings and plan as documented in the note above. I did not physically speak with or examine the patient on this date. Patient Condition at Discharge: Stable Plan - Discharge Summary Discharge Rx Participant: No New Discharge Prescriptions: New Metoprolol Tartrate [Lopressor] 12.5 mg PO BID 90 Days #180 tab Aspirin 81 mg PO DAILY 90 Days #90 tab Clopidogrel [Plavix] 75 mg PO DAILY 90 Days #90 tab Continue metFORMIN HCL [Glucophage] 500 mg PO DAILY Atorvastatin [Lipitor] 20 mg PO HS allopurinoL [Zyloprim] 300 mg PO DAILY Vitamin B Complex 1 cap PO DAILY Multivitamin [Men's Multi-Vitamin] 1 tab PO DAILY Tamsulosin HCl [Flomax] 0.4 mg PO HS lisinopriL [Zestril] 20 mg PO DAILY cycloSPORINE 0.05% OPHTH SOLN [Restasis] 1 drop BOTH EYES Q12H Nitroglycerin 0.4 mg SL Q5M PRN PRN Reason: Chest Pain Discontinued Metoprolol Succinate [Toprol XL] 25 mg PO DAILY No Action Omeprazole [PriLOSEC] 20 mg PO AC-BRKFST #30 cap Discharge Medication List Atorvastatin [Lipitor] 20 mg PO HS 08/10/15 [History] Multivitamin [Men's Multi-Vitamin] 1 tab PO DAILY 08/10/15 [History] Vitamin B Complex 1 cap PO DAILY 08/10/15 [History] allopurinoL [Zyloprim] 300 mg PO DAILY 08/10/15 [History] metFORMIN HCL [Glucophage] 500 mg PO DAILY 08/10/15 [History] Tamsulosin HCl [Flomax] 0.4 mg PO HS 01/07/19 [History] lisinopriL [Zestril] 20 mg PO DAILY 11/19/22 [History] Nitroglycerin 0.4 mg SL Q5M PRN 12/29/23 [History] cycloSPORINE 0.05% OPHTH SOLN [Restasis] 1 drop BOTH EYES Q12H 12/29/23 [History] Aspirin 81 mg PO DAILY 90 Days #90 tab 02/26/24 [Rx] Clopidogrel [Plavix] 75 mg PO DAILY 90 Days #90 tab 02/26/24 [Rx] Metoprolol Tartrate [Lopressor] 12.5 mg PO BID 90 Days #180 tab 02/26/24 [Rx] Omeprazole [PriLOSEC] 20 mg PO AC-BRKFST #30 cap 02/27/24 [Rx] Follow up Appointment(s)/Referral(s): Juvenal Roca MD [Primary Care Provider] - 02/27/24 8:00 am () Garry Ramirez MD [STAFF PHYSICIAN] - 03/05/24 4:00 pm (Office did not answer, please call to schedule apt. ) Patient Instructions/Handouts: *[facility] - After Heart Catheterization - Melter Assistant Instructions, Heart Attack (DC) Activity/Diet/Wound Care/Special Instructions: Discharge instructions Cardiac Catheterization with Stent Placement: Aspirin as anti-platelet therapy - Aspirin lessens the chance of heart attack and stroke. It helps prevent blood clots from forming, allowing the blood to flow more easily. Each day, you will take one 81 mg (non-enteric coated) tablet daily. Do not stop unless instructed by your doctor. Anti-platelet Therapy. -In addition to aspirin, you will take one additional anti-platelet medication daily. This will help prevent a clot from forming in your stent: Plavix (trey pidogrel) -You will need to take your anti-platelet medicine every day for 12 months -Please consult your heart doctor before you stop this medicine. -They may want you to continue for a longer period of time. Statins -A statin medication lowers cholesterol levels in the blood. This helps slow the progression of heart disease. - Please take your statin medication as prescribed by your doctor. -You may be taking one of the following statins: Atorvastatin Beta blockers Your Medication: Metoprolol Is a medication that protects your heart from stress and can prevent future heart attacks. It can slow your heart rate. It can take weeks for your body to get used to a beta salena. The dose may need to be changed a few times as your body adjusts Do not stop taking these medicines without talking to your doctor. -Take all other medicines as directed by your doctor. Do not take any extra aspirin or ibuprofen. They can increase your risk of bleeding. Many vpyi-kmc-rkodhsn drugs contain aspirin. If you are unsure about what the drug contains, check with your pharmacist before taking it. -For mild discomfort, you may take plain Tylenol (acetaminophen). Follow dose directions, but do not take more than 4,000 mg of acetaminophen in 24 hours. Contact your doctor right away or go to the nearest hospital Emergency Room if you have: -Severe angina or chest pain. (This may be a sign of a problem with your stent.) -Excessive bruising, blood in urine/stool or black tarry stools. Healthy LifeStyle It is important to keep a heart healthy lifestyle. This can improve your long- term health and decrease your risk for heart attacks. -Managing your blood cholesterol, blood pressure, weight, and stress. -The importance of regular exercise. -Heart Healthy Diet: Include more plants in your diet. Eat lots of fresh vegetables and fresh fruits. Eat good fats: plant based oils, avocado, nuts, beans, legumes. Eat more seafood. Limit Meat. Switch to whole grains. -Avoid fried foods and animal fats and processed meats Follow up with your Dr. Roca in 1-[address] Ramirez with [facility] in one week. Thank you for allowing us to participate in your care, it was truly a pleasure having you for our patient!!! Happy Birthday!!!!!!!!!!! Discharge Disposition: HOME SELF-CARE
--- NOTE | 2024-02-26 13:13 | P.PN ---
Subjective Progress Note Date: 02/26/24 History of present illness: This is an 89-year-old female patient of Dr. Ramirez with history of previous LAD PCI and also another vessel performed in 2011 and 2012 patient presented due to chest pressure and diagnosed with non-ST elevated PA. EKG does not reveal any significant abnormalities. Sinus rhythm with nonspecific ST-T abnormality, isolated PVCs. Echocardiogram reveals EF 55 to 60%, technically difficult study. Mild aortic regurgitation. Trace mitral and tricuspid regurgitation. Patient underwent cardiac catheterization with Dr. Ramirez which revealed three-vessel coronary artery disease with focal area of narrowing in the mid RCA. Patent stent within the proximal LAD and area of stenosis in the mid LAD. He subsequently underwent PTCA and stenting of the proximal/mid RCA with Dr. NOLVIA Mobley. Patient is seen today in follow-up. Plan is to continue aspirin and Plavix as well as atorvastatin. Patient denies having any chest pain, chest pressure. No lightheadedness or dizziness. Patient has been ambulating without difficulty. Blood pressure 144/64, heart rate 93, pulse ox 95% on room air. Repeat blood work reveals normal CBC. Sodium 139, potassium 3.8, BUN 17 creatinine 1.09. Physical examination: Gen: This is an 89-year-old male in no acute distress VS: reviewed HEENT: Head is atraumatic, normocephalic. Pupils equal, round. Sclerae is anicteric. LUNGS: Clear to auscultation. No wheezes or rhonchi. No intercostal retractions. HEART: Regular rate and rhythm. No murmur. EXTREMITIES: No pedal edema. No calf tenderness. Dorsalis pedis palpable bilaterally. NEUROLOGICAL: Patient is awake, alert and oriented x3. Assessment: Non-ST elevated PA status post PCI History of coronary artery disease Hypertension Hyperlipidemia Plan: Continue current cardiac medications Patient is cleared from cardiology for discharge and will follow-up with Dr. Ramirez in 1 week Nurse practitioner note has been reviewed, I agree with documented findings and plan of care. Patient was seen and examined. Objective - Vital Signs Vital signs: Vital Signs Temp 97.5 F L 02/26/24 07:40 Pulse 93 02/26/24 07:40 Resp 17 02/26/24 07:40 BP 144/64 02/26/24 07:40 Pulse Ox 95 02/26/24 07:40 FiO2 Intake & Output 02/25/24 02/26/24 02/26/24 18:59 06:59 18:59 Intake Total 1800 120 Balance 1800 120 Weight 90.718 kg Intake: IV 600 Oral 1200 120 Other: Voiding Method Toilet Toilet Toilet # Voids 2 - Labs CBC & Chem 7: 02/26/24 08:48 02/26/24 08:48 Labs: Abnormal Lab Results - Last 24 Hours (Table) 02/25/24 02/26/24 Range/Units 14:03 08:48 APTT 55.9 H (22.0-30.0) sec Chloride 110 H (98-107) mmol/L Carbon Dioxide 20 L (22-30) mmol/L Glucose 211 H (74-99) mg/dL
== END 2024-02-26 11:57 | disposition home or self-care (01) | DRG 322 ==
LOC: EC 07:56 → 3SCARD 12:18
PROVIDERS: ADMIT Student in an Organized Health Care Education/Training Program; ATTEND Student in an Organized Health Care Education/Training Program
PROC: 027035Z Dilation of Coronary Artery, One Artery with Two Drug-eluting Intraluminal Devices, Percutaneous Approach (ICD-10-PCS; principal; 2024-02-25 11:00)
PROC: 4A023N7 Measurement of Cardiac Sampling and Pressure, Left Heart, Percutaneous Approach (ICD-10-PCS; 2024-02-25 11:00)
PROC: B2111ZZ Fluoroscopy of Multiple Coronary Arteries using Low Osmolar Contrast (ICD-10-PCS; 2024-02-25 11:00)
DX: I21.4 Non-ST elevation (NSTEMI) myocardial infarction (principal); I25.10 Atherosclerotic heart disease of native coronary artery without angina pectoris; H53.9 Unspecified visual disturbance; E78.5 Hyperlipidemia, unspecified; N40.0 Benign prostatic hyperplasia without lower urinary tract symptoms; K57.30 Diverticulosis of large intestine without perforation or abscess without bleeding; I45.10 Unspecified right bundle-branch block; I10 Essential (primary) hypertension; M19.90 Unspecified osteoarthritis, unspecified site; M10.9 Gout, unspecified; G89.29 Other chronic pain; D72.829 Elevated white blood cell count, unspecified; E87.8 Other disorders of electrolyte and fluid balance, not elsewhere classified; M54.50 Low back pain, unspecified; E11.9 Type 2 diabetes mellitus without complications; Z66 Do not resuscitate; Z95.5 Presence of coronary angioplasty implant and graft; I69.398 Other sequelae of cerebral infarction; Z86.711 Personal history of pulmonary embolism; Z86.16 Personal history of COVID-19; Z79.899 Other long term (current) drug therapy; Z79.84 Long term (current) use of oral hypoglycemic drugs; Z87.01 Personal history of pneumonia (recurrent)
CPT/HCPCS: 36415; 71046; 80048; 80053; 80061; 83690; 83735; 84484; 85025; 85027; 85610; 85730; 93005; 93306; 93458; 96365; 96366; 99291

== ENCOUNTER 2024-02-27 09:48 | Emergency (ER) | payer MEDICARE ==
--- NOTE | 2024-02-27 10:31 | ED ---
General Adult HPI - General Chief complaint: Chest Pain Stated complaint: Chest pain, post op pain, stints Time Seen by Provider: 02/27/24 10:11 Source: patient, RN notes reviewed, old records reviewed Mode of arrival: ambulatory Limitations: no limitations - History of Present Illness Initial comments: Patient is an 89-year-old male who presents emergency department complaining of chest pressure sensation. States he has very mild chest pressure on along the inferior sternum. Was just admitted for an NSTEMI and received 2 cardiac stents. Was discharged home yesterday. Crab Backer is Dr. Mobley. He had RCA stenting at that time. Was discharged home on aspirin and Plavix. Presents for further evaluation today. States he felt well yesterday but awoke this morning with his sensation. No known provocative or palliative factors. Denies any dyspnea. Denies any abdominal pain, nausea, vomiting. Otherwise has no acute complaints. Presents due to recurrence of this mild chest discomfort. Presents for further evaluation. Took 324 mg aspirin prior to arrival. Presents for further evaluation at this time. - Related Data Home Medications Medication Instructions Recorded Confirmed Atorvastatin [Lipitor] 20 mg PO HS 08/10/15 02/23/24 Multivitamin [Men's Multi-Vitamin] 1 tab PO DAILY 08/10/15 02/23/24 Vitamin B Complex 1 cap PO DAILY 08/10/15 02/23/24 allopurinoL [Zyloprim] 300 mg PO DAILY 08/10/15 02/23/24 metFORMIN HCL [Glucophage] 500 mg PO DAILY 08/10/15 02/23/24 Tamsulosin HCl [Flomax] 0.4 mg PO HS 01/07/19 02/23/24 lisinopriL [Zestril] 20 mg PO DAILY 11/19/22 02/23/24 Nitroglycerin 0.4 mg SL Q5M PRN 12/29/23 02/23/24 cycloSPORINE 0.05% OPHTH SOLN 1 drop BOTH EYES Q12H 12/29/23 02/23/24 [Restasis] Previous Rx's Medication Instructions Recorded Aspirin 81 mg PO DAILY 90 Days #90 tab 02/26/24 Clopidogrel [Plavix] 75 mg PO DAILY 90 Days #90 tab 02/26/24 Metoprolol Tartrate [Lopressor] 12.5 mg PO BID 90 Days #180 tab 02/26/24 Omeprazole [PriLOSEC] 20 mg PO AC-BRKFST #30 cap 02/27/24 Allergies Allergy/AdvReac Type Severity Reaction Status Date / Time No Known Allergies Allergy Verified 02/27/24 09:53 Review of Systems ROS Statement: Those systems with pertinent positive or pertinent negative responses have been documented in the HPI. Review of Systems: CONST: Denies fever EYES: Denies blurry vision ENT: Denies nasal congestion C/V: Endorses chest pressure RESP: Denies shortness of breath GI: Denies abdominal pain : Denies dysuria SKIN: Denies rash. MSK: Denies joint pain. NEURO: Denies headache ROS Other: All systems not noted in ROS Statement are negative. 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 Past Anesthesia/Blood Transfusion Reactions: No Reported Reaction Date of Last Stent Placement:: 2012 Past Psychological History: No Psychological Hx Reported Smoking Status: Never smoker Past Alcohol Use History: Occasional Past Drug Use History: None Reported - Past Family History Father Family Medical History: CVA/TIA Additional Family Medical History / Comment(s): Father of a CVA at the age of 44yrs. Mother Family Medical History: Cancer, Diabetes Mellitus Additional Family Medical History / Comment(s): Heart problems, pt cannot recall type of cancer. General Exam - General Exam Comments Initial Comments: General: Appears in no acute distress. HEAD: Normal with no signs of head trauma. EYES: PERRLA, EOMI, conjunctiva normal, no discharge. ENT: Hearing grossly intact, normal oropharynx. RESPIRATORY: Clear breath sounds bilaterally. No wheezes, rales, or rhonchi. C/V: Regular rate and rhythm. S1 and S2 auscultated, no edema, peripheral pulses 2+ and intact throughout ABD: Abd is soft, nontender, nondistended EXT: Normal range of motion, no obvious deformity SKIN: No rashes or lesions observed on exposed skin. NEURO: Alert and oriented x 4. Cranial nerves II-XII intact. No focal sensory or strength deficits. Limitations: no limitations Course Vital Signs 02/27/24 02/27/24 02/27/24 09:50 11:42 12:12 Temperature 97.4 F L 98 F Pulse Rate 86 64 68 Respiratory 18 18 18 Rate Blood Pressure 161/72 122/61 129/61 O2 Sat by Pulse 99 98 98 Oximetry Medical Decision Making - Medical Decision Making Was pt. sent in by a medical professional or institution (, PA, INSTRUMENTATION FITTER, urgent care, hospital, or longterm...) When possible be specific @ -No Did you speak to anyone other than the patient for history (EMS, parent, family, police, friend...)? What history was obtained from this source @ -No Did you review nursing and triage notes (agree or disagree)? Why? @ -I reviewed and agree with nursing and triage notes Were old charts reviewed (outside hosp., previous admission, EMS record, old EKG, old radiological studies, urgent care reports/EKG's, longterm records)? Report findings @ -Old charts reviewed Differential Diagnosis (chest pain, altered mental status, abdominal pain women, abdominal pain men, vaginal bleeding, weakness, fever, dyspnea, syncope, headache, dizziness, GI bleed, back pain, seizure, CVA, palpatations, mental health, musculoskeletal)? @ -Differential Chest Pain: Stable Angina, Unstable Angina, STEMI, NSTEMI Aortic Dissection, Pneumothorax, Musculoskeletal, Esophageal Spasm GERD, Cholecystitis, Pancreatitis, Zoster, this is not meant to be an all-inclusive list. EKG interpreted by me (3pts min.). @ -As above X-rays interpreted by me (1pt min.). @ -Chest x-ray shows no signs of acute cardiopulmonary process. CT interpreted by me (1pt min.). @ -None done U/S interpreted by me (1pt. min.). @ -None done What testing was considered but not performed or refused? (CT, X-rays, U/S, labs)? Why? @ -None What meds were considered but not given or refused? Why? @ -Considered administering aspirin however patient already took aspirin prior to arrival. He took 324 mg. Did you discuss the management of the patient with other professionals (professionals i.e. ., PA, INSTRUMENTATION FITTER, lab, RT, psych nurse, social welfare research worker, water resource manager, teacher, complaint investigations officer, shelter case manager)? Give summary @ -I spoke with Dr. Mobley who evaluate the patient at bedside. He completed the patient's stenting the other day. Believes it is atypical chest pain, and based on workup, EKG, not elevated troponin beyond what it was the other day, feel close comfortable with the patient going home. Recommended patient be placed on Prilosec. Was smoking cessation discussed for >3mins.? @ -No Was critical care preformed (if so, how long)? @ -No Were there social determinants of health that impacted care today? How? (Homelessness, low income, unemployed, alcoholism, drug addiction, transportation, low edu. Level, literacy, decrease access to med. care, long term, rehab)? @ -No Was there de-escalation of care discussed even if they declined (Discuss DNR or withdrawal of care, Hospice)? DNR status @ -No What co-morbidities impacted this encounter? (DM, HTN, Smoking, COPD, CAD, Cancer, CVA, ARF, Chemo, Hep., AIDS, mental health diagnosis, sleep apnea, morbid obesity)? @ -Recent cardiac stents. Was patient admitted / discharged? Hospital course, mention meds given and route, prescriptions, significant lab abnormalities, going to OR and other pertinent info. @ -Based on the patient's presentation and physical exam, presents with chest discomfort with recent cardiac stenting. Started this morning. Was discharged home yesterday pain-free. States that is very mild at this time located along the inferior aspect of his sternum. Denies shortness of breath. Denies any abdominal pain, nausea, vomiting. Has no other symptoms. Took 324 mg of aspirin prior to arrival. Presents for further evaluation. Vital signs are within acceptable limits. EKG shows no signs of acute ischemia.Chest x-ray unremarkable. His laboratory studies remarkable for an elevated troponin of 0.222. Patient's last troponin a few days ago was 0.221. I spoke with Dr. Mobley who evaluate the patient at bedside. He completed the patient's stenting the other day. Believes it is atypical chest pain, and based on workup, EKG, not elevated troponin beyond what it was the other day, feel close comfortable with the patient going home. Recommended patient be placed on Prilosec. I spoke with the patient regarding this after he was evaluated by Dr. Mobley and he was in agreement with our plan. Return precautions discussed. He has an upcoming follow-up appointment with cardiology Dr. Ramirez. I will provide the patient with a prescription for Prilosec. I instructed the patient to follow up with their PCP in the next 1-3 days. I explained that the patient should return to the emergency department if they experience any worsening symptoms. Strict return precautions were discussed with the patient. The patient expressed understanding of these instructions. I answered all questions that the patient had. The patient was discharged home in good condition with their prescriptions and follow up information. Undiagnosed new problem with uncertain prognosis? @ -No Drug Therapy requiring intensive monitoring for toxicity (Heparin, Nitro, Insulin, Cardizem)? @ -No Were any procedures done? @ -No Diagnosis/symptom? @ -Atypical chest pain with recent cardiac stent Acute, or Chronic, or Acute on Chronic? @ -Acute Uncomplicated (without systemic symptoms) or Complicated (systemic symptoms)? @ -Uncomplicated Side effects of treatment? @ -None Exacerbation, Progression, or Severe Exacerbation] @ -No Poses a threat to life or bodily function? @ -Unlikely - Lab Data Result diagrams: 02/27/24 10:25 02/27/24 10:25 Lab Results 02/27/24 02/27/24 02/27/24 Range/Units 10:25 10:25 10:25 WBC 9.5 (3.8-10.6) k/uL RBC 4.60 (4.30-5.90) m/uL Hgb 13.7 (13.0-17.5) gm/dL Hct 42.4 (39.0-53.0) % MCV 92.1 (80.0-100.0) fL MCH 29.8 (25.0-35.0) pg MCHC 32.4 (31.0-37.0) g/dL RDW 13.9 (11.5-15.5) % Plt Count 174 (150-450) k/uL MPV 8.5 Neutrophils % 68 % Lymphocytes % 19 % Monocytes % 4 % Eosinophils % 8 % Basophils % 1 % Neutrophils # 6.5 (1.3-7.7) k/uL Lymphocytes # 1.8 (1.0-4.8) k/uL Monocytes # 0.4 (0-1.0) k/uL Eosinophils # 0.7 (0-0.7) k/uL Basophils # 0.1 (0-0.2) k/uL PT 11.0 (10.0-12.5) sec INR 1.0 (<1.2) APTT 25.5 (22.0-30.0) sec Sodium 140 (137-145) mmol/L Potassium 3.8 (3.5-5.1) mmol/L Chloride 113 H (98-107) mmol/L Carbon Dioxide 16 L (22-30) mmol/L Anion Gap 11 mmol/L BUN 15 (9-20) mg/dL Creatinine 0.97 (0.66-1.25) mg/dL Est GFR (CKD-EPI)AfAm 80 (>60 ml/min/1.73 sqM) Est GFR (CKD-EPI)NonAf 70 (>60 ml/min/1.73 sqM) Glucose 167 H (74-99) mg/dL Calcium 8.5 (8.4-10.2) mg/dL Magnesium 1.8 (1.6-2.3) mg/dL Total Bilirubin 0.7 (0.2-1.3) mg/dL AST 27 (17-59) U/L ALT 26 (4-49) U/L Alkaline Phosphatase 65 (38-126) U/L Troponin I (0.000-0.034) ng/mL Total Protein 6.5 (6.3-8.2) g/dL Albumin 3.6 (3.5-5.0) g/dL 02/27/24 Range/Units 10:25 WBC (3.8-10.6) k/uL RBC (4.30-5.90) m/uL Hgb (13.0-17.5) gm/dL Hct (39.0-53.0) % MCV (80.0-100.0) fL MCH (25.0-35.0) pg MCHC (31.0-37.0) g/dL RDW (11.5-15.5) % Plt Count (150-450) k/uL MPV Neutrophils % % Lymphocytes % % Monocytes % % Eosinophils % % Basophils % % Neutrophils # (1.3-7.7) k/uL Lymphocytes # (1.0-4.8) k/uL Monocytes # (0-1.0) k/uL Eosinophils # (0-0.7) k/uL Basophils # (0-0.2) k/uL PT (10.0-12.5) sec INR (<1.2) APTT (22.0-30.0) sec Sodium (137-145) mmol/L Potassium (3.5-5.1) mmol/L Chloride (98-107) mmol/L Carbon Dioxide (22-30) mmol/L Anion Gap mmol/L BUN (9-20) mg/dL Creatinine (0.66-1.25) mg/dL Est GFR (CKD-EPI)AfAm (>60 ml/min/1.73 sqM) Est GFR (CKD-EPI)NonAf (>60 ml/min/1.73 sqM) Glucose (74-99) mg/dL Calcium (8.4-10.2) mg/dL Magnesium (1.6-2.3) mg/dL Total Bilirubin (0.2-1.3) mg/dL AST (17-59) U/L ALT (4-49) U/L Alkaline Phosphatase (38-126) U/L Troponin I 0.222 H* (0.000-0.034) ng/mL Total Protein (6.3-8.2) g/dL Albumin (3.5-5.0) g/dL - EKG Data -: EKG Interpreted by Me EKG Comments: 12-lead Electrocardiogram Interpretation Note EKG was reviewed and interpreted by myself. 12-lead ECG performed at 0959 is interpreted by me as revealing normal sinus rhythm at a rate of 80 beats per minute. [place] is normal. MO interval is 184 ms, QRS duration is 93 ms, QTc is 388 ms.. There were no ST or T wave abnormalities to suggest myocardial ischemia or injury. R wave progression across the precordium was satisfactory. By my interpretation this EKG is non-diagnostic for acute ischemia. Disposition Clinical Impression: Atypical chest pain Disposition: HOME SELF-CARE Condition: Good Instructions (If sedation given, give patient instructions): Chest Pain (ED) Prescriptions: Omeprazole [PriLOSEC] 20 mg PO AC-BRKFST #30 cap Is patient prescribed a controlled substance at d/c from ED?: No Referrals: Juvenal Roca MD [Primary Care Provider] - 1-2 days Time of Disposition: 11:47
[2024-02-27 10:34] VITALS: RESP 18
[2024-02-27 10:42] LABS: Basophils # (A) 0.1 k/uL (0-0.2); Basophils % (A) 1 %; Eosinophils # (A) 0.7 k/uL (0-0.7); Eosinophils % (A) 8 %; HCT 42.4 % (39.0-53.0); HGB 13.7 gm/dL (13.0-17.5); Lymphocytes # (A) 1.8 k/uL (1.0-4.8); Lymphocytes % (A) 19 %; MCH 29.8 pg (25.0-35.0); MCHC 32.4 g/dL (31.0-37.0); MCV 92.1 fL (80.0-100.0); Mean Platelet Volume 8.5; Monocytes # (A) 0.4 k/uL (0-1.0); Monocytes % (A) 4 %; Neutrophils # (A) 6.5 k/uL (1.3-7.7); Neutrophils % (A) 68 %; Platelet Count 174 k/uL (150-450); RDW 13.9 % (11.5-15.5); WBC 9.5 k/uL (3.8-10.6)
[2024-02-27] MEDS: NITROGLYCERIN SL TABS 0.4 MG TAB SUBLINGUAL STA (10:46)
[2024-02-27 10:52] LABS: Partial Thromboplastin Time 25.5 sec (22.0-30.0)
[2024-02-27 11:10] LABS: ALT 26 U/L (4-49); AST 27 U/L (17-59); African American GFR (CKD) 80 (>60 ml/min/1.73 sqM); Albumin 3.6 g/dL (3.5-5.0); Alkaline Phosphatase 65 U/L (38-126); Anion Gap 11 mmol/L; Blood Urea Nitrogen 15 mg/dL (9-20); Calcium 8.5 mg/dL (8.4-10.2); Carbon Dioxide 16 mmol/L (22-30); Chloride 113 mmol/L (98-107); Glucose 167 mg/dL (74-99); Magnesium 1.8 mg/dL (1.6-2.3); Non-African American GFR(CKD) 70 (>60 ml/min/1.73 sqM); Potassium 3.8 mmol/L (3.5-5.1); Sodium 140 mmol/L (137-145); Total Bilirubin 0.7 mg/dL (0.2-1.3); Total Protein 6.5 g/dL (6.3-8.2)
--- NOTE | 2024-02-27 11:11 | XR ---
EXAMINATION TYPE: XR chest 2V DATE OF EXAM: 02/27/2024 10:51 AM CLINICAL INDICATION:Male, 89 years old with history of Chest Pain; [facility] COMPARISON: 02/23/2024 TECHNIQUE: XR chest 2V Frontal and lateral views of the chest. FINDINGS: Lungs/Pleura: There is no evidence of pleural effusion, focal consolidation, or pneumothorax. Pulmonary vascularity: Unremarkable. Heart/mediastinum: Cardiomediastinal silhouette is unremarkable. Musculoskeletal: No acute osseous pathology. Other findings: None Lines/Tubes: IMPRESSION: No acute cardiopulmonary disease/process.
[2024-02-27] MEDS: PANTOPRAZOLE 40 MG TABLET PO STA (12:12)
[2024-02-27 12:25] VITALS: BP 129/61; PULSE 68; TEMP 98
== END 2024-02-27 12:16 | disposition home or self-care (01) ==
LOC: EC 09:48
DX: R07.89 Other chest pain (principal); Z86.16 Personal history of COVID-19; Z86.73 Personal history of transient ischemic attack (TIA), and cerebral infarction without residual deficits; Z90.49 Acquired absence of other specified parts of digestive tract; Z95.5 Presence of coronary angioplasty implant and graft
CPT/HCPCS: 36415; 71046; 80053; 83735; 84484; 85025; 85610; 85730; 93005; 99285

== ENCOUNTER → 2024-04-01 | Outpatient (CLI) | payer MEDICARE ==
--- NOTE | 2024-04-02 09:34 | MR ---
EXAMINATION TYPE: MR brain/orbits wo/w con DATE OF EXAM: 04/01/2024 5:48 PM CLINICAL INDICATION:Male, 89 years old with history of H54.7 UNSPECIFIED VISUAL LOSS; PHH, Stroke in left eye and limited site in it, occasional dizziness COMPARISON: None. TECHNIQUE: Multi planar, multi sequence imaging was performed through the orbits/face. Post contrast imaging was performed after the administration of 9 cc of Gadavist intravenously. FINDINGS, ORBITS: The globes appear symmetrical. Orbital contents are intact. Signal intensity of th e optic nerves are within normal limits. The intraorbital fat appears preserved. Both lacrimal glan ds are unremarkable. The extraocular muscles appear symmetric. After administration of contrast, no a bnormal enhancement is seen. FINDINGS, BRAIN: The regalado-white junctions, ventricular system, and cisterns do appear unremarkable. Diffusion-weighted imaging shows no evidence of restricted diffusion. Patchy areas of high T2 signa l intensity are seen within the periventricular white matter. Cavernous sinus is within normal limit s. After administration of contrast, no abnormal enhancement is seen within the brain. The bone marrow signal is within normal limits. Paranasal sinuses and mastoid air cells: Paranasal sinus mucosal thickening with high T2 signal withi n the frontal sinuses, left ethmoid air cells, and maxillary sinuses. Visualized orbits: Bilateral aphakia IMPRESSION: 1. No evidence of intraorbital mass or significant abnormality. 2. No evidence of intracranial mass nor acute/subacute CVA accident. 3. Nonspecific white matter changes are identified likely small vessel ischemic disease. 4. Moderate paranasal sinus disease.
== END | disposition home or self-care (01) ==
LOC: RADMRIMAIN 16:21
PROVIDERS: ATTEND Ophthalmology
DX: H43.811 Vitreous degeneration, right eye (principal); R90.82 White matter disease, unspecified; J34.89 Other specified disorders of nose and nasal sinuses
CPT/HCPCS: 70543; 70553; A9585

== ENCOUNTER 2024-04-08 09:22 | Inpatient (IN) | payer MEDICARE ==
--- NOTE | 2024-04-08 10:15 | XR ---
EXAMINATION TYPE: XR chest 2V DATE OF EXAM: 04/08/2024 COMPARISON: 02/27/2024 TECHNIQUE: PA and lateral views submitted. HISTORY: Chest pain FINDINGS: The lungs are clear and there is no pneumothorax, pleural effusion, or focal pneumonia. Heart size normal and no overt failure. Osseous structures demonstrate hypertrophic and degenerative changes of the spine. Wrist pain and arthropathy of the shoulders. Correlate for COPD. IMPRESSION: 1. No acute process.
[2024-04-08 10:18] LABS: Basophils # (A) 0.1 k/uL (0-0.2); Basophils % (A) 1 %; Eosinophils # (A) 0.6 k/uL (0-0.7); Eosinophils % (A) 5 %; HCT 45.1 % (39.0-53.0); HGB 14.6 gm/dL (13.0-17.5); Lymphocytes # (A) 2.3 k/uL (1.0-4.8); Lymphocytes % (A) 21 %; MCH 29.4 pg (25.0-35.0); MCHC 32.3 g/dL (31.0-37.0); Mean Platelet Volume 8.4; Monocytes # (A) 0.5 k/uL (0-1.0); Monocytes % (A) 4 %; Neutrophils # (A) 7.5 k/uL (1.3-7.7); Neutrophils % (A) 68 %; Platelet Count 190 k/uL (150-450); RBC 4.96 m/uL (4.30-5.90); RDW 14.1 % (11.5-15.5)
[2024-04-08 10:20] LABS: Partial Thromboplastin Time 25.6 sec (22.0-30.0); Prothrombin Time 10.7 sec (10.0-12.5)
[2024-04-08 10:21] LABS: ALT 25 U/L (4-49); AST 26 U/L (17-59); African American GFR (CKD) 74 (>60 ml/min/1.73 sqM); Albumin 3.7 g/dL (3.5-5.0); Alkaline Phosphatase 61 U/L (38-126); Anion Gap 8 mmol/L; Blood Urea Nitrogen 18 mg/dL (9-20); Carbon Dioxide 20 mmol/L (22-30); Chloride 109 mmol/L (98-107); Glucose 182 mg/dL (74-99); Magnesium 1.7 mg/dL (1.6-2.3); Non-African American GFR(CKD) 64 (>60 ml/min/1.73 sqM); Potassium 4.1 mmol/L (3.5-5.1); Sodium 137 mmol/L (137-145); Total Bilirubin 0.8 mg/dL (0.2-1.3); Total Protein 6.7 g/dL (6.3-8.2)
--- NOTE | 2024-04-08 10:24 | ED ---
Chest Pain HPI - General Chief Complaint: Chest Pain Stated Complaint: Chest Pains Time Seen by Provider: 04/08/24 09:33 Source: patient, RN notes reviewed Mode of arrival: wheelchair Limitations: no limitations - History of Present Illness Initial Comments: 89-year-old male presents emergency department chief complaint of chest pain and pressure. Patient states he feels his heaviness the top of his chest in which she states is very similar to when he had his heart attack in January. Patient states he had 2 stents placed he states he had similar areas of narrowing. Patient states that he has been taking nitro for his symptoms but states is not working today. Patient denies any fevers or chills no cough or cold-like symptoms no leg swelling no leg pain. He had no new medication changes no other complaints. - Related Data Home Medications Medication Instructions Recorded Confirmed Atorvastatin [Lipitor] 20 mg PO HS 08/10/15 04/08/24 Multivitamin [Men's Multi-Vitamin] 1 tab PO DAILY 08/10/15 04/08/24 Vitamin B Complex 1 cap PO HS 08/10/15 04/08/24 allopurinoL [Zyloprim] 300 mg PO DAILY 08/10/15 04/08/24 metFORMIN HCL [Glucophage] 500 mg PO DAILY 08/10/15 04/08/24 Tamsulosin HCl [Flomax] 0.4 mg PO HS 01/07/19 04/08/24 lisinopriL [Zestril] 20 mg PO DAILY 11/19/22 04/08/24 Nitroglycerin 0.4 mg SL Q5M PRN 12/29/23 04/08/24 cycloSPORINE 0.05% OPHTH SOLN 1 drop BOTH EYES Q12H 12/29/23 04/08/24 [Restasis] Metoprolol Succinate (ER) [Toprol 25 mg PO DAILY 04/08/24 04/08/24 Xl] Previous Rx's Medication Instructions Recorded Aspirin 81 mg PO DAILY 90 Days #90 tab 02/26/24 Clopidogrel [Plavix] 75 mg PO DAILY 90 Days #90 tab 02/26/24 Allergies Allergy/AdvReac Type Severity Reaction Status Date / Time No Known Allergies Allergy Verified 04/08/24 13:29 Review of Systems ROS Statement: Those systems with pertinent positive or pertinent negative responses have been documented in the HPI. ROS Other: All systems not noted in ROS Statement are negative. 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 Past Anesthesia/Blood Transfusion Reactions: No Reported Reaction Date of Last Stent Placement:: 2012 Past Psychological History: No Psychological Hx Reported Smoking Status: Never smoker Past Alcohol Use History: Occasional Past Drug Use History: None Reported - Past Family History Father Family Medical History: CVA/TIA Additional Family Medical History / Comment(s): Father of a CVA at the age of 44yrs. Mother Family Medical History: Cancer, Diabetes Mellitus Additional Family Medical History / Comment(s): Heart problems, pt cannot recall type of cancer. General Exam Limitations: no limitations General appearance: alert, in no apparent distress Head exam: Present: atraumatic, normocephalic, normal inspection Eye exam: Present: normal appearance, PERRL, EOMI. Absent: scleral icterus, conjunctival injection, periorbital swelling ENT exam: Present: normal exam, normal oropharynx, mucous membranes moist Neck exam: Present: normal inspection, full ROM. Absent: tenderness, meningismus, lymphadenopathy Respiratory exam: Present: normal lung sounds bilaterally. Absent: respiratory distress, wheezes, rales, rhonchi, stridor Cardiovascular Exam: Present: regular rate, normal rhythm, normal heart sounds. Absent: systolic murmur, diastolic murmur, rubs, gallop, clicks GI/Abdominal exam: Present: soft, normal bowel sounds. Absent: distended, tenderness, guarding, rebound, rigid Course Vital Signs 04/08/24 09:24 Temperature 97.6 F Pulse Rate 76 Respiratory 20 Rate Blood Pressure 138/63 O2 Sat by Pulse 95 Oximetry Chest Pain MDM - MDM Was pt. sent in by a medical professional or institution (, PA, MONITORING TECH, urgent care, hospital, or long-term...) When possible be specific @ -No Did you speak to anyone other than the patient for history (EMS, parent, family, police, friend...)? What history was obtained from this source @ -No Did you review nursing and triage notes (agree or disagree)? Why? @ -I reviewed and agree with nursing and triage notes Were old charts reviewed (outside hosp., previous admission, EMS record, old EKG, old radiological studies, urgent care reports/EKG's, long-term records)? Report findings @ -Reviewed prior admission, cardiac cath Differential Diagnosis (chest pain, altered mental status, abdominal pain women, abdominal pain men, vaginal bleeding, weakness, fever, dyspnea, syncope, headache, dizziness, GI bleed, back pain, seizure, CVA, palpatations, mental health, musculoskeletal)? @ -\\Differential Chest Pain: Stable Angina, Unstable Angina, STEMI, NSTEMI Aortic Dissection, Pneumothorax, Musculoskeletal, Esophageal Spasm GERD, Cholecystitis, Pancreatitis, Zoster, this is not meant to be an all-inclusive list. EKG interpreted by me (3pts min.). @ -As above X-rays interpreted by me (1pt min.). @ -Chest x-ray shows no acute cardiopulmonary process. CT interpreted by me (1pt min.). @ -None done U/S interpreted by me (1pt. min.). @ -None done What testing was considered but not performed or refused? (CT, X-rays, U/S, labs)? Why? @ -None What meds were considered but not given or refused? Why? @ -None Did you discuss the management of the patient with other professionals (professionals i.e. , PA, MONITORING TECH, lab, RT, psych nurse, social media content specialist, blood or blood bank technician, teacher, juvenile probation officer, welfare case worker)? Give summary @ -Dr. Fitch for admission with cardiology evaluation Was smoking cessation discussed for >3mins.? @ -No Was critical care preformed (if so, how long)? @ -No Were there social determinants of health that impacted care today? How? (Homelessness, low income, unemployed, alcoholism, drug addiction, transportation, low edu. Level, literacy, decrease access to med. care, care home, rehab)? @ -No Was there de-escalation of care discussed even if they declined (Discuss DNR or withdrawal of care, Hospice)? DNR status @ -No What co-morbidities impacted this encounter? (DM, HTN, Smoking, COPD, CAD, Cancer, CVA, ARF, Chemo, Hep., AIDS, mental health diagnosis, sleep apnea, morbid obesity)? @ -CAD Was patient admitted / discharged? Hospital course, mention meds given and route, prescriptions, significant lab abnormalities, going to OR and other pertinent info. @ -Admitted patient has extensive cardiac history with persistent chest pain unalleviated with his nitro like usual will be admitted for cardiac rule out initial troponin is negative. Undiagnosed new problem with uncertain prognosis? @ -No Drug Therapy requiring intensive monitoring for toxicity (Heparin, Nitro, Insulin, Cardizem)? @ -No Were any procedures done? @ -No Diagnosis/symptom? @ -Chest pain Acute, or Chronic, or Acute on Chronic? @ -Acute Uncomplicated (without systemic symptoms) or Complicated (systemic symptoms)? @ -Complicated Side effects of treatment? @ -No Exacerbation, Progression, or Severe Exacerbation? @ -No Poses a threat to life or bodily function? How? (Chest pain, [place], [place], pneumonia, PE, COPD, DKA, ARF, appy, cholecystitis, CVA, Diverticulitis, Homicidal, Suicidal, threat to staff... and all critical care pts) @ -[Yes ACS Disposition Clinical Impression: Chest pain Disposition: ADMITTED IP TO THIS HOSP Condition: Fair Time of Disposition: 12:18
[2024-04-08 10:29] LABS: NT-Pro-B-Type Natriuretic Pept 443 pg/mL
[2024-04-08] MEDS ORDERED: NITROGLYCERIN SL TABS 0.4 MG TAB SUBLINGUAL PRN (12:18)
[2024-04-08] MEDS: ASPIRIN 81 MG PO STA (15:35)
[2024-04-08] MEDS ORDERED: DEXTROSE 50% SYRINGE 50 ML IVP PRN ×2 (16:56)
[2024-04-08 17:28] LABS: Basophils # (A) 0.1 k/uL (0-0.2); Basophils % (A) 1 %; Eosinophils # (A) 0.6 k/uL (0-0.7); Eosinophils % (A) 6 %; HCT 42.5 % (39.0-53.0); Lymphocytes # (A) 2.7 k/uL (1.0-4.8); Lymphocytes % (A) 25 %; MCHC 32.9 g/dL (31.0-37.0); MCV 91.1 fL (80.0-100.0); Mean Platelet Volume 8.4; Monocytes # (A) 0.5 k/uL (0-1.0); Monocytes % (A) 5 %; Neutrophils # (A) 6.7 k/uL (1.3-7.7); Neutrophils % (A) 63 %; Partial Thromboplastin Time 25.4 sec (22.0-30.0); Platelet Count 161 k/uL (150-450); Prothrombin Time 10.6 sec (10.0-12.5); RBC 4.66 m/uL (4.30-5.90); RDW 14.3 % (11.5-15.5); WBC 10.6 k/uL (3.8-10.6)
[2024-04-08] MEDS: HEPARIN SODIUM 1,000 UN/ML (10ML VL) IV ONE (17:38)
[2024-04-08] MEDS: HEPARIN SOD,PORK IN 0.45% NACL 25,000 UNIT in 0.45% NACL 1 250ML.BAG IV SCH (17:39)
[2024-04-08] MEDS: INSULIN ASPART (NovoLOG) 100 UNIT/ML VIAL SQ SCH (17:42)
[2024-04-08 17:44] LABS: Glucose,Whole Blood 99 mg/dL (70-110)
--- NOTE | 2024-04-08 17:44 | P.HPIM ---
History of Present Illness H&P Date: 04/08/24 Patient is a 89-year-old male with history of CAD with recent stents, hypertension, dyslipidemia, provoked PE, BPH, diabetes presenting for chest pain. Of note, patient's recent echo showed EF of 50 to 65%, with mild aortic regurgitation, trace mitral and tricuspid regurgitation. He underwent left heart cath and underwent angioplasty and stenting of RCA. He claims that he has had on and off chest pain since his last stent placement. He was told that he might have been reflux disease. However, his pain would usually resolve with nitroglycerin. This morning he woke up, and had similar pain which did not go away with nitroglycerin, prompting him to come to the hospital. He denies any radiation, pain is mostly substernal, denies any diaphoresis, shortness of breath, palpitations, nausea, vomiting, urinary or bowel complaints. He denies any recent fevers or chills. He denies any recent travel history. In the ED, temperature was 97.6, pulse 76, respiratory 20, blood pressure 138/63, 95% on room air. WBC 11, hemoglobin 14.6, creatinine 1.03, troponin elevated at 0.073, proBNP 443. Chest x-ray independently interpreted, shows no acute process. EKG independently interpreted, shows sinus rhythm with anteroseptal Q waves. Patient admitted for NSTEMI. Cardiology consulted. Pertinent positives and negatives as discussed in HPI, a complete review of systems was performed and all other systems are negative. Patient seen and examined at bedside. Vital signs reviewed General: nontoxic, no distress, appears at stated age Derm: warm, dry Head: atraumatic, normocephalic, symmetric Eyes: EOMI, no lid lag, anicteric sclera, pupils equal round reactive to light ENT: Nose and ears atraumatic Neck: No thyromegaly, supple Mouth: no lip lesion, mucus membranes moist Cardiovascular: S1S2 reg, no murmur, no edema Lungs: clear to auscultation bilateral, no rhonchi, no rales, no wheeze, no accessory muscle use Abdominal: soft, nontender to palpation, no guarding, no appreciable organomegaly Ext: no gross muscle atrophy, muscle strength muscle strength 5 out of 5 in all 4 extremities, no contractures Neuro: CN II-XII grossly intact Psych: Alert, oriented, appropriate affect Assessment/Plan: Active: NSTEMI Multivessel CAD status post recent stents Hypertension Dyslipidemia -Started on heparin drip, monitor APTT and CBC. -Trend troponin -Cardiology consulted, pending recommendations -Continue aspirin 81 mg, atorvastatin 20 mg, Plavix 75 mg daily -Continue lisinopril 20 mg daily, metoprolol 25 daily Diabetes -Sliding scale insulin, monitor for hypoglycemia Chronic: Gout BPH The patient is admitted with an anticipated less than 2 midnight stay as o bservation status for evaluation of chest pain. Surrogate decision-maker: Daughter CODE STATUS: Full code DVT prophylaxis: Heparin drip Anticipated discharge date: Pending clinical course Anticipated discharge place: Pending clinical course A total of 55minutes was spent on the care of this complex patient more than 50% of the time was spent in counseling and care coordination. 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 Past Anesthesia/Blood Transfusion Reactions: No Reported Reaction Date of Last Stent Placement:: 2012 Past Psychological History: No Psychological Hx Reported Smoking Status: Never smoker Past Alcohol Use History: Occasional Past Drug Use History: None Reported - Past Family History Father Family Medical History: CVA/TIA Additional Family Medical History / Comment(s): Father of a CVA at the age of 44yrs. Mother Family Medical History: Cancer, Diabetes Mellitus Additional Family Medical History / Comment(s): Heart problems, pt cannot recall type of cancer. Medications and Allergies Home Medications Medication Instructions Recorded Confirmed Type Atorvastatin [Lipitor] 20 mg PO HS 08/10/15 04/08/24 History Multivitamin [Men's Multi-Vitamin] 1 tab PO DAILY 08/10/15 04/08/24 History Vitamin B Complex 1 cap PO HS 08/10/15 04/08/24 History allopurinoL [Zyloprim] 300 mg PO DAILY 08/10/15 04/08/24 History metFORMIN HCL [Glucophage] 500 mg PO DAILY 08/10/15 04/08/24 History Tamsulosin HCl [Flomax] 0.4 mg PO HS 01/07/19 04/08/24 History lisinopriL [Zestril] 20 mg PO DAILY 11/19/22 04/08/24 History Nitroglycerin 0.4 mg SL Q5M PRN 12/29/23 04/08/24 History cycloSPORINE 0.05% OPHTH SOLN 1 drop BOTH EYES Q12H 12/29/23 04/08/24 History [Restasis] Aspirin 81 mg PO DAILY 90 Days #90 tab 02/26/24 04/08/24 Rx Clopidogrel [Plavix] 75 mg PO DAILY 90 Days #90 tab 02/26/24 04/08/24 Rx Metoprolol Succinate (ER) [Toprol 25 mg PO DAILY 04/08/24 04/08/24 History Xl] Allergies Allergy/AdvReac Type Severity Reaction Status Date / Time No Known Allergies Allergy Verified 04/08/24 13:29 Physical Exam Vitals: Vital Signs Temp Pulse Resp BP Pulse Ox 04/08/24 15:15 62 20 141/82 98 04/08/24 09:24 97.6 F 76 20 138/63 95 Intake and Output 04/08/24 04/08/24 04/08/24 06:59 14:59 22:59 Other: Weight 90.718 kg Results CBC & Chem 7: 04/08/24 16:57 04/08/24 09:45 Labs: Abnormal Lab Results - Last 24 Hours (Table) 04/08/24 04/08/24 04/08/24 Range/Units 09:45 09:45 14:40 WBC 11.0 H (3.8-10.6) k/uL Chloride 109 H (98-107) mmol/L Carbon Dioxide 20 L (22-30) mmol/L Glucose 182 H (74-99) mg/dL Troponin I 0.073 H* (0.000-0.034) ng/mL
[2024-04-08] MEDS: ATORVASTATIN 20 MG TAB PO SCH (20:37)
[2024-04-08] MEDS: TAMSULOSIN 0.4 MG CAP.ER.24H PO SCH (20:37)
[2024-04-08] MEDS: NON FORMULARY DRUG (Vitamin B Complex [Vitamin B Complex] 1 EACH Capsule) PO SCH (20:39)
[2024-04-08 21:46] LABS: Glucose,Whole Blood 166 mg/dL (70-110)
[2024-04-08] MEDS: cycloSPORINE 0.05% OPHTH 0.4 ML DROPERETTE BOTH EYES SCH (21:54)
[2024-04-09] MEDS: HEPARIN SODIUM 1,000 UN/ML (10ML VL) IV PRN (04:34)
[2024-04-09 07:56] LABS: Glucose,Whole Blood 111 mg/dL (70-110)
[2024-04-09] MEDS: METOPROLOL SUCCINATE (ER) 25 MG TAB.ER.24H PO SCH (07:56)
[2024-04-09] MEDS: allopurinoL 300 MG TAB PO SCH (07:56)
[2024-04-09] MEDS: CLOPIDOGREL 75 MG TAB PO SCH (07:56)
[2024-04-09] MEDS: MULTIVITAMINS, THERA 1 EACH TAB PO SCH (07:56)
[2024-04-09] MEDS: lisinopriL 20 MG TAB PO SCH (07:56)
[2024-04-09] MEDS: ASPIRIN 81 MG PO SCH (07:56)
[2024-04-09 07:59] LABS: Basophils # (A) 0.1 k/uL (0-0.2); Basophils % (A) 1 %; Eosinophils # (A) 0.8 k/uL (0-0.7); Eosinophils % (A) 8 %; HCT 44.3 % (39.0-53.0); HGB 14.8 gm/dL (13.0-17.5); Lymphocytes # (A) 2.8 k/uL (1.0-4.8); Lymphocytes % (A) 27 %; MCH 30.1 pg (25.0-35.0); MCHC 33.4 g/dL (31.0-37.0); MCV 90.4 fL (80.0-100.0); Mean Platelet Volume 9.3; Monocytes # (A) 0.5 k/uL (0-1.0); Monocytes % (A) 4 %; Neutrophils % (A) 58 %; Platelet Count 182 k/uL (150-450); RDW 14.7 % (11.5-15.5); WBC 10.3 k/uL (3.8-10.6)
[2024-04-09] MEDS ORDERED: ASPIRIN 325 MG TAB PO SCH (09:00)
[2024-04-09] MEDS ORDERED: metFORMIN 500 MG TAB PO SCH (09:00)
[2024-04-09] MEDS ORDERED: ALPRAZolam 0.5 MG TAB PO PRN (10:48)
[2024-04-09] MEDS ORDERED: ALPRAZolam 0.25 MG TAB PO PRN (10:48)
[2024-04-09] MEDS ORDERED: NITROGLYCERIN SL TABS 0.4 MG TAB SUBLINGUAL PRN (10:48)
--- NOTE | 2024-04-09 10:52 | P.CRDCN ---
History of Present Illness Consult date: 04/09/24 Consult reason: chest pain History of present illness: History of present illness: This is an 89-year-old male patient of Dr. Junior Ramirez with past medical history of non-ST CT status postcardiac catheterization that revealed severe stenosis involving the mid right coronary artery status post angioplasty and stent placement 01/2024, history of hypertension, diabetes, TIA. We have been asked to evaluate the patient for chest pain. Patient presented to the emergency center due to chest pain and pressure similar to that he experienced in January when he received his stents. Patient states he had an episode yesterday and he took nitroglycerin seem to help for short period of time and then the pain got worse. He took another nitroglycerin and then he came into the hospital for evaluation. He states now it feels like a discomfort. It is similar to what he had with his recent stents. He has had no recent change in medications. No lower extremity edema. Patient is seen today in the emergency center waiting for bed on the cardiac stepdown unit. He has been started on a heparin drip. EKG sinus rhythm with no acute ST changes Chest x-ray: No acute process CBC, INR within normal limits. Sodium 137, potassium 4.1, BUN 18 creatinine 1.0 3. Blood sugar 182. Troponins 0.022, 0.073, 0.101. proBNP 443. Home cardiac medications: Aspirin 81 mg daily, atorvastatin 20 mg at bedtime, Plavix 75 mg daily, lisinopril 20 mg daily, Toprol XL 25 mg daily, nitro stat as needed. Cardiac catheterization performed 02/25/[address] Junior Ramirez reveals three-vessel coronary artery disease with focal area of narrowing in the mid RCA. Patent stent within the proximal LAD and area of stenosis in the mid LAD. Patient underwent PTCA and stenting of the proximal mid RCA with 2 drug-eluting stents. Echocardiogram performed 02/23/2024 revealed EF of 55 to 60%. Technically difficult study. Mild aortic regurgitation. Trace mitral and tricuspid regurgi tation. Review Of Systems: At the time of my exam: CONSTITUTIONAL: Denies fever or chills. HEENT: Denies blurred vision, vision changes, or eye pain. Denies hemoptysis CARDIOVASCULAR: Denies chest pain. Denies orthopnea. Denies PND. Denies palpitations RESPIRATORY: Denies shortness of breath. GASTROINTESTINAL: Denies abdominal pain. Denies nausea or vomiting. HEMATOLOGIC: Denies bleeding disorders. GENITOURINARY: Denies any blood in urine. SKIN: Denies pruitis. Denies rash. Physical examination: Gen: This is an 89-year-old male in no acute distress VS: reviewed HEENT: Head is atraumatic, normocephalic. Pupils equal, round. Sclerae is anicteric. NECK: Supple. No JVD. LUNGS: Clear to auscultation. No wheezes or rhonchi. No intercostal retractions. HEART: Regular rate and rhythm. No murmur. ABDOMEN: Soft No tenderness. EXTREMITIES: No pedal edema. No calf tenderness. NEUROLOGICAL: Patient is awake, alert and oriented x3. Assessment: Chest pain Elevated troponins, possible non-ST elevated CT History of coronary artery disease with recent non-ST CT status post stent x 2 to the RCA Hyperlipidemia Diabetes mellitus type 2 History of TIA Plan: Resume patient's home cardiac medications Continue heparin drip Schedule patient for cardiac catheterization tomorrow with Dr. Mobley Obtain limited 2-D echocardiogram for LV function Further recommendations to follow based upon clinical course Thank you kindly for this consultation. Nurse practitioner note has been reviewed, I agree with documented findings and plan of care. Patient was seen and examined. 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 Past Anesthesia/Blood Transfusion Reactions: No Reported Reaction Date of Last Stent Placement:: 2012 Past Psychological History: No Psychological Hx Reported Smoking Status: Never smoker Past Alcohol Use History: Occasional Past Drug Use History: None Reported - Past Family History Father Family Medical History: CVA/TIA Additional Family Medical History / Comment(s): Father of a CVA at the age of 44yrs. Mother Family Medical History: Cancer, Diabetes Mellitus Additional Family Medical History / Comment(s): Heart problems, pt cannot recall type of cancer. Medications and Allergies Home Medications Medication Instructions Recorded Confirmed Type Atorvastatin [Lipitor] 20 mg PO HS 08/10/15 04/08/24 History Multivitamin [Men's Multi-Vitamin] 1 tab PO DAILY 08/10/15 04/08/24 History Vitamin B Complex 1 cap PO HS 08/10/15 04/08/24 History allopurinoL [Zyloprim] 300 mg PO DAILY 08/10/15 04/08/24 History metFORMIN HCL [Glucophage] 500 mg PO DAILY 08/10/15 04/08/24 History Tamsulosin HCl [Flomax] 0.4 mg PO HS 01/07/19 04/08/24 History lisinopriL [Zestril] 20 mg PO DAILY 11/19/22 04/08/24 History Nitroglycerin 0.4 mg SL Q5M PRN 12/29/23 04/08/24 History cycloSPORINE 0.05% OPHTH SOLN 1 drop BOTH EYES Q12H 12/29/23 04/08/24 History [Restasis] Aspirin 81 mg PO DAILY 90 Days #90 tab 02/26/24 04/08/24 Rx Clopidogrel [Plavix] 75 mg PO DAILY 90 Days #90 tab 02/26/24 04/08/24 Rx Metoprolol Succinate (ER) [Toprol 25 mg PO DAILY 04/08/24 04/08/24 History Xl] Allergies Allergy/AdvReac Type Severity Reaction Status Date / Time No Known Allergies Allergy Verified 04/08/24 13:29 Physical Exam Vitals: Vital Signs Temp Pulse Resp BP Pulse Ox 04/09/24 06:00 97.8 F 75 18 149/83 97 04/09/24 02:22 68 16 162/80 99 04/08/24 23:00 75 04/08/24 21:59 69 16 144/73 98 04/08/24 15:15 62 20 141/82 98 04/08/24 09:24 97.6 F 76 20 138/63 95 Intake and Output 04/08/24 04/09/24 04/09/24 22:59 06:59 14:59 Intake Total 109.333 Balance 109.333 Intake: Intake, IV Titration 109.333 Amount Heparin Sod,Pork in 0.45% 109.333 NaCl 25,000 unit In 0.45 % NaCl 1 250ml.bag @ 11. 023 UNITS/KG/HR 10 mls/hr IV .Q24H PENDING SALE TO [facility] Rx#: [id number] Other: # Voids 1 # Bowel Movements 0 Results 04/09/24 06:07 04/08/24 09:45 Cardiac Enzymes 04/08/24 04/08/24 04/08/24 Range/Units 09:45 09:45 14:40 AST 26 (17-59) U/L Troponin I 0.022 0.073 H* (0.000-0.034) ng/mL 04/08/24 Range/Units 16:57 AST (17-59) U/L Troponin I 0.101 H* (0.000-0.034) ng/mL Coagulation 04/08/24 04/08/24 04/09/24 Range/Units 09:45 16:57 04:00 PT 10.7 10.6 11.0 (10.0-12.5) sec APTT 25.6 25.4 37.0 H (22.0-30.0) sec CBC 04/08/24 04/08/24 Range/Units 09:45 16:57 WBC 11.0 H 10.6 (3.8-10.6) k/uL RBC 4.96 4.66 (4.30-5.90) m/uL Hgb 14.6 14.0 (13.0-17.5) gm/dL Hct 45.1 42.5 (39.0-53.0) % Plt Count 190 161 (150-450) k/uL Comprehensive Metabolic Panel 04/08/24 Range/Units 09:45 Sodium 137 (137-145) mmol/L Potassium 4.1 (3.5-5.1) mmol/L Chloride 109 H (98-107) mmol/L Carbon Dioxide 20 L (22-30) mmol/L BUN 18 (9-20) mg/dL Creatinine 1.03 (0.66-1.25) mg/dL Glucose 182 H (74-99) mg/dL Calcium 9.0 (8.4-10.2) mg/dL AST 26 (17-59) U/L ALT 25 (4-49) U/L Alkaline Phosphatase 61 (38-126) U/L Total Protein 6.7 (6.3-8.2) g/dL Albumin 3.7 (3.5-5.0) g/dL Current Medications Generic Name Dose Route Start Last Admin Trade Name Freq PRN Reason Stop Dose Admin Allopurinol 300 mg 04/09/24 09:00 Allopurinol 300 Mg Tab PO DAILY [facility]ING [facility] TO [facility] Aspirin 81 mg 04/09/24 09:00 Aspirin 81 Mg PO DAILY [facility] Atorvastatin Calcium 20 mg 04/08/24 21:00 04/08/24 20:37 Atorvastatin 20 Mg Tab PO 20 mg HS GEORGE Administration Clopidogrel Bisulfate 75 mg 04/09/24 09:00 Clopidogrel 75 Mg Tab PO DAILY GEORGE Cyclosporine 1 drops 04/08/24 21:00 04/08/24 21:54 Cyclosporine 0.05% Ophth 0.4 Ml Droperette BOTH EYES 1 drops Q12HR GEORGE Administration Dextrose/Water 25 ml 04/08/24 16:56 Dextrose 50% Syringe 50 Ml IVP PER PROTOCOL PRN Hypoglycemia Protocol Dextrose/Water 50 ml 04/08/24 16:56 Dextrose 50% Syringe 50 Ml IVP PER PROTOCOL PRN Hypoglycemia Protocol Heparin Sodium (Porcine) 0 unit 04/08/24 16:47 04/09/24 04:34 Heparin Sodium 1,000 Un/Ml (10ml Vl) IV 2,250 unit PER PROTOCOL PRN Administration Low PTT Protocol Heparin Sodium/Sodium Chloride 250 mls @ 10 mls/hr 04/08/24 17:00 04/09/24 04:35 25,000 unit/ Sodium Chloride IV 13.023 units/kg/hr .Q24H GEORGE 11.814 mls/hr Administration Protocol 11.023 UNITS/KG/HR Insulin Aspart 0 unit 04/08/24 17:30 04/08/24 21:54 Insulin Aspart (Novolog) 100 Unit/Ml Vial SQ 2 unit ACHS GEORGE Administration Protocol Lisinopril 20 mg 04/09/24 09:00 Lisinopril 20 Mg Tab PO DAILY [facility]ENDING [facility] TO [facility] Metoprolol Succinate 25 mg 04/09/24 09:00 Metoprolol Succinate (Er) 25 Mg Tab.Er.24h PO DAILY PENDING SALE TO [facility] Multivitamins 1 each 04/09/24 09:00 Multivitamins, Thera 1 Each Tab PO DAILY GEORGE Nitroglycerin 0.4 mg 04/08/24 12:18 Nitroglycerin Sl Tabs 0.4 Mg Tab SUBLINGUAL Q5M PRN Chest Pain Non-Formulary Medication 1 cap 04/08/24 21:00 04/08/24 20:39 Vitamin B Complex [Vitamin B Complex] PO Not Given HS GEORGE Tamsulosin HCl 0.4 mg 04/08/24 21:00 04/08/24 20:37 Tamsulosin 0.4 Mg Cap.Er.24h PO 0.4 mg HS GEORGE Administration Intake and Output 04/08/24 04/09/24 04/09/24 22:59 06:59 14:59 Intake Total 109.333 Balance 109.333 Intake: Intake, IV Titration 109.333 Amount Heparin Sod,Pork in 0.45% 109.333 NaCl 25,000 unit In 0.45 % NaCl 1 250ml.bag @ 11. 023 UNITS/KG/HR 10 mls/hr IV .Q24H [facility] Rx#: [id number] Other: # Voids 1 # Bowel Movements 0 04/08/24 16:57 04/08/24 09:45
[2024-04-09 11:30] LABS: Glucose,Whole Blood 134 mg/dL (70-110)
--- NOTE | 2024-04-09 13:56 | P.PN ---
Subjective Progress Note Date: 04/09/24 Hospital Course: 89-year-old male with history of CAD with recent stents, hypertension, dyslipid emia, provoked PE, BPH, diabetes presenting for chest pain. In the ED, temperature was 97.6, pulse 76, respiratory 20, blood pressure 138/63, 95% on room air. WBC 11, hemoglobin 14.6, creatinine 1.03, troponin elevated at 0.073, proBNP 443. Chest x-ray independently interpreted, shows no acute process. EKG independently interpreted, shows sinus rhythm with anteroseptal Q waves. Patient admitted for NSTEMI. Started on heparin drip. Cardiology consulted. Pending cardiac cath tomorrow. Subjective: Patient seen and examined at bedside. No acute events overnight. Claims that chest pain has not resolved. Pertinent positives and negatives as discussed above, a complete review of syste ms was performed and all other systems are negative. Vitals Signs Reviewed. General: Nontoxic, no distress, appears at stated age Derm: Warm, dry Head: Atraumatic, normocephalic, symmetric Eyes: EOMI, no lid lag, anicteric sclera Mouth: No lip lesion, mucus membranes moist Cardiovascular: S1S2 reg, no murmur Lungs: CTA bilateral, no rhonchi, no rales, no accessory muscle use Abdominal: Soft, nontender to palpation, no guarding, no appreciable organomegaly Ext: No gross muscle atrophy, no edema, no contractures Neuro: CN II-XI grossly intact, no focal neuro deficits Psych: Alert, oriented, appropriate affect Data Reviewed Today: Pertinent Labs: A1c 5.8, APTT 48.2, blood sugars range between 1 11-1 34, hemoglobin 14.8, platelet 182 Imaging: EKG independently interpreted, shows normal sinus rhythm with anteroseptal Q waves. Assessment and Plan: Active: NSTEMI Multivessel CAD status post recent stents Hypertension Dyslipidemia -Continue on heparin drip, monitor APTT and CBC. -Cardiology reviewed, pending cardiac cath tomorrow -Continue aspirin 81 mg, atorvastatin 20 mg, Plavix 75 mg daily -Continue lisinopril 20 mg daily, metoprolol 25 daily Diabetes -Sliding scale insulin, monitor for hypoglycemia Chronic: Gout BPH DVT ppx: Heparin drip Code status: Full code Anticipated discharge place: Pending clinical course Anticipated discharge time: Pending clinical course Objective - Vital Signs Vital signs: Vital Signs Temp 97.7 F 04/09/24 07:33 Pulse 82 04/09/24 11:31 Resp 16 04/09/24 11:31 BP 159/75 04/09/24 11:31 Pulse Ox 97 04/09/24 11:31 FiO2 Intake & Output 04/08/24 04/09/24 04/09/24 18:59 06:59 18:59 Intake Total 109.333 580 Balance 109.333 580 Weight 90.718 kg 90.718 kg Intake: Intake, IV Titration 109.333 Amount Heparin Sod,Pork in 0.45% 109.333 NaCl 25,000 unit In 0.45 % NaCl 1 250ml.bag @ 11. 023 UNITS/KG/HR 10 mls/hr IV .Q24H [facility] Rx#: [id number] Oral 580 Other: # Voids 1 # Bowel Movements 0 - Labs CBC & Chem 7: 04/09/24 06:07 04/08/24 09:45 Labs: Abnormal Lab Results - Last 24 Hours (Table) 04/08/24 04/08/24 04/08/24 Range/Units 14:40 16:57 21:44 Eosinophils # (0-0.7) k/uL APTT (22.0-30.0) sec POC Glucose (mg/dL) 166 H (70-110) mg/dL Troponin I 0.073 H* 0.101 H* (0.000-0.034) ng/mL 04/09/24 04/09/24 04/09/24 Range/Units 04:00 06:07 07:55 Eosinophils # 0.8 H (0-0.7) k/uL APTT 37.0 H (22.0-30.0) sec POC Glucose (mg/dL) 111 H (70-110) mg/dL Troponin I (0.000-0.034) ng/mL 04/09/24 04/09/24 Range/Units 10:36 11:28 Eosinophils # (0-0.7) k/uL APTT 48.2 H (22.0-30.0) sec POC Glucose (mg/dL) 134 H (70-110) mg/dL Troponin I (0.000-0.034) ng/mL
[2024-04-09 18:04] LABS: Glucose,Whole Blood 108 mg/dL (70-110)
[2024-04-09 20:52] LABS: Glucose,Whole Blood 105 mg/dL (70-110)
[2024-04-09] MEDS: EMPTY BAG 1 BAG with SODIUM CHLORIDE 0.9% 1,000 ML IV ONE (21:35)
[2024-04-09] MEDS: SODIUM CHLORIDE 0.9% 1,000 ML IV SCH (21:36)
[2024-04-10] MEDS: ATORVASTATIN 80 MG TAB PO ONE (05:38)
[2024-04-10] MEDS: ASPIRIN 325 MG TAB PO ONE (05:38)
[2024-04-10 06:11] LABS: Glucose,Whole Blood 113 mg/dL (70-110)
[2024-04-10] MEDS ORDERED: HEPARIN SODIUM,PORCINE 10,000 UNIT in SODIUM CHLORIDE 0.9% 1,000 ML IRRIGATION PRN (07:00)
[2024-04-10] MEDS ORDERED: ATORVASTATIN 80 MG TAB PO ONE (07:00)
[2024-04-10] MEDS ORDERED: HEPARIN SODIUM,PORCINE (1 ML) 2,500 UNIT in SODIUM CHLORIDE 0.9% 250 ML IRRIGATION PRN (07:00)
[2024-04-10] MEDS ORDERED: ASPIRIN 325 MG TAB PO ONE (07:00)
[2024-04-10] MEDS ORDERED: VERAPAMIL 2.5 MG/ML 2 ML AMP ONE (07:27)
[2024-04-10] MEDS ORDERED: LIDOCAINE 1% INJ 10MG/ML (20 ML MDV) ONE (07:27)
[2024-04-10] MEDS ORDERED: HEPARIN SODIUM 1,000 UN/ML (10ML VL) ONE (07:30)
[2024-04-10] MEDS: IV FLUID CONTINUATION 300 ML IV ONE (07:45)
[2024-04-10] MEDS: MIDAZOLAM 2 MG/2 ML VIAL IVP ONE (07:49)
[2024-04-10] MEDS: LIDOCAINE 1% INJ 10MG/ML (5 ML VIAL-PF) SQ ONE (07:52)
[2024-04-10] MEDS: HEPARIN SODIUM 1,000 UN/ML (10ML VL) IVP ONE (07:56)
[2024-04-10] MEDS: IOPAMIDOL-370 100ML BTL INJ ONE ×2 (08:12→08:15)
[2024-04-10] MEDS: ISOSORBIDE MONONITRATE ER 30 MG TAB.ER.24H PO SCH (08:42)
[2024-04-10] MEDS: SODIUM CHLORIDE 0.9% 1,000 ML IV SCH (08:43)
[2024-04-10] MEDS: METOPROLOL SUCCINATE (ER) 25 MG TAB.ER.24H PO STA (08:43)
--- NOTE | 2024-04-10 08:43 | P.CARDCATH ---
Date of Procedure: 04/10/24 Description of Procedure: History: Patient was referred for cardiac catheterization to evaluate for CAD. This is a 89-year-old gentleman with a known history of CAD and multiple previous interventions. He had a LAD PCI in 2011 and 2012. Cardiac cath revealed that the LAD at the site of intervention is patent but beyond it distally at the junction of the middle and distal one third there is a subtotal occlusion. This was also noted in recent cardiac cath from February 24 for which I recommended medical therapy but because of the significant proximal RCA lesion involving the proximal/midportion of 90% heavily calcified I performed stenting of this with a good result. He came into the hospital with chest pain and had mild troponin elevation was advised to repeat cardiac cath. I explained to the patient that if LAD has a lesion which is unchanged I would not do intervention because the amount of myocardium being supplied by it is small but if RCA or circumflex as any progression of disease I would intervene. With this understanding I proceeded with the procedure. Procedure Details: The risks, benefits, complications, treatment options, and expected outcomes were discussed with the patient. The patient and/or family concurred with the proposed plan, giving informed consent. Patient was brought to the [facility]istics laboratory [facility] after IV hydration was begun and oral premedication was given. Patient was further sedated with midazolam. Patient was prepped and draped in the usual manner. Under strict aseptic precautions and local anesthesia a 6 [place] introducer was placed in the right radial artery. Using a JL 3/5 and a JR 4/0 catheters I performed coronary angiography. I did not check LV pressure and since this was done 2 months ago. After the procedure was completed the sheaths and catheters were all removed. Hemostasis was achieved with TR band. Saturation in the fingers of the right hand was about 93%. Moderate conscious sedation time was 23 minutes. Patient's oxygen saturation hemodynamics and EKG were monitored closely. Findings: Hemodynamics: I did not check LV end-diastolic pressures Left Main: Normal short patent vessel immediately bifurcates into LAD and circumflex LAD: Good caliber vessel the proximal and middle one third has minor irregularities of less than 30% and gives off several septal branches and also diagonal branches. At the junction of the middle and distal one third there is a subtotal occlusion after which the caliber is smaller and amount of myocardium supplied is not that large. This was the lesion that was seen before it is better defined on today's pictures but since this is a chronic occlusion I am not recommending intervention. The proximal and mid LAD at the site of previous stenting is widely patent with good flow. Left posterior circumflex coronary artery good caliber vessel extends along the inferior wall gives off a high first obtuse marginal that is diffusely diseased. Main circumflex and the PLV and/PDA branch that comes off distally is patent a small secondary branch has to 60% lesions. Overall circumflex looks good CIRC: Nondominant vessel. Left posterior circumflex coronary artery good caliber vessel extends along the inferior wall gives off a high first obtuse marginal that is diffusely diseased. Main circumflex and the PLV/PDA branch that comes off distally is patent a small secondary branch has t wo 60% lesions. Overall circumflex looks good] RCA: Dominant vessel that was stented on February 24 widely patent. Ostium has a 40% narrowing no damping. The stented segment looks good there is about a 30% narrowing distally beyond the stented segment the caliber improves distally bifurcates into a large PDA and small PLV. RCA therefore is patent with a 35% narrowing beyond the stented area. LV: Not performed Closure Device: TR band Complications: None Estimated Blood Loss: Minimal Impression: This patient has a right dominant system. I did not check the filling pressures. RCA that was stented on February 25, 2024 is widely patent with 35% lesion distal to the stented area. Circumflex has diffuse disease. Moderate disease in the distal secondary branch but overall circumflex has no significant disease nondominant vessel. LAD distally at the junction of middle and distal one third has a subtotal occlusion unchanged, proximal and mid area that was stented before is widely patent with good flow. Pre Procedure Diagnosis: Non-ST elevation WV with CAD Final Post Procedure Diagnosis: Non-ST elevation WV with CAD Recommendation: Given the fact RCA is patent and has no significant disease and circumflex also overall has no significant disease, LAD distally has a subtotal occlusion but this is a chronic occlusion and amount of myocardium being supplied by the small, I am recommending aggressive medical therapy will increase beta-salena and Imdur and see how he does. Explained this to the patient and his significant other. Patient can be discharged tomorrow based on clinical course. Complications: None; patient tolerated the procedure well. Disposition: 3 S. the telemetry unit- hemodynamically stable. Condition: Stable Discharge Disposition: Discharge patient home tomorrow if stable and or even later today if stable and follow-up with Dr. Ramirez.
[2024-04-10 09:11] VITALS: RESP 17
[2024-04-10 11:32] LABS: Glucose,Whole Blood 128 mg/dL (70-110)
[2024-04-10 13:09] LABS: Basophils # (A) 0.1 k/uL (0-0.2); Basophils % (A) 1 %; Eosinophils # (A) 0.4 k/uL (0-0.7); Eosinophils % (A) 5 %; HCT 42.8 % (39.0-53.0); HGB 13.9 gm/dL (13.0-17.5); Lymphocytes # (A) 2.1 k/uL (1.0-4.8); Lymphocytes % (A) 23 %; MCH 29.9 pg (25.0-35.0); MCHC 32.5 g/dL (31.0-37.0); MCV 91.8 fL (80.0-100.0); Mean Platelet Volume 8.5; Monocytes # (A) 0.6 k/uL (0-1.0); Monocytes % (A) 6 %; Neutrophils % (A) 65 %; Platelet Count 188 k/uL (150-450); RBC 4.66 m/uL (4.30-5.90); RDW 14.4 % (11.5-15.5); WBC 9.2 k/uL (3.8-10.6)
[2024-04-10 13:29] LABS: African American GFR (CKD) 69 (>60 ml/min/1.73 sqM); Anion Gap 5 mmol/L; Blood Urea Nitrogen 20 mg/dL (9-20); Calcium 8.5 mg/dL (8.4-10.2); Carbon Dioxide 22 mmol/L (22-30); Chloride 110 mmol/L (98-107); Glucose 106 mg/dL (74-99); Magnesium 1.8 mg/dL (1.6-2.3); Non-African American GFR(CKD) 60 (>60 ml/min/1.73 sqM); Potassium 4.1 mmol/L (3.5-5.1); Sodium 137 mmol/L (137-145)
--- NOTE | 2024-04-10 14:59 | P.PN ---
Subjective Progress Note Date: 04/10/24 Consult reason: chest pain History of present illness: History of present illness: This is an 89-year-old male patient of Dr. Junior Ramirez with past medical history of non-ST [place] status postcardiac catheterization that revealed severe stenosis involving the mid right coronary artery status post angioplasty and stent placement 01/2024, history of hypertension, diabetes, TIA. We have been asked to evaluate the patient for chest pain. Patient presented to the emergency center due to chest pain and pressure similar to that he experienced in January when he received his stents. Patient states he had an episode yesterday and he took nitroglycerin seem to help for short period of time and then the pain got worse. He took another nitroglycerin and then he came into the hospital for evaluation. He states now it feels like a discomfort. It is similar to what he had with his recent stents. He has had no recent change in medications. No lower extremity edema. Patient is seen today in the emergency center waiting for bed on the cardiac stepdown unit. He has been started on a heparin drip. EKG sinus rhythm with no acute ST changes Chest x-ray: No acute process CBC, INR within normal limits. Sodium 137, potassium 4.1, BUN 18 creatinine 1.03. Blood sugar 182. Troponins 0.022, 0.073, 0.101. proBNP 443. Home cardiac medications: Aspirin 81 mg daily, atorvastatin 20 mg at bedtime, Plavix 75 mg daily, lisinopril 20 mg daily, Toprol XL 25 mg daily, nitro stat as needed. Cardiac catheterization performed 02/25/[address] Junior Ramirez reveals three-vessel coronary artery disease with focal area of narrowing in the mid RCA. Patent stent within the proximal LAD and area of stenosis in the mid LAD. Patient underwent PTCA and stenting of the proximal mid RCA with 2 drug-eluting stents. Echocardiogram performed 02/23/2024 revealed EF of 55 to 60%. Technically difficult study. Mild aortic regurgitation. Trace mitral and tricuspid regurgitation. 04/10 Patient underwent cardiac catheterization today with Dr. NOLVIA Mobley which revealed stented RCA widely patent with 35% lesion distal to the stented area. Circumflex as diffuse disease. Moderate disease in the distal secondary branch but overall circumflex has no significant disease, nondominant vessel. LAD distally at the junction of middle and distal one third are subtotal occlusion unchanged, proximal and mid area have since been stented before is widely patent with good flow. Recommendations for medical management, increase beta-salena and Imdur added. Results of the cardiac cath have been reviewed with the patient and family. Blood pressure 124/67, heart rate 65, pulse ox 98% on room air. Hemoglobin 13.9. Potassium 4.1, BUN 20 creatinine 1.09. Physical examination: Gen: This is an 89-year-old male in no acute distress VS: reviewed HEENT: Head is atraumatic, normocephalic. Pupils equal, round. Sclerae is anicteric. NECK: Supple. No JVD. LUNGS: Clear to auscultation. No wheezes or rhonchi. No intercostal retractions. HEART: Regular rate and rhythm. No murmur. ABDOMEN: Soft No tenderness. EXTREMITIES: No pedal edema. No calf tenderness. NEUROLOGICAL: Patient is awake, alert and oriented x3. Assessment: Chest pain Elevated troponins, non-ST elevated myocardial infarction with CAD History of coronary artery disease with recent non-ST NH status post stent x 2 to the RCA Hyperlipidemia Diabetes mellitus type 2 History of TIA Plan: Continue Imdur 30 mg daily Continue other cardiac medications Patient is cleared for discharge from cardiology and may follow-up with Dr. Junior Ramirez in 1 to 2 weeks. Nurse practitioner note has been reviewed, I agree with documented findings and plan of care. Patient was seen and examined. Objective - Vital Signs Vital signs: Vital Signs Temp 97.3 F L 04/10/24 08:34 Pulse 65 04/10/24 11:19 Resp 17 04/10/24 11:19 BP 124/67 04/10/24 11:19 Pulse Ox 98 04/10/24 11:19 FiO2 Intake & Output 04/09/24 04/10/24 04/10/24 18:59 06:59 18:59 Intake Total 901.768 192.174 Output Total 300 Balance 601.768 192.174 Weight 90.718 kg Intake: Intake, IV Titration 141.768 192.174 Amount Heparin Sod,Pork in 0.45% 141.768 192.174 NaCl 25,000 unit In 0.45 % NaCl 1 250ml.bag @ 11. 023 UNITS/KG/HR 10 mls/hr IV .Q24H [facility] Rx#: [id number] Oral 760 Output: Urine 300 Other: Voiding Method Toilet Toilet # Voids 1 - Labs CBC & Chem 7: 04/10/24 12:16 04/10/24 12:16 Labs: Abnormal Lab Results - Last 24 Hours (Table) 04/10/24 04/10/24 04/10/24 Range/Units 06:00 11:30 12:16 Chloride 110 H (98-107) mmol/L Glucose 106 H (74-99) mg/dL POC Glucose (mg/dL) 113 H 128 H (70-110) mg/dL
--- NOTE | 2024-04-10 16:01 | P.DS ---
Providers Date of admission: 04/09/24 12:45 Expected date of discharge: 04/10/24 Attending physician: Howie Fitch MD Consults: 04/08/24 12:18 Consult Physician Urgent Consulting Provider: Efraín Mobley Consult Reason/Comments: chest pain Do you want consulting provider notified?: Yes Primary care physician: [facility] Course: 89-year-old male with history of CAD with recent stents, hypertension, dyslipidemia, provoked PE, BPH, diabetes presenting for chest pain. In the ED, temperature was 97.6, pulse 76, respiratory 20, blood pressure 138/63, 95% on r oom air. WBC 11, hemoglobin 14.6, creatinine 1.03, troponin elevated at 0.073, proBNP 443. Chest x-ray independently interpreted, shows no acute process. EKG independently interpreted, shows sinus rhythm with anteroseptal Q waves. Patient admitted for NSTEMI. Started on heparin drip. Cardiology consulted. Cardiac cath done showing 35% lesion distal to the stented RCA, circumflex diffuse disease, moderate disease in distal second brach, LAD distally with subtotal occlusion unchanged with widely patent proximal and mid area. 04/10 Patient was seen and examined. No more chest pain. Discussed with KALANI Ordaz, Dr. Looney has cleared the patient for discharge. Prescription for Lipitor, Imdur and increased Metoprolol dose sent to pharmacy. Follow up with PCP within 1-2 days and Cardiology within 2 weeks of discharge. General: Nontoxic, no distress, appears at stated age Derm: Warm, dry Head: Atraumatic, normocephalic, symmetric Eyes: EOMI, no lid lag, anicteric sclera Mouth: No lip lesion, mucus membranes moist Cardiovascular: S1S2 reg, no murmur Lungs: CTA bilateral, no rhonchi, no rales, no accessory muscle use Ext: No gross muscle atrophy, no edema, no contractures Neuro: no focal neuro deficits Psych: Alert, oriented, appropriate affect Discharge Diagnosis: NSTEMI Multivessel CAD status post recent stents Hypertension Dyslipidemia Diabetes mellitus Chronic: Gout BPH This complex discharge took 35 minutes to complete. Patient Condition at Discharge: Stable Plan - Discharge Summary Discharge Rx Participant: No New Discharge Prescriptions: New Isosorbide Mononitrate ER [Imdur] 30 mg PO DAILY #30 tab Metoprolol Succinate (ER) [Toprol XL] 50 mg PO DAILY #30 tab Atorvastatin [Lipitor] 80 mg PO HS #30 tab Continue metFORMIN HCL [Glucophage] 500 mg PO DAILY allopurinoL [Zyloprim] 300 mg PO DAILY Vitamin B Complex 1 cap PO HS Multivitamin [Men's Multi-Vitamin] 1 tab PO DAILY Tamsulosin HCl [Flomax] 0.4 mg PO HS lisinopriL [Zestril] 20 mg PO DAILY cycloSPORINE 0.05% OPHTH SOLN [Restasis] 1 drop BOTH EYES Q12H Nitroglycerin 0.4 mg SL Q5M PRN PRN Reason: Chest Pain Aspirin 81 mg PO DAILY 90 Days #90 tab Clopidogrel [Plavix] 75 mg PO DAILY 90 Days #90 tab Discontinued Atorvastatin [Lipitor] 20 mg PO HS Metoprolol Succinate (ER) [Toprol Xl] 25 mg PO DAILY Discharge Medication List Multivitamin [Men's Multi-Vitamin] 1 tab PO DAILY 08/10/15 [History] Vitamin B Complex 1 cap PO HS 08/10/15 [History] allopurinoL [Zyloprim] 300 mg PO DAILY 08/10/15 [History] metFORMIN HCL [Glucophage] 500 mg PO DAILY 08/10/15 [History] Tamsulosin HCl [Flomax] 0.4 mg PO HS 01/07/19 [History] lisinopriL [Zestril] 20 mg PO DAILY 11/19/22 [History] Nitroglycerin 0.4 mg SL Q5M PRN 12/29/23 [History] cycloSPORINE 0.05% OPHTH SOLN [Restasis] 1 drop BOTH EYES Q12H 12/29/23 [History] Aspirin 81 mg PO DAILY 90 Days #90 tab 02/26/24 [Rx] Clopidogrel [Plavix] 75 mg PO DAILY 90 Days #90 tab 02/26/24 [Rx] Atorvastatin [Lipitor] 80 mg PO HS #30 tab 04/10/24 [Rx] Isosorbide Mononitrate ER [Imdur] 30 mg PO DAILY #30 tab 04/10/24 [Rx] Metoprolol Succinate (ER) [Toprol XL] 50 mg PO DAILY #30 tab 04/10/24 [Rx] Follow up Appointment(s)/Referral(s): Juvenal Roca MD [Primary Care Provider] - 1-2 days Garry Ramirez MD [STAFF PHYSICIAN] - 2 Weeks Activity/Diet/Wound Care/Special Instructions: do not resume metformin until friday 04/13
[2024-04-10 16:32] LABS: Glucose,Whole Blood 116 mg/dL (70-110)
[2024-04-10 17:14] VITALS: BP 120/65; PULSE 75; TEMP 98
[2024-04-10] MEDS ORDERED: ATORVASTATIN 80 MG TAB PO SCH (21:00)
[2024-04-11] MEDS ORDERED: METOPROLOL SUCCINATE (ER) 50 MG TAB.ER.24H PO SCH (09:00)
== END 2024-04-10 18:02 | disposition home or self-care (01) | DRG 282 ==
LOC: EC 09:22 → 6NMEDSUR 13:15 → 3SCARD 18:51 → OBSVTOIN 04-09 12:45 → 3SCARD 04-09 17:36
PROVIDERS: ADMIT Student in an Organized Health Care Education/Training Program; ATTEND Student in an Organized Health Care Education/Training Program
PROC: B2111ZZ Fluoroscopy of Multiple Coronary Arteries using Low Osmolar Contrast (ICD-10-PCS; principal; 2024-04-10 07:30)
DX: I21.4 Non-ST elevation (NSTEMI) myocardial infarction (principal); E11.36 Type 2 diabetes mellitus with diabetic cataract; I10 Essential (primary) hypertension; I69.398 Other sequelae of cerebral infarction; I35.1 Nonrheumatic aortic (valve) insufficiency; I25.10 Atherosclerotic heart disease of native coronary artery without angina pectoris; I25.84 Coronary atherosclerosis due to calcified coronary lesion; I25.2 Old myocardial infarction; E78.5 Hyperlipidemia, unspecified; H26.9 Unspecified cataract; N40.0 Benign prostatic hyperplasia without lower urinary tract symptoms; M10.9 Gout, unspecified; H54.61 Unqualified visual loss, right eye, normal vision left eye; G89.29 Other chronic pain; M54.50 Low back pain, unspecified; K57.90 Diverticulosis of intestine, part unspecified, without perforation or abscess without bleeding; M19.90 Unspecified osteoarthritis, unspecified site; Z79.82 Long term (current) use of aspirin; Z79.02 Long term (current) use of antithrombotics/antiplatelets; Z79.84 Long term (current) use of oral hypoglycemic drugs; Z79.899 Other long term (current) drug therapy; Z95.5 Presence of coronary angioplasty implant and graft; Z86.16 Personal history of COVID-19; Z86.711 Personal history of pulmonary embolism
CPT/HCPCS: 36415; 71046; 80048; 80053; 83036; 83735; 83880; 84484; 85025; 85610; 85730; 93005; 93454; 99285

== ENCOUNTER 2024-10-21 10:43 | Inpatient (IN) | payer MEDICARE ==
--- NOTE | 2024-10-21 11:04 | ED ---
Chest Pain HPI - General Chief Complaint: Chest Pain Stated Complaint: chest pain Time Seen by Provider: 10/21/24 11:00 Source: patient, family, RN notes reviewed Mode of arrival: wheelchair Limitations: no limitations - History of Present Illness Initial Comments: This is an 89-year-old male who presents to the emergency department for chest pain. States that it started around 8-8:30 this morning. Pain is described as a pressure across his chest. States that this feels like the same pain he had when he had a heart attack in January of this year. He has a total of 6 stents. He took 2 full dose aspirin and a total of 2 nitroglycerin before arrival. He had relief after each dose of nitroglycerin. States that he feels like he is having difficulty catching his breath as well. Currently follows with Dr. Ramirez, cardiology. Complaint: chest pain - Related Data Home Medications Medication Instructions Recorded Confirmed Multivitamin [Men's Multi-Vitamin] 1 tab PO DAILY 08/10/15 10/21/24 Vitamin B Complex 1 cap PO HS 08/10/15 10/21/24 allopurinoL [Zyloprim] 300 mg PO DAILY 08/10/15 10/21/24 metFORMIN HCL [Glucophage] 500 mg PO DAILY 08/10/15 10/21/24 Tamsulosin HCl [Flomax] 0.4 mg PO HS 01/07/19 10/21/24 lisinopriL [Zestril] 20 mg PO DAILY 11/19/22 10/21/24 Nitroglycerin 0.4 mg SL Q5M PRN 12/29/23 10/21/24 cycloSPORINE 0.05% OPHTH SOLN 1 drop BOTH EYES BID 12/29/23 10/21/24 [Restasis] Aspirin 81 mg PO HS 10/21/24 10/21/24 Atorvastatin [Lipitor] 80 mg PO DAILY 10/21/24 10/21/24 Isosorbide Mononitrate ER [Imdur] 60 mg PO BID 10/21/24 10/21/24 Metoprolol Succinate (ER) [Toprol 50 mg PO HS 10/21/24 10/21/24 XL] Ranolazine [Ranexa] 500 mg PO BID 10/21/24 10/21/24 Turmeric(Unknown Dose) 1 tab PO HS 10/21/24 10/21/24 Vitamin D3(Unknown Dose) 1 tab PO DAILY 10/21/24 10/21/24 Previous Rx's Medication Instructions Recorded Clopidogrel [Plavix] 75 mg PO DAILY 90 Days #90 tab 02/26/24 Allergies Allergy/AdvReac Type Severity Reaction Status Date / Time No Known Allergies Allergy Verified 10/21/24 12:24 Review of Systems ROS Statement: Those systems with pertinent positive or pertinent negative responses have been documented in the HPI. ROS Other: All systems not noted in ROS Statement are negative. 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 Past Anesthesia/Blood Transfusion Reactions: No Reported Reaction Date of Last Stent Placement:: 2012 Past Psychological History: No Psychological Hx Reported Smoking Status: Never smoker Past Alcohol Use History: Occasional Past Drug Use History: None Reported - Past Family History Father Family Medical History: CVA/TIA Additional Family Medical History / Comment(s): Father of a CVA at the age of 44yrs. Mother Family Medical History: Cancer, Diabetes Mellitus Additional Family Medical History / Comment(s): Heart problems, pt cannot recall type of cancer. General Exam Limitations: no limitations General appearance: alert, in no apparent distress Head exam: Present: atraumatic, normocephalic, normal inspection Respiratory exam: Present: normal lung sounds bilaterally. Absent: respiratory distress, wheezes, rales, rhonchi, stridor Cardiovascular Exam: Present: regular rate, normal rhythm Neurological exam: Present: alert, oriented X3, CN II-XII intact Psychiatric exam: Present: normal affect, normal mood Skin exam: Present: warm, dry, intact, normal color. Absent: rash Course Vital Signs 10/21/24 10/21/24 10/21/24 10:59 11:02 12:39 Temperature 98.7 F Pulse Rate 77 77 77 Respiratory 18 20 18 Rate Blood Pressure 171/83 169/82 170/86 O2 Sat by Pulse 99 98 95 Oximetry 10/21/24 14:00 Temperature Pulse Rate 75 Respiratory 18 Rate Blood Pressure 171/83 O2 Sat by Pulse 94 L Oximetry Chest Pain MDM - MDM This is an 89-year-old male who presents to the emergency department for chest pain. Was pt. sent in by a medical professional or institution? @ -No Did you speak to anyone other than the patient for history? @ -No Did you review nursing and triage notes? @ -Yes, and I agree, it is accurate with regards to the patient's symptoms. Were old charts reviewed? @ -No Differential Diagnosis? @ -Differential Chest Pain: Stable Angina, Unstable Angina, STEMI, NSTEMI Aortic Dissection, Pneumothorax, Musculoskeletal, Esophageal Spasm GERD, Cholecystitis, Pancreatitis, Zoster, this is not meant to be an all-inclusive list. EKG interpreted by me (3pts min.)? @ -EKG interpreted by me demonstrating the following: Sinus rhythm. Ventricular rate 71 bpm, RI interval 190 ms, QRS duration 90 ms, QTc 367 ms. X-rays interpreted by me (1pt min.)? @ -Chest x-ray obtained, my interpretation identifies no localized consolidations or infiltrates. CT interpreted by me (1pt min.)? @ -Not obtained U/S interpreted by me (1pt. min.)? @ -Not obtained What testing was considered but not performed? (CT, X-rays, U/S, labs)? Why? @ -None What meds were considered but not given? Why? @ -None Did you discuss the management of the patient with other professionals? @ -Yes, Dr. Santacruz, who accepts the patient for admission. Did you reconcile home meds? @ -No Was smoking cessation discussed for >3mins.? @ -No Was critical care preformed (if so, how long)? @ -Yes, >35 minutes Were there social determinants of health that impacted care today? How? (Homelessness, low income, unemployed, alcoholism, drug addiction, transportation, low edu. Level, literacy, decrease access to med. care, fci, rehab)? @ -No Was there de-escalation of care discussed even if they declined? (Discuss DNR or withdrawal of care, Hospice)? @ -No What co-morbidities impacted this encounter? (DM, HTN, Smoking, COPD, CAD, Cancer, CVA, Hep., AIDS, mental health diagnosis, sleep apnea, morbid obesity)? @ -CAD, DM, HLD, HTN Was patient admitted / discharged? @ -Admitted. On arrival patient's chest pain had improved but was still present. Nitropaste applied. He had already taken aspirin before arrival. Lab work demonstrates an elevated troponin of 0.036. Lab work also demonstrates signs of dehydration and was otherwise unremarkable. Chest x-ray reveals no acute process. Patient started on heparin drip for NSTEMI and admitted to medicine with cardiology evaluation. Serial troponins ordered. Case discussed with ED attending Dr. Watson. Undiagnosed new problem with uncertain prognosis? @ -None Drug Therapy requiring intensive monitoring for toxicity (Heparin, Nitro, Insulin, Cardizem)? @ -Heparin Were any procedures done? @ -None Diagnosis/symptom? @ -NSTEMI Acute, or Chronic, or Acute on Chronic? @ -Acute Uncomplicated (without systemic symptoms) or Complicated (systemic symptoms)? @ -Complicated Side effects of treatment? @ -None Exacerbation, Progression, or Severe Exacerbation] @ -Not applicable Poses a threat to life or bodily function? @ -Yes, if due to ACS it can lead to Critical Care Time Critical Care Time: Yes Critical Care Time: >35 minutes Disposition Clinical Impression: NSTEMI (non-ST elevated myocardial infarction) Disposition: ADMITTED IP TO THIS HOSP
[2024-10-21] MEDS: NITROGLYCERIN OINT 1 INCH/GM PACKET TOPICAL STA (11:36)
[2024-10-21 11:39] LABS: Basophils # (A) 0.1 k/uL (0-0.2); Basophils % (A) 1 %; Eosinophils # (A) 0.7 k/uL (0-0.7); Eosinophils % (A) 7 %; HCT 42.7 % (39.0-53.0); HGB 14.4 gm/dL (13.0-17.5); Lymphocytes # (A) 1.6 k/uL (1.0-4.8); Lymphocytes % (A) 17 %; MCH 30.9 pg (25.0-35.0); MCHC 33.7 g/dL (31.0-37.0); MCV 91.7 fL (80.0-100.0); Mean Platelet Volume 9.2; Monocytes # (A) 0.4 k/uL (0-1.0); Monocytes % (A) 5 %; Neutrophils # (A) 6.9 k/uL (1.3-7.7); Neutrophils % (A) 71 %; Platelet Count 149 k/uL (150-450); RBC 4.66 m/uL (4.30-5.90); WBC 9.7 k/uL (3.8-10.6)
[2024-10-21 11:54] LABS: Partial Thromboplastin Time 25.5 sec (22.0-30.0)
[2024-10-21 11:56] LABS: ALT 21 U/L (4-49); AST 21 U/L (17-59); African American GFR (CKD) 57 (>60 ml/min/1.73 sqM); Albumin 3.8 g/dL (3.5-5.0); Alkaline Phosphatase 59 U/L (38-126); Anion Gap 8 mmol/L; Blood Urea Nitrogen 23 mg/dL (9-20); Calcium 8.9 mg/dL (8.4-10.2); Carbon Dioxide 22 mmol/L (22-30); Chloride 107 mmol/L (98-107); Glucose 144 mg/dL (74-99); Magnesium 1.8 mg/dL (1.6-2.3); Non-African American GFR(CKD) 49 (>60 ml/min/1.73 sqM); Potassium 4.3 mmol/L (3.5-5.1); Sodium 137 mmol/L (137-145); Total Bilirubin 0.6 mg/dL (0.2-1.3); Total Protein 6.5 g/dL (6.3-8.2)
[2024-10-21] MEDS ORDERED: NITROGLYCERIN SL TABS 0.4 MG TAB SUBLINGUAL PRN (12:12)
--- NOTE | 2024-10-21 12:21 | XR ---
EXAMINATION TYPE: XR chest 2V DATE OF EXAM: 10/21/2024 11:57 AM COMPARISON: Chest radiographs from 04/08/2024. CLINICAL INDICATION: Male, 89 years old with history of Chest Pain; TECHNIQUE: XR chest 2V Frontal and lateral views of the chest. FINDINGS: Lungs/Pleura: Prominent interstitial lung markings are seen scattered throughout the lungs. No eviden ce of focal consolidation, pneumothorax or pleural effusion. Pulmonary vascularity: Unremarkable. Heart/mediastinum: Cardiomediastinal silhouette is unremarkable. Musculoskeletal: No acute osseous pathology. Other findings: None IMPRESSION: Chronic changes without acute pulmonary process. No significant change from prior. [facility], , 10/21/2024 12:19 PM
[2024-10-21] MEDS ORDERED: NALOXONE 0.4 MG/ML 1 ML VIAL IV PRN (12:32)
[2024-10-21] MEDS ORDERED: ONDANSETRON 4 MG/2 ML VIAL IVP PRN (12:32)
[2024-10-21] MEDS ORDERED: MORPHINE SULFATE 4 MG/ML SYRINGE IV PRN (12:32)
[2024-10-21] MEDS ORDERED: ACETAMINOPHEN TAB 325 MG TAB PO PRN (12:32)
[2024-10-21] MEDS ORDERED: HYDROcodone/APAP 5-325MG 1 EACH TAB PO PRN (12:32)
[2024-10-21] MEDS: HEPARIN SOD,PORK IN 0.45% NACL 25,000 UNIT in 0.45% NACL 1 250ML.BAG IV SCH (12:34)
[2024-10-21] MEDS: HEPARIN SODIUM 1,000 UN/ML (10ML VL) IV ONE (12:35)
[2024-10-21] MEDS: SODIUM CHLORIDE 0.9% 500 ML 500 ML IV STA (12:36)
--- NOTE | 2024-10-21 15:22 | P.HPIM ---
History of Present Illness H&P Date: 10/21/24 89-year-old male with history of CAD with recent stents, hypertension, dyslipidemia, provoked PE, BPH, diabetes presenting for chest pain. Described as chest heaviness across the top of the chest that started at 830 AM. Took nitro SL which helped but chest pain returned after breakfast which prompted this admission. Recent cardiac cath done in April showing 35% lesion distal to the stented RCA, circumflex diffuse disease, moderate disease in distal second brach, LAD distally with subtotal occlusion unchanged with widely patent proximal and mid area.No diaphoresis, lightheadedness, palpitations or shortness of breath. In the ED he underwent extensive evaluation. BP 171/83, HR 77, T 98,7F, RR 18, 99% on RA. CBC, Coag panel, CMP significant for Plt 149, BUN 23, Cr 1.28, glu 144. Trop 0.036. Mag 1.8. EKG sinus rhythm with Q waves in V1 V2. CXR no acute pathology. Patient admitted for NSTEMI and started on heparin infusion. General: Nontoxic, no distress, appears at stated age Derm: Warm, dry Head: Atraumatic, normocephalic, symmetric Eyes: EOMI, no lid lag, anicteric sclera Mouth: No lip lesion, mucus membranes moist Cardiovascular: S1S2 reg, no murmur Lungs: CTA bilateral, no rhonchi, no rales, no accessory muscle use Ext: No gross muscle atrophy, no edema, no contractures Neuro: no focal neuro deficits Psych: Alert, oriented, appropriate affect Based on my assessment of this patient, this patient meets a high complexity level of care. NSTEMI: Trend Trop/EKG to rule out ACS. Heparin drip, monitor APTT. Nitropaste. Telemetry monitoring. ASA 81 mg PO QD. Lipitor 80 mg PO QD. Plavix 75 mg PO QD. Metoprolol 50 mg PO QD. Multivessel CAD status post recent stents: Ranexa 500 mg PO BID. ASA, Lipitor, Plavix and Metoprolol as above. Hypertension: Imdur 60 mg PO BID. Lisinopril 20 mg PO QD. CKD: Appears at baseline. Dyslipidemia: Lipitor as above. Diabetes mellitus: ISS. Accuchecks ACHS. Hypoglycemic precautions. Gout: Allopurinol 300 mg PO QD. BPH: Flomax 0.4 mg PO QD. CODE STATUS: FULL CODE DVT Prophylaxis: Heparin drip GI Prophylaxis: Protonix IV Designated medical POA if patient is not able to make medical decisions for themselves: I have reviewed the following data quality consultant notes: ED note. I have reviewed the results of the following tests: As above. I have ordered the following tests: As above. 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 Past Anesthesia/Blood Transfusion Reactions: No Reported Reaction Date of Last Stent Placement:: 2012 Past Psychological History: No Psychological Hx Reported Smoking Status: Never smoker Past Alcohol Use History: Occasional Past Drug Use History: None Reported - Past Family History Father Family Medical History: CVA/TIA Additional Family Medical History / Comment(s): Father of a CVA at the age of 44yrs. Mother Family Medical History: Cancer, Diabetes Mellitus Additional Family Medical History / Comment(s): Heart problems, pt cannot recall type of cancer. Medications and Allergies Home Medications Medication Instructions Recorded Confirmed Type Multivitamin [Men's Multi-Vitamin] 1 tab PO DAILY 08/10/15 10/21/24 History Vitamin B Complex 1 cap PO HS 08/10/15 10/21/24 History allopurinoL [Zyloprim] 300 mg PO DAILY 08/10/15 10/21/24 History metFORMIN HCL [Glucophage] 500 mg PO DAILY 08/10/15 10/21/24 History Tamsulosin HCl [Flomax] 0.4 mg PO HS 01/07/19 10/21/24 History lisinopriL [Zestril] 20 mg PO DAILY 11/19/22 10/21/24 History Nitroglycerin 0.4 mg SL Q5M PRN 12/29/23 10/21/24 History cycloSPORINE 0.05% OPHTH SOLN 1 drop BOTH EYES BID 12/29/23 10/21/24 History [Restasis] Clopidogrel [Plavix] 75 mg PO DAILY 90 Days #90 tab 02/26/24 10/21/24 Rx Aspirin 81 mg PO HS 10/21/24 10/21/24 History Atorvastatin [Lipitor] 80 mg PO DAILY 10/21/24 10/21/24 History Isosorbide Mononitrate ER [Imdur] 60 mg PO BID 10/21/24 10/21/24 History Metoprolol Succinate (ER) [Toprol 50 mg PO HS 10/21/24 10/21/24 History XL] Ranolazine [Ranexa] 500 mg PO BID 10/21/24 10/21/24 History Turmeric(Unknown Dose) 1 tab PO HS 10/21/24 10/21/24 History Vitamin D3(Unknown Dose) 1 tab PO DAILY 10/21/24 10/21/24 History Allergies Allergy/AdvReac Type Severity Reaction Status Date / Time No Known Allergies Allergy Verified 10/21/24 12:24 Physical Exam Vitals: Vital Signs Temp Pulse Resp BP Pulse Ox 10/21/24 14:00 75 18 171/83 94 L 10/21/24 12:39 77 18 170/86 95 10/21/24 11:02 77 20 169/82 98 10/21/24 10:59 98.7 F 77 18 171/83 99 Intake and Output 10/21/24 10/21/24 10/21/24 06:59 14:59 22:59 Other: Weight 95.254 kg Results CBC & Chem 7: 10/21/24 10:49 10/21/24 10:49 Labs: Abnormal Lab Results - Last 24 Hours (Table) 10/21/24 10/21/24 10/21/24 Range/Units 10:49 10:49 10:49 Plt Count 149 L (150-450) k/uL BUN 23 H (9-20) mg/dL Creatinine 1.28 H (0.66-1.25) mg/dL Glucose 144 H (74-99) mg/dL Troponin I 0.036 H* (0.000-0.034) ng/mL
[2024-10-21 20:16] LABS: Glucose,Whole Blood 183 mg/dL (70-110)
[2024-10-21] MEDS: RANOLAZINE 500 MG TAB.ER.12H PO SCH (20:58)
[2024-10-21] MEDS: ISOSORBIDE MONONITRATE ER 60 MG TAB.ER.24H PO SCH (20:58)
[2024-10-21] MEDS: METOPROLOL SUCCINATE (ER) 50 MG TAB.ER.24H PO SCH (20:58)
[2024-10-21] MEDS: TAMSULOSIN 0.4 MG CAP.ER.24H PO SCH (20:58)
[2024-10-22 06:06] LABS: Glucose,Whole Blood 125 mg/dL (70-110)
[2024-10-22] MEDS: ASPIRIN 81 MG PO SCH (08:20)
[2024-10-22] MEDS: lisinopriL 20 MG TAB PO SCH (08:20)
[2024-10-22] MEDS: ATORVASTATIN 80 MG TAB PO SCH (08:20)
[2024-10-22] MEDS: CLOPIDOGREL 75 MG TAB PO SCH (08:20)
[2024-10-22] MEDS: allopurinoL 300 MG TAB PO SCH (08:21)
[2024-10-22] MEDS: PANTOPRAZOLE 40 MG/10 ML VIAL IV SCH (08:21)
[2024-10-22] MEDS ORDERED: ASPIRIN 325 MG TAB PO SCH (09:00)
[2024-10-22 10:38] LABS: Chol/HDL Ratio 2.04 Ratio; LDL Cholesterol,Calculated 23.4 mg/dL (0.0-131.0)
[2024-10-22] MEDS ORDERED: ALPRAZolam 0.5 MG TAB PO PRN (11:20)
[2024-10-22] MEDS ORDERED: NITROGLYCERIN SL TABS 0.4 MG TAB SUBLINGUAL PRN (11:20)
[2024-10-22] MEDS ORDERED: ALPRAZolam 0.25 MG TAB PO PRN (11:20)
[2024-10-22 11:21] LABS: Glucose,Whole Blood 125 mg/dL (70-110)
[2024-10-22] MEDS: SODIUM CHLORIDE 0.9% 1,000 ML IV SCH (11:58)
--- NOTE | 2024-10-22 12:21 | P.CRDCN ---
History of Present Illness Consult date: 10/22/24 Reason for Consult (text): NSTEMI History of present illness: This is an 89-year-old male patient of Dr. Zackery Ramirez with past medical history of hypertension, hyperlipidemia, diabetes, coronary artery disease with previous stents with most recent stents 02/26/2024. We have been asked to evaluate the patient for NSTEMI. Patient states he has been on Imdur and Ranexa and dosages were increased. He states he was doing fine until yesterday morning when chest pain returned to the upper chest that was similar to that with previous stents. He is also experiencing fatigue with little activity. First thing yesterday morning while sitting on the edge of his bed, he took 2 nitroglycerine with improvement. He then went to the kitchen and made breakfast. After he started eating, he did not feel right and decided to come into the hospital. He denies chest pain at this time. Blood pressure 122/56, heart rate 66, pulse ox 94% on room air. Patient has been started on heparin drip. Discussed option of left heart catheterization and patient is agreeable to move forward and patient may require a staged approach for PCI if advised. -EKG: Sinus rhythm with -Chest x-ray: Chronic changes without acute pulmonary process. -Laboratory studies: Troponins 0.036, 0.510, 4.23. Hemoglobin 14.4, platelet count 149. BUN 23 creatinine 1.28. -Home cardiac medications: Aspirin 81 mg daily, atorvastatin 80 mg daily, Plavix 75 mg daily, Imdur 60 mg twice daily, lisinopril 20 mg daily, Toprol-XL 50 mg daily, nitroglycerin sublingual as needed, Ranexa 500 mg twice daily. -Cardiac catheterization performed 04/10/[address] NOLVIA Mobley revealed RCA that was stented in January 2024 was widely patent with 35% lesion distal to the stented area. Circumflex has diffuse disease. Moderate disease in the distal secondary branch but overall circumflex has no significant disease nondominant vessel. LAD distally at the junction of middle and distal one third are subtotal occlusion and unchanged. Proximal and mid area stented before is widely patent with good flow. Recommended medical management. -Cardiac catheterization performed 02/26/2024 revealed three-vessel coronary artery disease with focal area of narrowing in the mid RCA. Patent stent within the proximal LAD and area of stenosis in the mid LAD. And PTCA and stenting of the proximal/mid RCA with 2 LIAM -Echocardiogram performed 02/23/2024 reveals technically difficult study. Normal LV size and systolic function. Mild aortic regurgitation. Trace mitral and tricuspid regurgitation. Very limited Doppler study. Review Of Systems: At the time of my exam: CONSTITUTIONAL: Denies fever or chills. HEENT: Denies blurred vision, vision changes, or eye pain. Denies hemoptysis CARDIOVASCULAR: Denies chest pain. Denies orthopnea. Denies PND. Denies palpitations RESPIRATORY: Denies shortness of breath. GASTROINTESTINAL: Denies abdominal pain. Denies nausea or vomiting. HEMATOLOGIC: Denies bleeding disorders. GENITOURINARY: Denies any blood in urine. SKIN: Denies puritis. Denies rash. Physical examination: Gen: This is an 89-year-old male patient in no acute distress. VS: reviewed HEENT: Head is atraumatic, normocephalic. Pupils equal, round. Sclerae is anicteric. NECK: Supple. No JVD. LUNGS: Clear to auscultation. No wheezes or rhonchi. No intercostal retractions. HEART: Regular rate and rhythm. No murmur. ABDOMEN: Soft No tenderness. EXTREMITIES: No pedal edema. No calf tenderness. NEUROLOGICAL: Patient is awake, alert and oriented x3. Assessment: NSTEMI Acute kidney injury Coronary artery disease with previous stenting as above Hypertension Hyperlipidemia Diabetes Plan: Resume patient's home cardiac medications Continue heparin drip Obtain 2-D echocardiogram and Doppler study to assess cardiac structure and function Schedule patient for [facility] with Dr. Ramirez on Saturday N.p.o. after midnight Further recommendations to follow based upon clinical course Thank you kindly for this consultation. Nurse practitioner note has been reviewed, I agree with documented findings and plan of care. Patient was seen and examined. 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 Past Anesthesia/Blood Transfusion Reactions: No Reported Reaction Date of Last Stent Placement:: 2012 Past Psychological History: No Psychological Hx Reported Additional Psychological History / Comment(s): Pt resides alone. He uses a cane. Smoking Status: Never smoker Past Alcohol Use History: Occasional Past Drug Use History: None Reported - Past Family History Father Family Medical History: CVA/TIA Additional Family Medical History / Comment(s): Father of a CVA at the age of 44yrs. Mother Family Medical History: Cancer, Diabetes Mellitus Additional Family Medical History / Comment(s): Heart problems, pt cannot recall type of cancer. Medications and Allergies Home Medications Medication Instructions Recorded Confirmed Type Multivitamin [Men's Multi-Vitamin] 1 tab PO DAILY 08/10/15 10/21/24 History Vitamin B Complex 1 cap PO HS 08/10/15 10/21/24 History allopurinoL [Zyloprim] 300 mg PO DAILY 08/10/15 10/21/24 History metFORMIN HCL [Glucophage] 500 mg PO DAILY 08/10/15 10/21/24 History Tamsulosin HCl [Flomax] 0.4 mg PO HS 01/07/19 10/21/24 History lisinopriL [Zestril] 20 mg PO DAILY 11/19/22 10/21/24 History Nitroglycerin 0.4 mg SL Q5M PRN 12/29/23 10/21/24 History cycloSPORINE 0.05% OPHTH SOLN 1 drop BOTH EYES BID 12/29/23 10/21/24 History [Restasis] Clopidogrel [Plavix] 75 mg PO DAILY 90 Days #90 tab 02/26/24 10/21/24 Rx Aspirin 81 mg PO HS 10/21/24 10/21/24 History Atorvastatin [Lipitor] 80 mg PO DAILY 10/21/24 10/21/24 History Isosorbide Mononitrate ER [Imdur] 60 mg PO BID 10/21/24 10/21/24 History Metoprolol Succinate (ER) [Toprol 50 mg PO HS 10/21/24 10/21/24 History XL] Ranolazine [Ranexa] 500 mg PO BID 10/21/24 10/21/24 History Turmeric(Unknown Dose) 1 tab PO HS 10/21/24 10/21/24 History Vitamin D3(Unknown Dose) 1 tab PO DAILY 10/21/24 10/21/24 History Allergies Allergy/AdvReac Type Severity Reaction Status Date / Time No Known Allergies Allergy Verified 10/21/24 12:24 Physical Exam Vitals: Vital Signs Temp Pulse Pulse Resp BP BP Pulse Ox 10/22/24 04:30 66 16 122/56 94 L 10/21/24 23:45 76 16 114/64 97 10/21/24 20:30 98.2 F 78 16 148/75 96 10/21/24 18:04 16 10/21/24 17:31 67 16 150/66 98 10/21/24 17:02 77 18 105/94 96 10/21/24 16:00 74 16 169/77 98 10/21/24 14:00 75 18 171/83 94 L 10/21/24 12:39 77 18 170/86 95 10/21/24 11:02 77 20 169/82 98 10/21/24 10:59 98.7 F 77 18 171/83 99 Intake and Output 10/21/24 10/22/24 10/22/24 22:59 06:59 14:59 Intake Total 150 Output Total 150 Balance 0 Intake: Oral 150 Output: Urine 150 Other: Voiding Method Toilet Toilet Urinal Urinal # Voids 1 Weight 95.254 kg 94 kg Results 10/21/24 10:49 10/21/24 10:49 Cardiac Enzymes 10/21/24 10/21/24 10/21/24 Range/Units 10:49 10:49 14:30 AST 21 (17-59) U/L Troponin I 0.036 H* 0.510 H* (0.000-0.034) ng/mL 10/21/24 Range/Units 18:35 AST (17-59) U/L Troponin I 4.230 H* (0.000-0.034) ng/mL Coagulation 10/21/24 10/21/24 10/22/24 Range/Units 10:49 18:35 06:35 PT 11.0 (10.0-12.5) sec APTT 25.5 59.4 H 49.3 H (22.0-30.0) sec CBC 10/21/24 Range/Units 10:49 WBC 9.7 (3.8-10.6) k/uL RBC 4.66 (4.30-5.90) m/uL Hgb 14.4 (13.0-17.5) gm/dL Hct 42.7 (39.0-53.0) % Plt Count 149 L (150-450) k/uL Comprehensive Metabolic Panel 10/21/24 Range/Units 10:49 Sodium 137 (137-145) mmol/L Potassium 4.3 (3.5-5.1) mmol/L Chloride 107 (98-107) mmol/L Carbon Dioxide 22 (22-30) mmol/L BUN 23 H (9-20) mg/dL Creatinine 1.28 H (0.66-1.25) mg/dL Glucose 144 H (74-99) mg/dL Calcium 8.9 (8.4-10.2) mg/dL AST 21 (17-59) U/L ALT 21 (4-49) U/L Alkaline Phosphatase 59 (38-126) U/L Total Protein 6.5 (6.3-8.2) g/dL Albumin 3.8 (3.5-5.0) g/dL Current Medications Generic Name Dose Route Start Last Admin Trade Name Freq PRN Reason Stop Dose Admin Acetaminophen 650 mg 10/21/24 12:32 Acetaminophen Tab 325 Mg Tab PO Q6HR PRN Mild Pain or Fever > 100.5 Hydrocodone Bitart/Acetaminophen 1 each 10/21/24 12:32 Hydrocodone/Apap 5-325mg 1 Each Tab PO Q4HR PRN Moderate Pain (Scale 4 to 6) Allopurinol 300 mg 10/22/24 09:00 Allopurinol 300 Mg Tab PO DAILY [facility] Aspirin 81 mg 10/22/24 09:00 Aspirin 81 Mg PO DAILY [facility] Atorvastatin Calcium 80 mg 10/22/24 09:00 Atorvastatin 80 Mg Tab PO DAILY [facility] Clopidogrel Bisulfate 75 mg 10/22/24 09:00 Clopidogrel 75 Mg Tab PO DAILY [facility] Heparin Sodium/Sodium Chloride 250 mls @ 10 mls/hr 10/21/24 12:15 10/21/24 12:34 25,000 unit/ Sodium Chloride IV 10.498 units/kg/hr .Q24H GEORGE 10 mls/hr Administration Protocol 10.498 UNITS/KG/HR Isosorbide Mononitrate 60 mg 10/21/24 21:00 10/21/24 20:58 Isosorbide Mononitrate Er 60 Mg Tab.Er.24h PO 60 mg BID GEORGE Administration Lisinopril 20 mg 10/22/24 09:00 Lisinopril 20 Mg Tab PO DAILY [facility] Metoprolol Succinate 50 mg 10/21/24 21:00 10/21/24 20:58 Metoprolol Succinate (Er) 50 Mg Tab.Er.24h PO 50 mg HS GEORGE Administration Morphine Sulfate 4 mg 10/21/24 12:32 Morphine Sulfate 4 Mg/Ml Syringe IV Q4HR PRN Severe Pain (Scale 7 to 10) Naloxone HCl 0.2 mg 10/21/24 12:32 Naloxone 0.4 Mg/Ml 1 Ml Vial IV Q2M PRN Opioid Reversal Nitroglycerin 0.4 mg 10/21/24 12:12 Nitroglycerin Sl Tabs 0.4 Mg Tab SUBLINGUAL Q5M PRN Chest Pain Ondansetron HCl 4 mg 10/21/24 12:32 Ondansetron 4 Mg/2 Ml Vial IVP Q8HR PRN Nausea And Vomiting Pantoprazole Sodium 40 mg 10/22/24 09:00 Pantoprazole 40 Mg/10 Ml Vial IV DAILY [facility] Ranolazine 500 mg 10/21/24 21:00 10/21/24 20:58 Ranolazine 500 Mg Tab.Er.12h PO 500 mg BID GEORGE Administration Tamsulosin HCl 0.4 mg 10/21/24 21:00 10/21/24 20:58 Tamsulosin 0.4 Mg Cap.Er.24h PO 0.4 mg HS GEORGE Administration Intake and Output 10/21/24 10/22/24 10/22/24 22:59 06:59 14:59 Intake Total 150 Output Total 150 Balance 0 Intake: Oral 150 Output: Urine 150 Other: Voiding Method Toilet Toilet Urinal Urinal # Voids 1 Weight 95.254 kg 94 kg 10/21/24 10:49 10/21/24 10:49
--- NOTE | 2024-10-22 15:02 | P.PN ---
Subjective Progress Note Date: 10/22/24 89-year-old male with history of CAD with recent stents, hypertension, dyslipidemia, provoked PE, BPH, diabetes presenting for chest pain. Described as chest heaviness across the top of the chest that started at 830 AM. Took nitro SL which helped but chest pain returned after breakfast which prompted this admission. Recent cardiac cath done in April showing 35% lesion distal to the stented RCA, circumflex diffuse disease, moderate disease in distal second brach, LAD distally with subtotal occlusion unchanged with widely patent proximal and mid area.No diaphoresis, lightheadedness, palpitations or shortness of breath. In the ED he underwent extensive evaluation. BP 171/83, HR 77, T 98,7F, RR 18, 99% on RA. CBC, Coag panel, CMP significant for Plt 149, BUN 23, Cr 1.28, glu 144. Trop 0.036. Mag 1.8. EKG sinus rhythm with Q waves in V1 V2. CXR no acute pathology. Patient admitted for NSTEMI and started on heparin infusion. 10/22 Patient was seen and examined. Maintained on heparin drip. Troponin 0.51, 4.23. APTT 49.3. Lipid panel LDL 23.4. Cardiology plans on cardiac cath tomorrow. General: Nontoxic, no distress, appears at stated age Derm: Warm, dry Head: Atraumatic, normocephalic, symmetric Eyes: EOMI, no lid lag, anicteric sclera Mouth: No lip lesion, mucus membranes moist Cardiovascular: S1S2 reg, no murmur Lungs: CTA bilateral, no rhonchi, no rales, no accessory muscle use Ext: No gross muscle atrophy, no edema, no contractures Neuro: no focal neuro deficits Psych: Alert, oriented, appropriate affect Based on my assessment of this patient, this patient meets a high complexity level of care. NSTEMI: Heparin drip, monitor APTT. Nitropaste. Telemetry monitoring. ASA 81 mg PO QD. Lipitor 80 mg PO QD. Plavix 75 mg PO QD. Metoprolol 50 mg PO QD. Plans for cardiac cath tomorrow. Multivessel CAD status post recent stents: Ranexa 500 mg PO BID. ASA, Lipitor, Plavix and Metoprolol as above. Hypertension: Imdur 60 mg PO BID. Lisinopril 20 mg PO QD. CKD: Appears at baseline. Dyslipidemia: Lipitor as above. Diabetes mellitus: ISS. Accuchecks ACHS. Hypoglycemic precautions. Gout: Allopurinol 300 mg PO QD. BPH: Flomax 0.4 mg PO QD. CODE STATUS: FULL CODE DVT Prophylaxis: Heparin drip GI Prophylaxis: Protonix IV Designated medical POA if patient is not able to make medical decisions for themselves: I have reviewed the following talent consultant notes: Cardio note. I have reviewed the results of the following tests: Trop x 2. APTT. Lipid panel. I have ordered the following tests: Coag panel. I have discussed the care of this patient with the following independent historian: Family I have independently interpreted the following test below: I have discussed the management of this patient with the following physician: Objective - Vital Signs Vital signs: Vital Signs Temp 98.2 F 10/21/24 20:30 Pulse 67 10/22/24 12:00 Resp 16 10/22/24 12:00 BP 119/60 10/22/24 12:00 Pulse Ox 96 10/22/24 12:00 FiO2 Intake & Output 10/21/24 10/22/24 10/22/24 18:59 06:59 18:59 Intake Total 150 469.667 Output Total 150 Balance 150 -150 469.667 Weight 95.254 kg 94 kg Intake: Intake, IV Titration 233.667 Amount Heparin Sod,Pork in 0.45% 233.667 NaCl 25,000 unit In 0.45 % NaCl 1 250ml.bag @ 10. 498 UNITS/KG/HR 10 mls/hr IV .Q24H [facility] Rx#: [id number] Oral 150 236 Output: Urine 150 Other: Voiding Method Toilet Toilet Urinal Urinal # Voids 1 1 - Labs CBC & Chem 7: 10/21/24 10:49 10/21/24 10:49 Labs: Abnormal Lab Results - Last 24 Hours (Table) 10/21/24 10/21/24 10/21/24 Range/Units 14:30 18:35 18:35 APTT 59.4 H (22.0-30.0) sec POC Glucose (mg/dL) (70-110) mg/dL Troponin I 0.510 H* 4.230 H* (0.000-0.034) ng/mL 11/10/22/24 10/22/24 Range/Units 20:14 06:05 06:35 APTT 49.3 H (22.0-30.0) sec POC Glucose (mg/dL) 183 H 125 H (70-110) mg/dL Troponin I (0.000-0.034) ng/mL 10/22/24 Range/Units 11:19 APTT (22.0-30.0) sec POC Glucose (mg/dL) 125 H (70-110) mg/dL Troponin I (0.000-0.034) ng/mL
[2024-10-22 16:18] LABS: Glucose,Whole Blood 113 mg/dL (70-110)
[2024-10-22 20:02] LABS: Glucose,Whole Blood 132 mg/dL (70-110)
[2024-10-23 05:55] LABS: Glucose,Whole Blood 118 mg/dL (70-110)
[2024-10-23] MEDS: ATORVASTATIN 80 MG TAB PO ONE (06:40)
[2024-10-23] MEDS: ASPIRIN 325 MG TAB PO ONE (06:40)
[2024-10-23] MEDS: IV FLUID CONTINUATION 1,000 ML IV ONE (07:15)
[2024-10-23] MEDS: fentaNYL (PF) 50 MCG/ML 2 ML AMP IVP ONE (07:28)
[2024-10-23] MEDS: MIDAZOLAM 2 MG/2 ML VIAL IVP ONE (07:28)
[2024-10-23] MEDS: LIDOCAINE 1% INJ 10MG/ML (20 ML MDV) SQ ONE (07:29)
[2024-10-23] MEDS: VERAPAMIL SYRINGE (5 MG/10 ML) INTRAARTER ONE (07:30)
[2024-10-23] MEDS: HEPARIN SODIUM,PORCINE (1 ML) 2,500 UNIT in SODIUM CHLORIDE 0.9% 250 ML IRRIGATION PRN (07:32)
[2024-10-23] MEDS: HEPARIN SODIUM,PORCINE 10,000 UNIT in SODIUM CHLORIDE 0.9% 1,000 ML IRRIGATION PRN (07:32)
[2024-10-23] MEDS: HEPARIN SODIUM 1,000 UN/ML (10ML VL) IV ONE ×2 (07:34→08:44)
[2024-10-23] MEDS: IOPAMIDOL-370 100ML BTL INJ ONE ×2 (08:44→10:23)
[2024-10-23] MEDS: SODIUM CHLORIDE 0.9% 1,000 ML IV ONE (08:44)
[2024-10-23] MEDS: NITROGLYCERIN 1000MCG/10ML SYRINGE INTRACORON ONE (09:12)
--- NOTE | 2024-10-23 09:17 | CC ---
CARDIAC CATHETERIZATION REPORT INDICATION: Acute hip-ZL-[id number] elevation CO. PROCEDURE NOTE: After obtaining informed consent, left heart catheterization and coronary angiogram were performed via the right radial artery using standard Aleks catheters. A size 4 right Aleks and 3.5 left Aleks were used. The patient tolerated the procedure well without any obvious immediate complications. Moderate conscious sedation was given. Total sedation time was 14 minutes. Right radial artery access was obtained using Seldinger technique, 6-Brazilian sheath was placed. Catheters and wires were floated into the ascending aorta under fluoroscopic guidance. The patient received verapamil and heparin per protocol. FINDINGS: 1. HEMODYNAMICS: Left ventricular end-diastolic pressure is 11 mm. There is no significant gradient across the aortic valve. 2. LEFT VENTRICULOGRAM: Left ventriculogram is not performed. 3. ANGIOGRAPHIC DATA: a.Right coronary artery: Right coronary artery is a large codominant vessel that shows diffuse nonobstructive disease with an atherosclerotic plaque in the proximal and distal portions. b.Left main coronary artery is a short vessel and is free of significant stenosis. Divides into left anterior descending coronary artery and circumflex coronary artery. c.Circumflex coronary artery gives off first and second OM branches. The second OM branch has a focal 80% to 90% stenosis. The AV groove circ has a 70% to 80% stenosis. It is a very small caliber vessel distally. It gives off 2 large caliber OM branches. The first OM branch has a focal 80% to 90% stenosis. d.LAD appears significantly calcified and there is a stent in the proximal LAD that appears patent. The mid to distal LAD has a focal area of narrowing that is at its worst seems to be a 90% stenosis. This is a chronic occlusion that the patient has had on his previous catheterization also. CONCLUSION: Three-vessel coronary artery disease as described above with a patent stent within the proximal LAD and severe stenosis in the mid to distal LAD. I am going to review angiographic data with Dr. Looney and see if we can attempt angioplasty of the LAD as the patient continues to have recurrent episodes of chest pain and came in with a non STEMI. MMODL / IJN: [id number] /
[2024-10-23] MEDS: NITROGLYCERIN-D5W PMX 50 MG in DEXTROSE/WATER 1 250ML.BAG IV ONE (10:24)
[2024-10-23] MEDS ORDERED: MAG HYDROX/AL HYDROX/SIMETH 30 ML CUP PO PRN (11:20)
[2024-10-23] MEDS ORDERED: RX INFO: IV CONTRAST WAS GIVEN 1 EACH MISC MISCELLANE PRN (11:20)
[2024-10-23] MEDS ORDERED: ZOLPIDEM 5 MG TAB PO PRN (11:20)
[2024-10-23] MEDS ORDERED: ATROPINE SULFATE 0.1 MG/ML 10ML SYRINGE IV PRN (11:20)
[2024-10-23 11:38] LABS: Glucose,Whole Blood 142 mg/dL (70-110)
--- NOTE | 2024-10-23 12:45 | CA ---
Transthoracic Echo Report Name: Jefferson Scanlon Age: 89 Gender: M : 1935 Exam Date: 10/22/2024 10:47 Exam Location: [facility] Ht (in): 66 Wt (lb): 207 Ordering Physician: Kate Lan Attending/Referring Phys: [id number], Riky Aba Therapist Gabi Torrez RDCS Procedure CPT: Indications: LVF Cardiac Hx: Technical Quality: Fair Contrast 1: Total Dose (mL): Contrast 2: Total Dose (mL): MEASUREMENTS (Male / Female) Normal Values 2D ECHO LV Diastolic Diameter PLAX 4.7 cm 4.2 - 5.9 / 3.9 - 5.3 cm LV Systolic Diameter PLAX 2.1 cm IVS Diastolic Thickness 1.0 cm 0.6 - 1.0 / 0.6 - 0.9 cm LVPW Diastolic Thickness 1.0 cm 0.6 - 1.0 / 0.6 - 0.9 cm LV Relative Wall Thickness 0.4 RV Internal Dim ED PLAX 2.1 cm LVOT Diameter 2.0 cm LA Systolic Diameter LX 4.3 cm 3.0 - 4.0 / 2.7 - 3.8 cm LV Diastolic Volume MOD BP 57.3 cm??? 67 - 155 / 56 - 104 cm??? LV Systolic Volume MOD BP 20.8 cm??? 22 - 58 / 19 - 49 cm??? LV Ejection Fraction MOD BP 63.7 % >= 55 % LV Cardiac Index MOD BP 1011.7 cm???/min???m??? LV Diastolic Volume MOD 4C 64.6 cm??? LV Systolic Volume MOD 4C 23.3 cm??? LV Ejection Fraction MOD 4C 64.0 % LV Cardiac Index MOD 4C 1147.6 cm???/min???m??? LV Diastolic Length 4C 7.8 cm LV Systolic Length 4C 6.6 cm LV Diastolic Volume MOD 2C 46.5 cm??? LV Systolic Volume MOD 2C 18.4 cm??? LV Ejection Fraction MOD 2C 60.5 % LV Cardiac Index MOD 2C 780.9 cm???/min???m??? LV Diastolic Length 2C 7.1 cm LV Systolic Length 2C 6.5 cm LA Volume 66.5 cm??? 18 - 58 / 22 - 52 cm??? LA Volume Index 31.3 cm???/m??? 16 - 28 cm???/m??? M-MODE Aortic Root Diameter MM 2.7 cm LA Systolic Diameter MM 4.2 cm LA Ao Ratio MM 1.5 AV Cusp Separation MM 1.6 cm DOPPLER AV Peak Velocity 255.5 cm/s AV Peak Gradient 26.1 mmHg AV Mean Velocity 179.5 cm/s AV Mean Gradient 14.7 mmHg AV Velocity Time Integral 51.2 cm AI Peak Velocity 374.8 cm/s AI Peak Gradient 56.2 mmHg AI Pressure Half Time 620.7 ms LVOT Peak Velocity 115.0 cm/s LVOT Peak Gradient 5.3 mmHg LVOT Velocity Time Integral 30.6 cm LVOT Stroke Volume 93.9 cm??? LVOT Stroke Volume Index 46.3 ml/m??? LVOT Cardiac Index 2605.4 cm???/min???m??? AV Area Cont Eq vti 1.8 cm??? AV Area Cont Eq pk 1.4 cm??? MV Area PHT 2.3 cm??? Mitral E Point Velocity 53.1 cm/s Mitral A Point Velocity 101.9 cm/s Mitral E to A Ratio 0.5 MV Deceleration Time 326.0 ms TR Peak Velocity 224.0 cm/s TR Peak Gradient 20.1 mmHg Right Ventricular Systolic Press 24.4 mmHg FINDINGS Left Ventricle Left ventricular ejection fraction is estimated at 55-60 %. Normal left ventricular wall motion. Left ventricular cavity size normal. No obvious regional wall motion abnormalities. Right Ventricle . Right ventricular systolic pressure within normal limits.normal right ventricular size. Right Atrium Mild right atrial dilatation. Left Atrium Mildly increased left atrial diameter. Mildly increased left atrial volume. Mitral Valve Structurally normal mitral valve. Mild mitral regurgitation. No mitral stenosis. Aortic Valve Trileaflet aortic valve. Mild aortic stenosis with a peak gradient of 26 mmHg and a mean gradient of 15 mmHg. Moderate aortic regurgitation. Tricuspid Valve Structurally normal tricuspid valve. Mild tricuspid regurgitation. No tricuspid stenosis. Pulmonic Valve Structurally normal pulmonic valve. Trace pulmonic regurgitation. No pulmonic stenosis. Pericardium No pericardial or pleural effusion. Aorta Normal size aortic root and proximal ascending aorta. CONCLUSIONS LVEF 55 to 60% No obvious regional wall motion abnormality Mild biatrial dilatation Mild aortic stenosis, mean gradient 15 mmHg, moderate aortic regurgitation trileaflet calcific aortic valve Previewed by: Dr Glen Buck (Electronically Signed) Final Date: 23 October 2024 12:44
--- NOTE | 2024-10-23 15:35 | P.PN ---
Subjective Progress Note Date: 10/23/24 89-year-old male with history of CAD with recent stents, hypertension, dyslipidemia, provoked PE, BPH, diabetes presenting for chest pain. Described as chest heaviness across the top of the chest that started at 830 AM. Took nitro SL which helped but chest pain returned after breakfast which prompted this admission. Recent cardiac cath done in April showing 35% lesion distal to the stented RCA, circumflex diffuse disease, moderate disease in distal second brach, LAD distally with subtotal occlusion unchanged with widely patent proximal and mid area.No diaphoresis, lightheadedness, palpitations or shortness of breath. In the ED he underwent extensive evaluation. BP 171/83, HR 77, T 98,7F, RR 18, 99% on RA. CBC, Coag panel, CMP significant for Plt 149, BUN 23, Cr 1.28, glu 144. Trop 0.036. Mag 1.8. EKG sinus rhythm with Q waves in V1 V2. CXR no acute pathology. Patient admitted for NSTEMI and started on heparin infusion. 10/22 Patient was seen and examined. Maintained on heparin drip. Troponin 0.51, 4.23. APTT 49.3. Lipid panel LDL 23.4. Cardiology plans on cardiac cath tomorrow. 10/23 Patient was seen and examined. Denies chest pain. Underwent cardiac cath and intervention with Cardiology today, report pending. General: Nontoxic, no distress, appears at stated age Derm: Warm, dry Head: Atraumatic, normocephalic, symmetric Eyes: EOMI, no lid lag, anicteric sclera Mouth: No lip lesion, mucus membranes moist Cardiovascular: S1S2 reg, no murmur Lungs: CTA bilateral, no rhonchi, no rales, no accessory muscle use Ext: No gross muscle atrophy, no edema, no contractures Neuro: no focal neuro deficits Psych: Alert, oriented, appropriate affect Based on my assessment of this patient, this patient meets a high complexity level of care. NSTEMI: Telemetry monitoring. ASA 81 mg PO QD. Lipitor 80 mg PO QD. Plavix 75 mg PO QD. Metoprolol 50 mg PO QD. Status post cardiac cath with intervention, report pending. Multivessel CAD status post recent stents: Ranexa 500 mg PO BID. ASA, Lipitor, Plavix and Metoprolol as above. Hypertension: Imdur 60 mg PO BID. Lisinopril 20 mg PO QD. CKD: Appears at baseline. Dyslipidemia: Lipitor as above. Diabetes mellitus: ISS. Accuchecks ACHS. Hypoglycemic precautions. Gout: Allopurinol 300 mg PO QD. BPH: Flomax 0.4 mg PO QD. CODE STATUS: FULL CODE DVT Prophylaxis: Heparin drip GI Prophylaxis: Protonix IV Designated medical POA if patient is not able to make medical decisions for themselves: I have reviewed the following regulatory affairs consultant notes: Cardio note. I have reviewed the results of the following tests: I have ordered the following tests: BMP, CBC in the AM. I have discussed the care of this patient with the following independent historian: Family I have independently interpreted the following test below: I have discussed the management of this patient with the following physician: Objective - Vital Signs Vital signs: Vital Signs Temp 97.6 F 10/23/24 11:20 Pulse 62 10/23/24 14:45 Resp 16 10/23/24 14:45 BP 116/54 10/23/24 14:45 Pulse Ox 97 10/23/24 14:45 FiO2 Intake & Output 10/22/24 10/23/24 10/23/24 18:59 06:59 18:59 Intake Total 665.252 0395 Balance 285.806 8529 Weight 94 kg Intake: IV 1350 Intake, IV Titration 233.667 Amount Heparin Sod,Pork in 0.45% 233.667 NaCl 25,000 unit In 0.45 % NaCl 1 250ml.bag @ 10. 498 UNITS/KG/HR 10 mls/hr IV .Q24H [facility] Rx#: [id number] Oral 354 Other: Voiding Method Toilet Toilet Toilet Urinal Urinal Urinal # Voids 1 2 - Labs CBC & Chem 7: 10/21/24 10:49 10/21/24 10:49 Labs: Abnormal Lab Results - Last 24 Hours (Table) 10/22/24 10/22/24 10/23/24 Range/Units 16:16 20:00 05:54 POC Glucose (mg/dL) 113 H 132 H 118 H (70-110) mg/dL 10/23/24 Range/Units 11:36 POC Glucose (mg/dL) 142 H (70-110) mg/dL
[2024-10-23 16:35] LABS: Glucose,Whole Blood 107 mg/dL (70-110)
[2024-10-23 20:19] LABS: Glucose,Whole Blood 122 mg/dL (70-110)
--- NOTE | 2024-10-23 21:13 | P.PRCINT ---
Percutaneous Coronary Int. - Percutaneous Coronary Intervention Percutaneous Coronary Intervention: PROCEDURES PERFORMED: Left coronary angiography, ultrasound guided arterial access, PCI mid LAD with overlapping 2.5 x 12mm and 2.25 x 12mm Xience LIAM INDICATION: NSTEMI CONSENT:I have discussed the risks, benefits and alternative therapies for the above-mentioned procedure and for both sedation/analgesia as well as necessary blood product administration, if indicated, as they pertain to this patient. The patient has indicated understanding and acceptance of the risks and procedures discussed. PROCEDURE: After the risks, benefits and alternatives of the above mentioned procedure explained in detail with the patient, informed consent was obtained. Patient was taken to the catheterization lab and prepped and draped in usual fashion. diagnostic imaging was performed through the right radial approach. There did not appear to be progression of any other disease other than patient's subtotal occlusion of the mid LAD. Given this was felt to be the cause of his non-STEMI, decision was made to perform angioplasty. Given extreme calcification, angulation of lesion 8-Algerian femoral approach was recommended. Ultrasound guidance was used to assess for arterial access. 1% lidocaine was used to anesthetize the right femoral artery. A 8-Algerian sheath was placed in the right femoral artery using modified Seldinger technique and ultrasound guidance. the decision was made to perform PCI of the mid LAD. An 8-Algerian EBU 3.75 guide was easily engage the left main. A 0.014 whisper wire in a Corsair microcatheter with a guidewire was used however unable to cross the lesion. Next a fuel pilot engineer 200 0.014 wire was used and able to cross the lesion and wire easily moving inside the distal LAD appearing to be intimal. Unable to advance the microcatheter more distally past the lesion. With the help of the guideliner however able to pass a 1.0 sapphire balloon. Balloon angioplasty was performed with a 1.0 and then a 1.5 and 2.0 balloon. with balloon angioplasty of the 2.0 balloon however there was extravasation and what appeared to be intramural hematoma. This was controlled with ballooning tamponade the artery. Additional wire access was obatined with a 0.014 [employer] 12 wire. The wire appeared intimal with free movement of the wire distally and therefore felt that may have good ability to stent the lesion however increased risk of aggressive ballooning for worsening of hematoma which appeared to have improved on angiography and inability to advance IVUS. Therefore a 2.25 x 12mm Xience LIAM distally and a 2.5 x 12mm Xience more proximally were placed. Final angiograms were performed which showed distal dissection. Patient had chest pain with prior angioplasty and hematoma however this had improved after stenting and patient was chest pain free. Given patient stable with increased risk of further aggressive stenting, procedure was stopped. Final angiograms were performed. Pre intervention there was 99% stenosis with ED 2 flow and post intervention there was <10% stenosis at the lesion with other residual distal dissection and ED 2 flow. The right radial sheath was removed and a TR band was placed with hemostasis achieved. An 8Fr Angioseal was placed with hemostasis achieved. The patient tolerated the procedure well and was chest pain free. Patient was transported back to the post catheterization holding area in stable condition. Conscious Sedation: Patient was monitored under the direct supervision of myself for conscious sedation using Versed and fentanyl for a total duration of 112 minutes HEMODYNAMICS: Ao: 144/71 SELECTIVE CORONARY ARTERIOGRAPHY: LEFT MAIN: The left main is a large caliber vessel which bifurcates into the LAD and circumflex. There is 30-40% left main stenosis. LEFT ANTERIOR DESCENDING CORONARY ARTERY: LAD is a large caliber vessel which wraps around to the apex. There is diffuse proximal to mid LAD 30-50% calcified stenosis and prior proximal LAD stents. There is mid LAD 99% stenosis with acute angulation. LEFT CIRCUMFLEX CORONARY ARTERY: Left circumflex is a moderate caliber vessel with diffuse 50-60% stenosis. RIGHT CORONARY ARTERY: The right coronary artery was not imaged. FINAL IMPRESSION: 1. CAD as described above with 99% mid LAD stenosis, proximal LAD 30-50% stenosis and circumflex 50-60% stenosis 2. S/p PCI mid LAD with overlapping 2.5 x 12mm and 2.25 x 12mm Xience LIAM with complication of intramural hematoma PLAN: 1. Aggressive risk factor modification per most recent ACC/AHA guidelines. 2. Continue aspirin and Plavix for 12 months
[2024-10-24 08:52] VITALS: RESP 17
[2024-10-24 09:44] LABS: Basophils # (A) 0.1 k/uL (0-0.2); Basophils % (A) 1 %; Eosinophils # (A) 0.5 k/uL (0-0.7); Eosinophils % (A) 5 %; HCT 35.1 % (39.0-53.0); HGB 11.6 gm/dL (13.0-17.5); Lymphocytes # (A) 1.6 k/uL (1.0-4.8); Lymphocytes % (A) 15 %; MCH 31.6 pg (25.0-35.0); MCV 95.9 fL (80.0-100.0); Monocytes # (A) 0.6 k/uL (0-1.0); Monocytes % (A) 6 %; Neutrophils # (A) 7.8 k/uL (1.3-7.7); Neutrophils % (A) 74 %; Platelet Count 135 k/uL (150-450); RBC 3.66 m/uL (4.30-5.90); RDW 13.6 % (11.5-15.5); WBC 10.6 k/uL (3.8-10.6)
[2024-10-24 10:16] LABS: African American GFR (CKD) 61 (>60 ml/min/1.73 sqM); Anion Gap 10 mmol/L; Blood Urea Nitrogen 21 mg/dL (9-20); Calcium 8.1 mg/dL (8.4-10.2); Carbon Dioxide 19 mmol/L (22-30); Chloride 110 mmol/L (98-107); Glucose 193 mg/dL (74-99); Non-African American GFR(CKD) 53 (>60 ml/min/1.73 sqM); Potassium 3.9 mmol/L (3.5-5.1); Sodium 139 mmol/L (137-145)
--- NOTE | 2024-10-24 12:38 | P.DS ---
Providers Date of admission: 10/21/24 12:39 Expected date of discharge: 10/24/24 Attending physician: Zeina Santacruz MD Consults: 10/21/24 12:32 Consult Physician Urgent Consulting Provider: Glen Buck Consult Reason/Comments: NSTEMI Do you want consulting provider notified?: Yes 10/23/24 11:20 Consult Physician Routine Consulting Provider: [facility] Consult Reason/Comments: Post Interventional Patient Do you want consulting provider notified?: Already Contacted Primary care physician: [facility] Course: 89-year-old male with history of CAD with recent stents, hypertension, dyslipidemia, provoked PE, BPH, diabetes presenting for chest pain. Described as chest heaviness across the top of the chest that started at 830 AM. Took nitro SL which helped but chest pain returned after breakfast which prompted this admission. Recent cardiac cath done in April showing 35% lesion distal to the stented RCA, circumflex diffuse disease, moderate disease in distal second brach, LAD distally with subtotal occlusion unchanged with widely patent proximal and mid area.No diaphoresis, lightheadedness, palpitations or shortness of breath. In the ED he underwent extensive evaluation. BP 171/83, HR 77, T 98,7F, RR 18, 99% on RA. CBC, Coag panel, CMP significant for Plt 149, BUN 23, Cr 1.28, glu 144. Trop 0.036. Mag 1.8. EKG sinus rhythm with Q waves in V1 V2. CXR no acute pathology. Patient admitted for NSTEMI and started on heparin infusion. Underwent cardiac cath with 99% mid LAD stenosis, proximal LAD 30-50% stenosis and circumflex 50-60% stenosis, s/p PCI mid LAD with overlapping 2.5 x 12mm and 2.25 x 12mm Xience LIAM with complication of intramural hematoma. 10/24 Patient was seen and examined. No chest pain. CBC and BMP significant for RBC 3.66, Hg 11.6, Hct 35.1, Plt 135, Cl 110, bicarb 19, BUN 21, glu 193, Ca 8.1. Discussed with Dr. Buck, cleared for discharge. Discharge Plans: Follow up with PCP within 1-[address] Looney within 1 week of discharge. Resume home medications including Plavix and ASA. General: Nontoxic, no distress, appears at stated age Derm: Warm, dry Head: Atraumatic, normocephalic, symmetric Eyes: EOMI, no lid lag, anicteric sclera Mouth: No lip lesion, mucus membranes moist Cardiovascular: S1S2 reg, no murmur Lungs: CTA bilateral, no rhonchi, no rales, no accessory muscle use Ext: No gross muscle atrophy, no edema, no contractures Neuro: no focal neuro deficits Psych: Alert, oriented, appropriate affect Discharge Diagnosis: NSTEMI Multivessel CAD status post recent stents Hypertension CKD stage IIIb Dyslipidemia Diabetes mellitus Gout BPH This complex discharge took 35 minutes to complete. Patient Condition at Discharge: Stable Plan - Discharge Summary Discharge Rx Participant: No New Discharge Prescriptions: Continue metFORMIN HCL [Glucophage] 500 mg PO DAILY allopurinoL [Zyloprim] 300 mg PO DAILY Vitamin B Complex 1 cap PO HS Multivitamin [Men's Multi-Vitamin] 1 tab PO DAILY Tamsulosin HCl [Flomax] 0.4 mg PO HS lisinopriL [Zestril] 20 mg PO DAILY cycloSPORINE 0.05% OPHTH SOLN [Restasis] 1 drop BOTH EYES BID Nitroglycerin 0.4 mg SL Q5M PRN PRN Reason: Chest Pain Isosorbide Mononitrate ER [Imdur] 60 mg PO BID Metoprolol Succinate (ER) [Toprol XL] 50 mg PO HS Ranolazine [Ranexa] 500 mg PO BID Clopidogrel [Plavix] 75 mg PO DAILY 90 Days #90 tab Turmeric(Unknown Dose) 1 tab PO HS Vitamin D3(Unknown Dose) 1 tab PO DAILY Aspirin 81 mg PO HS Atorvastatin [Lipitor] 80 mg PO DAILY Discharge Medication List Multivitamin [Men's Multi-Vitamin] 1 tab PO DAILY 08/10/15 [History] Vitamin B Complex 1 cap PO HS 08/10/15 [History] allopurinoL [Zyloprim] 300 mg PO DAILY 08/10/15 [History] metFORMIN HCL [Glucophage] 500 mg PO DAILY 08/10/15 [History] Tamsulosin HCl [Flomax] 0.4 mg PO HS 01/07/19 [History] lisinopriL [Zestril] 20 mg PO DAILY 11/19/22 [History] Nitroglycerin 0.4 mg SL Q5M PRN 12/29/23 [History] cycloSPORINE 0.05% OPHTH SOLN [Restasis] 1 drop BOTH EYES BID 12/29/23 [History] Clopidogrel [Plavix] 75 mg PO DAILY 90 Days #90 tab 02/26/24 [Rx] Aspirin 81 mg PO HS 10/21/24 [History] Atorvastatin [Lipitor] 80 mg PO DAILY 10/21/24 [History] Isosorbide Mononitrate ER [Imdur] 60 mg PO BID 10/21/24 [History] Metoprolol Succinate (ER) [Toprol XL] 50 mg PO HS 10/21/24 [History] Ranolazine [Ranexa] 500 mg PO BID 10/21/24 [History] Turmeric(Unknown Dose) 1 tab PO HS 10/21/24 [History] Vitamin D3(Unknown Dose) 1 tab PO DAILY 10/21/24 [History] Follow up Appointment(s)/Referral(s): Juvenal Roca MD [Primary Care Provider] - 1-2 days Kayden Looney DO [STAFF PHYSICIAN] - 1 Week Discharge Disposition: HOME SELF-CARE
[2024-10-24 14:39] VITALS: BP 118/66; PULSE 64; TEMP 97.5
== END 2024-10-24 14:31 | disposition home or self-care (01) | DRG 321 ==
LOC: EC 10:43 → 3SCARD 12:39
PROVIDERS: ADMIT Family Medicine; ATTEND Family Medicine
PROC: 4A023N7 Measurement of Cardiac Sampling and Pressure, Left Heart, Percutaneous Approach (ICD-10-PCS; 2024-10-23)
PROC: B2111ZZ Fluoroscopy of Multiple Coronary Arteries using Low Osmolar Contrast (ICD-10-PCS; 2024-10-23)
PROC: 027034Z Dilation of Coronary Artery, One Artery with Drug-eluting Intraluminal Device, Percutaneous Approach (ICD-10-PCS; principal; 2024-10-23 09:00)
PROC: B2111ZZ Fluoroscopy of Multiple Coronary Arteries using Low Osmolar Contrast (ICD-10-PCS; 2024-10-23 09:00)
DX: I21.4 Non-ST elevation (NSTEMI) myocardial infarction (principal); J18.9 Pneumonia, unspecified organism; N17.9 Acute kidney failure, unspecified; Z59.00 Homelessness unspecified; E11.22 Type 2 diabetes mellitus with diabetic chronic kidney disease; I12.9 Hypertensive chronic kidney disease with stage 1 through stage 4 chronic kidney disease, or unspecified chronic kidney disease; E78.5 Hyperlipidemia, unspecified; M10.9 Gout, unspecified; N40.0 Benign prostatic hyperplasia without lower urinary tract symptoms; I25.10 Atherosclerotic heart disease of native coronary artery without angina pectoris; Z95.5 Presence of coronary angioplasty implant and graft; Z86.711 Personal history of pulmonary embolism; H26.9 Unspecified cataract; M19.90 Unspecified osteoarthritis, unspecified site; I08.3 Combined rheumatic disorders of mitral, aortic and tricuspid valves; Z79.899 Other long term (current) drug therapy; I25.2 Old myocardial infarction; K21.9 Gastro-esophageal reflux disease without esophagitis; N18.32 Chronic kidney disease, stage 3b; Z79.02 Long term (current) use of antithrombotics/antiplatelets; Z79.82 Long term (current) use of aspirin; Z79.84 Long term (current) use of oral hypoglycemic drugs; Z86.16 Personal history of COVID-19; Z86.73 Personal history of transient ischemic attack (TIA), and cerebral infarction without residual deficits; Z90.49 Acquired absence of other specified parts of digestive tract; Z98.42 Cataract extraction status, left eye
CPT/HCPCS: 36415; 71046; 80048; 80053; 80061; 83735; 84484; 85025; 85610; 85730; 93005; 93306; 93458; 94760; 96365; 96366; 99291

== ENCOUNTER → 2024-12-08 | Outpatient (CLI) | payer MEDICARE ==
--- NOTE | 2024-12-08 16:43 | MR ---
EXAMINATION TYPE: MR angio head wo/neck wo/w con DATE OF EXAM: 12/08/2024 2:24 PM COMPARISON: 04/01/2024. CLINICAL INDICATION: Male, 89 years old with history of I67.9 CEREBROVASCULAR DISEASE I65.23 STENOSIS ; PHH, Dizziness, CVA, history of carotid occlusion disease Technical: MRA brain: 2D and 3-D [id number] Axial with MIP and 3-D reconstruction. Performed on a separate w orkstation. MRA neck: Multiplanar, multi-sequence imaging as well as [id number] and phase was performed extra cranial vasculature of the neck. 3-D reformatted images and maximum intensity projection reformatted images were submitted for evaluation, these are performed on a separate workstation. IV Contrast: 9 cc Gadobutrol Findings: Vertebral arteries: The vertebral arteries are patent. Vertebral arteries are: Codominant. Basilar artery: The basilar artery is intact. The basilar artery bifurcation is normal. Internal Carotid arteries: Filling defect within the right petrous portion of the internal carotid ar ramiro series 201 image 64. No filling defects seen within the left artery. This may have been present on prior 04/01/2024. The cervical, cavernous and supraclinoid segments are normal. ANA ROSA: Dominant left and smaller caliber right. Patent with no evidence of aneurysm. ACOM: Present without evidence of aneurysm. MCA: Patent with no evidence of aneurysm. PAINTLESS DENT REPAIR TECHNICIAN: origin of the right, normal left. Patent with no evidence of aneurysm. PCOM: Hypoplastic bilaterally. RIGHT CAROTID SYSTEM: The common carotid artery is patent. The carotid bifurcations demonstrates athe rosclerotic plaque with up tor 50% stenosis.. The internal carotid artery is patent. LEFT CAROTID SYSTEM: The common carotid artery is patent. The carotid bifurcations demonstrates athe rosclerotic plaque with up tor 40 % stenosis.. The internal carotid artery is patent. The origins of the great vessels and vertebral arteries appear unremarkable. Vertebral arteries are c odominant. Mild paranasal sinus disease. IMPRESSION: 1. No evidence of intracranial aneurysm or significant stenosis. 2. There is a filling defect within the right internal carotid artery intracranial portion/petrous portion suggesting thrombus versus flow artifact/slice selection. Consider confirmation with CT imagi ng. Possibly present on prior MRI 04/01/2024 3. Bilateral carotid bifurcation atherosclerotic plaque with up to 50% stenosis on the right and 40% stenosis on the left. No evidence aneurysm. [facility], , 12/08/2024 4:41 PM
== END | disposition home or self-care (01) ==
LOC: RADMRIMAIN 13:26
PROVIDERS: ATTEND Psychiatry & Neurology Neurology
DX: I67.9 Cerebrovascular disease, unspecified (principal); I65.23 Occlusion and stenosis of bilateral carotid arteries; I70.90 Unspecified atherosclerosis; Z86.73 Personal history of transient ischemic attack (TIA), and cerebral infarction without residual deficits
CPT/HCPCS: 70544; 70549; A9585

== ENCOUNTER → 2024-12-08 | Outpatient (CLI) | payer MEDICARE ==
[2024-12-08 19:16] LABS: Protein, Total 6.4 g/dL (6.2-8.2)
[2024-12-11 14:50] LABS: Albumin 3.79 g/dL (3.80-4.90); Gamma Globulin 0.88 g/dL (0.70-1.50)
== END | disposition home or self-care (01) ==
LOC: LABWHC1 14:49
PROVIDERS: ATTEND Psychiatry & Neurology Neurology
DX: G62.9 Polyneuropathy, unspecified (principal); R20.0 Anesthesia of skin
CPT/HCPCS: 36415; 82607; 82747; 84165; 84207; 86334

== ENCOUNTER → 2025-01-27 | Outpatient (CLI) | payer MEDICARE ==
[2025-01-27 10:50] LABS: ALT 21 U/L (10-49); AST 17 U/L (14-35); Chol/HDL Ratio 1.94 Ratio; LDL Cholesterol,Calculated 25.5 mg/dL (0.0-131.0); VLDL Calculation 14.22 mg/dL (5.00-40.00)
== END | disposition home or self-care (01) ==
LOC: LABWHC1 07:20
PROVIDERS: ATTEND Internal Medicine Cardiovascular Disease
DX: E78.2 Mixed hyperlipidemia (principal)
CPT/HCPCS: 36415; 80061; 84450; 84460